=== PATIENT | male | born 1960 | race Caucasian/White ===

== ENCOUNTER 2023-07-17 18:34 | Inpatient (IN) | payer OTHER, SELFPAY ==
[2023-07-17] VITALS (15 sets, daily range): BP systolic 94–118; BP diastolic 63–78; BMI 33.2
--- NOTE | 2023-07-17 09:30 | ED.GENMED ---
History of Present Illness
<Kiki Miramontes PA-C - Last Filed: 07/17/23 18:32>
General
Chief Complaint: Abdominal Pain
Source: patient and ambulance crew
Exam Limitations: clinical condition
Time Seen by Provider: 07/17/23 09:07
Nursing documentation reviewed up to this point in time: agreed with
Travel History
Have you had any contact with someone who has COVID-19?: No
Do you have any symptoms of coronavirus? Fever > 100 degrees, chills, cough, shortness of breath, sore throat, loss of taste or smell, muscle aches, or headache?: No
History of Present Illness
History of Present Illness:
63-year-old male with a remote history of a subdural from trauma status post a shunt no longer in place, psoriasis which is his only treated medical problems
Comes from home via EMS after a fall today where he was on the ground for 1 hour approximately before EMS was called. Patient lives with his spouse. He says that he has had multiple falls over the last couple of weeks because he gets very dizzy
when he changes position.
It is unclear whether the patient goes for routine annual medical care but he did see a family doctor about 3 or 4 weeks ago. It is unclear why he went, at first he said he went for a checkup and then he said he went for a blood test for his
thyroid. Does not sound like the patient had any swelling to his legs or abdomen at the time. He says over the last several weeks he has noticed abdominal distention becoming significant with discomfort, as well as swelling in both of his legs.
He is not feeling overly short of breath and does not have chest pain, fever, vomiting, trouble urinating. Patient says that he is able to tolerate liquids but he feels that they 'go right through me.' Patient says his stools have been dark brown.
He does drink wine, several bottles a week. He will not feel symptoms of alcohol withdrawal if he does not have alcohol.
It is unclear if he struck his head today. Patient says that most of his pain is on his right flank which is 8 out of 10 and worse with movement.
He has no history of GI bleed in the past.
Patient says he does not know of any diagnosis of cirrhosis.
Past History
<Kiki Miramontes PA-C - Last Filed: 07/17/23 18:32>
Past History
ED Past Medical History: Other (Migraine, subdural hematoma)
ED Past Surgical History: Brain (Ventriculostomy)
Social History
Tobacco: Smoker
Alcohol: Daily
Drug: None
Personal:
Living: with family
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
Review of Systems
<Kiki Miramontes PA-C - Last Filed: 07/17/23 18:32>
Review of Systems
Allergies reviewed?: Yes
All Other Systems: Not applicable
Phy Exam
<Kiki iMramontes PA-C - Last Filed: 07/17/23 18:32>
Physical Exam
Physical Exam:
GENERAL: Alert , in no apparent distress pale
HEAD: NCAT
NECK: no midline tenderness, active ROM intact, no paraspinal muscle tenderness;
EYE: pupils equal and reactive, EOMs intact. Pale conjunctive a
ENT: o/p clr, mmm. no hemotympanum
CARDIAC: Regular rate and rhythm, anasarca, bilateral lower extremities moderately edematous, mottled
LUNGS: Clear breath sounds bilaterally, no acute respiratory distress, no wheezes/rales/rhonchi
ABDOMEN: Severely distended secondary to ascites, tender to the right flank with ecchymosis
No erythema, no rigidity
Rectal is heme positive dark brown stool
NEUROLOGICAL: Alert and oriented, sometimes has a delay in answering questions, no obvious asterixis no focal neuro deficits, CN intact, 5/5 strength, sensation intact
SKIN: Warm and dry,
MUSCULOSKELETAL: Mottled, old bruises, edematous
PSYCH: Normal and appropriate interaction.
Course
<Kiki Miramontes PA-C - Last Filed: 07/17/23 18:32>
Orders/Labs/Results
Orders:
Orders
07/17/23 09:14
EKG [Electrocardiogram (*1)] Urgent
Reason for Study: Abdominal Pain
07/17/23 09:15
EKG- Treatment ONCE
07/17/23 09:25
CT Cervical Spine W/o Iv Contr Urgent
Comment:
Reason For Exam: falls
CT Head W/o Iv Contrast Urgent
Comment:
Reason For Exam: falls, alcoholis
07/17/23 09:27
Thiamine Injection 100 mg IV NOW STA
07/17/23 09:28
HYDROmorphone [Dilaudid] 0.25 mg IV NOW STA
07/17/23 09:30
Pantoprazole 200 mg/250 ml Nss [Protonix] 200 mg in 250 ml IV Q25H
07/17/23 09:39
0.9% Sodium Chloride [Nss (Preservative Free)] 20 ml IV NOW STA
Pantoprazole [Protonix IV] 80 mg IV NOW STA
07/17/23 09:56
Type+Screen Urgent
Alcohol Urgent
Ammonia Urgent
CMP [Comprehensive Metabolic Panel] Urgent
CPK [Creatine Phosphokinase] Urgent
Complete Blood Count/With Diff Urgent
Hepatitis A Antibody, Total Urgent
Comment: ADD ON
Hepatitis B Surface Antibody Urgent
Comment: ADD ON
Hepatitis B Surface Antigen Urgent
Comment: ADD ON
Hepatitis C Antibody Urgent
Comment: ADD ON
Lipase Urgent
PTT Urgent
Prothrombin Time Urgent
Blood Culture Q30M
INDIGO Source: Blood/Venous
Specimen Description:
07/17/23 09:58
Lactic Acid Urgent
NT-proBNP Urgent
Blood Culture Q30M
INDIGO Source: Blood/Venous
Specimen Description:
07/17/23 10:42
Bladder Scan- Treatment ONCE
07/17/23 10:44
CT Chest/abd/pel Wo Iv Cont Urgent
Reason For Exam: trauma, acute renal failure
CefTRIAXone [Rocephin] 2,000 mg IV NOW STA
07/17/23 10:50
Gao Placement- Treatment ONCE
Reason for insertion: Acute Retention
07/17/23 10:52
Sterile Water [Sterile Water For Injection] 20 ml .ROUTE .[facility]
07/17/23 11:18
HYDROmorphone [Dilaudid] 0.5 mg IV NOW STA
07/17/23 13:38
MetroNIDAZOLE 500 MG/100 ML [Flagyl 500 mg] 100 ml IV NOW
07/17/23 14:23
0.9% Sodium Chloride 500 ml [Nss] 500 ml IV BOLUS
07/17/23 14:58
Urinalysis Reflex To Culture Urgent
Date Specimen was Collected: 07/17/23
Time Specimen was Collected: 15:35
07/17/23 15:08
Add On- LAB Urgent
Tests Added?: hepatitis panel
07/17/23 15:10
Add On- LAB Urgent
Tests Added?: alcohol
07/17/23 16:48
Urine Drug Abuse Screen Urgent
Portal Veins & Hepatic Veins US [US Abd W Abd Doppler] Urgent
Comment:
Reason For Exam: cirrhosis, ascites
07/17/23 17:08
Lactic Acid Urgent
07/17/23 17:57
Admit/Transfer Patient As Directed
Co-Sign Provider:
Level of Care: Inpatient admission
Assign to:: ICU
Physician / Group: esteban
Diagnosis: cirrhosis
Reason for Hospitalization: cirrhosis
Expected length of stay greater than two midnights?: Yes
ELOS- Estimated Length of Stay in days: 2
I certify the patient meets the requirements for IP care: Yes
Code Status As Directed
Resuscitation Status: Full Code
07/17/23 18:10
Sodium Bicarbonate 50 meq IV NOW STA
07/17/23 18:11
GASTROINTESTINAL CONSULT Routine
Consulting Provider: Madhu Recio
Was physician already notified: Yes
SURGICAL CONSULT Routine
Consulting Provider: Colt Lynch
Was physician already notified: Yes
Abnormal Lab Results
07/17/23 07/17/23
09:56 09:58
WBC 19.3 H 10^3/uL
(4.8-10.8)
RBC 2.55 L 10^6/uL
(4.70-6.10)
Hgb 10.6 L g/dL
(13.0-18.0)
Hct 29.3 L %
(39.0-52.0)
MCV 114.9 H fL
(80.0-94.0)
MCH 41.6 H pg
(27.0-31.0)
Abs Immat Gran (auto) 0.2 H 10^3/uL
(0-0.05)
Absolute Neuts (auto) 16.0 H 10^3/uL
(1.4-6.5)
Absolute Monos (auto) 1.7 H 10^3/uL
(0.1-0.6)
Immature Gran % 0.8 H %
(0-0.5)
Neutrophils % 83.0 H %
(42.2-75.2)
Lymphocytes % 7.3 L %
(20.5-51.1)
PT 26.1 H Sec
(11.4-14.6)
APTT 37.8 H Sec
(23.4-35.0)
Carbon Dioxide 18 L mmol/L
(22-30)
BUN 61 H mg/dl
(9-20)
Creatinine 4.5 H* mg/dL
(0.7-1.3)
Lactic Acid 3.5 H mmol/L
(0.7-2.0)
Total Bilirubin 2.6 H mg/dl
(0.2-1.3)
AST 164 H U/L
(17-59)
ALT 64 H U/L
(0-50)
Creatine Kinase 209 H U/L
(55-170)
Total Protein 5.8 L g/dl
(6.3-8.2)
Albumin 2.5 L g/dl
(3.5-5.0)
07/17/23 09:56
07/17/23 09:56
Vital Signs
Initial and Last Documented VS:
Initial Vital Signs
Pulse Resp BP
102 23 115/74
07/17/23 09:12 07/17/23 09:12 07/17/23 09:12
Last Documented Vital Signs
Temp Pulse Resp BP Pulse Ox
97.7 F 100 17 103/71 96
07/17/23 09:17 07/17/23 18:00 07/17/23 18:00 07/17/23 18:00 07/17/23 18:00
jessie;Zachary Hsu DO - Last Filed: 07/17/23 14:09>
Orders/Labs/Results
Orders:
Orders
07/17/23 09:14
EKG [Electrocardiogram (*1)] Urgent
Reason for Study: Abdominal Pain
07/17/23 09:15
EKG- Treatment ONCE
07/17/23 09:25
CT Cervical Spine W/o Iv Contr Urgent
Comment:
Reason For Exam: falls
CT Head W/o Iv Contrast Urgent
Comment:
Reason For Exam: falls, alcoholis
07/17/23 09:27
Thiamine Injection 100 mg IV NOW STA
07/17/23 09:28
HYDROmorphone [Dilaudid] 0.25 mg IV NOW STA
07/17/23 09:30
Pantoprazole 200 mg/250 ml Nss [Protonix] 200 mg in 250 ml IV Q25H
07/17/23 09:39
0.9% Sodium Chloride [Nss (Preservative Free)] 20 ml IV NOW STA
Pantoprazole [Protonix IV] 80 mg IV NOW STA
07/17/23 09:56
Type+Screen Urgent
Alcohol Urgent
Ammonia Urgent
CMP [Comprehensive Metabolic Panel] Urgent
CPK [Creatine Phosphokinase] Urgent
Complete Blood Count/With Diff Urgent
Hepatitis A Antibody, Total Urgent
Comment: ADD ON
Hepatitis B Surface Antibody Urgent
Comment: ADD ON
Hepatitis B Surface Antigen Urgent
Comment: ADD ON
Hepatitis C Antibody Urgent
Comment: ADD ON
Lipase Urgent
PTT Urgent
Prothrombin Time Urgent
Blood Culture Q30M
INDIGO Source: Blood/Venous
Specimen Description:
07/17/23 09:58
Lactic Acid Urgent
NT-proBNP Urgent
Blood Culture Q30M
INDIGO Source: Blood/Venous
Specimen Description:
07/17/23 10:42
Bladder Scan- Treatment ONCE
07/17/23 10:44
CT Chest/abd/pel Wo Iv Cont Urgent
Reason For Exam: trauma, acute renal failure
CefTRIAXone [Rocephin] 2,000 mg IV NOW STA
07/17/23 10:50
Gao Placement- Treatment ONCE
Reason for insertion: Acute Retention
07/17/23 10:52
Sterile Water [Sterile Water For Injection] 20 ml .ROUTE .[facility]
07/17/23 11:18
HYDROmorphone [Dilaudid] 0.5 mg IV NOW STA
07/17/23 13:38
MetroNIDAZOLE 500 MG/100 ML [Flagyl 500 mg] 100 ml IV NOW
07/17/23 14:23
0.9% Sodium Chloride 500 ml [Nss] 500 ml IV BOLUS
07/17/23 14:58
Urinalysis Reflex To Culture Urgent
Date Specimen was Collected: 07/17/23
Time Specimen was Collected: 15:35
07/17/23 15:08
Add On- LAB Urgent
Tests Added?: hepatitis panel
07/17/23 15:10
Add On- LAB Urgent
Tests Added?: alcohol
07/17/23 16:48
Urine Drug Abuse Screen Urgent
Portal Veins & Hepatic Veins US [US Abd W Abd Doppler] Urgent
Comment:
Reason For Exam: cirrhosis, ascites
07/17/23 17:08
Lactic Acid Urgent
07/17/23 17:57
Admit/Transfer Patient As Directed
Co-Sign Provider:
Level of Care: Inpatient admission
Assign to:: ICU
Physician / Group: esteban
Diagnosis: cirrhosis
Reason for Hospitalization: cirrhosis
Expected length of stay greater than two midnights?: Yes
ELOS- Estimated Length of Stay in days: 2
I certify the patient meets the requirements for IP care: Yes
Code Status As Directed
Resuscitation Status: Full Code
07/17/23 18:10
Sodium Bicarbonate 50 meq IV NOW STA
07/17/23 18:11
GASTROINTESTINAL CONSULT Routine
Consulting Provider: aMdhu Recio
Was physician already notified: Yes
SURGICAL CONSULT Routine
Consulting Provider: Colt Lynch
Was physician already notified: Yes
Abnormal Lab Results
01/17/24 01/17/24
09:56 09:58
WBC 19.3 H 10^3/uL
(4.8-10.8)
RBC 2.55 L 10^6/uL
(4.70-6.10)
Hgb 10.6 L g/dL
(13.0-18.0)
Hct 29.3 L %
(39.0-52.0)
MCV 114.9 H fL
(80.0-94.0)
MCH 41.6 H pg
(27.0-31.0)
Abs Immat Gran (auto) 0.2 H 10^3/uL
(0-0.05)
Absolute Neuts (auto) 16.0 H 10^3/uL
(1.4-6.5)
Absolute Monos (auto) 1.7 H 10^3/uL
(0.1-0.6)
Immature Gran % 0.8 H %
(0-0.5)
Neutrophils % 83.0 H %
(42.2-75.2)
Lymphocytes % 7.3 L %
(20.5-51.1)
PT 26.1 H Sec
(11.4-14.6)
APTT 37.8 H Sec
(23.4-35.0)
Carbon Dioxide 18 L mmol/L
(22-30)
BUN 61 H mg/dl
(9-20)
Creatinine 4.5 H* mg/dL
(0.7-1.3)
Lactic Acid 3.5 H mmol/L
(0.7-2.0)
Total Bilirubin 2.6 H mg/dl
(0.2-1.3)
AST 164 H U/L
(17-59)
ALT 64 H U/L
(0-50)
Creatine Kinase 209 H U/L
(55-170)
Total Protein 5.8 L g/dl
(6.3-8.2)
Albumin 2.5 L g/dl
(3.5-5.0)
07/17/23 09:56
07/17/23 09:56
Vital Signs
Initial and Last Documented VS:
Initial Vital Signs
Pulse Resp BP
102 23 115/74
07/17/23 09:12 07/17/23 09:12 07/17/23 09:12
Last Documented Vital Signs
Temp Pulse Resp BP Pulse Ox
97.7 F 100 17 103/71 96
07/17/23 09:17 07/17/23 18:00 07/17/23 18:00 07/17/23 18:00 07/17/23 18:00
<Kiki Miramontes PA-C - Last Filed: 07/17/23 18:32>
MDM/Problems Addressed
Differential Diagnosis Includes:
liver failurie, cirrhosis, ascites, sbp, trauma
MDM/Problems Addressed:
63 y/o M
does not have any documented medical history
only on meds for psoriasis
here after fall this am, on ground 1 hour
has had 2-3 weeks of abd distension an dleg swelling, says it is brand new
did no thave konwn liver disease
drinks a few bottles of wine a week
has had multiple falls the past few weeks
vitals stable
appears pale
uncomfortable with omvement
large ascites, right flank ecchymosis
heme pos dark brown stool
labs remarkable for ARF, mild elevated LFTs, wbc 19, hemoglobin 10, lactate 3.5, inr 2.3
ct scan neg for trauma
but chirrosis and free intraabdomianl air without obvious source
pt has large ascites
seen by dr. hsu, ed attending.
we were planning on admission
but gen surgeon dr. arnold concerned about pt's MELD being 34, Child pug class C, considered high risk and recommends transfer to teriary facility
This patient required multiple consultations, we started with [facility] and I spoke with the surgeon there who did not feel that the patient should come to the facility because they did not have liver service. He recommended [facility], I spoke with
the fellow for hepatology at [facility] and he wanted to run the attending and it took some time for him to native back and say that the patient would be excepted there however there were no beds. The patient was accepted by Dr. stevens per
jaylene the fellow and recommended a liver ultrasound with Dopplers, UDS and EtOH level. He also recommended that the patient get a paracentesis. I spoke with Dr. Aj for interventional radiology who said that he would be unable to do a
therapeutic tap tonight but he would recommend that we perform a diagnostic tap if necessary. I spoke with the ED attending after change of shift to Dr. Contreras and given the fact that the patient has free air we did not feel comfortable performing
this diagnostic tap. He is covered with antibiotics and at this point admitted to the hospitalist at [facility] while we await transfer. Dr. Arnold is aware that the patient is staying here until transfer
<Kiki Miramontes PA-C - Last Filed: 07/17/23 18:32>
*Critical Care Note
Total Time (30-74mins, 75-104mins- exclusive of procedures): Not Applicable
ED Attending Note
<Kiki Miramontes PA-C - Last Filed: 07/17/23 18:32>
-
Portions of this chart may have been created with voice recognition software.� Occasional wrong word or��sound alike� substitutions may have occurred due to the inherent limitations of voice recognition software.
<Zachary Hsu DO - Last Filed: 07/17/23 14:09>
ED Attending Note
Patient seen and examined by attending physician: Yes
I performed the substantive portion of visit, reviewed & personally made and approve the management plan that is documented in note by myself or ARIA.: Yes
ED Attending Note:
I agree with Sue's note
Patient arrives to the ER for evaluation after a having a fall. However patient has been feeling unwell for the past 3 weeks. He has noticed swelling in his abdomen and legs. Patient is complaining of bilateral flank and chest wall pain. No
shortness of breath. Patient is unaware of any medical illness which might contribute to his abdominal and lower extremity swelling. Patient does endorse alcohol use. He was drinking '2 bottles of wine a week' until 3 weeks ago when he began
feeling unwell.
General: Awake, Alert, Oriented X3. Appears cachectic and chronically ill
Vitals: Mildly tachycardic
Head: Atraumatic
Eyes: Pupils equal, EOMI, + scleral icterus
Throat: Airway intact, no exudates, dry mucosa
Neck: Trachea midline
Lungs: Clear and equal b/l
Heart: Regular rate, no murmurs
Abd: Soft, massive abdominal distention,, No pulsatile mass
Neuro: Grossly nonfocal
Skin: Jaundice, bruising noted diffusely, positive telangiectasias
Extremities: pulses equal b/l, no edema
Will obtain CT to identify any traumatic injuries. Patient may have some rib injuries but my suspicion for intra-abdominal injury is low. However the patient presents with physical exam findings highly concerning for cirrhosis. Labs show an
elevated white blood cell count, mild anemia, acute renal failure, elevated transaminases with an elevated bilirubin. His albumin is quite low. Patient will clearly require hospitalization. We will request paracentesis from IR. Patient will be
admitted to the hospital service assuming no significant traumatic injuries are found
CT shows free air. No clear indication for source of free air. ? colitis.
Sue discussed case with gen surgery here who recommends tx to tertiary care center.
Discharge Plan
Departure
Patient Disposition: Admit
Date of Disposition: 07/17/23
Time of Disposition: 16:51
Admit to: IMU
Presentation/result/management discussed w/ accepting MD/DO: Hospitalist
Condition: Fair
Discharge Problem:
Cirrhosis, Ascites, Acute renal failure, Free intraperitoneal air
Prescriptions:
No Action
mometasone 0.1 % ointment
1 applic topical DAILY
clobetasol 0.05 % Ointment
1 applic TOPICAL DAILY
Referrals:
Taran Meyer MD [Family Provider] -
Interventions
Interventions:
*Risk Screen - Suicide Last Done: 07/17/23 09:17
*General Assessment Last Done: 07/17/23 09:25
*Neglect/Abuse Screening Last Done: 07/17/23 09:17
ED- Fall Risk Assessment Last Done: 07/17/23 09:25
*ED COVID-19 Vaccine History Last Done: 07/17/23 09:17
DK-Tdkbgp-Dytxuyaocc Assessment Last Done: 07/17/23 09:25
ED-Musculoskeletal Assessment Last Done: 07/17/23 09:25
ED- Neurological Assessment Last Done: 07/17/23 09:25
ED-Skin Assessment Last Done: 07/17/23 09:25
--- NOTE | 2023-07-17 09:45 | EDRN ---
Received patient from home via EMS s/p fall. Patient stated that he slipped and fell hitting the right side of his abdomen. Patient stated that he was unable to get up and laid on the floor for about an hour before his spouse called EMS. EMS stated
that the patient was laying naked in stool on the floor when they got there. Patient stated that he lives with his spouse but is essentially alone because his spouse wants nothing to do with him.
Patient with c/o right sided abdominal pain where he fell. Patient with ascites. Patient stated that this is new for him and developed over the past 3 weeks along with his leg edema. Patient denies any h/o liver disease. Patient stated that he
drinks 2 bottles of wine a week and last drank last week. +bruising to right flank.
Patient arrived with dried dark red stool on his legs. Patient stated that his stools have been dark in color for the past month. Denies being on any thinners.
[2023-07-17] MEDS: THIAMINE INJECTION 100 MG IV (10:13)
[2023-07-17] MEDS: NSS (PRESERVATIVE FREE) 20 ML IV (10:13)
[2023-07-17] MEDS: PROTONIX IV 80 MG IV (10:14)
[2023-07-17] MEDS: PROTONIX 250 IV (10:14)
[2023-07-17] MEDS: DILAUDID 0.25 MG IV (10:14)
[2023-07-17 10:17] LABS: % Basophils 0.2 % (0-2); % Eosinophils 0.1 % (0-6); % Immature Granulocytes 0.8 % (0-0.5); % Lymphocytes 7.3 % (20.5-51.1); % Monocytes 8.6 % (1.7-9.3); Absolute Immature Granulocytes 0.2 10^3/uL (0-0.05); Absolute Lymphocytes 1.4 10^3/uL (1.2-3.4); Absolute Monocytes 1.7 10^3/uL (0.1-0.6); Hematocrit 29.3 % (39.0-52.0); Hemoglobin 10.6 g/dL (13.0-18.0); Mean Corp Hgb Conc. 36.2 g/dL (33.0-37.0); Mean Corpuscular Hgb 41.6 pg (27.0-31.0); Mean Corpuscular Volume 114.9 fL (80.0-94.0); Mean Platelet Volume 10.4 fL (7.4-10.4); Nucleated Red Blood Cells % 0 % (-); Platelet Count 137 10^3/uL (130-400); Red Blood Cell Count 2.55 10^6/uL (4.70-6.10); Red Cell Dist. Width 13.8 % (11.5-14.5); White Blood Cell Count 19.3 10^3/uL (4.8-10.8)
[2023-07-17 10:24] LABS: APTT 37.8 Sec (23.4-35.0); INR 2.35; PT 26.1 Sec (11.4-14.6)
[2023-07-17 10:30] LABS: Lactic Acid 3.5 mmol/L (0.7-2.0)
[2023-07-17 10:31] LABS: Ammonia 22 umol/L (9-30)
[2023-07-17 10:37] LABS: ALT (SGPT) 64 U/L (0-50); AST (SGOT) 164 U/L (17-59); Albumin 2.5 g/dl (3.5-5.0); Alkaline Phosphatase 103 U/L (38-126); Blood Urea Nitrogen 61 mg/dl (9-20); Calcium 8.8 mg/dl (8.4-10.2); Carbon Dioxide 18 mmol/L (22-30); Chloride 102 mmol/L (98-107); Estimated Creatinine Clearance 20 ml/min; Glucose 80 mg/dl (70-99); Sodium 136 mmol/L (135-145); Total Bilirubin 2.6 mg/dl (0.2-1.3); Total Protein 5.8 g/dl (6.3-8.2); eGFR 13.91
[2023-07-17 10:40] LABS: NT-proBNP 6100 pg/ml
[2023-07-17] MEDS: ROCEPHIN 2000 MG IV (10:55)
[2023-07-17 11:00] LABS: Creatine Phosphokinase 209 U/L (55-170); Lipase 185 U/L (23-300)
[2023-07-17] MEDS: DILAUDID 0.5 MG IV ×2 (11:28→23:53)
[2023-07-17] MEDS: FLAGYL 500 MG 100 IV (15:01)
[2023-07-17] MEDS: NSS 500 IV (15:02)
[2023-07-17 16:04] LABS: Alcohol None Detected
[2023-07-17 17:34] LABS: Lactic Acid 1.1 mmol/L (0.7-2.0)
--- NOTE | 2023-07-17 18:01 | HPS.HSE ---
Addendum entered and electronically signed by Zakia Anderson MD 07/17/23 18:12:
DISREGARD. MISSING INFO.
Original Note:
Family Physician
-
Family Physician: Taran Meyer
Chief Complaint
-
abdominal distention
History of Present Illness
63-year-old male past medical history of subdural hematoma with prior shunt, psoriasis presenting via EMS after a fall today where he was on the ground for 1 hour. He has had multiple falls over the past couple of weeks because he gets very dizzy
when he changes position. Unclear if he hit his head today. Most of his pain is on the right flank rated 8 out of 10 and worse with movement.
Patient has noticed increasing abdominal distention over the past several weeks associated discomfort as well as increase swelling in the legs. He is not feeling overly shortness of breath or cough and denies chest pain, fever, vomiting or urinary
symptoms. He is able to tolerate liquids but feels that they go right through him. His stools have been dark brown.
He does drink several bottles of wine a week but stopped drinking few weeks ago. Denies smoking or any other drugs.
He is not aware of any diagnosis of cirrhosis.
Medical History
Past Medical History
Past Medical History: Reports Other (subdural hematoma with prior shunt, psoriasis)
Past Surgical History: Reports Brain (prior brain shunt )
Social History
Tobacco: Non-smoker
Alcohol: None
Drug: None
Family History
Family History: Not pertinent
Allergies / Home Medications
Allergies reflects when Allergies were last updated in [facility].
Home Medications with original date entered in [facility]
Allergy/Medication List:
Allergies
Allergy/AdvReac Type Severity Reaction Status Date / Time
No Known Allergies Allergy Verified 07/17/23 09:28
Home Medications
mometasone 0.1 % topical ointment 1 applic topical DAILY all over psoriasis 02/16/21
clobetasol 0.05 % topical ointment 1 applic topical DAILY all over psoriasis 07/17/23
Review of Systems
-
History Source: Patient
A 12 point ROS was completed and negative except as noted: Yes
Constitutional: Reports No Symptoms
EENT: Reports No Symptoms
Respiratory: Reports No Symptoms
Cardiac: Reports No Symptoms
Abdomen/GI: Reports See HPI
: Reports No Symptoms
Musculoskeletal: Reports No Symptoms
Skin: Reports No Symptoms
Neurological: Reports No Symptoms
Endocrine: Reports No Symptoms
Hematologic/Lymphatic: Reports No Symptoms
Psych: Reports No Symptoms
Physical Exam
Vital Signs
Vital Signs
Temp Pulse Resp BP Pulse Ox
97.7 F 101 17 111/75 96
07/17/23 09:17 07/17/23 16:45 07/17/23 16:45 07/17/23 15:00 07/17/23 16:45
Physical Exam
General: Well Developed, Well Nourished and No Apparent Distress
HEENT: NormoCephalic, Moist mucous membranes and Atraumatic
Respiratory: Clear
Cardiac: S1/S2 and Regular Rhythm; No Murmur or Rub
GI: Soft, Tender and Distended; No Organomegaly
Rectal: Deferred by Provider
Musculoskeletal: No Clubbing, No Cyanosis and No Edema
Skin: No Rash
Neuro: Nonfocal/grossly intact
Laboratory Results
-
07/17/23 09:56
07/17/23 09:56
Laboratory Results
PT 26.1 Sec (11.4-14.6) H 07/17/23 09:56
INR 2.35 07/17/23 09:56
APTT 37.8 Sec (23.4-35.0) H 07/17/23 09:56
Lactic Acid 1.1 mmol/L (0.7-2.0) 07/17/23 17:08
Total Bilirubin 2.6 mg/dl (0.2-1.3) H 07/17/23 09:56
AST 164 U/L (17-59) H 07/17/23 09:56
ALT 64 U/L (0-50) H 07/17/23 09:56
Alkaline Phosphatase 103 U/L (38-126) 07/17/23 09:56
Lipase 185 U/L (23-300) 07/17/23 09:56
Data Reviewed
-
Lab Data: Labs Reviewed by me
Old Records: Reviewed
Impression/Plan
-
IMPRESSION:
PLAN:
# Ascites likely secondary to newly diagnosed alcoholic cirrhosis
-Check portal vein ultrasound
-Check blood cultures
-IR consulted for paracentesis
-Patient accepted to [facility] given MELD score 34, child fournier class C but no beds available
-Zosyn
-GI consulted
# Small and free air in the anterior abdomen unclear etiology
-N.p.o.
-Blood cultures
-IV fluids
-Zosyn
-General surgery consulted and requested transfer to tertiary center
# Macrocytic anemia
-Rectal exam showed heme positive dark stool
-Protonix drip
# Right flank ecchymosis secondary to fall
-CT abdomen unremarkable for trauma
-CT head unremarkable
-CT C-spine unremarkable
# Patchy airspace disease bilateral upper lobes
-Vancomycin/Zosyn
History of subdural hematoma with prior shunt
Former alcohol use disorder
Psoriasis
Full code
DVT prophylaxis�SCDs
N.p.o.
--- NOTE | 2023-07-17 18:08 | HPS.HSE ---
Family Physician
-
Family Physician: Taran Meyer
Chief Complaint
-
fall
History of Present Illness
63-year-old male past medical history of subdural hematoma with prior shunt, psoriasis presenting via EMS after a fall today where he was on the ground for 1 hour. He has had multiple falls over the past couple of weeks because he gets very dizzy
when he changes position. Unclear if he hit his head today. Most of his pain is on the right flank rated 8 out of 10 and worse with movement.
Patient has noticed increasing abdominal distention over the past several weeks associated discomfort as well as increase swelling in the legs. He is not feeling overly shortness of breath or cough and denies chest pain, fever, vomiting or urinary
symptoms. He is able to tolerate liquids but feels that they go right through him. His stools have been dark brown.
He does drink several bottles of wine a week but stopped drinking few weeks ago. Denies smoking or any other drugs.
He is not aware of any diagnosis of cirrhosis.
Medical History
Past Medical History
Past Medical History: Reports Other (subdural hematoma with prior shunt, psoriasis)
Past Surgical History: Reports Brain (shunt )
Social History
Tobacco: Non-smoker
Alcohol: Former
Drug: None
Family History
Family History: Not pertinent
Allergies / Home Medications
Allergies reflects when Allergies were last updated in [facility].
Home Medications with original date entered in [facility]
Allergy/Medication List:
Allergies
Allergy/AdvReac Type Severity Reaction Status Date / Time
No Known Allergies Allergy Verified 07/17/23 09:28
Home Medications
mometasone 0.1 % topical ointment 1 applic topical DAILY all over psoriasis 02/16/21
clobetasol 0.05 % topical ointment 1 applic topical DAILY all over psoriasis 07/17/23
Review of Systems
-
History Source: Patient
A 12 point ROS was completed and negative except as noted: Yes
Constitutional: Reports No Symptoms
EENT: Reports No Symptoms
Respiratory: Reports No Symptoms
Cardiac: Reports No Symptoms
Abdomen/GI: Reports See HPI
: Reports No Symptoms
Musculoskeletal: Reports No Symptoms
Skin: Reports No Symptoms
Neurological: Reports No Symptoms
Endocrine: Reports No Symptoms
Hematologic/Lymphatic: Reports No Symptoms
Psych: Reports No Symptoms
Physical Exam
Vital Signs
Vital Signs
Temp Pulse Resp BP Pulse Ox
97.7 F 101 17 111/75 96
07/17/23 09:17 07/17/23 16:45 07/17/23 16:45 07/17/23 15:00 07/17/23 16:45
Physical Exam
General: Well Developed, Well Nourished and No Apparent Distress
HEENT: NormoCephalic, Moist mucous membranes and Atraumatic
Respiratory: Clear
Cardiac: S1/S2 and Regular Rhythm; No Murmur or Rub
GI: Soft, Normal Bowel Sounds, Tender and Distended; No Organomegaly
Rectal: Deferred by Provider
Musculoskeletal: No Clubbing, No Cyanosis and No Edema
Skin: No Rash
Neuro: Nonfocal/grossly intact
Laboratory Results
-
07/17/23 09:56
07/17/23 09:56
Laboratory Results
PT 26.1 Sec (11.4-14.6) H 07/17/23 09:56
INR 2.35 07/17/23 09:56
APTT 37.8 Sec (23.4-35.0) H 07/17/23 09:56
Lactic Acid 1.1 mmol/L (0.7-2.0) 07/17/23 17:08
Total Bilirubin 2.6 mg/dl (0.2-1.3) H 07/17/23 09:56
AST 164 U/L (17-59) H 07/17/23 09:56
ALT 64 U/L (0-50) H 07/17/23 09:56
Alkaline Phosphatase 103 U/L (38-126) 07/17/23 09:56
Lipase 185 U/L (23-300) 07/17/23 09:56
Data Reviewed
-
Lab Data: Labs Reviewed by me
Old Records: Reviewed
Impression/Plan
-
IMPRESSION:
PLAN:
# Sepsis (leukocytosis, tachycardia) secondary to SBP
# Ascites likely secondary to newly diagnosed alcoholic cirrhosis
-Check portal vein ultrasound
-Check blood cultures
-IR consulted for paracentesis
-Patient accepted to [facility] given MELD score 34, child fournier class C but no beds available
-Zosyn
-GI consulted
# Small and free air in the anterior abdomen unclear etiology
-N.p.o.
-Blood cultures
-IV fluids
-Zosyn
-General surgery consulted and requested transfer to tertiary center
# Acute kidney injury
# Metabolic acidosis
-Bicarb drip
-Ago catheter, monitor urine output
# Macrocytic anemia
-Rectal exam showed heme positive dark stool
-Protonix drip
# Right flank ecchymosis secondary to fall
-CT abdomen unremarkable for trauma
-CT head unremarkable
-CT C-spine unremarkable
# Patchy airspace disease bilateral upper lobes
-Vancomycin/Zosyn
History of subdural hematoma with prior shunt
Former alcohol use disorder
Psoriasis
Full code
DVT prophylaxis�SCDs
N.p.o.
[2023-07-17] MEDS: SODIUM BICARBONATE 50 MEQ IV (18:47)
[2023-07-17 23:15] LABS: Urine Albumin Trace (Neg - Trace); Urine Bilirubin Negative (Negative); Urine Character Clear (Clear); Urine Color Yellow; Urine Glucose Negative (Negative); Urine Ketone Negative (Negative); Urine Leukocyte Negative (Negative); Urine Nitrite Negative (Negative); Urine Occult Blood 4+ (Negative); Urine Urobilinogen Negative (Neg - 1+)
[2023-07-17] MEDS: ZOFRAN 4 MG IV (23:15)
--- NOTE | 2023-07-17 23:21 | PHA.VAN.IN ---
Assessment
- Assessment
Renal Function: Unknown baseline
Concomitant Antimicrobials: ZOSYN
- Previous Dosing Experience
Previous Regimen: NONE
Plan
- Plan
Initial / Loading Dose: 1500MG
Maintenance Regimen: DOSING BY RANDOM LEVELS
Monitoring: RANDOM VANCOMYCIN LEVEL 18 AM
Pharmacokinetics Vancomycin I
- -
Patient Age: 63
Patient Sex: Male
Vancomycin Day #: 1
Indication: Pulmonary/Respiratory (SEPSIS)
Requesting Provider: SELVIN
Height / Weight:
Height 5 ft 10 in
Actual Weight 104.9 kg
Pertinent Past Medical History: CIRROHISIS
- Vital Signs / Lab Results
Temp Pulse Resp BP Pulse Ox
97.7 F 101 18 105/70 98
07/17/23 09:17 07/17/23 21:45 07/17/23 21:45 07/17/23 21:00 07/17/23 21:45
Lab Results - Hematology
07/17/23
09:56
WBC 19.3 H
Lab Results - Chemistry
07/17/23
09:56
BUN 61 H
Creatinine 4.5 H*
Estimated Creat Clear 20
Albumin 2.5 L
07/17/23 07/17/23
09:58 17:08
Lactic Acid 3.5 H 1.1
Lab Results - Urine
07/17/23
23:00
Urine Nitrite (Reflex) Negative
Leukocyte Esterase Rfl Negative
[2023-07-17] MEDS: SODIUM BICARBONATE 1150 MEQ IV (23:35)
[2023-07-17] MEDS: ZOSYN 50 IV (23:35)
[2023-07-17] MEDS: VANCOCIN 300 MG IV (23:59)
[2023-07-17] MEDS: VANCOCIN 300 ML IV (23:59)
[2023-07-18] VITALS (59 sets, daily range): BP systolic 84–154; BP diastolic 44–143; PULSE 98; O2SAT 98; BMI 33.2
[2023-07-18 01:38] LABS: Urine Bacteria Moderate (Negative); Urine Urothelial Cell >30 /LPF (FEW)
[2023-07-18] MEDS: NSS 1000 IV (03:46)
[2023-07-18 04:09] LABS: Amphetamines Negative (Negative); Barbiturates Negative (Negative); Benzodiazepines Negative (Negative); Buprenorphine Negative (Negative); Cocaine Negative (Negative); Marijuana Negative (Negative); Methadone Negative (Negative); Methamphetamines Negative (Negative); Opiates Positive (Negative); Phencyclidine Negative (Negative); Tricyclic Antidepressants Negative (Negative)
[2023-07-18 04:16] LABS: Fentanyl, Urine Negative (Negative)
--- NOTE | 2023-07-18 06:22 | W.PN.SEPSIS ---
Sepsis
Vital Signs
Temp Pulse Resp BP Pulse Ox
97.7 F 99 14 113/65 97
07/18/23 06:18 07/18/23 05:30 07/18/23 05:30 07/18/23 05:00 07/18/23 05:30
Physical Exam
Physical Exam:
A focused exam was performed after fluid resuscitation.
Capillary Refill
Bilateral Upper Extremity:
Xiao Time: Less than 3 sec
Bilateral Lower Extremity:
Xiao Time: Less than 3 sec
Pulse Evaluation
Bilateral Radial:
Pulse Evaluation: Present
Bilateral Dorsalis Pedis:
Pulse Evaluation: Present
[2023-07-18 06:58] LABS: % Basophils 0.2 % (0-2); % Eosinophils 0.1 % (0-6); % Immature Granulocytes 0.9 % (0-0.5); % Lymphocytes 6.8 % (20.5-51.1); % Monocytes 9.8 % (1.7-9.3); % Neutrophils 82.2 % (42.2-75.2); Absolute Immature Granulocytes 0.2 10^3/uL (0-0.05); Absolute Lymphocytes 1.2 10^3/uL (1.2-3.4); Absolute Monocytes 1.7 10^3/uL (0.1-0.6); Absolute Neutrophils 14.4 10^3/uL (1.4-6.5); Hematocrit 28.2 % (39.0-52.0); Hemoglobin 10.1 g/dL (13.0-18.0); Mean Corp Hgb Conc. 35.8 g/dL (33.0-37.0); Mean Corpuscular Hgb 41.2 pg (27.0-31.0); Mean Corpuscular Volume 115.1 fL (80.0-94.0); Mean Platelet Volume 10.9 fL (7.4-10.4); Nucleated Red Blood Cells % 0 % (-); Platelet Count 117 10^3/uL (130-400); Red Blood Cell Count 2.45 10^6/uL (4.70-6.10); Red Cell Dist. Width 13.7 % (11.5-14.5); White Blood Cell Count 17.6 10^3/uL (4.8-10.8)
[2023-07-18] MEDS: ZOSYN 50 IV ×4 (07:17→23:46)
[2023-07-18 07:20] LABS: Vancomycin Random 17.3 ug/ml
[2023-07-18 07:28] LABS: ALT (SGPT) 64 U/L (0-50); AST (SGOT) 138 U/L (17-59); Albumin 2.5 g/dl (3.5-5.0); Alkaline Phosphatase 107 U/L (38-126); Blood Urea Nitrogen 68 mg/dl (9-20); Calcium 7.8 mg/dl (8.4-10.2); Carbon Dioxide 19 mmol/L (22-30); Chloride 106 mmol/L (98-107); Estimated Creatinine Clearance 20 ml/min; Glucose 82 mg/dl (70-99); Magnesium 1.8 mg/dl (1.6-2.3); Phosphorus 6.3 mg/dl (2.5-4.5); Potassium 4.7 mmol/L (3.5-5.1); Sodium 135 mmol/L (135-145); Total Protein 5.7 g/dl (6.3-8.2); eGFR 13.91
--- NOTE | 2023-07-18 08:00 | PTCARENOTE ---
PT receive in bed drowsy but arousable, soft voice with slow speech, AAOx2, PT is confused at times, NSR with PVC's, bigeminy/trigeminy noted, +3 LE edema pitting, brown in color, 2L NC placed for comfort not need, 99%, diminished and shallow, poor
effort, abdomen round, distended, firm, hypoactive BS, indwelling catheter, care preformed as per protocol, scrotum +2 swollen, skin intact, L AC INT, Left FA INT and R FA INT, flushed and patent, PT to go to [facility] for paracentesis today
--- NOTE | 2023-07-18 08:37 | PHA.VAN.FU ---
Addendum entered and electronically signed by Nguyen Madrid [facility] 07/18/23 08:44:
Random level essentially a peak. However, given elevation in SCR, will hold off on any further dosing today and assess random level in the AM.
Original Note:
Vancomycin Assessment / Plan
- Assessment
Renal Function: Stable
WBC's are: Trending Down
In the past 24 hrs, patient has been: Afebrile
Concomitant Antimicrobials: piperacillin/tazobactam
- Assessment - Therapeutic Drug Monitoring
Random Level: 17.3 - drawn ~6.5H after 1500mg iniital dose
- Dosing Plan
Dosing by Level: Re-dose today (Vanc 1000mg)
- Monitoring Plan
Random Level: 07/19 0600
MRSA Screen: Ordered per protocol
- Follow Up
Pharmacy will continue to follow.
Vancomycin Follow UP
- -
Patient Age: 63
Patient Sex: Male
Vancomycin Day #: 2
Indication: Pulmonary/Respiratory
Requesting Provider: Dr. Anderson
Pertinent Antimicrobial Allergies:
NKDA
Height / Weight:
Height 5 ft 10 in
Actual Weight 104.9 kg
Pertinent Past Medical History: BMI ~33, Alcohol cirrhosis
- Vital Signs / Lab Results
Temp Pulse Resp BP Pulse Ox
97.6 F 111 15 108/72 96
07/18/23 08:03 07/18/23 06:15 07/18/23 06:15 07/18/23 06:15 07/18/23 06:15
Lab Results - Hematology
07/17/23 07/18/23
09:56 06:25
WBC 19.3 H 17.6 H
Lab Results - Chemistry
07/17/23 07/18/23
09:56 06:25
BUN 61 H 68 H
Creatinine 4.5 H* 4.5 H*
Estimated Creat Clear 20 20
Albumin 2.5 L 2.5 L
07/17/23 07/17/23
09:58 17:08
Lactic Acid 3.5 H 1.1
Lab Results - Urine
07/17/23
23:00
Urine Nitrite (Reflex) Negative
Leukocyte Esterase Rfl Negative
Ur Squamous Epith Cells 6-10
Therapeutic Drug Monitoring
Random Vancomycin 17.3 ug/ml 07/18/23 06:25
[2023-07-18] MEDS: ELOCON 0.1% TOPICAL (09:17)
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
--- NOTE | 2023-07-18 10:23 | CON.GS ---
Consultation
-
Date/Time Consultation Requested: 07/17/2023
Date/Time Consultation Performed: 07/18/2023
Requesting Provider: Hospitalist
Performing Provider: Fatemeh
Reason for Consultation: Abdominal pain/free air
Medical History
-
Chief Complaint: Abdominal pain/fall
History of Present Illness:
Patient is a 63-year-old male who was brought to the emergency department by EMS after being unable to get up from a fall at home.
Patient reports multiple weeks of abdominal pain and distention that he has been following expectantly. He generally does not see physicians but reportedly went to a primary care doctor a few weeks ago. History of significant alcohol use up to
recently. Surgical consultation requested after CT imaging revealed free air. In the setting of decompensated cirrhosis he has been accepted as a transfer down to [facility] but pending bed availability has been admitted for
further care in the interim.
Patient poor historian and unable to provide much more details
Past Medical History
Past Medical History: Other (Previous history of subdural hematoma with shunt, psoriasis, alcohol abuse)
Past Surgical History: None
Social History
Alcohol: Daily
Living: With Family
Allergies / Home Medications
Allergy/AdvReac Type Severity Reaction Status Date / Time
No Known Allergies Allergy Verified 07/17/23 09:28
Medication Instructions Recorded Confirmed Type
mometasone 0.1 % topical ointment 1 applic topical DAILY all over 02/16/21 07/17/23 History
psoriasis
clobetasol 0.05 % topical ointment 1 applic topical DAILY all over 07/17/23 07/17/23 History
psoriasis
Review of Systems
-
Unable to obtain full review of systems at this time due to: Acuity and Other (Poor historian)
History Source: Patient and Coordinating Provider
A 10 point review of systems was completed, and was negative except as per HPI.
Physical Exam
Vital Signs
Temp Pulse Resp BP Pulse Ox
97.6 F 100 27 104/76 99
07/18/23 08:03 07/18/23 09:45 07/18/23 09:45 07/18/23 09:45 07/18/23 09:45
07/17/23 07/18/23 07/19/23
06:59 06:59 06:59
Actual Weight 104.9 kg
Body Mass Index (BMI) 33.2
Lab Results
07/18/23 06:25
07/18/23 06:25
WBC 17.6 10^3/uL (4.8-10.8) H 07/18/23 06:25
Hgb 10.1 g/dL (13.0-18.0) L 07/18/23 06:25
Hct 28.2 % (39.0-52.0) L 07/18/23 06:25
Plt Count 117 10^3/uL (130-400) L 07/18/23 06:25
Abs Immat Gran (auto) 0.2 10^3/uL (0-0.05) H 07/18/23 06:25
Neutrophils % 82.2 % (42.2-75.2) H 07/18/23 06:25
Physical Exam
General: Other (Acute and chronically ill-appearing, uncomfortable, in distress)
HEENT: Scleral Icterus
Respiratory: Accessory Resp Muscle Use
Cardiac: Regular Rhythm
GI: Other (Massively distended abdomen, generalized tenderness with rebound and guarding diffusely.)
Musculoskeletal: Edema
Neuro: AO x 3
Psych: Other (Uncomfortable but calm)
Data Reviewed
-
CT Scan: Image Personally Visualized and interpreted, Discussed with Physician and Discussed with Patient
Labs: Labs Reviewed by me, Discussed with Physician and Discussed with Patient
Assessment / Plan
-
Assessment/plan: 63-year-old male presenting with decompensated acute liver failure/cirrhosis, acute kidney failure, leukocytosis, coagulopathy.
CT abdomen/pelvis imaging personally reviewed as well as radiologist report. Massive quantity of intra-abdominal ascites with areas of free air located along the anterior central abdomen. More than just a few bubbles but also not extensive.
Uncertainty as to the source of the free air. Perforated viscus is possibility but there does not appear to be extraluminal air adjacent to more dependent portions surrounding the hollow viscera to localize potential source.
Patient is extremely high risk surgical candidate in setting of decompensated liver disease and acute kidney failure with coagulopathy would estimate at least a 50% mortality risk.
Given the above and without clear localizing source recommend obtaining diagnostic paracentesis and continuing with close observation.
Consideration to follow-up contrast CT imaging pending results of paracentesis
[2023-07-18] MEDS: SODIUM BICARBONATE IV (11:30)
--- NOTE | 2023-07-18 11:34 | CON.INTV ---
Consultation
Consultation Request
Date/Time Consultation Requested: 07/18/2023
Date/Time Consultation Performed: 07/18/2023
Requesting Provider: Dr. Anderson
Performing Provider: Dr. Villa Jean
Reason for Consultation: Hypotension
Medical History
-
History of Present Illness:
63-year-old man with past medical history significant for subdural hematoma with prior shunt, psoriasis, daily alcohol drinker presented to the emergency room via EMS after sustaining a fall. Patient was on the ground for about an hour.
Apparently has been falling more frequently in the last several weeks. Reports right flank pain without nausea or vomiting.
Over the last several weeks he has noted significant abdominal distention and swelling of both legs.
He denies any significant cough or phlegm production but
Denies swallowing problems.
Denies any shortness of breath with most activities.
He reports chronic diarrhea. He reports dark brown stools.
He denies any drug use or smoking.
He was found to have on CAT scan significant ascites, possible free air in the peritoneum. Started on antibiotics. Surgery was consulted, recommended transfer to a tertiary care Medical Center.
He has been accepted at [facility].
Currently, has not required vasopressors. He appears comfortable in bed.
Social History
Tobacco: Non-smoker
Alcohol: Daily
Drug: None
Family History
Family History: Reviewed & Not Pertinent
Allergies / Home Medications
Allergies
Allergy/AdvReac Type Severity Reaction Status Date / Time
No Known Allergies Allergy Verified 07/17/23 09:28
Home Medications
Medication Instructions Recorded Confirmed Last Taken Type
mometasone 0.1 % topical ointment 1 applic topical DAILY all over 02/16/21 07/17/23 10/02/21 History
psoriasis
clobetasol 0.05 % topical ointment 1 applic topical DAILY all over 07/17/23 07/17/23 Unknown History
psoriasis
Review of Systems
-
History Source: Patient
All other systems: Negative unless noted
Vitals / Labs / Diagnostic Testing
Vital Signs
Temp Pulse Resp BP Pulse Ox
97.5 F 99 22 107/57 99
07/18/23 11:25 07/18/23 11:00 07/18/23 11:00 07/18/23 11:00 07/18/23 10:47
Lab Data
07/18/23 06:25
07/18/23 06:25
Microbiology
07/17/23 09:56 Blood/Venous Blood Culture - Preliminary
No Growth in 24 hours- Final report to follow
07/17/23 09:58 Blood/Venous Blood Culture - Preliminary
No Growth in 24 hours- Final report to follow
Diagnostic Testing:
Physical Exam
-
HEENT: Normocephalic
Cardiovascular: S1/S2
Respiratory: Clear
GI: Distended (Ascites) and Other (Mildly tender without peritoneal signs)
Neurology: Awake, Alert, Oriented and No Motor Deficits
Skin: Warm
General: Respiratory Distress (n)
Assessment
-
Sepsis suspected: Leukocytosi/tachycardic on admission s: Possibly infection. Rule out SBP.
CT chest: Patchy upper lobe predominant mild infiltrate.
Status post fall admission with trauma to the abdomen
CT abdomen pelvis:
1. There is a small amount of free air in the anterior abdomen. Etiology is uncertain.
2. There is marked ascites within the abdomen and pelvis with third spacing of fluid in the soft tissues. This is new from the prior study.
3. There are patchy areas of airspace disease in both upper lobes. Etiology is uncertain but could be atelectasis, pneumonia or neoplastic given marked ascites
4. There is a tiny pulmonary nodule on the left. This area was not included on prior study.
Alcoholic cirrhosis with ascites suspected.
Anemia-no baseline-heme positive stool.
Acute kidney injury-no prior baseline
? Hepatorenal syndrome
Metabolic acidosis
Abnormal LFTs
Assessment and plan:
Initially admitted to the intensive care unit with concerns for acute GI bleed and sepsis.
-
Has not required vasopressors
Normal lactic acid
Increased proBNP: Possibly due to renal insufficiency. No evidence for pulmonary edema. Would not be surprised this patient has RV dysfunction from portal pulmonary hypertension. Can be explored in the future.
There is no evidence for acute bleeding at this point.
Patient appears comfortable.
Not hypotensive.
-
Agree to continue antibiotics for possible SBP and pneumonia.
Small amount of free air in the peritoneum. Uncertain source. Surgery following. Will wait for results from paracentesis. High risk for surgery over 50% mortality.
Cultures were sent will follow
Paracentesis pending
May need albumin infusion after paracentesis.
-
Lower extremity swelling likely due to Cirrhosis.
.
Decompensated liver cirrhosis.
Mental status is baseline
Patient has severe/large volume ascites with lower extremity edema.
Patient stopped drinking about 3ds ago per his report.
Continue PPI
Liver ultrasound pending.
-
NYDIA- unknown baseline.
Metabolic acidosis: Non anion gap. Likely multifactorial
From kidney injury. Unclear if acute versus chronic
Patient received some bicarbonate drip overnight, hold for now. Repeat labs later.
Follow urinary output.
-
Anemia: Unknown baseline. Heme positive stool.
Continue Protonix
Monitor for bleeding
GI to follow
-
Monitor for DTs
-
NPO for now.
-
Await for paracentesis results
If tolerates paracentesis well, okay to transfer to telemetry.
Patient waiting for a bed at [facility].
--- NOTE | 2023-07-18 12:38 | W.PN.IRAD.PR ---
Procedure Note
-
Dx: Ascites
Procedure: Paracentesis
LLQ paracentesis performed. 3500 cc of clear arcadio fluid removed. Pt tolerated the procedure well. Sample sent to lab for analysis
--- NOTE | 2023-07-18 12:58 | PTCARENOTE ---
PT returns from IRAD, 3500ml removed during paracentesis, samples sent by IRAD to lab, PT assessment remains unchanged
[2023-07-18 13:13] LABS: Body Fluid Mononuclear 10.6 %; Body Fluid Polymorphonuclear 89.4 %; Body Fluid WBC 1653 /CUMM
[2023-07-18 13:31] LABS: Body Fluid Second Tech BD
[2023-07-18 13:32] LABS: Body Fluid Albumin < 1.0 g/dl; Body Fluid Protein < 2.0 g/dl
--- NOTE | 2023-07-18 13:42 | W.PN.HOSP.TC ---
Addendum entered and electronically signed by Stephen Cunningham MD 07/18/23 16:23:
Called spouse to update. No response. left voicemail
Original Note:
Today's Communication/Plan
-
IV vancomycin/zosyn
US doppler pending
Await transfer
IV albumin
Assessment / Plan
Assessment / Plan
# Sepsis (leukocytosis, tachycardia) secondary to SBP
# Lactic acidosis
# Ascites likely secondary to decompensated alcoholic cirrhosis
-Check portal vein ultrasound
-Check blood cultures in lab -prelim neg so far
-IR consulted for paracentesis s/p 3.5L fluid removed.
-ascitic fluid noted with greater than 250 PMN. Culture in lab.
-Patient accepted to [place] given MELD score 34 on admission, child fournier class C but no beds available
-Zosyn/vanc
-albumin 1.5mg/kg today and then 1mg/kg day 3.
-ammonia level wnl.
-GI consulted
# Small and free air in the anterior abdomen unclear etiology
-N.p.o.
-Blood cultures
-IV fluids
-Zosyn
-may need repeat imaging
-General surgery consulted and requested transfer to tertiary center
-extremely high risk of mortality per GS for OR
# Acute kidney injury with oliguria
# Metabolic acidosis
-Gao catheter, monitor urine output-100ml since 7am
-receiving albumin now.
-s/p bicarb gtt
-repeat labs with worsening Cr
-mild acidosis remains. Will defer further IVF to nephro.
-will ask nephro for input
# Macrocytic anemia
-Rectal exam showed heme positive dark stool
-check anemia panel
-ppi bid
-defer work up to GI
# Right flank ecchymosis secondary to fall
-CT abdomen unremarkable for trauma
-CT head unremarkable
-CT C-spine unremarkable
# Patchy airspace disease bilateral upper lobes
-Vancomycin/Zosyn
History of subdural hematoma with prior shunt
Alcohol use disorder
Psoriasis
Pulmonary nodule-will need OP f/u for surveillance
Full code
DVT prophylaxis�SCDs
Prognosis guarded
Anticipated Discharge: > 48 hours
Subjective/Interval History
-
Date of Service: July 18, 2023
states of abd discomfort
states noticed abd distention 4 weeks ago and started taking pepto leading to mild alleviation
Abd pain started 2 weeks ago
Objective Data
-
Labs:
Laboratory Results
07/18/23 07/18/23
06:25 14:00
WBC 17.6 H
Hgb 10.1 L Pending
Hct 28.2 L Pending
Plt Count 117 L
Sodium 135 Pending
Potassium 4.7 Pending
Chloride 106 Pending
Carbon Dioxide 19 L Pending
BUN 68 H Pending
Creatinine 4.5 H* Pending
Glucose 82 Pending
Calcium 7.8 L Pending
Total Bilirubin 2.0 H
AST 138 H
ALT 64 H
Alkaline Phosphatase 107
Vital Signs:
Vital Signs
Temp Pulse Resp BP Pulse Ox
97.5 F 99 22 107/57 99
07/18/23 11:25 07/18/23 11:00 07/18/23 11:00 07/18/23 11:00 07/18/23 10:47
I&O
07/17/23 07/18/23 07/19/23
06:59 06:59 06:59
Intake Total 150 / 150
Balance 150 / 150
Physical Exam
-
General: Well Developed and No Apparent Distress
HEENT: Normocephalic, Atraumatic and Moist Mucous Membranes
Respiratory: Clear to Auscultation
Cardiac: Regular Rhythm and S1/S2; Negative Murmur, Rub or Gallop
GI: Soft, Normal Bowel Sounds, Tender and Distended (severe. +fluid wave. ); Negative Organomegaly
Rectal: Deferred by Provider
Musculoskeletal: No Clubbing, No Cyanosis and No Edema
Skin: Negative Rash
Neuro: Awake, Alert, No Motor Deficits and Nonfocal/Grossly Intact
Psych: Calm and Confused
Data Reviewed
-
Total Time Spent with Patient (in minutes): 62
[2023-07-18 14:13] LABS: Hematocrit 26.4 % (39.0-52.0); Hemoglobin 9.3 g/dL (13.0-18.0)
[2023-07-18 14:19] LABS: Salicylate < 1.0 mg/dl (2.0-20.0)
[2023-07-18 14:20] LABS: Body Fluid Amylase < 30 U/L; Body Fluid LDH 232 U/L
[2023-07-18] MEDS: FLEXBUMIN 100 IV ×6 (14:20→22:30)
[2023-07-18 14:34] LABS: Blood Urea Nitrogen 71 mg/dl (9-20); Calcium 7.6 mg/dl (8.4-10.2); Carbon Dioxide 19 mmol/L (22-30); Chloride 106 mmol/L (98-107); Estimated Creatinine Clearance 19 ml/min; Glucose 92 mg/dl (70-99); Magnesium 1.7 mg/dl (1.6-2.3); Potassium 4.9 mmol/L (3.5-5.1); Sodium 134 mmol/L (135-145); eGFR 12.87
[2023-07-18 14:53] LABS: Iron 63 ug/dl (49-181)
[2023-07-18 15:03] LABS: Percent Saturation 45 % (20-50); Total Iron Binding Capacity 137 ug/dl (261-462)
--- NOTE | 2023-07-18 15:10 | CM ---
CM following re: discharge planning.
Discussed in rounds, reviewed pt's chart, met with pt and spoke to his spouse Alexandru.
Pt is a 63 year old male, admitted with primary dx of # Sepsis (leukocytosis, tachycardia) secondary to SBP. Per Rounds meeting, pt has been accepted for transfer to [facility].
Pt is not a great historian, information obtained from pt's spouse Alexandru. Pt lives with spouse Alexandru in a 2SH, 2 steps to enter and spouse Alexandru described the pt as independent in all areas [employer]. Pt's spouse Alexandru stated that pt was OK
and just one week ago he was not able to care for himself at all. Pt's spouse stated: 'I am 83 and if he needs care i will not be able to provide it'. No DME, VN or SNF history.
PCP: Taran Meyer
Pharmacy: [facility] [place]
D/C plan: transfer to [facility]. Awaiting for a bed.
CM will follow with discharge plan updates as hospitalization progresses
--- NOTE | 2023-07-18 15:49 | CON.MD ---
Consultation - Medical
-
Impression:
NYDIA
hyponatremia
Suspected alcohol cirrhosis
Ascites
Metabolic acidosis
suspected SBP
Right flank pains/falls
Hx of subdural bleed with shunt
Plan;
NYDIA:
-no obstructive uropathy by CT
-suspected pre renal stimulus in setting of cirrhotic decompensation
-check FeNa
-follow CPK
-place vázquez
-will add midodrine to support hemodynamics 2.5 mg TID to start
-albumin provided post paracentesis
-given advanced cirrhotic findings patient would not be a HD candidate
--- NOTE | 2023-07-18 15:56 | W.PN.SURGUPD ---
Addendum entered and electronically signed by Cb Weldon MD 07/18/23 16:10:
notified by nursing that pt cant take PO contrast
no reason to repeat imaging if cant get contrast
would repeat CT imaging when he can take PO contrast
Original Note:
Surgical Update
Surgical Update
pt seen and examined in follow up after paracentesis
report reviewed 3500mL, clear arcadio fluid
pt with some improvement after
abd exam softer and less tender, areas without rebound and guarding now
await paracentesis fluid results/culture
pt said he can thinks he tolerate PO contrast so will attempt repeat CT a/p with PO contrast for better evaluation of hollow viscera as first scan was noncontrast imaging
[2023-07-18 16:10] LABS: Folate 13.7 ng/ml (2.76-20); Vitamin B12 > 1000 pg/ml (239-931)
--- NOTE | 2023-07-18 16:10 | PTCARENOTE ---
PT with C/O his B/L buttocks hurting, air cushion placed with relief, PT denies any other complaints
--- NOTE | 2023-07-18 16:18 | W.PN.UPDATE ---
Update Note
Progress Note Update
Ascitic fluid consistent with peritonitis.
Fluid was clear.
No evidence of pus.
Continue current antibiotics.
Currently not on pressors
Not on oxygen therapy. No evidence for acute bleeding.
Will transfer out of the critical care unit, to IMU.
Critical care team will sign off. Please call pulmonary if any respiratory issues arise per
Patient is waiting for transfer to [facility]
[2023-07-18] MEDS: ProAmatine 2.5 MG PO (17:08)
[2023-07-18] MEDS: PROTONIX IV 40 MG IV (20:10)
[2023-07-18] MEDS: NSS (PRESERVATIVE FREE) 10 ML IV (20:11)
[2023-07-18 20:53] LABS: Hepatitis B Surface Antigen Negative (Negative)
[2023-07-18 21:09] LABS: Hepatitis B Surface Antibody Positive; Hepatitis C Antibody Negative (Negative)
[2023-07-18 21:58] LABS: Hepatitis A Antibody, Total Positive (Negative)
[2023-07-18 22:08] LABS: Urine Sodium 39 mmol/L (30-90)
[2023-07-19] VITALS (23 sets, daily range): BP systolic 79–112; BP diastolic 46–67; BMI 32.0
[2023-07-19 04:35] LABS: Vancomycin Random 12.9 ug/ml
[2023-07-19 05:23] LABS: % Basophils 0.1 % (0-2); % Eosinophils 0.4 % (0-6); % Immature Granulocytes 0.5 % (0-0.5); % Lymphocytes 12.9 % (20.5-51.1); % Monocytes 9.9 % (1.7-9.3); % Neutrophils 76.2 % (42.2-75.2); Absolute Immature Granulocytes 0.1 10^3/uL (0-0.05); Absolute Lymphocytes 1.5 10^3/uL (1.2-3.4); Absolute Monocytes 1.1 10^3/uL (0.1-0.6); Absolute Neutrophils 8.6 10^3/uL (1.4-6.5); Hematocrit 21.9 % (39.0-52.0); Hemoglobin 7.9 g/dL (13.0-18.0); Mean Corp Hgb Conc. 36.1 g/dL (33.0-37.0); Mean Corpuscular Hgb 41.1 pg (27.0-31.0); Mean Corpuscular Volume 114.1 fL (80.0-94.0); Nucleated Red Blood Cells % 0 % (-); Red Blood Cell Count 1.92 10^6/uL (4.70-6.10); White Blood Cell Count 11.3 10^3/uL (4.8-10.8)
[2023-07-19 05:28] LABS: Mean Platelet Volume 10.3 fL (7.4-10.4); Platelet Count 53 10^3/uL (130-400)
[2023-07-19 05:42] LABS: INR 2.79; PT 29.9 Sec (11.4-14.6)
[2023-07-19] MEDS: ZOSYN 50 IV ×4 (05:46→23:36)
[2023-07-19 06:00] LABS: ALT (SGPT) 36 U/L (0-50); AST (SGOT) 70 U/L (17-59); Albumin 3.5 g/dl (3.5-5.0); Alkaline Phosphatase 64 U/L (38-126); Blood Urea Nitrogen 78 mg/dl (9-20); Calcium 8.1 mg/dl (8.4-10.2); Carbon Dioxide 18 mmol/L (22-30); Chloride 106 mmol/L (98-107); Estimated Creatinine Clearance 18 ml/min; Glucose 68 mg/dl (70-99); Potassium 4.6 mmol/L (3.5-5.1); Sodium 137 mmol/L (135-145); Total Bilirubin 1.7 mg/dl (0.2-1.3); Total Protein 5.8 g/dl (6.3-8.2); eGFR 11.97
--- NOTE | 2023-07-19 08:00 | PTCARENOTE ---
PT receive in bed drowsy but arousable, soft voice with slow speech, AAOx2, PT is confused at times, NSR with PVC's, bigeminy/trigeminy noted, +3 LE edema pitting, brown in color,pulses weak but palpable,room air 95%, diminished and shallow, poor
effort, abdomen round, distended, firm, hypoactive BS, dressing C/D/I left abdomen, indwelling catheter, care preformed as per protocol, scrotum +2 swollen, skin intact, L AC INT, Left FA INT flushed and patent
[2023-07-19] MEDS: DILAUDID 0.5 MG IV ×2 (08:13→15:18)
[2023-07-19] MEDS: PROTONIX IV 40 MG IV ×2 (08:30→19:44)
[2023-07-19] MEDS: ProAmatine 2.5 MG PO ×3 (08:30→17:55)
[2023-07-19] MEDS: ELOCON 0.1% TOPICAL (08:30)
[2023-07-19] MEDS: NSS (PRESERVATIVE FREE) 10 ML IV ×2 (08:30→19:44)
--- NOTE | 2023-07-19 09:00 | W.PN.GS2 ---
Addendum entered and electronically signed by Cb Weldon MD 07/19/23 13:29:
pt seen in follow up this PM with [facility]
patient states he is feeling better than yesterday
denies abdominal pain at rest
no nausea, says he is thirsty
ABD: remains distended but less firm/tense. mild TTP but no R/R/G today
A/P: 63 y/o male with decompensated acute liver failure/cirrhosis, ascites, probable hepato-renal syndrome with ARF.
etiology to small volume free air on initial CT images 07/17/23 remain uncertain
paracentesis micro/cx preliminary negative which if was d/t secondary peritonitis d/c perforated viscus would expect bacteria, was also reportedly a clear yellow tap; low total protein, low amylase, SAAG >1.1, high WBC
clinically unchanged but improved abd exam
follow oral contrast imaging study needed prior to considering PO intake
CT a/p with oral contrast ordered/no IV in setting of ARF
defer further care of liver failure to hospitalist/GI service
Original Note:
Today's Communication / Plan
-
Transfer to tertiary care center pending
Assessment / Plan
-
63-year-old male presenting with decompensated acute liver failure/cirrhosis, acute kidney failure, leukocytosis, coagulopathy.
CT abdomen/pelvis imaging with massive quantity of intra-abdominal ascites with areas of free air located along the anterior central abdomen.� Uncertainty as to the source of the free air.� Perforated viscus is possibility but there does not appear
to be extraluminal air adjacent to more dependent portions surrounding the hollow viscera to localize potential source.
Patient is extremely high risk surgical candidate in setting of decompensated liver disease and acute kidney failure with coagulopathy would estimate at least a 50% mortality risk.
07/1823 S/P Paracentesis of 3500ml fluid, fluid culture without growth thus far
CT with PO contrast ordered yesterday, per nursing staff patient unable to take PO contrast, imaging therefore on hold
Plan:
Transfer to [facility] pending
CT imaging with PO contrast when medically able
Subjective Data
-
Date of Service: July 19, 2023
Patient seen and examined at bedside. Reports back pain with any movement. Denies abdominal pain. Denies nausea and vomiting. Some belching.
Objective Data
-
Intake and Output
07/18/23 07/19/23 07/20/23
06:59 06:59 06:59
Intake Total 150 / 150
Output Total 140 / 140
Balance 150 / 150 -140 / -140
Intake:
IV fluids (Total) 150 / 150
Sterile Water For Injection 150 / 150
1000 ml 1,000 ml @ 100 mls/hr
IV .[id number] NICK with Sodium
Bicarbonate 150 Meq Rx#:
[id number]
Output:
Urine, Gao 140 / 140
Vital Signs
Temp Pulse Resp BP Pulse Ox
98.8 F 96 19 82/57 96
07/19/23 07:41 07/19/23 08:30 07/19/23 06:00 07/19/23 08:30 07/19/23 06:00
Lab Results
07/19/23 05:10
07/19/23 05:10
Calcium 8.1 mg/dl (8.4-10.2) L 07/19/23 05:10
Phosphorus 6.3 mg/dl (2.5-4.5) H 07/18/23 06:25
Magnesium Cancelled 07/18/23 14:16
Total Bilirubin 1.7 mg/dl (0.2-1.3) H 07/19/23 05:10
AST 70 U/L (17-59) H 07/19/23 05:10
ALT 36 U/L (0-50) 07/19/23 05:10
Alkaline Phosphatase 64 U/L (38-126) 07/19/23 05:10
Total Protein 5.8 g/dl (6.3-8.2) L 07/19/23 05:10
Albumin 3.5 g/dl (3.5-5.0) 07/19/23 05:10
Physical Exam
-
NAD
ABD distended, firm, ascites noted. Generalized tenderness.
--- NOTE | 2023-07-19 09:54 | W.PN.GI.CBS2 ---
Today's Communication / Plan
-
Agree with surgical recs for CT with oral contrast when able
MELD 30 not transplant candidate given ETOH intake and active infection
Prognosis guarded
Awaiting txf to [place]
No new recs. GI will sign off please call for questions
Assessment / Plan
-
63yo M with h/o ETOH cirrhosis decompensated by ascites MELD 30 who was admitted for altered mental status and fall. Found to have free air on CT scan and peritonitis with paracentesis 07/18/2023 WBC 1653 89% PMN. BC is NGTD and UC pending
Impression:
Peritonitis
From possible perforated viscus given free air on CT scan
Ascites
s/p paracentesis 07/18
Alcoholic cirrhosis
MELD 30, not transplant candidate given ETOH intake and activei nfection
Alcohol abuse, last alcoholic intake was approximately 3 days ago
Acute kidney injury
Excessive vitamin intake per spouse (B12, multi plus omega-3 and another unknown)
Plan:
- C/w abx
- BC NGTD
- Watch BPs
- Agree with repeat CT with oral contrast when able as recommended by surgery
- IV albumin on day 3/saturday ordered.
- MELD is 30, not transplant candidate given recent ETOH and active infection
- Low H/H and platelets suspect from infection. Monitor stool output
Prognosis is guarded
Awaiting transfer to [place]
At this juncture GI has no new recs will sign off please call for questions. Case d/w [facility] [place] and hospitalist.
Subjective
Subjective
Date of Service: July 19, 2023
He is AAOx2 but speech slowed and appears confused. RN did not think he could tolerate oral contrast for CT scan yseterday.
Objective
Data Reviewed
Laboratory Data:
Laboratory Results
07/19/23 05:10
07/19/23 05:10
Laboratory Results
PT 29.9 Sec (11.4-14.6) H 07/19/23 05:10
INR 2.79 07/19/23 05:10
APTT 37.8 Sec (23.4-35.0) H 07/17/23 09:56
Phosphorus 6.3 mg/dl (2.5-4.5) H 07/18/23 06:25
Magnesium Cancelled 07/18/23 14:16
Total Bilirubin 1.7 mg/dl (0.2-1.3) H 07/19/23 05:10
AST 70 U/L (17-59) H 07/19/23 05:10
ALT 36 U/L (0-50) 07/19/23 05:10
Alkaline Phosphatase 64 U/L (38-126) 07/19/23 05:10
Lipase 185 U/L (23-300) 07/17/23 09:56
Vital Signs and I&O:
Vital Signs
Temp Pulse Resp BP Pulse Ox
98.8 F 96 19 82/57 92
07/19/23 07:41 07/19/23 08:30 07/19/23 06:00 07/19/23 08:30 07/19/23 08:00
I&O
07/18/23 07/19/23 07/20/23
06:59 06:59 06:59
Intake Total 150 / 150
Output Total 140 / 140
Balance 150 / 150 -140 / -140
Physical Exam
Physical Exam
GEN: No acute distress, conversant but slowed speech, chronically ill appearing
HEENT: +icteric, extraocular movements intact, poor dentition
GI: soft, extremely-distended, diffusely tender to palpation, no reducible hernia seen
EXT: warm, well perfused, 2+ pitting edema bilaterally
NEURO: AAOx2, non-focal
--- NOTE | 2023-07-19 10:31 | W.PN.HOSP.TC ---
Today's Communication/Plan
-
Continue broad-spectrum antibiotic
N.p.o. status
Nephrology recs
Monitor urinary output
Assessment / Plan
Assessment / Plan
# Sepsis (leukocytosis, tachycardia) secondary to SBP
# Lactic acidosis
# Ascites likely secondary to decompensated alcoholic cirrhosis
-Check portal vein ultrasound -negative for PVT
-Blood cultures negative so far
-IR consulted for paracentesis s/p 3.5L fluid removed.
-ascitic fluid noted with greater than 250 PMN. Culture in lab.
-Patient accepted to [facility].
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
-Zosyn/vanc
-albumin 1.5mg/kg today and then 1mg/kg day 3.
-ammonia level wnl.
-GI consulted
#Chronic Alcohol abuse
#Alcohol use disorder
-Heavy wine and or vodka drinker.
-Used to drink 2L of wine daily or vodka 750cc-heavy usage for approx 7 years per spouse and also in the past heavy drinker unclear amount
-Last drink 5 days ago.
# Small and free air in the anterior abdomen unclear etiology
-N.p.o.
-Blood cultures neg so far
-IV fluids
-Zosyn
-may need repeat imaging-consider NGT placement for po contrast if needed.
-General surgery consulted and requested transfer to tertiary center
-extremely high risk of mortality per GS for OR
# Acute kidney injury with oliguria likely pre-renal in setting of decompensated liver cirrhosis
# Metabolic acidosis
-Gao catheter, monitor urine output-100ml since 7am
-s/p bicarb gtt
-repeat labs with worsening Cr
-started on midodrine. acidosis remains.
-FENA based on labs yesterday with intrinsic pattern
-will ask nephro for input
# Macrocytic anemia
# Thrombocytopenia
-Rectal exam showed heme positive dark stool
-ppi bid
-defer work up to GI-Per gastroenterology no plan for any procedures unless with acute gastrointestinal bleeding
-Anemia and thrombocytopenia both in the setting of decompensated liver cirrhosis. Transfuse hemoglobin or platelets as needed
# Right flank ecchymosis secondary to fall
-CT abdomen unremarkable for trauma
-CT head unremarkable
-CT C-spine unremarkable
# Patchy airspace disease bilateral upper lobes
-Vancomycin/Zosyn
History of subdural hematoma with prior shunt
Psoriasis
Pulmonary nodule-will need OP f/u for surveillance
Full code
DVT prophylaxis�SCDs
Prognosis guarded
Called [facility] personally and patient is a high priority list patient is on the waiting list however unclear timeline but hopefully soon.
Updated patient's spouse Alexandru over the phone in details. Explained to him patient poor prognosis with liver cirrhosis NYDIA, thrombocytopenia, anemia.
Anticipated Discharge: > 48 hours
Subjective/Interval History
-
Date of Service: July 19, 2023
states of abdomen discomfort
afebrile
s/p paracentesis 3.5L removed
No nausea or vomiting
Objective Data
-
Labs:
Laboratory Results
07/19/23 07/19/23
03:50 05:10
WBC Cancelled 11.3 H
Hgb Cancelled 7.9 L
Hct Cancelled 21.9 L
Plt Count Cancelled 53 L D
PT Cancelled 29.9 H
INR Cancelled 2.79
Sodium Cancelled 137
Potassium Cancelled 4.6
Chloride Cancelled 106
Carbon Dioxide Cancelled 18 L
BUN Cancelled 78 H
Creatinine Cancelled 5.1 H*
Glucose Cancelled 68 L
Calcium Cancelled 8.1 L
Total Bilirubin Cancelled 1.7 H
AST Cancelled 70 H
ALT Cancelled 36
Alkaline Phosphatase Cancelled 64
Vital Signs:
Vital Signs
Temp Pulse Resp BP Pulse Ox
98.8 F 96 19 82/57 92
07/19/23 07:41 07/19/23 08:30 07/19/23 06:00 07/19/23 08:30 07/19/23 08:00
I&O
07/18/23 07/19/23 07/20/23
06:59 06:59 06:59
Intake Total 150 / 150
Output Total 140 / 140
Balance 150 / 150 -140 / -140
Physical Exam
-
General: Well Developed, No Apparent Distress and Obese
HEENT: Normocephalic, Atraumatic and Moist Mucous Membranes
Respiratory: Decreased Breath Sounds
Cardiac: Regular Rhythm and S1/S2; Negative Murmur, Rub or Gallop
GI: Soft, Normal Bowel Sounds, Tender and Distended (severe. +fluid wave. ); Negative Organomegaly
Rectal: Deferred by Provider
Musculoskeletal: No Clubbing, No Cyanosis and No Edema
Skin: Negative Rash
Neuro: Awake, Alert, No Motor Deficits and Nonfocal/Grossly Intact
Psych: Calm and Confused (intermittent )
Data Reviewed
-
Total Time Spent with Patient (in minutes): 70
--- NOTE | 2023-07-19 12:50 | W.PN.NEPH.PH ---
Today's Communication / Plan
-
- increase midodrine
- continue albumin fluid challenge
Assessment/Plan
-
Impression:
NYDIA
hyponatremia
Suspected alcohol cirrhosis
Ascites
Metabolic acidosis
suspected SBP
Right flank pains/falls
Hx of subdural� bleed with shunt
Plan;
NYDIA:
-no� obstructive uropathy� by CT
-suspected pre renal stimulus in setting of cirrhotic decompensation
-FeNa compatible with intrinsic kidney disease but drawn after patient recieved albumin and other fluids (likely not a true reflection of disease process)
-place vázquez
-will increase midodrine to 5mg TID as patient's BP still remains soft
-albumin provided post paracentesis, agree with albumin challenge x3 days
-could consider octreotide as well for possible HRS. will initiate tomorrow if patient's Cr does not improve
-given advanced cirrhotic findings patient would not� be a�HD candidate
-
-
Date of Service: July 19, 2023
CC / HPI / ROS
-
Chief Complaint:
NYDIA
History of Present Illness:
NYDIA
hyponatremia
suspected alcoholic cirrhosis
metabolic acidosis
ascites
Review of Systems:
abdominal pain improving
Cr worsening to 5.1 baseline unknown
currently on albumin challenge and midodrine for possible HRS
hyponatremia improved after albumin administration
Labs
-
Labs:
WBC 11.3 10^3/uL (4.8-10.8) H 07/19/23 05:10
RBC 1.92 10^6/uL (4.70-6.10) L 07/19/23 05:10
Hgb 7.9 g/dL (13.0-18.0) L 07/19/23 05:10
Hct 21.9 % (39.0-52.0) L 07/19/23 05:10
Plt Count 53 10^3/uL (130-400) L D 07/19/23 05:10
Sodium 137 mmol/L (135-145) 07/19/23 05:10
Potassium 4.6 mmol/L (3.5-5.1) 07/19/23 05:10
Chloride 106 mmol/L (98-107) 07/19/23 05:10
Carbon Dioxide 18 mmol/L (22-30) L 07/19/23 05:10
BUN 78 mg/dl (9-20) H 07/19/23 05:10
Creatinine 5.1 mg/dL (0.7-1.3) H* 07/19/23 05:10
eGFR 11.97 07/19/23 05:10
Glucose 68 mg/dl (70-99) L 07/19/23 05:10
Calcium 8.1 mg/dl (8.4-10.2) L 07/19/23 05:10
Phosphorus 6.3 mg/dl (2.5-4.5) H 07/18/23 06:25
Bee-X-Vpoqdagkjpv Pept 6100 pg/ml 07/17/23 09:58
Albumin 3.5 g/dl (3.5-5.0) 07/19/23 05:10
Physical Exam
-
Vital Signs:
Vital Signs
Temp Pulse Resp BP Pulse Ox
98.8 F 89 19 103/60 92
07/19/23 07:41 07/19/23 12:00 07/19/23 06:00 07/19/23 12:00 07/19/23 08:00
Cardiovascular:: Regular rate and rhythm
Respiratory:: Bilateral: Coarse
Lung Excursion:: Normal
Abdomen:: Distended, Soft and Tender
Bowel Sounds:: Normal
Extremity Edema:: +2: Right: and +3: Left:
Vázquez Catheter: Yes
--- NOTE | 2023-07-19 12:55 | CM ---
CM following re: discharge planning.
Discussed in rounds, reviewed pt's chart, met with pt. Per Rounds meeting, continue supportive care and awaiting for a bed at [facility].
D/c plan: transfer to [facility]. Awaiting for a bed.
CM will follow with discharge plan updates as hospitalization progresses
[2023-07-19] MEDS: OMNIPAQUE 50 ML PO (12:56)
--- NOTE | 2023-07-19 15:14 | PTCARENOTE ---
PT was able to drink both contrast cups for CT scan, PT remains slow speech, drowsy, no changes in assessment, report given to Dipak JARRETT
--- NOTE | 2023-07-19 15:24 | PTCARENOTE ---
pt aao to self and place. states pain all over moans when turned. pain med given as ordered. vázquez in place room air breath sounds diminished. abd large round distended. hypoactive bowel sounds. pt taken to ct scan for abd study. ice chips
given to pt sparingly. nsr seen on monitor. scd's on pt.
--- NOTE | 2023-07-19 15:42 | W.PN.SURGUPD ---
Surgical Update
Surgical Update
CT imaging reviewed.
interval improvement in degree of free air; appears to be quite minimal now.
oral contrast opacifying loops of SB
no extravasated contrast
stomach, duodenum, colon region without adjacent free air.
based on this follow up imaging and clinical course no plans for surgical intervention as no identified hollow visceral source
--- NOTE | 2023-07-19 20:00 | PTCARENOTE ---
Received patient at 1900. Pt. currently in bed. Drowsy but awake and oriented to self and place. Afebrile. Heart rhythm sinus. Blood pressure normotensive. Currently on room air. Lungs sound diminished. Pt. currently NPO. Abdomen large and round,
known ascites. Gao catheter in place per order. Skin as documented. Discussed plan of care. Vital signs stable at this time.
[2023-07-20] VITALS (20 sets, daily range): BP systolic 77–108; BP diastolic 50–69; BMI 33.2
--- NOTE | 2023-07-20 00:01 | PTCARENOTE ---
Pt. assessment unchanged. Vital signs stable at this time.
[2023-07-20] MEDS: DILAUDID 0.5 MG IV (00:14)
--- NOTE | 2023-07-20 04:00 | PTCARENOTE ---
Pt. assessment remains unchanged. AM labs drawn. Vital signs stable at this time.
[2023-07-20 04:15] LABS: % Basophils 0.1 % (0-2); % Eosinophils 1.6 % (0-6); % Immature Granulocytes 0.7 % (0-0.5); % Lymphocytes 11.9 % (20.5-51.1); % Monocytes 9.8 % (1.7-9.3); % Neutrophils 75.9 % (42.2-75.2); Absolute Eosinophils 0.2 10^3/uL (0-0.7); Absolute Immature Granulocytes 0.1 10^3/uL (0-0.05); Absolute Lymphocytes 1.5 10^3/uL (1.2-3.4); Absolute Monocytes 1.2 10^3/uL (0.1-0.6); Absolute Neutrophils 9.3 10^3/uL (1.4-6.5); Hematocrit 25.9 % (39.0-52.0); Hemoglobin 9.2 g/dL (13.0-18.0); Mean Corp Hgb Conc. 35.5 g/dL (33.0-37.0); Mean Corpuscular Hgb 40.7 pg (27.0-31.0); Mean Corpuscular Volume 114.6 fL (80.0-94.0); Mean Platelet Volume 11.3 fL (7.4-10.4); Nucleated Red Blood Cells % 0 % (-); Platelet Count 57 10^3/uL (130-400); Red Blood Cell Count 2.26 10^6/uL (4.70-6.10); White Blood Cell Count 12.2 10^3/uL (4.8-10.8)
[2023-07-20 04:45] LABS: ALT (SGPT) 31 U/L (0-50); AST (SGOT) 61 U/L (17-59); Albumin 2.7 g/dl (3.5-5.0); Alkaline Phosphatase 64 U/L (38-126); Blood Urea Nitrogen 87 mg/dl (9-20); Calcium 7.7 mg/dl (8.4-10.2); Carbon Dioxide 17 mmol/L (22-30); Chloride 107 mmol/L (98-107); Estimated Creatinine Clearance 16 ml/min; Glucose 73 mg/dl (70-99); Potassium 4.7 mmol/L (3.5-5.1); Sodium 135 mmol/L (135-145); Total Bilirubin 1.6 mg/dl (0.2-1.3); eGFR 10.93
[2023-07-20] MEDS: ZOSYN 50 IV ×3 (05:02→22:14)
[2023-07-20] MEDS: ELOCON 0.1% TOPICAL (07:33)
[2023-07-20] MEDS: ProAmatine 2.5 MG PO (07:33)
[2023-07-20] MEDS: FLEXBUMIN 100 IV ×4 (07:34→12:56)
[2023-07-20] MEDS: NSS (PRESERVATIVE FREE) 10 ML IV ×2 (07:34→20:24)
[2023-07-20] MEDS: PROTONIX IV 40 MG IV ×2 (07:34→20:24)
--- NOTE | 2023-07-20 08:00 | PTCARENOTE ---
Received patient from allergist immunologist. patient is awake, alert, oriented x3, does not seem to grasp his situation, denies drinking, just states he wants water. Explained to patient that he is NPO and awaiting tx to [place] for transplant
evaluation. Patient is sinus rhythm on monitor with pvcs/trigeminy. He is on room air with shallow decreased breath sounds throughout. Patient's abdomen is grossly distended, firm, tender to palpation, currently NPO but may take meds with sips of
clears. Patient has indwelling urinary catheter, Left forearm INT for albumin administration. Will review orders and continue to round on patient. Assisting in turns and repositioning q2.
--- NOTE | 2023-07-20 09:51 | W.PN.GS2 ---
Addendum entered and electronically signed by Matty Chirinos MD 07/20/23 10:54:
I saw and examined the patient independently.
The Foreign Clerk's note was reviewed and I agree with the note, assessment and plan except where noted below.
Comment: This is a 63-year-old male who presents with decompensated acute liver failure in the setting of alcohol abuse. Pneumoperitoneum identified on admission CT scan along with high volume ascites. Patient started on IV antibiotics for sepsis.
Ascites TAP no growth to date. Repeat CT scan yesterday did not show any interval worsening of small bowel (no pneumatosis, decreased amount of free air and no portal venous gas).
No concerns for a GI source of his pneumoperitoneum at this time. His exam is benign.
SBP still high on the differential, no growth to date likely secondary to IV antibiotics.
General surgery will sign off for now, please call with questions or concerns.
Original Note:
Today's Communication / Plan
-
--
Assessment / Plan
-
63-year-old male presenting with decompensated acute liver failure/cirrhosis, acute kidney failure, leukocytosis, coagulopathy.
Initial CT abdomen/pelvis imaging with massive quantity of intra-abdominal ascites with areas of free air located along the anterior central abdomen.� Uncertainty as to the source of the free air.� Perforated viscus is possibility but there does not
appear to be extraluminal air adjacent to more dependent portions surrounding the hollow viscera to localize potential source. ?SBP
Diagnostic Paracentesis on 07/18 with fluid cultures with NGTD
F/U CT with PO contrast with interval improvement in degree of free air, which is quite minimal. No extravasated PO contrast. Small bowel opacifies.
Patient is extremely high risk surgical candidate in setting of decompensated liver disease and acute kidney failure with coagulopathy would estimate at least a 50% mortality risk.
Plan:
Transfer to [facility] pending
Diet as per primary team
No plans for surgical intervention at this time. Please call with questions/concerns
Subjective Data
-
Date of Service: July 20, 2023
Patient seen and examined at bedside with Dr. Chirinos. Complains of pain to the sides of his abdomen. Denies n/v.
Objective Data
-
Intake and Output
07/19/23 07/20/23 07/21/23
06:59 06:59 06:59
Intake Total 150 / 150 100 / 100 200 / 200
Output Total 290 / 290
Balance 150 / 150 -190 / -190 200 / 200
Intake:
IV fluids (Total) 150 / 150
Sterile Water For Injection 150 / 150
1000 ml 1,000 ml @ 100 mls/hr
IV .[id number] NICK with Sodium
Bicarbonate 150 Meq Rx#:
[id number]
IV piggybacks 100 / 100 200 / 200
Output:
Urine, Gao 290 / 290
Vital Signs
Temp Pulse Resp BP Pulse Ox
98.3 F 90 17 98/61 96
07/20/23 07:46 07/20/23 07:33 07/20/23 07:00 07/20/23 07:33 07/20/23 09:39
Lab Results
07/20/23 03:37
07/20/23 03:37
Calcium 7.7 mg/dl (8.4-10.2) L 07/20/23 03:37
Phosphorus 6.3 mg/dl (2.5-4.5) H 07/18/23 06:25
Magnesium Cancelled 07/18/23 14:16
Total Bilirubin 1.6 mg/dl (0.2-1.3) H 07/20/23 03:37
AST 61 U/L (17-59) H 07/20/23 03:37
ALT 31 U/L (0-50) 07/20/23 03:37
Alkaline Phosphatase 64 U/L (38-126) 07/20/23 03:37
Total Protein 5.0 g/dl (6.3-8.2) L 07/20/23 03:37
Albumin 2.7 g/dl (3.5-5.0) L 07/20/23 03:37
Physical Exam
-
NAD
ABD distended, firm, ascites noted. Generalized tenderness.
--- NOTE | 2023-07-20 12:00 | PTCARENOTE ---
No change in patient's assessment. Patient has been made Medsurg status. Awaiting tx to [place] for evaluation of transplant. Surgery saw patient and no plans to do any surgical intervention. May eat depending on hospitalist.nephrology.
Patient m ay have ice chips, abdomen continues to be grossly distended, firm. May tap again Saturday if still at [facility]. Patient's Alexandru aware.
--- NOTE | 2023-07-20 12:09 | W.PN.NEPH.PH ---
Today's Communication / Plan
-
- initiated octreotide
- c/w midodrine and albumin
Assessment/Plan
-
Impression:
NYDIA
hyponatremia
Suspected alcohol cirrhosis
Ascites
Metabolic acidosis
suspected SBP
Right flank pains/falls
Hx of subdural� bleed with shunt
Plan;
NYDIA:
-no� obstructive uropathy� by CT
-suspected pre renal stimulus in setting of cirrhotic decompensation
-FeNa compatible with intrinsic kidney disease but drawn after patient recieved albumin and other fluids (likely not a true reflection of disease process)
-place vázquez
-will increase midodrine to 5mg TID as patient's BP still remains soft
-albumin provided post paracentesis, agree with albumin challenge x3 days
-initiate octreotide 100mcg TID on 07/20
-given advanced cirrhotic findings patient would not� be a�HD candidate
-
-
Date of Service: July 20, 2023
CC / HPI / ROS
-
Chief Complaint:
NYDIA
History of Present Illness:
NYDIA
hyponatremia
suspected alcoholic cirrhosis
metabolic acidosis
ascites
Review of Systems:
abdominal pain improving
Cr worsening to 5.5 baseline unknown
currently on albumin challenge, midodrine and octreotide for possible HRS
hyponatremia improved after albumin administration
Labs
-
Labs:
WBC 12.2 10^3/uL (4.8-10.8) H 07/20/23 03:37
RBC 2.26 10^6/uL (4.70-6.10) L 07/20/23 03:37
Hgb 9.2 g/dL (13.0-18.0) L 07/20/23 03:37
Hct 25.9 % (39.0-52.0) L 07/20/23 03:37
Plt Count 57 10^3/uL (130-400) L 07/20/23 03:37
Sodium 135 mmol/L (135-145) 07/20/23 03:37
Potassium 4.7 mmol/L (3.5-5.1) 07/20/23 03:37
Chloride 107 mmol/L (98-107) 07/20/23 03:37
Carbon Dioxide 17 mmol/L (22-30) L 07/20/23 03:37
BUN 87 mg/dl (9-20) H 07/20/23 03:37
Creatinine 5.5 mg/dL (0.7-1.3) H* 07/20/23 03:37
eGFR 10.93 07/20/23 03:37
Glucose 73 mg/dl (70-99) 07/20/23 03:37
Calcium 7.7 mg/dl (8.4-10.2) L 07/20/23 03:37
Phosphorus 6.3 mg/dl (2.5-4.5) H 07/18/23 06:25
Ilf-I-Ydcwlragsdl Pept 6100 pg/ml 07/17/23 09:58
Albumin 2.7 g/dl (3.5-5.0) L 07/20/23 03:37
Physical Exam
-
Vital Signs:
Vital Signs
Temp Pulse Resp BP Pulse Ox
98.1 F 90 21 103/66 96
07/20/23 11:18 07/20/23 11:00 07/20/23 11:00 07/20/23 11:00 07/20/23 10:00
Cardiovascular:: Regular rate and rhythm
Respiratory:: Bilateral: Coarse
Lung Excursion:: Normal
Abdomen:: Distended
Bowel Sounds:: Decreased
Extremity Edema:: +2: Bilateral:
Vázquez Catheter: Yes
[2023-07-20] MEDS: ProAmatine 5 MG PO ×2 (12:57→17:27)
--- NOTE | 2023-07-20 13:06 | W.PN.HOSP.TC ---
Today's Communication/Plan
-
Continue albumin
Continue antibiotics
Starting octreotide
Monitor creatinine
Urinary output
Await transfer
Prognosis guarded
Assessment / Plan
Assessment / Plan
# Sepsis (leukocytosis, tachycardia) secondary to SBP
# Lactic acidosis
# Ascites likely secondary to decompensated alcoholic cirrhosis
-Check portal vein ultrasound -negative for PVT
-Blood cultures negative so far
-IR consulted for paracentesis s/p 3.5L fluid removed.
-ascitic fluid noted with greater than 250 PMN. Culture in lab.
-Patient accepted to [facility].
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
-Cont zosyn. Dc Vanc.
-albumin 1.5mg/kg today and then 1mg/kg day today.
-ammonia level wnl.
-GI consulted
#Chronic Alcohol abuse
#Alcohol use disorder
-Heavy wine and or vodka drinker.
-Used to drink 2L of wine daily or vodka 750cc-heavy usage for approx 7 years per spouse and also in the past heavy drinker unclear amount
-Last drink 5 days ago.
# Small and free air in the anterior abdomen unclear etiology
-N.p.o.
-Blood cultures neg so far
-IV fluids
-Zosyn
-repeat CT abd/pelvis on 07/19-Small volume free air in the anterior abdomen slightly decreased in volume in comparison to recent prior study.Large volume ascites again seen.Lobulated contour of the liver again identified. Again seen two
subcentimeter low-attenuation hepatic lesions too small to characterize, also unable to be characterized without intravenous contrast. Increased bibasilar lung opacification most likely representing subsegmental atelectasis. Unfortunately, pneumonia
and tiny right pleural effusion cannot be excluded.
-General surgery consulted and requested transfer to tertiary center
-extremely high risk of mortality per GS for OR
-per GS-no concern for GI as well as pneumoperitoneum. SBP high in the differential.
# Acute kidney injury with oliguria likely pre-renal in setting of decompensated liver cirrhosis
# Metabolic acidosis
-Gao catheter, monitor urine output
-s/p bicarb gtt
-Cr worsened
-started on midodrine. acidosis remains.
-FENA based on labs yesterday with intrinsic pattern however received albumin
-started on midodrine dose increased to 5mg TID
-per nephro-not HD candidate
-nephro on board
# Macrocytic anemia
# Thrombocytopenia
-Rectal exam showed heme positive dark stool
-ppi bid
-defer work up to GI-Per gastroenterology no plan for any procedures unless with acute gastrointestinal bleeding
-Anemia and thrombocytopenia both in the setting of decompensated liver cirrhosis. Transfuse hemoglobin or platelets as needed
# Right flank ecchymosis secondary to fall
-CT abdomen unremarkable for trauma
-CT head unremarkable
-CT C-spine unremarkable
# Patchy airspace disease bilateral upper lobes
-Vancomycin/Zosyn
History of subdural hematoma with prior shunt
Psoriasis
Pulmonary nodule-will need OP f/u for surveillance
Full code
DVT prophylaxis�SCDs
Prognosis guarded
Called [facility] personally again on 07/20 and patient is a high priority list patient is on the waiting list however unclear timeline but hopefully soon.
Updated patient's spouse Alexandru over the phone in details on 07/19. Explained to him patient poor prognosis with liver cirrhosis NYDIA, thrombocytopenia, anemia.
Tx to [facility]
Anticipated Discharge: > 48 hours
Subjective/Interval History
-
Date of Service: July 20, 2023
states of dry mouth and abd distention
Objective Data
-
Labs:
Laboratory Results
07/20/23
03:37
WBC 12.2 H
Hgb 9.2 L
Hct 25.9 L
Plt Count 57 L
Sodium 135
Potassium 4.7
Chloride 107
Carbon Dioxide 17 L
BUN 87 H
Creatinine 5.5 H*
Glucose 73
Calcium 7.7 L
Total Bilirubin 1.6 H
AST 61 H
ALT 31
Alkaline Phosphatase 64
Vital Signs:
Vital Signs
Temp Pulse Resp BP Pulse Ox
98.1 F 90 21 104/53 96
07/20/23 11:18 07/20/23 11:00 07/20/23 11:00 07/20/23 12:57 07/20/23 10:00
I&O
07/19/23 07/20/23 07/21/23
06:59 06:59 06:59
Intake Total 150 / 150 100 / 100 300 / 300
Output Total 290 / 290 50 / 50
Balance 150 / 150 -190 / -190 250 / 250
Physical Exam
-
General: Well Developed, No Apparent Distress and Obese
HEENT: Normocephalic, Atraumatic and Moist Mucous Membranes
Respiratory: Decreased Breath Sounds
Cardiac: Regular Rhythm and S1/S2; Negative Murmur, Rub or Gallop
GI: Soft, Normal Bowel Sounds, Tender and Distended (severe. +fluid wave. ); Negative Organomegaly
Rectal: Deferred by Provider
Musculoskeletal: No Clubbing, No Cyanosis and No Edema
Skin: Negative Rash
Neuro: Awake, Alert, No Motor Deficits and Nonfocal/Grossly Intact
Psych: Calm and Confused (intermittent )
Data Reviewed
-
Total Time Spent with Patient (in minutes): 54
[2023-07-20] MEDS: SANDOSTATIN 100 MCG SC ×2 (16:18→22:15)
--- NOTE | 2023-07-20 19:05 | PTCARENOTE ---
Received pt. at 1900. Pt. currently in bed. Drowsy but arousable. Oriented. Denies any pain or discomfort. Afebrile. Heart rhythm is sinus. Blood pressure normotensive. Currently on room air. Lungs sound diminished. Pt. currently NPO. Gao catheter
in place. Skin as documented. Discussed plan of care. Vital signs stable at this time.
[2023-07-21] VITALS (8 sets, daily range): BP systolic 90–108; BP diastolic 50–64; BMI 32.2
[2023-07-21 04:02] LABS: % Basophils 0.2 % (0-2); % Eosinophils 1.7 % (0-6); % Immature Granulocytes 0.9 % (0-0.5); % Lymphocytes 11.3 % (20.5-51.1); % Monocytes 8.8 % (1.7-9.3); % Neutrophils 77.1 % (42.2-75.2); Absolute Eosinophils 0.2 10^3/uL (0-0.7); Absolute Immature Granulocytes 0.1 10^3/uL (0-0.05); Absolute Lymphocytes 1.1 10^3/uL (1.2-3.4); Absolute Monocytes 0.9 10^3/uL (0.1-0.6); Absolute Neutrophils 7.8 10^3/uL (1.4-6.5); Hematocrit 24.6 % (39.0-52.0); Hemoglobin 8.8 g/dL (13.0-18.0); Mean Corp Hgb Conc. 35.8 g/dL (33.0-37.0); Mean Corpuscular Hgb 40.7 pg (27.0-31.0); Mean Corpuscular Volume 113.9 fL (80.0-94.0); Mean Platelet Volume 11.3 fL (7.4-10.4); Nucleated Red Blood Cells % 0 % (-); Platelet Count 48 10^3/uL (130-400); Red Blood Cell Count 2.16 10^6/uL (4.70-6.10); Red Cell Dist. Width 14.2 % (11.5-14.5); White Blood Cell Count 10.1 10^3/uL (4.8-10.8)
[2023-07-21 04:12] LABS: INR 2.87; PT 30.5 Sec (11.4-14.6)
[2023-07-21 04:55] LABS: ALT (SGPT) 22 U/L (0-50); AST (SGOT) 44 U/L (17-59); Albumin 3.1 g/dl (3.5-5.0); Alkaline Phosphatase 46 U/L (38-126); Blood Urea Nitrogen 96 mg/dl (9-20); Carbon Dioxide 12 mmol/L (22-30); Chloride 105 mmol/L (98-107); Estimated Creatinine Clearance 14 ml/min; Glucose 85 mg/dl (70-99); Potassium 4.6 mmol/L (3.5-5.1); Sodium 138 mmol/L (135-145); Total Bilirubin 2.2 mg/dl (0.2-1.3); Total Protein 5.1 g/dl (6.3-8.2); eGFR 9.12
[2023-07-21] MEDS: ZOSYN 50 IV ×3 (05:09→21:22)
[2023-07-21] MEDS: PROTONIX IV 40 MG IV ×2 (07:31→19:47)
[2023-07-21] MEDS: ELOCON 0.1% TOPICAL (07:31)
[2023-07-21] MEDS: NSS (PRESERVATIVE FREE) 10 ML IV ×2 (07:31→19:47)
[2023-07-21] MEDS: SANDOSTATIN 100 MCG SC ×3 (07:32→21:22)
[2023-07-21] MEDS: ProAmatine 5 MG PO ×3 (07:32→14:16)
--- NOTE | 2023-07-21 08:00 | PTCARENOTE ---
Received patient from warehouse supervisor 3rd shift, patient is awkae, alert, oriented to place and time. Unsure if patient is fully grasping his situation. Physician to speak with patient regarding hepatorenal failure and code status. Patient is sinus rhythm with
pvcs noted on monitor. +4 edema in bilateral lower extremities. Patieent is on room air. Not making much urine, will empty vázquez catheter q4 hours. Adomen is grossly distended, firm, tender. Patient to remain NPO but allowed small amounts of
ice chips. Awaiting transfer to [place].
[2023-07-21] MEDS: DILAUDID 0.5 MG IV ×2 (08:01→14:50)
[2023-07-21] MEDS: SODIUM BICARBONATE 50 MEQ IV ×3 (09:02→21:22)
--- NOTE | 2023-07-21 12:19 | W.PN.NEPH.PH ---
Today's Communication / Plan
-
- Cr worsening. likely HRS. c/w midodrine. held ocreatide
- metabolic acidosis, agree with bicarb pushes
Assessment/Plan
-
Impression:
NYDIA
hyponatremia (resolved)
Suspected alcohol cirrhosis
Ascites
Metabolic acidosis
suspected SBP
Right flank pains/falls
Hx of subdural� bleed with shunt
Plan;
NYDIA:
-no� obstructive uropathy� by CT
-suspected pre renal stimulus in setting of cirrhotic decompensation
-FeNa compatible with intrinsic kidney disease but drawn after patient recieved albumin and other fluids (likely not a true reflection of disease process)
-place vázquez but UOP minimal
-c/w midodrine to 5mg TID as patient's BP still remains soft
-albumin provided post paracentesis, agree with albumin challenge x3 days but unfortunately had no improvement in Cr
-initiate octreotide 100mcg TID on 07/20. no improvement, stopped 07/21
-acidosis worsening, check lactic acid. okay with bicarb pushes but would hold off infusion due to volume
-given advanced cirrhotic findings patient would not� be a�HD candidate
-
-
Date of Service: July 21, 2023
CC / HPI / ROS
-
Chief Complaint:
NYDIA
History of Present Illness:
NYDIA
hyponatremia
suspected alcoholic cirrhosis
metabolic acidosis
ascites
Review of Systems:
abdominal pain improving
Cr worsening to 6.4 baseline unknown
completed albumin, midodrine, octretide challenge with no improvement
hyponatremia improved after albumin administration
Labs
-
Labs:
WBC 10.1 10^3/uL (4.8-10.8) 07/21/23 03:50
RBC 2.16 10^6/uL (4.70-6.10) L 07/21/23 03:50
Hgb 8.8 g/dL (13.0-18.0) L 07/21/23 03:50
Hct 24.6 % (39.0-52.0) L 07/21/23 03:50
Plt Count 48 10^3/uL (130-400) L 07/21/23 03:50
Sodium 138 mmol/L (135-145) 07/21/23 03:50
Potassium 4.6 mmol/L (3.5-5.1) 07/21/23 03:50
Chloride 105 mmol/L (98-107) 07/21/23 03:50
Carbon Dioxide 12 mmol/L (22-30) L* 07/21/23 03:50
BUN 96 mg/dl (9-20) H 07/21/23 03:50
Creatinine 6.4 mg/dL (0.7-1.3) H* 07/21/23 03:50
eGFR 9.12 07/21/23 03:50
Glucose 85 mg/dl (70-99) 07/21/23 03:50
Calcium 8.0 mg/dl (8.4-10.2) L 07/21/23 03:50
Phosphorus 6.3 mg/dl (2.5-4.5) H 07/18/23 06:25
Skq-C-Aaqkvdgdstq Pept 6100 pg/ml 07/17/23 09:58
Albumin 3.1 g/dl (3.5-5.0) L 07/21/23 03:50
Physical Exam
-
Vital Signs:
Vital Signs
Temp Pulse Resp BP Pulse Ox
98.2 F 92 28 94/56 93
07/21/23 10:04 07/21/23 09:00 07/21/23 05:00 07/21/23 08:00 07/21/23 09:00
Cardiovascular:: Regular rate and rhythm
Respiratory:: Bilateral: Coarse
Lung Excursion:: Normal
Abdomen:: Distended, Soft and Tender
Bowel Sounds:: Normal
Extremity Edema:: None: Bilateral:
Vázquez Catheter: Yes
--- NOTE | 2023-07-21 13:09 | W.PN.HOSP.TC ---
Today's Communication/Plan
-
Increase midodrine
Albumin challenge
Bicarb push
Restart octreotide
Assessment / Plan
Assessment / Plan
# Sepsis (leukocytosis, tachycardia) secondary to SBP
# Lactic acidosis
# Ascites likely secondary to decompensated alcoholic cirrhosis
-Check portal vein ultrasound -negative for PVT
-Blood cultures negative so far
-IR consulted for paracentesis s/p 3.5L fluid removed.
-ascitic fluid noted with greater than 250 PMN. Culture in lab- no growth but was on abx prior to procedure.
-Patient accepted to [facility].
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
-Cont zosyn. Dc Vanc.
-albumin 1.5mg/kg on day 1 and repeat albumin 1mg/kg on day 3
-Consider repeat therapeutic paracentesis in the morning if patient still here.
-ammonia level wnl.
-GI consulted
#Chronic Alcohol abuse
#Alcohol use disorder
-Heavy wine and or vodka drinker.
-Used to drink 2L of wine daily or vodka 750cc-heavy usage for approx 7 years per spouse and also in the past heavy drinker unclear amount
-Last drink 5 days ago.
# Small and free air in the anterior abdomen unclear etiology
-N.p.o.
-Blood cultures neg so far
-IV fluids
-Zosyn
-repeat CT abd/pelvis on 07/19-Small volume free air in the anterior abdomen slightly decreased in volume in comparison to recent prior study.Large volume ascites again seen.Lobulated contour of the liver again identified. Again seen two
subcentimeter low-attenuation hepatic lesions too small to characterize, also unable to be characterized without intravenous contrast. Increased bibasilar lung opacification most likely representing subsegmental atelectasis. Unfortunately, pneumonia
and tiny right pleural effusion cannot be excluded.
-General surgery consulted and requested transfer to tertiary center
-extremely high risk of mortality per GS for OR
-per GS-no concern for GI as well as pneumoperitoneum. SBP high in the differential.
Speech eval.
# Acute kidney injury with oliguria likely pre-renal in setting of decompensated liver cirrhosis
# Metabolic acidosis
-Gao catheter, monitor urine output
-s/p bicarb gtt . Per nephrology this am avoid IV bicarb infusion and recommending IV bicarb push. Received 50meq earlier will order 2 more. Repeat lab tonight. If worsening acidosis may need to start bicarb infusion
-Cr worsened and
-started on midodrine. acidosis remains.
-FENA based on labs yesterday with intrinsic pattern however received albumin
-Discussed with credit card analyst at [facility] 07/21 and recommending to increase midodrine to 10 mg 3 times daily, restart octreotide and albumin challenge for worsening creatinine.
-nephro on board
# Macrocytic anemia
# Thrombocytopenia
-Rectal exam showed heme positive dark stool
-ppi bid
-defer work up to GI-Per gastroenterology no plan for any procedures unless with acute gastrointestinal bleeding
-Anemia and thrombocytopenia both in the setting of decompensated liver cirrhosis. Transfuse hemoglobin or platelets as needed
# Right flank ecchymosis secondary to fall
-CT abdomen unremarkable for trauma
-CT head unremarkable
-CT C-spine unremarkable
# Patchy airspace disease bilateral upper lobes
-cont Zosyn
History of subdural hematoma with prior shunt
Psoriasis
Pulmonary nodule-will need OP f/u for surveillance
Full code
DVT prophylaxis�SCDs
Prognosis guarded. Remains full code. Discussed with patient to consider changing CODE STATUS moving forward. Patient to think about it.
Updated patient's spouse Alexandru over the phone in details on 07/19. Explained to him patient poor prognosis with liver cirrhosis NYDIA, thrombocytopenia, anemia.
This morning patient did not want me to update his spouse.
Updated transfer center in regards for upgrade level of care to telemetry on 07/21.
I spent a total of 80 minutes with the patient or on the floor. More than 50% of this time involved counseling and coordination of care.
Anticipated Discharge: > 48 hours
Subjective/Interval History
-
Date of Service: July 21, 2023
Pt with decrease urinary output
no severe abd pain or nausea
Objective Data
-
Labs:
Laboratory Results
07/21/23
03:50
WBC 10.1
Hgb 8.8 L
Hct 24.6 L
Plt Count 48 L
PT 30.5 H
INR 2.87
Sodium 138
Potassium 4.6
Chloride 105
Carbon Dioxide 12 L*
BUN 96 H
Creatinine 6.4 H*
Glucose 85
Calcium 8.0 L
Total Bilirubin 2.2 H
AST 44
ALT 22
Alkaline Phosphatase 46
Vital Signs:
Vital Signs
Temp Pulse Resp BP Pulse Ox
98.2 F 92 28 94/56 93
07/21/23 10:04 07/21/23 09:00 07/21/23 05:00 07/21/23 08:00 07/21/23 09:00
I&O
07/20/23 07/21/23 07/22/23
06:59 06:59 06:59
Intake Total 100 / 100 450 / 450 0 / 0
Output Total 290 / 290 170 / 170 15 / 15
Balance -190 / -190 280 / 280 -15 / -15
Physical Exam
-
General: Well Developed, No Apparent Distress and Appears Chronically Ill
HEENT: Normocephalic, Atraumatic and Moist Mucous Membranes
Respiratory: Decreased Breath Sounds
Cardiac: Regular Rhythm and S1/S2; Negative Murmur, Rub or Gallop
GI: Soft, Normal Bowel Sounds, Tender and Distended (severe. +fluid wave. ); Negative Organomegaly
Rectal: Deferred by Provider
Musculoskeletal: No Clubbing, No Cyanosis, Edema, Left Upper Extrem and Edema, Right Lower Extrem
Skin: Negative Rash
Neuro: Awake, Alert, No Motor Deficits and Nonfocal/Grossly Intact
Psych: Calm
[2023-07-21] MEDS: FLEXBUMIN 50 IV ×2 (14:16→21:22)
[2023-07-21] MEDS: ProAmatine 10 MG PO (18:41)
[2023-07-21 22:02] LABS: Blood Urea Nitrogen 96 mg/dl (9-20); Calcium 7.3 mg/dl (8.4-10.2); Carbon Dioxide 15 mmol/L (22-30); Chloride 107 mmol/L (98-107); Estimated Creatinine Clearance 14 ml/min; Glucose 98 mg/dl (70-99); Potassium 4.4 mmol/L (3.5-5.1); Sodium 137 mmol/L (135-145); eGFR 8.79
--- NOTE | 2023-07-21 22:30 | PTCARENOTE ---
Received pt resting in bed, AAOx2. Unsure of year. RAMOS but very weak. SR with PVCs on tele, HR 70s. BP 99/60. +4LE edema, +2 anasarca. SCDs on. Afebrile. On RA. Lungs diminished throughout. Spo2 92-94%. Poor effort, shallow. Incontinent of bowel.
Cleaned and bathed with CHG. Gao in place with arcadio output- oliguric. Gao care provided. NPO maintained. Pt. constantly asking for ice chips. Turning q2.
[2023-07-22] VITALS (7 sets, daily range): BP systolic 97–125; BP diastolic 56–78; BMI 32.3
[2023-07-22 04:00] LABS: % Basophils 0.2 % (0-2); % Eosinophils 2.2 % (0-6); % Immature Granulocytes 0.7 % (0-0.5); % Lymphocytes 10.9 % (20.5-51.1); % Monocytes 8.3 % (1.7-9.3); % Neutrophils 77.7 % (42.2-75.2); Absolute Eosinophils 0.3 10^3/uL (0-0.7); Absolute Immature Granulocytes 0.1 10^3/uL (0-0.05); Absolute Lymphocytes 1.3 10^3/uL (1.2-3.4); Absolute Neutrophils 9.3 10^3/uL (1.4-6.5); Hematocrit 24.5 % (39.0-52.0); Hemoglobin 8.9 g/dL (13.0-18.0); Mean Corp Hgb Conc. 36.3 g/dL (33.0-37.0); Mean Corpuscular Volume 112.9 fL (80.0-94.0); Mean Platelet Volume 11.5 fL (7.4-10.4); Nucleated Red Blood Cells % 0 % (-); Platelet Count 48 10^3/uL (130-400); Red Blood Cell Count 2.17 10^6/uL (4.70-6.10); Red Cell Dist. Width 14.5 % (11.5-14.5)
[2023-07-22 04:18] LABS: INR 2.87; PT 30.5 Sec (11.4-14.6)
[2023-07-22 04:47] LABS: ALT (SGPT) 21 U/L (0-50); AST (SGOT) 40 U/L (17-59); Alkaline Phosphatase 37 U/L (38-126); Blood Urea Nitrogen 106 mg/dl (9-20); Calcium 7.9 mg/dl (8.4-10.2); Carbon Dioxide 14 mmol/L (22-30); Chloride 103 mmol/L (98-107); Estimated Creatinine Clearance 13 ml/min; Glucose 110 mg/dl (70-99); Potassium 4.5 mmol/L (3.5-5.1); Sodium 140 mmol/L (135-145); Total Bilirubin 2.3 mg/dl (0.2-1.3); eGFR 8.05
[2023-07-22] MEDS: FLEXBUMIN 50 IV (04:58)
--- NOTE | 2023-07-22 05:14 | PTCARENOTE ---
Addendum entered by Shilpa Whitfield RN 07/22/23 05:37:
correction: 2 amps bicarb ordered
Original Note:
AM labs discussed with JEANNA Bah. 1 amp bicarb ordered. Pt rested on and off throughout night. VSS. Abdomen appears larger this AM.
[2023-07-22] MEDS: SODIUM BICARBONATE 50 MEQ IV ×2 (05:20→05:36)
[2023-07-22] MEDS: ZOSYN 50 IV ×3 (05:20→22:30)
[2023-07-22] MEDS: ProAmatine 10 MG PO ×3 (08:17→17:01)
[2023-07-22] MEDS: PROTONIX IV 40 MG IV ×2 (08:18→20:15)
[2023-07-22] MEDS: NSS (PRESERVATIVE FREE) 10 ML IV ×2 (08:18→20:15)
[2023-07-22] MEDS: SANDOSTATIN 100 MCG SC ×3 (08:18→22:33)
[2023-07-22] MEDS: ELOCON 0.1% TOPICAL (08:19)
--- NOTE | 2023-07-22 08:57 | W.PN.HOSP.TC ---
Today's Communication/Plan
-
Transfer to [facility] when bed available
OK for clear liquids
AXR
Will consider repeat paracentesis if still here today to follow on SBP
Assessment / Plan
Assessment / Plan
# Sepsis (leukocytosis, tachycardia) suspected secondary to SBP. Improved leukocytosis and sepsis parameters with empirical antibiotic
# Lactic acidosis
#Chronic Alcohol abuse
#Alcohol use disorder
# Decompensated liver disease with ascites
# Ascites with possible SBP-culture negative [was on antibiotics]
-Heavy wine and or vodka drinker.
-Used to drink 2L of wine daily or vodka 750cc-heavy usage for approx 7 years per spouse and also in the past heavy drinker unclear amount
-Last drink 5 days prior to presentation
-S/p paracentesis-culture negative. Lab work noted. Portal hypertension. Cytology pending.
-Patient received albumin and octreotide
-GI input noted. Await transfer to [facility]
# Small and free air in the anterior abdomen unclear etiology
-repeat CT abd/pelvis on 07/19-Small volume free air in the anterior abdomen slightly decreased in volume in comparison to recent prior study.Large volume ascites again seen.Lobulated contour of the liver again identified. Again seen two
subcentimeter low-attenuation hepatic lesions too small to characterize, also unable to be characterized without intravenous contrast. Increased bibasilar lung opacification most likely representing subsegmental atelectasis. Unfortunately, pneumonia
and tiny right pleural effusion cannot be excluded.
-per GS-no concern for GI as well as pneumoperitoneum. SBP high in the differential.
# Acute kidney injury with oliguria likely pre-renal in setting of decompensated liver cirrhosis
# Metabolic acidosis
-Gao catheter, monitor urine output
-Cr worsened
-started on midodrine. acidosis remains. Continue with as needed bicarb pushes.
-Patient received albumin and octreotide without any improvement in renal function. For creatinine is getting worse
-nephro on board
# Macrocytic anemia
# Thrombocytopenia
-Rectal exam showed heme positive dark stool
-ppi bid
-defer work up to GI-Per gastroenterology no plan for any procedures unless with acute gastrointestinal bleeding
-Anemia and thrombocytopenia both in the setting of decompensated liver cirrhosis. Transfuse hemoglobin or platelets as needed
# Right flank ecchymosis secondary to fall
-CT abdomen unremarkable for trauma
-CT head unremarkable
-CT C-spine unremarkable
# Patchy airspace disease bilateral upper lobes
-cont Zosyn
History of subdural hematoma with prior shunt
Psoriasis
Pulmonary nodule-will need OP f/u for surveillance
Full code
DVT prophylaxis�SCDs
Prognosis is poor with decompensated liver disease and secondary oliguric renal failure.
Pt is aware about the liver dysfunction and prognosis.
Aware about transfer to [facility] he is ok with it
Discussed with transfer center @ [facility] - await a bed for transfer
Total time spent on today's encounter was 52 minutes which included time spent in counseling the patient/family regarding diagnosis and treatment plan as listed above, goals of care, and symptom management. Case was discussed with nursing staff,
specialists, and care coordinators/case management. All labs and imaging personally reviewed by me. Remainder the time spent in detailed review of previous records, lab data, imaging, and other medical provider documentation.
Anticipated Discharge: Today
Subjective/Interval History
-
Date of Service: July 22, 2023
Patient feeling very thirsty.
No abdominal pain. Complains of loose bowel movements. Abdomen is distended. No nausea or vomiting.
No fever or chills.
No shortness of breath.
Objective Data
-
Labs:
Laboratory Results
07/21/23 07/22/23
21:21 03:51
WBC 12.0 H
Hgb 8.9 L
Hct 24.5 L
Plt Count 48 L
PT 30.5 H
INR 2.87
Sodium 137 140
Potassium 4.4 4.5
Chloride 107 103
Carbon Dioxide 15 L 14 L*
BUN 96 H 106 H*
Creatinine 6.6 H* 7.1 H*
Glucose 98 110 H
Calcium 7.3 L 7.9 L
Total Bilirubin 2.3 H
AST 40
ALT 21
Alkaline Phosphatase 37 L
Vital Signs:
Vital Signs
Temp Pulse Resp BP Pulse Ox
97.8 F 83 19 106/72 93
07/22/23 07:30 07/22/23 08:17 07/22/23 08:00 07/22/23 08:17 07/22/23 08:00
I&O
07/21/23 07/22/23 07/23/23
06:59 06:59 06:59
Intake Total 450 / 450 150 / 150
Output Total 170 / 170 120 / 120 0 / 0
Balance 280 / 280 30 / 30 0 / 0
Review of Systems
-
Constitutional: Denies Fever
EENT: Denies Sore Throat
Respiratory: Denies Cough
Cardiac: Denies Chest Pain
Genitourinary: Denies Dysuria
Neuro: Denies Dizzy
Physical Exam
-
General: No Apparent Distress
HEENT: Atraumatic
Respiratory: Clear to Auscultation
Cardiac: Regular Rhythm and S1/S2
GI: Soft, Nontender, Normal Bowel Sounds and Distended (Tympanic in the upper abdomen and dull in the lower abdomen)
Musculoskeletal: Edema, Right Lower Extrem and Edema, Left Lower Extrem
Neuro: AO x 3; Negative Tremors
Psych: Calm; Negative Confused
Data Reviewed
-
Labs: Labs Reviewed by me
--- NOTE | 2023-07-22 10:47 | W.PN.NEPH.PH ---
Today's Communication / Plan
-
po bicarb
IV alb
Assessment/Plan
-
Impression:
NYDIA
hyponatremia (resolved)
Suspected alcohol cirrhosis
Ascites
Metabolic acidosis
suspected SBP
Right flank pains/falls
Hx of subdural� bleed with shunt
Plan;
NYDIA:
-no� obstructive uropathy� by CT
-suspected pre renal stimulus in setting of cirrhotic decompensation
felt to have evolving HRS with minimal UOP-no response to Alb
-c/w midodrine to 5mg TID
-initiate octreotide 100mcg TID on 07/20. no improvement, stopped 07/21
-acidosis worsening, will po bicarb
IV alb to continue
-given advanced cirrhotic findings patient would not� be a�HD candidate
reviewed with pt in detail about grave prognosis
Suggested him review his code status , pt seem to acknowledge the severity of his health issues but unable to make any decisions
he has a partner 83 y/o whom he does not want to discuss with
d/w nursing
-
-
Date of Service: July 22, 2023
CC / HPI / ROS
-
Chief Complaint:
NYDIA
History of Present Illness:
NYDIA
BUN at 106, cr up at 7.1
suspected alcoholic cirrhosis
metabolic acidosis worsening
Review of Systems:
no cp or sob at rest
wt no change
Labs
-
Labs:
WBC 12.0 10^3/uL (4.8-10.8) H 07/22/23 03:51
RBC 2.17 10^6/uL (4.70-6.10) L 07/22/23 03:51
Hgb 8.9 g/dL (13.0-18.0) L 07/22/23 03:51
Hct 24.5 % (39.0-52.0) L 07/22/23 03:51
Plt Count 48 10^3/uL (130-400) L 07/22/23 03:51
Sodium 140 mmol/L (135-145) 07/22/23 03:51
Potassium 4.5 mmol/L (3.5-5.1) 07/22/23 03:51
Chloride 103 mmol/L (98-107) 07/22/23 03:51
Carbon Dioxide 14 mmol/L (22-30) L* 07/22/23 03:51
BUN 106 mg/dl (9-20) H* 07/22/23 03:51
Creatinine 7.1 mg/dL (0.7-1.3) H* 07/22/23 03:51
eGFR 8.05 07/22/23 03:51
Glucose 110 mg/dl (70-99) H 07/22/23 03:51
Calcium 7.9 mg/dl (8.4-10.2) L 07/22/23 03:51
Phosphorus 6.3 mg/dl (2.5-4.5) H 07/18/23 06:25
Trh-A-Ubmbyouizfv Pept 6100 pg/ml 07/17/23 09:58
Albumin 3.0 g/dl (3.5-5.0) L 07/22/23 03:51
Physical Exam
-
Vital Signs:
Vital Signs
Temp Pulse Resp BP Pulse Ox
97.8 F 78 20 106/72 93
07/22/23 07:30 07/22/23 10:00 07/22/23 09:00 07/22/23 08:17 07/22/23 09:00
[2023-07-22] MEDS: SODIUM BICARBONATE 1300 MG PO ×2 (16:16→22:34)
[2023-07-22] MEDS: ProAmatine 5 MG PO (17:02)
[2023-07-23] VITALS (7 sets, daily range): BP systolic 96–131; BP diastolic 59–78
[2023-07-23] MEDS: ZOSYN 50 IV ×3 (06:19→21:29)
[2023-07-23 08:06] LABS: % Basophils 0.3 % (0-2); % Eosinophils 1.4 % (0-6); % Lymphocytes 8.6 % (20.5-51.1); % Monocytes 7.6 % (1.7-9.3); % Neutrophils 81.1 % (42.2-75.2); Absolute Basophils 0.1 10^3/uL (0-0.2); Absolute Eosinophils 0.2 10^3/uL (0-0.7); Absolute Immature Granulocytes 0.1 10^3/uL (0-0.05); Absolute Lymphocytes 1.2 10^3/uL (1.2-3.4); Absolute Monocytes 1.1 10^3/uL (0.1-0.6); Absolute Neutrophils 11.6 10^3/uL (1.4-6.5); Hematocrit 28.8 % (39.0-52.0); Hemoglobin 10.4 g/dL (13.0-18.0); Mean Corp Hgb Conc. 36.1 g/dL (33.0-37.0); Mean Corpuscular Hgb 40.8 pg (27.0-31.0); Mean Corpuscular Volume 112.9 fL (80.0-94.0); Nucleated Red Blood Cells % 0 % (-); Platelet Count 41 10^3/uL (130-400); Red Blood Cell Count 2.55 10^6/uL (4.70-6.10); Red Cell Dist. Width 14.5 % (11.5-14.5); White Blood Cell Count 14.3 10^3/uL (4.8-10.8)
[2023-07-23 08:13] LABS: INR 2.69; PT 29.1 Sec (11.4-14.6)
[2023-07-23] MEDS: ELOCON 0.1% TOPICAL (08:16)
[2023-07-23 08:46] LABS: ALT (SGPT) 21 U/L (0-50); AST (SGOT) 41 U/L (17-59); Albumin 3.2 g/dl (3.5-5.0); Alkaline Phosphatase 47 U/L (38-126); Blood Urea Nitrogen 105 mg/dl (9-20); Calcium 7.8 mg/dl (8.4-10.2); Carbon Dioxide 18 mmol/L (22-30); Chloride 102 mmol/L (98-107); Estimated Creatinine Clearance 12 ml/min; Glucose 138 mg/dl (70-99); Potassium 4.1 mmol/L (3.5-5.1); Sodium 135 mmol/L (135-145); Total Bilirubin 2.2 mg/dl (0.2-1.3); Total Protein 5.4 g/dl (6.3-8.2)
[2023-07-23] MEDS: SODIUM BICARBONATE 1300 MG PO ×3 (09:53→21:59)
[2023-07-23] MEDS: SANDOSTATIN 100 MCG SC ×3 (09:54→22:15)
[2023-07-23] MEDS: NSS (PRESERVATIVE FREE) 10 ML IV ×2 (09:54→20:43)
[2023-07-23] MEDS: PROTONIX IV 40 MG IV ×2 (09:54→20:43)
--- NOTE | 2023-07-23 12:06 | CM ---
CM reviewed patients chart, plan for transfer to [facility] when bed available. CM will continue to follow for discharge planning needs.
Plan; transfer to [facility] when bed available.
--- NOTE | 2023-07-23 13:23 | W.PN.NEPH.PH ---
Today's Communication / Plan
-
observe
Assessment/Plan
-
Impression:
NYDIA
hyponatremia (resolved)
Suspected alcohol cirrhosis
Ascites
Metabolic acidosis
suspected SBP
Right flank pains/falls
Hx of subdural� bleed with shunt
Plan;
NYDIA:
-no� obstructive uropathy� by CT
-suspected pre renal stimulus in setting of cirrhotic decompensation
felt to have evolved HRS with minimal UOP-no response to Alb
due to poor UOP and c/o pain ok to d/c vázquez
-c/w midodrine to 5mg TID
-initiated octreotide 100mcg TID on 07/20.
-acidosis improving with po bicarb
IV alb prn, no response so far
-given advanced cirrhotic findings patient would not� be a�HD candidate
reviewed with pt in detail about grave prognosis on 07/22
Suggested him review his code status , pt seem to acknowledge the severity of his health issues but unable to make any decisions
he has a partner 83 y/o whom he reportedly spoke but no decision made yet
-
-
Date of Service: July 23, 2023
CC / HPI / ROS
-
Chief Complaint:
NYDIA
History of Present Illness:
NYDIA
BUN at 105, cr up at 7.7
suspected alcoholic cirrhosis
metabolic acidosis better bicarb at 18
Review of Systems:
no cp or sob at rest
no change in abd distension
Labs
-
Labs:
WBC 14.3 10^3/uL (4.8-10.8) H 07/23/23 07:27
RBC 2.55 10^6/uL (4.70-6.10) L 07/23/23 07:27
Hgb 10.4 g/dL (13.0-18.0) L 07/23/23 07:27
Hct 28.8 % (39.0-52.0) L 07/23/23 07:27
Plt Count 41 10^3/uL (130-400) L 07/23/23 07:27
Sodium 135 mmol/L (135-145) 07/23/23 07:27
Potassium 4.1 mmol/L (3.5-5.1) 07/23/23 07:27
Chloride 102 mmol/L (98-107) 07/23/23 07:27
Carbon Dioxide 18 mmol/L (22-30) L 07/23/23 07:27
BUN 105 mg/dl (9-20) H* 07/23/23 07:27
Creatinine 7.7 mg/dL (0.7-1.3) H* 07/23/23 07:27
eGFR 7.30 07/23/23 07:27
Glucose 138 mg/dl (70-99) H 07/23/23 07:27
Calcium 7.8 mg/dl (8.4-10.2) L 07/23/23 07:27
Phosphorus 6.3 mg/dl (2.5-4.5) H 07/18/23 06:25
Seq-W-Khyfyltglnv Pept 6100 pg/ml 07/17/23 09:58
Albumin 3.2 g/dl (3.5-5.0) L 07/23/23 07:27
Physical Exam
-
Vital Signs:
Vital Signs
Temp Pulse Resp BP Pulse Ox
97.7 F 77 16 96/64 95
07/23/23 11:02 07/23/23 11:02 07/23/23 11:02 07/23/23 11:02 07/23/23 07:09
Cardiovascular:: Regular rate and rhythm
Respiratory:: Bilateral: CTA (anteriorly)
Lung Excursion:: Normal
Abdomen:: Distended, Nontender and Soft
Extremity Edema:: +1: Bilateral:
Vázquez Catheter: No
[2023-07-23] MEDS: ProAmatine 10 MG PO ×2 (13:37→16:56)
[2023-07-23] MEDS: FLEXBUMIN 100 IV ×2 (16:52→22:40)
--- NOTE | 2023-07-23 17:58 | W.PN.HOSP.TC ---
Today's Communication/Plan
-
Tx to [facility] when bed available.
Assessment / Plan
Assessment / Plan
# Sepsis (leukocytosis, tachycardia) suspected secondary to SBP. Improved leukocytosis and sepsis parameters with empirical antibiotic
# Lactic acidosis
# Chronic Alcohol abuse
# Alcohol use disorder
# Decompensated liver disease with ascites
# Ascites with possible SBP-culture negative [was on antibiotics]
-Heavy wine and or vodka drinker.
-Used to drink 2L of wine daily or vodka 750cc-heavy usage for approx 7 years per spouse and also in the past heavy drinker unclear amount
-Last drink 5 days prior to presentation
-S/p paracentesis-culture negative. Lab work noted. Portal hypertension. Cytology pending. cw abx . Consider repeat paracentesis in am if still here due to increased distension and also to follow on SBP.
-Patient received albumin and octreotide
-GI input noted. Await transfer to [facility]
# Small and free air in the anterior abdomen unclear etiology
-repeat CT abd/pelvis on 07/19-Small volume free air in the anterior abdomen slightly decreased in volume in comparison to recent prior study.Large volume ascites again seen.Lobulated contour of the liver again identified. Again seen two
subcentimeter low-attenuation hepatic lesions too small to characterize, also unable to be characterized without intravenous contrast. Increased bibasilar lung opacification most likely representing subsegmental atelectasis. Unfortunately, pneumonia
and tiny right pleural effusion cannot be excluded.
-per GS-no concern for GI as well as pneumoperitoneum. SBP high in the differential.
# Acute kidney injury with oliguria likely pre-renal in setting of decompensated liver cirrhosis
# Metabolic acidosis
-Gao catheter, monitor urine output
-Cr worsened
-started on midodrine. acidosis remains. Continue with as needed bicarb pushes.
-Patient received albumin and octreotide without any improvement in renal function. For creatinine is getting worse
-nephro on board
# Macrocytic anemia
# Thrombocytopenia
-Rectal exam showed heme positive dark stool
-ppi bid
-defer work up to GI-Per gastroenterology no plan for any procedures unless with acute gastrointestinal bleeding
-Anemia and thrombocytopenia both in the setting of decompensated liver cirrhosis. Transfuse hemoglobin or platelets as needed
# Right flank ecchymosis secondary to fall
-CT abdomen unremarkable for trauma
-CT head unremarkable
-CT C-spine unremarkable
# Patchy airspace disease bilateral upper lobes
-cont Zosyn
History of subdural hematoma with prior shunt
Psoriasis
Pulmonary nodule-will need OP f/u for surveillance
Full code
DVT prophylaxis�SCDs
Prognosis is poor with decompensated liver disease and secondary oliguric renal failure.
Pt is aware about the liver dysfunction and poor prognosis.
Discussed with transfer center @ [facility] 07/22 - await a bed for transfer
Had discussion with him today about resuscitation wishes.
Explained to him about organ dysfunction which carries high mortality and in the event of cardiac arrest he wishes to proceed now with resuscitative efforts.
Also encouraged him to speak with the family/spouse.
Anticipated Discharge: Today
Subjective/Interval History
-
Date of Service: July 23, 2023
Feeling thirsty
Denies SOB or CP
Objective Data
-
Labs:
Laboratory Results
07/23/23
07:27
WBC 14.3 H
Hgb 10.4 L
Hct 28.8 L
Plt Count 41 L
PT 29.1 H
INR 2.69
Sodium 135
Potassium 4.1
Chloride 102
Carbon Dioxide 18 L
BUN 105 H*
Creatinine 7.7 H*
Glucose 138 H
Calcium 7.8 L
Total Bilirubin 2.2 H
AST 41
ALT 21
Alkaline Phosphatase 47
Vital Signs:
Vital Signs
Temp Pulse Resp BP Pulse Ox
97.6 F 73 16 112/73 95
07/23/23 17:15 07/23/23 17:15 07/23/23 17:15 07/23/23 17:15 07/23/23 15:00
I&O
07/22/23 07/23/23 07/24/23
06:59 06:59 06:59
Intake Total 150 / 150 200 / 200
Output Total 120 / 120 90 / 90
Balance 30 / 30 110 / 110
Review of Systems
-
Constitutional: Denies Fever
EENT: Denies Sore Throat
Respiratory: Denies Cough
Cardiac: Denies Chest Pain
Abdomen/GI: Denies Abdominal Pain, Nausea or Vomiting
Neuro: Denies Dizzy
Physical Exam
-
General: No Apparent Distress
HEENT: Moist Mucous Membranes
Respiratory: Clear to Auscultation
Cardiac: Regular Rhythm and S1/S2
GI: Soft, Nontender, Normal Bowel Sounds and Distended
Neuro: AO x 3; Negative Tremors
Psych: Calm; Negative Confused
Data Reviewed
-
Labs: Labs Reviewed by me
[2023-07-24 03:56] VITALS: BP 115/63
[2023-07-24] MEDS: FLEXBUMIN 100 IV (05:03)
[2023-07-24 06:00] VITALS: BMI 33.5
[2023-07-24] MEDS: ZOSYN 50 IV ×3 (06:38→21:04)
[2023-07-24 07:30] VITALS: BP 114/75
[2023-07-24 07:43] LABS: Hematocrit 24.7 % (39.0-52.0); Hemoglobin 9.2 g/dL (13.0-18.0); Mean Corp Hgb Conc. 37.2 g/dL (33.0-37.0); Mean Corpuscular Hgb 41.6 pg (27.0-31.0); Mean Corpuscular Volume 111.8 fL (80.0-94.0); Mean Platelet Volume 12.5 fL (7.4-10.4); Platelet Count 33 10^3/uL (130-400); Red Blood Cell Count 2.21 10^6/uL (4.70-6.10); Red Cell Dist. Width 14.1 % (11.5-14.5); White Blood Cell Count 12.6 10^3/uL (4.8-10.8)
[2023-07-24 07:50] LABS: INR 2.86; PT 30.4 Sec (11.4-14.6)
[2023-07-24 08:37] LABS: ALT (SGPT) 18 U/L (0-50); AST (SGOT) 33 U/L (17-59); Albumin 3.5 g/dl (3.5-5.0); Alkaline Phosphatase 38 U/L (38-126); Blood Urea Nitrogen 111 mg/dl (9-20); Calcium 8.2 mg/dl (8.4-10.2); Carbon Dioxide 18 mmol/L (22-30); Chloride 96 mmol/L (98-107); Estimated Creatinine Clearance 12 ml/min; Glucose 153 mg/dl (70-99); Potassium 3.8 mmol/L (3.5-5.1); Sodium 136 mmol/L (135-145); Total Protein 5.5 g/dl (6.3-8.2); eGFR 7.08
[2023-07-24] MEDS: ELOCON 0.1% TOPICAL (10:56)
[2023-07-24] MEDS: NSS (PRESERVATIVE FREE) 10 ML IV ×2 (10:57→20:35)
[2023-07-24] MEDS: PROTONIX IV 40 MG IV ×2 (10:59→20:34)
[2023-07-24 11:00] VITALS: BP 102/66
[2023-07-24] MEDS: ProAmatine 10 MG PO ×3 (11:05→17:09)
[2023-07-24] MEDS: SANDOSTATIN 100 MCG SC ×2 (11:07→15:55)
[2023-07-24] MEDS: SODIUM BICARBONATE 1300 MG PO ×3 (11:11→20:35)
--- NOTE | 2023-07-24 11:45 | CM ---
Addendum entered by Zuleima Busch 07/24/23 16:28:
Correction: Transport form completed by doctor, placed in patients chart
Addendum entered by Zuleima Busch 07/24/23 16:28:
Transport form completed by
Addendum entered by Zuleima Busch 07/24/23 16:00:
Per Romy Wu, patient clinicals have been sent for request for ambulance transfer to [facility] to [facility] and auth is pending.
Original Note:
CM reviewed patients chart, plan for transfer to [facility] when bed available. CM will continue to follow for discharge planning needs.
Plan; transfer to [facility] when bed available.
--- NOTE | 2023-07-24 13:49 | W.PN.HOSP.TC ---
Today's Communication/Plan
-
DC to [facility]
Assessment / Plan
Assessment / Plan
# Sepsis (leukocytosis, tachycardia) suspected secondary to SBP. Improved leukocytosis and sepsis parameters with empirical antibiotic
# Lactic acidosis
# Chronic Alcohol abuse
# Alcohol use disorder
# Decompensated liver disease with ascites
# Ascites with possible SBP-culture negative [was on antibiotics]
-Heavy wine and or vodka drinker.
-Used to drink 2L of wine daily or vodka 750cc-heavy usage for approx 7 years per spouse and also in the past heavy drinker unclear amount
-Last drink 5 days prior to presentation
-S/p paracentesis-culture negative. Lab work noted. Portal hypertension. Cytology pending. cw abx . Consider repeat paracentesis in am if still here due to increased distension and also to follow on SBP.
-Patient received albumin and octreotide
-GI input noted. Await transfer to [facility]
# Small and free air in the anterior abdomen unclear etiology
-repeat CT abd/pelvis on 07/19-Small volume free air in the anterior abdomen slightly decreased in volume in comparison to recent prior study.Large volume ascites again seen.Lobulated contour of the liver again identified. Again seen two
subcentimeter low-attenuation hepatic lesions too small to characterize, also unable to be characterized without intravenous contrast. Increased bibasilar lung opacification most likely representing subsegmental atelectasis. Unfortunately, pneumonia
and tiny right pleural effusion cannot be excluded.
-per GS-no concern for GI as well as pneumoperitoneum. SBP high in the differential.
# Acute kidney injury with oliguria likely pre-renal in setting of decompensated liver cirrhosis
# Metabolic acidosis
-Gao catheter, monitor urine output
-Cr worsened
-started on midodrine. acidosis remains. Continue with as needed bicarb pushes.
-Patient received albumin and octreotide without any improvement in renal function. For creatinine is getting worse
-nephro on board
# Macrocytic anemia
# Thrombocytopenia
-Rectal exam showed heme positive dark stool
-ppi bid
-defer work up to GI-Per gastroenterology no plan for any procedures unless with acute gastrointestinal bleeding
-Anemia and thrombocytopenia both in the setting of decompensated liver cirrhosis. Transfuse hemoglobin or platelets as needed
# Right flank ecchymosis secondary to fall
-CT abdomen unremarkable for trauma
-CT head unremarkable
-CT C-spine unremarkable
# Patchy airspace disease bilateral upper lobes
-cont Zosyn
History of subdural hematoma with prior shunt
Psoriasis
Pulmonary nodule-will need OP f/u for surveillance
Full code
DVT prophylaxis�SCDs
Prognosis is poor with decompensated liver disease and secondary oliguric renal failure.
Pt is aware about the liver dysfunction and poor prognosis.
Discussed with transfer center @ [place] 07/23 and updated progressive nature of the renal disease
[facility] today call with bed availability.
Transfer to [facility] today
Patient still in agreement for transfer.
Total time of discharge 32 minutes
Anticipated Discharge: Today
Subjective/Interval History
-
Date of Service: July 24, 2023
Voices no specific complaints.
No nausea vomiting or abdominal pain. Distended abdomen.
Objective Data
-
Labs:
Laboratory Results
07/24/23
07:16
WBC 12.6 H
Hgb 9.2 L
Hct 24.7 L
Plt Count 33 L
PT 30.4 H
INR 2.86
Sodium 136
Potassium 3.8
Chloride 96 L
Carbon Dioxide 18 L
BUN 111 H*
Creatinine 7.9 H*
Glucose 153 H
Calcium 8.2 L
Total Bilirubin 2.0 H
AST 33
ALT 18
Alkaline Phosphatase 38
Vital Signs:
Vital Signs
Temp Pulse Resp BP Pulse Ox
97.9 F 76 22 102/66 95
07/24/23 11:00 07/24/23 11:00 07/24/23 11:00 07/24/23 13:00 07/24/23 11:00
I&O
07/23/23 07/24/23 07/25/23
06:59 06:59 06:59
Intake Total 200 / 200 210 / 210
Output Total 90 / 90 100 / 100
Balance 110 / 110 110 / 110
Review of Systems
-
Constitutional: Denies Fever
EENT: Denies Sore Throat
Respiratory: Denies Trouble Breathing
Cardiac: Denies Chest Pain
Abdomen/GI: Denies Abdominal Pain, Nausea or Vomiting
Neuro: Denies Dizzy
Physical Exam
-
General: No Apparent Distress
HEENT: Moist Mucous Membranes
Respiratory: Clear to Auscultation
Cardiac: Regular Rhythm and S1/S2
GI: Soft, Nontender and Distended
Neuro: AO x 3; Negative Tremors
Psych: Calm
Data Reviewed
-
Labs: Labs Reviewed by me
[2023-07-24 15:05] VITALS: BP 114/72
--- NOTE | 2023-07-24 16:59 | W.PN.NEPH.PH ---
Today's Communication / Plan
-
- stop octreotide
Assessment/Plan
-
Impression:
NYDIA
hyponatremia (resolved)
Suspected alcohol cirrhosis
Ascites
Metabolic acidosis
suspected SBP
Right flank pains/falls
Hx of subdural� bleed with shunt
Plan;
NYDIA:
-no�obstructive uropathy� by CT
-suspected pre renal stimulus in setting of cirrhotic decompensation
felt to have evolved HRS with minimal UOP-no response to Alb/midodrine/octreotide
due to poor UOP and c/o pain ok to d/c vázquez
-c/w midodrine to 5mg TID
-initiated octreotide 100mcg TID on 07/20-07/24. no changes in Cr
-acidosis improving with bicarb pushes
-IV alb prn, no response so far
-given advanced cirrhotic findings patient would not� be a�HD candidate
-reviewed with pt in detail about grave prognosis on 07/24, encouraged patient to review code status. pt seem to acknowledge the severity of his health issues but unable to make any decisions
-
-
Date of Service: July 24, 2023
CC / HPI / ROS
-
Chief Complaint:
NYDIA
History of Present Illness:
NYDIA
BUN at 105, cr up at 7.9
suspected alcoholic cirrhosis
metabolic acidosis better bicarb at 18
Review of Systems:
no cp or sob at rest
no change in abd distension
Labs
-
Labs:
WBC 12.6 10^3/uL (4.8-10.8) H 07/24/23 07:16
RBC 2.21 10^6/uL (4.70-6.10) L 07/24/23 07:16
Hgb 9.2 g/dL (13.0-18.0) L 07/24/23 07:16
Hct 24.7 % (39.0-52.0) L 07/24/23 07:16
Plt Count 33 10^3/uL (130-400) L 07/24/23 07:16
Sodium 136 mmol/L (135-145) 07/24/23 07:16
Potassium 3.8 mmol/L (3.5-5.1) 07/24/23 07:16
Chloride 96 mmol/L (98-107) L 07/24/23 07:16
Carbon Dioxide 18 mmol/L (22-30) L 07/24/23 07:16
BUN 111 mg/dl (9-20) H* 07/24/23 07:16
Creatinine 7.9 mg/dL (0.7-1.3) H* 07/24/23 07:16
eGFR 7.08 07/24/23 07:16
Glucose 153 mg/dl (70-99) H 07/24/23 07:16
Calcium 8.2 mg/dl (8.4-10.2) L 07/24/23 07:16
Phosphorus 6.3 mg/dl (2.5-4.5) H 07/18/23 06:25
Zup-Y-Ahzvetjahvo Pept 6100 pg/ml 07/17/23 09:58
Albumin 3.5 g/dl (3.5-5.0) 07/24/23 07:16
Physical Exam
-
Vital Signs:
Vital Signs
Temp Pulse Resp BP Pulse Ox
98.1 F 72 22 114/72 96
07/24/23 15:05 07/24/23 15:05 07/24/23 15:05 07/24/23 15:05 07/24/23 15:05
Cardiovascular:: Regular rate and rhythm
Respiratory:: Bilateral: CTA
Lung Excursion:: Normal
Abdomen:: Nontender and Soft
Bowel Sounds:: Normal
Extremity Edema:: None: Bilateral:
Vázquez Catheter: No
[2023-07-24 20:18] VITALS: BP 123/80
[2023-07-24 23:31] VITALS: BP 107/70
[2023-07-25 03:57] VITALS: BP 117/81
[2023-07-25] MEDS: ZOSYN 50 IV ×3 (05:25→21:18)
[2023-07-25 06:00] VITALS: BMI 34.1
[2023-07-25 07:30] VITALS: BP 122/78
[2023-07-25] MEDS: PROTONIX IV 40 MG IV ×2 (08:05→19:58)
[2023-07-25] MEDS: NSS (PRESERVATIVE FREE) 10 ML IV ×2 (08:06→19:58)
[2023-07-25] MEDS: SODIUM BICARBONATE 1300 MG PO ×3 (08:06→21:18)
[2023-07-25] MEDS: ELOCON 0.1% TOPICAL (08:09)
[2023-07-25] MEDS: ProAmatine 10 MG PO ×2 (08:10→14:31)
--- NOTE | 2023-07-25 08:54 | CM ---
Addendum entered by Annelise Pérez 07/25/23 16:10:
Per Romy Wu in [facility], patient's case is under review @ [facility]
Original Note:
Transfer was cancelled last evening
Plan: transfer to [facility] when another bed is available
[2023-07-25 11:37] VITALS: BP 118/76
--- NOTE | 2023-07-25 13:11 | W.PN.NEPH.PH ---
Today's Communication / Plan
-
- no new labs this AM
- plan for transfer to [facility] but unable to happen last night
Assessment/Plan
-
Impression:
NYDIA
hyponatremia (resolved)
Suspected alcohol cirrhosis
Ascites
Metabolic acidosis
suspected SBP
Right flank pains/falls
Hx of subdural� bleed with shunt
Plan;
NYDIA:
-no�obstructive uropathy� by CT
-suspected pre renal stimulus in setting of cirrhotic decompensation
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
-due to poor UOP and c/o pain ok to d/c vázquez
-c/w midodrine to 5mg TID
-initiated octreotide 100mcg TID on 07/20-07/24. no changes in Cr
-acidosis improving with bicarb pushes, no new labs this AM
-IV alb prn, no response so far
-given advanced cirrhotic findings patient would not� be a�HD candidate
-reviewed with pt in detail about grave prognosis on 07/24, encouraged patient to review code status. pt seem to acknowledge the severity of his health issues but unable to make any decisions
-
-
Date of Service: July 25, 2023
CC / HPI / ROS
-
Chief Complaint:
NYDIA
History of Present Illness:
NYDIA
BUN at 105, cr up at 7.9, no new labs on 07/25
suspected alcoholic cirrhosis
metabolic acidosis better bicarb at 18
Review of Systems:
no cp or sob at rest
no change in abd distension
Labs
-
Labs:
WBC 12.6 10^3/uL (4.8-10.8) H 07/24/23 07:16
RBC 2.21 10^6/uL (4.70-6.10) L 07/24/23 07:16
Hgb 9.2 g/dL (13.0-18.0) L 07/24/23 07:16
Hct 24.7 % (39.0-52.0) L 07/24/23 07:16
Plt Count 33 10^3/uL (130-400) L 07/24/23 07:16
Sodium 136 mmol/L (135-145) 07/24/23 07:16
Potassium 3.8 mmol/L (3.5-5.1) 07/24/23 07:16
Chloride 96 mmol/L (98-107) L 07/24/23 07:16
Carbon Dioxide 18 mmol/L (22-30) L 07/24/23 07:16
BUN 111 mg/dl (9-20) H* 07/24/23 07:16
Creatinine 7.9 mg/dL (0.7-1.3) H* 07/24/23 07:16
eGFR 7.08 07/24/23 07:16
Glucose 153 mg/dl (70-99) H 07/24/23 07:16
Calcium 8.2 mg/dl (8.4-10.2) L 07/24/23 07:16
Phosphorus 6.3 mg/dl (2.5-4.5) H 07/18/23 06:25
Tjd-E-Dqfzbpcthzu Pept 6100 pg/ml 07/17/23 09:58
Albumin 3.5 g/dl (3.5-5.0) 07/24/23 07:16
Physical Exam
-
Vital Signs:
Vital Signs
Temp Pulse Resp BP Pulse Ox
97.5 F 73 20 118/76 96
07/25/23 11:37 07/25/23 11:37 07/25/23 11:37 07/25/23 11:37 07/25/23 11:37
Cardiovascular:: Regular rate and rhythm
Respiratory:: Bilateral: Coarse
Lung Excursion:: Normal
Abdomen:: Nontender and Soft
Bowel Sounds:: Normal
Extremity Edema:: +3: Bilateral:
Vázquez Catheter: No
[2023-07-25 15:00] VITALS: BP 125/72
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
--- NOTE | 2023-07-25 17:07 | W.PN.HOSP.TC ---
Today's Communication/Plan
-
IR for repeat paracentesis
Tx to [facility] when bed available
Assessment / Plan
Assessment / Plan
# Sepsis (leukocytosis, tachycardia) suspected secondary to SBP. Improved leukocytosis and sepsis parameters with empirical antibiotic
# Lactic acidosis
# Chronic Alcohol abuse
# Alcohol use disorder
# Decompensated liver disease with ascites
# Ascites with possible SBP-culture negative [was on antibiotics]
-Heavy wine and or vodka drinker.
-Used to drink 2L of wine daily or vodka 750cc-heavy usage for approx 7 years per spouse and also in the past heavy drinker unclear amount
-Last drink 5 days prior to presentation
-S/p paracentesis-culture negative. Lab work noted. Portal hypertension. Cytology pending. cw abx . Consult IR for Repeat paracentesis due to increased distension and also to follow on SBP.
-Patient received albumin and octreotide
-GI ask to see again as pt lost bed and will be waiting more for transfer.
# Small and free air in the anterior abdomen unclear etiology
-repeat CT abd/pelvis on 07/19-Small volume free air in the anterior abdomen slightly decreased in volume in comparison to recent prior study.Large volume ascites again seen.Lobulated contour of the liver again identified. Again seen two
subcentimeter low-attenuation hepatic lesions too small to characterize, also unable to be characterized without intravenous contrast. Increased bibasilar lung opacification most likely representing subsegmental atelectasis. Unfortunately, pneumonia
and tiny right pleural effusion cannot be excluded.
-per GS-no concern for GI as well as pneumoperitoneum. SBP high in the differential.
# Acute kidney injury with oliguria likely pre-renal in setting of decompensated liver cirrhosis
# Metabolic acidosis
-Gao catheter, monitor urine output
-Cr worsened
-started on midodrine. acidosis remains. Continue with as needed bicarb pushes.
-Patient received albumin and octreotide without any improvement in renal function. For creatinine is getting worse
-nephro on board
# Macrocytic anemia
# Thrombocytopenia
-Rectal exam showed heme positive dark stool
-ppi bid
-defer work up to GI-Per gastroenterology no plan for any procedures unless with acute gastrointestinal bleeding
-Anemia and thrombocytopenia both in the setting of decompensated liver cirrhosis. Transfuse hemoglobin or platelets as needed
# Right flank ecchymosis secondary to fall
-CT abdomen unremarkable for trauma
-CT head unremarkable
-CT C-spine unremarkable
History of subdural hematoma with prior shunt
Psoriasis
Pulmonary nodule-will need OP f/u for surveillance
Full code
DVT prophylaxis�SCDs
Prognosis is poor with decompensated liver disease and secondary oliguric renal failure.
Pt is aware about the liver dysfunction and poor prognosis.
Pt lost his bed yesterday due to transportation issues. [facility] transfer team will let us know when bed is available again
Anticipated Discharge: Within 24 hours
Subjective/Interval History
-
Date of Service: July 25, 2023
Feels ok
Abdo distended but not painful
With any shortness of breath.
No fever chills. Having looser stools.
Objective Data
-
Vital Signs:
Vital Signs
Temp Pulse Resp BP Pulse Ox
97.7 F 79 16 125/72 95
07/25/23 15:00 07/25/23 15:00 07/25/23 15:00 07/25/23 15:00 07/25/23 15:00
I&O
07/24/23 07/25/23 07/26/23
06:59 06:59 06:59
Intake Total 210 / 210 1300 / 1300
Output Total 100 / 100 450 / 450
Balance 110 / 110 850 / 850
Review of Systems
-
Constitutional: Denies Fever
Respiratory: Denies Trouble Breathing
Cardiac: Denies Chest Pain
Neuro: Denies Dizzy
Physical Exam
-
General: No Apparent Distress
HEENT: Moist Mucous Membranes
Respiratory: Clear to Auscultation
Cardiac: Regular Rhythm and S1/S2
GI: Soft, Nontender, Normal Bowel Sounds and Distended
Neuro: AO x 3
Psych: Calm
Data Reviewed
-
Labs: Labs Reviewed by me
[2023-07-25] MEDS: ProAmatine PO (17:30)
[2023-07-25 19:10] VITALS: BP 119/82
[2023-07-25 23:50] VITALS: BP 126/76
[2023-07-26] VITALS (8 sets, daily range): BP systolic 80–132; BP diastolic 53–87; BMI 34.1
[2023-07-26] MEDS: DILAUDID 0.5 MG IV (04:40)
[2023-07-26] MEDS: ZOSYN 50 IV ×3 (06:08→21:46)
[2023-07-26 08:19] LABS: Hematocrit 28.4 % (39.0-52.0); Hemoglobin 10.3 g/dL (13.0-18.0); Mean Corp Hgb Conc. 36.3 g/dL (33.0-37.0); Mean Corpuscular Hgb 40.4 pg (27.0-31.0); Mean Corpuscular Volume 111.4 fL (80.0-94.0); Mean Platelet Volume 12.1 fL (7.4-10.4); Platelet Count 53 10^3/uL (130-400); Red Blood Cell Count 2.55 10^6/uL (4.70-6.10); Red Cell Dist. Width 14.5 % (11.5-14.5); White Blood Cell Count 18.7 10^3/uL (4.8-10.8)
[2023-07-26 08:45] LABS: ALT (SGPT) 19 U/L (0-50); AST (SGOT) 35 U/L (17-59); Albumin 3.3 g/dl (3.5-5.0); Alkaline Phosphatase 55 U/L (38-126); Blood Urea Nitrogen 108 mg/dl (9-20); Calcium 7.8 mg/dl (8.4-10.2); Carbon Dioxide 19 mmol/L (22-30); Chloride 98 mmol/L (98-107); Estimated Creatinine Clearance 10 ml/min; Glucose 139 mg/dl (70-99); Sodium 133 mmol/L (135-145); Total Bilirubin 1.7 mg/dl (0.2-1.3); Total Protein 5.7 g/dl (6.3-8.2)
[2023-07-26 09:15] LABS: INR 2.54; PT 27.8 Sec (11.4-14.6)
[2023-07-26] MEDS: ProAmatine 10 MG PO ×3 (09:16→17:04)
[2023-07-26] MEDS: ELOCON 0.1% TOPICAL (09:17)
[2023-07-26] MEDS: NSS (PRESERVATIVE FREE) 10 ML IV ×2 (09:17→21:39)
[2023-07-26] MEDS: SODIUM BICARBONATE 1300 MG PO ×3 (09:18→21:43)
[2023-07-26] MEDS: PROTONIX IV 40 MG IV ×2 (09:18→21:39)
--- NOTE | 2023-07-26 12:12 | CM ---
Addendum entered by Neeru Healy RN 07/26/23 14:49:
Return call from Clinical Farm Loan Representative at [facility] , Her team just received the pending case a couple of hours ago. She will have it sent to a nurse so it can be reviewed as soon as possible. Either she or someone from her team will get back to us
by end of the day. Update to .
Original Note:
Call placed to [facility] spoke to Fabio, clinical for transfer to [place] was received however they did not create the auth yet. Explained urgency of need for determination as this is an acute to acute transfer for higher level of care, and that we
have lost two available beds due to delay in receiving an authorization. Fabio stated she would create an auth and attach a clinical and will have nurse review as soon as possible. Pending auth number is [id number]. I requested Fabio call me back after
a determination is made. Update to .
[2023-07-26 12:18] LABS: Body Fluid Mononuclear 54.6 %; Body Fluid Polymorphonuclear 45.4 %; Body Fluid WBC 205 /CUMM
[2023-07-26 12:23] LABS: Body Fluid Second Tech SD
[2023-07-26 12:39] LABS: Body Fluid Albumin 1.2 g/dl; Body Fluid Protein 2.4 g/dl
--- NOTE | 2023-07-26 13:27 | W.PN.HOSP.TC ---
Today's Communication/Plan
-
Follow-up throat culture data and if negative DC antibiotics
Albumin replacement post paracentesis ordered.
DC to [facility] when bed available
Assessment / Plan
Assessment / Plan
# Sepsis (leukocytosis, tachycardia) suspected secondary to SBP. Improved leukocytosis and sepsis parameters with empirical antibiotic.
# Lactic acidosis
# Chronic Alcohol abuse
# Alcohol use disorder
# Decompensated liver disease with ascites
# Ascites with possible SBP-culture negative [was on antibiotics]
-Heavy wine and or vodka drinker.
-Used to drink 2L of wine daily or vodka 750cc-heavy usage for approx 7 years per spouse and also in the past heavy drinker unclear amount
-Last drink 5 days prior to presentation
-S/p paracentesis-culture negative. Lab work noted. Portal hypertension. Cytology pending. cw abx . Consult IR for Repeat paracentesis due to increased distension and also to follow on SBP.S/P paracentesis with 10 L removal. Ordered 25 mg of IV
albumin every 8 hours for 24 hours. Improved white count and WBCs less than 250. If culture data comes back negative will DC antibiotics.
-Patient received albumin and octreotide
-GI following.
# Small and free air in the anterior abdomen unclear etiology
-repeat CT abd/pelvis on 07/19-Small volume free air in the anterior abdomen slightly decreased in volume in comparison to recent prior study.Large volume ascites again seen.Lobulated contour of the liver again identified. Again seen two
subcentimeter low-attenuation hepatic lesions too small to characterize, also unable to be characterized without intravenous contrast. Increased bibasilar lung opacification most likely representing subsegmental atelectasis. Unfortunately, pneumonia
and tiny right pleural effusion cannot be excluded.
-per GS-no concern for GI as well as pneumoperitoneum. SBP high in the differential.
# Acute kidney injury with oliguria likely pre-renal in setting of decompensated liver cirrhosis
# Metabolic acidosis
-Gao catheter, monitor urine output
-Cr worsened
-started on midodrine. acidosis remains. Continue with as needed bicarb pushes.
-Patient received albumin and octreotide without any improvement in renal function. For creatinine is getting worse
-nephro on board
# Macrocytic anemia
# Thrombocytopenia
-Rectal exam showed heme positive dark stool
-ppi bid
-defer work up to GI-Per gastroenterology no plan for any procedures unless with acute gastrointestinal bleeding
-Anemia and thrombocytopenia both in the setting of decompensated liver cirrhosis. Transfuse hemoglobin or platelets as needed
# Right flank ecchymosis secondary to fall
-CT abdomen unremarkable for trauma
-CT head unremarkable
-CT C-spine unremarkable
History of subdural hematoma with prior shunt
Psoriasis
Pulmonary nodule-will need OP f/u for surveillance
Full code
DVT prophylaxis�SCDs
Prognosis is poor with decompensated liver disease and secondary oliguric renal failure.
Pt is aware about the liver dysfunction and poor prognosis.
Pt lost his bed yesterday due to transportation issues. [facility] transfer team will let us know when bed is available again
Anticipated Discharge: Within 24 hours
Subjective/Interval History
-
Date of Service: July 26, 2023
Back from paracentesis-10 L removed.
Denies any dizziness or lightheadedness.
No abdominal pain.
No shortness of breath.
Objective Data
-
Labs:
Laboratory Results
07/26/23
07:58
WBC 18.7 H
Hgb 10.3 L
Hct 28.4 L
Plt Count 53 L D
PT 27.8 H
INR 2.54
Sodium 133 L
Potassium 4.0
Chloride 98
Carbon Dioxide 19 L
BUN 108 H*
Creatinine 9.2 H*
Glucose 139 H
Calcium 7.8 L
Total Bilirubin 1.7 H
AST 35
ALT 19
Alkaline Phosphatase 55
Vital Signs:
Vital Signs
Temp Pulse Resp BP Pulse Ox
97.7 F 77 17 113/68 96
07/26/23 10:38 07/26/23 11:40 07/26/23 11:40 07/26/23 11:40 07/26/23 11:30
I&O
07/25/23 07/26/23 07/27/23
06:59 06:59 06:59
Intake Total 1300 / 1300 820 / 820
Output Total 450 / 450 325 / 325
Balance 850 / 850 495 / 495
Review of Systems
-
Constitutional: Denies Fever
EENT: Denies Sore Throat
Respiratory: Denies Cough
Abdomen/GI: Denies Abdominal Pain or Nausea
Genitourinary: Denies Dysuria
Physical Exam
-
General: No Apparent Distress
HEENT: Moist Mucous Membranes
Respiratory: Clear to Auscultation
Cardiac: Regular Rhythm and S1/S2
GI: Soft, Nontender and Normal Bowel Sounds
Neuro: AO x 3; Negative Tremors
Psych: Calm; Negative Confused
Data Reviewed
-
Labs: Labs Reviewed by me
--- NOTE | 2023-07-26 13:55 | W.PN.NEPH.PH ---
Today's Communication / Plan
-
IV alb
cont supportive care
Assessment/Plan
-
Impression:
NYDIA
hyponatremia (resolved)
Suspected alcohol cirrhosis
Ascites
Metabolic acidosis
suspected SBP
Right flank pains/falls
Hx of subdural� bleed with shunt
Plan;
NYDIA:
-suspected pre renal stimulus in setting of cirrhotic decompensation
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
keep vázquez, UOP slight improvement
-c/w midodrine to 10mg TID
octreotide 100mcg TID on 07/20-07/24. no changes in Cr
-acidosis improving with bicarb po
-IV alb since had large amount of paracentesis of 10lit today
-given advanced cirrhotic findings patient would not� be a�HD candidate
-reviewed with pt in detail about grave prognosis on 07/24, encouraged patient to review code status. pt seem to acknowledge the severity of his health issues but unable to make any decisions
-
-
Date of Service: July 26, 2023
CC / HPI / ROS
-
Chief Complaint:
NYDIA
History of Present Illness:
NYDIA
BUN at 108, cr up at 9.2,
suspected alcoholic cirrhosis
metabolic acidosis better bicarb at 19
BP stable on midodirne
s/p 10lit paracentesis today
Review of Systems:
no cp or sob at rest
better post paracentesis
Labs
-
Labs:
WBC 18.7 10^3/uL (4.8-10.8) H 07/26/23 07:58
RBC 2.55 10^6/uL (4.70-6.10) L 07/26/23 07:58
Hgb 10.3 g/dL (13.0-18.0) L 07/26/23 07:58
Hct 28.4 % (39.0-52.0) L 07/26/23 07:58
Plt Count 53 10^3/uL (130-400) L D 07/26/23 07:58
Sodium 133 mmol/L (135-145) L 07/26/23 07:58
Potassium 4.0 mmol/L (3.5-5.1) 07/26/23 07:58
Chloride 98 mmol/L (98-107) 07/26/23 07:58
Carbon Dioxide 19 mmol/L (22-30) L 07/26/23 07:58
BUN 108 mg/dl (9-20) H* 07/26/23 07:58
Creatinine 9.2 mg/dL (0.7-1.3) H* 07/26/23 07:58
eGFR 5.90 07/26/23 07:58
Glucose 139 mg/dl (70-99) H 07/26/23 07:58
Calcium 7.8 mg/dl (8.4-10.2) L 07/26/23 07:58
Phosphorus 6.3 mg/dl (2.5-4.5) H 07/18/23 06:25
Bzb-L-Xdynzlbsqyw Pept 6100 pg/ml 07/17/23 09:58
Albumin 3.3 g/dl (3.5-5.0) L 07/26/23 07:58
Physical Exam
-
Vital Signs:
Vital Signs
Temp Pulse Resp BP Pulse Ox
97.7 F 77 17 113/68 96
07/26/23 10:38 07/26/23 11:40 07/26/23 11:40 07/26/23 11:40 07/26/23 11:30
Cardiovascular:: Regular rate and rhythm
Respiratory:: Bilateral: CTA
Lung Excursion:: Normal
Abdomen:: Distended, Nontender and Soft
Extremity Edema:: +2: Bilateral:
Vázquez Catheter: No
[2023-07-26] MEDS: FLEXBUMIN 100 IV ×2 (14:02→21:39)
--- NOTE | 2023-07-26 15:57 | CM ---
Addendum entered by Zuleima Busch 07/26/23 16:24:
Patient will require an auth through [facility] for ALS ambulance transport. Per Brennen with hospital transport, cannot start auth until a time is set up for patient transfer.
Addendum entered by Zuleima Busch 07/26/23 16:18:
CM received update from air conditioning unit assembler, confirmed patient is on waitlist at [facility] for bed, auth number provided auth #[id number].
Original Note:
NANDA spoke with Mckenzie Reed from [facility] [phone], auth approved for hospital transfer, auth #[id number]. CM sent message to hospital transport in regards to obtaining ALS ambulance auth. CM sent update to air conditioning unit assembler, air conditioning unit assembler calling to
identify if bed available at [facility] ([facility] [phone]).
--- NOTE | 2023-07-26 17:00 | W.PN.UPDATE ---
Update Note
Progress Note Update
long discussion with primary, GI
while pending transfer to [place] and worsening renal function he is reached point of requiring HD
we still not sure if he is candidate or not until eval at [facility] and waiting for bed still
met pt again and had detailed discussion regarding potential difficulties of HD with poor hemodynamics and no difference in prognosis if he did not receive transplant
he would like to move forward with transplant eval and would accept HD if needs
will have IR to place temp catheter and plan HD tomorrow
hope he understands that with out transplant prognosis is grim
--- NOTE | 2023-07-26 18:45 | W.PN.GI.CBS2 ---
Addendum entered and electronically signed by Dheeraj Gray MD 07/26/23 19:20:
I saw and examined the patient.
The PA's note was reviewed and I agree with the note.
Comment:
EtOH cirrhosis decompensated by ascites and progressive NYDIA/renal failure concerning for HRS. Pt was previously planned for tx to [facility] for further mx but unfortunately waiting for bed due to logistical mishap. Nephrology on board, planning
for HD tomorrow. Given pt's active drinking habits, it remains questionable whether he is a tx candidate, however will defer to that liver tx irrigation tax assessor collector to determine this. Will follow.
Original Note:
Today's Communication / Plan
-
s/p paracentesis today
awaiting transfer to [facility] to determine if liver transplant candidate
per Nephrology, plan to start HD tomorrow
Assessment / Plan
-
63 year old male with ETOH cirrhosis decompensated by ascites MELD 32 who was initially admitted for altered mental status and fall. He was found to have free air on CT scan, evaluated by Surgery and with repeat CT scan showing improving free air;
no surgical intervention recommended. He was treated with IV antibiotics for suspected SBP. Nephrology consulted for the NYDIA. Patient is awaiting transfer to [facility].
IMPRESSION / PLAN:
Alcoholic cirrhosis, decompensated
-MELD 3.0 score 32
-s/p paracentesis on 07/18/23 with 3.5L fluid removed; culture negative
-s/p paracentesis today with 10L fluid removed; culture pending
-albumin has been ordered post paracentesis
-awaiting transfer
-transplant team at [facility] to determine if candidate for liver transplant
-continue to trend LFTs and calculate daily MELD score
Chronic Alcohol Abuse
-Previously drank 2L of wine daily or vodka 750cc-heavy usage for approx 7 years per spouse
-Last drink 5 days prior to presentation
NYDIA
-possible evolution to acute hepatorenal syndrome
-management per Nephrology, with plan to start hemodialysis tomorrow
Other medical problems managed as per Hospitalist.
Case discussed with Dr. Gray.
We will follow.
Subjective
Subjective
Date of Service: July 26, 2023
Pt feels somewhat better after paracentesis today.
Objective
Data Reviewed
Laboratory Data:
Laboratory Results
07/26/23 07:58
07/26/23 07:58
Laboratory Results
PT 27.8 Sec (11.4-14.6) H 07/26/23 07:58
INR 2.54 07/26/23 07:58
APTT 37.8 Sec (23.4-35.0) H 07/17/23 09:56
Phosphorus 6.3 mg/dl (2.5-4.5) H 07/18/23 06:25
Magnesium Cancelled 07/18/23 14:16
Total Bilirubin 1.7 mg/dl (0.2-1.3) H 07/26/23 07:58
AST 35 U/L (17-59) 07/26/23 07:58
ALT 19 U/L (0-50) 07/26/23 07:58
Alkaline Phosphatase 55 U/L (38-126) 07/26/23 07:58
Lipase 185 U/L (23-300) 07/17/23 09:56
Vital Signs and I&O:
Vital Signs
Temp Pulse Resp BP Pulse Ox
97.3 F 75 18 122/73 95
07/26/23 15:56 07/26/23 17:04 07/26/23 15:56 07/26/23 17:04 07/26/23 15:56
I&O
07/25/23 07/26/23 07/27/23
06:59 06:59 06:59
Intake Total 1300 / 1300 820 / 820 600 / 600
Output Total 450 / 450 325 / 325
Balance 850 / 850 495 / 495 600 / 600
Physical Exam
Physical Exam
GI: Soft, Distended and Non Tender
[2023-07-26 21:48] LABS: Glucose - Point of Care 182 mg/dl (70-99)
[2023-07-27] VITALS (9 sets, daily range): BP systolic 71–105; BP diastolic 48–65; BMI 31.1
[2023-07-27] MEDS: FLEXBUMIN 100 IV (04:22)
[2023-07-27] MEDS: ZOSYN 50 IV (06:18)
[2023-07-27 07:40] LABS: Hematocrit 24.9 % (39.0-52.0); Hemoglobin 9.1 g/dL (13.0-18.0); Mean Corp Hgb Conc. 36.5 g/dL (33.0-37.0); Mean Corpuscular Volume 112.2 fL (80.0-94.0); Mean Platelet Volume 12.6 fL (7.4-10.4); Platelet Count 38 10^3/uL (130-400); Red Blood Cell Count 2.22 10^6/uL (4.70-6.10); Red Cell Dist. Width 14.5 % (11.5-14.5); White Blood Cell Count 14.2 10^3/uL (4.8-10.8)
[2023-07-27 08:11] LABS: Blood Urea Nitrogen 117 mg/dl (9-20); Calcium 7.7 mg/dl (8.4-10.2); Carbon Dioxide 15 mmol/L (22-30); Chloride 93 mmol/L (98-107); Estimated Creatinine Clearance 10 ml/min; Glucose 138 mg/dl (70-99); Potassium 3.2 mmol/L (3.5-5.1); Sodium 135 mmol/L (135-145)
[2023-07-27] MEDS: ProAmatine 10 MG PO ×3 (09:22→17:51)
[2023-07-27] MEDS: SODIUM BICARBONATE 1300 MG PO ×3 (09:23→20:44)
[2023-07-27] MEDS: PROTONIX IV 40 MG IV ×2 (09:23→20:44)
[2023-07-27] MEDS: NSS (PRESERVATIVE FREE) 10 ML IV ×2 (09:25→20:44)
[2023-07-27] MEDS: ELOCON 0.1% 1 APPLIC TOPICAL (09:27)
--- NOTE | 2023-07-27 10:09 | W.PN.GI.CBS2 ---
Addendum entered and electronically signed by Dheeraj Gray MD 07/27/23 11:17:
I saw and examined the patient.
The PA's note was reviewed and I agree with the note.
Comment:
Pt waiting for bed for tx to [facility]. Nephrology planning HD today. Continue supportive mx. Will follow.
Original Note:
Today's Communication / Plan
-
awaiting transfer
Nephrology to start HD today
Assessment / Plan
-
63 year old male with ETOH cirrhosis decompensated by ascites MELD 32 who was initially admitted for altered mental status and fall. He was found to have free air on CT scan, evaluated by Surgery and with repeat CT scan showing improving free air;
no surgical intervention recommended. He was treated with IV antibiotics for suspected SBP. Nephrology consulted for the NYDIA. Patient is awaiting transfer to [place].
IMPRESSION / PLAN:
Alcoholic cirrhosis, decompensated
-MELD 3.0 score 30 today
-s/p paracentesis on 07/18/23 with 3.5L fluid removed; culture negative
-s/p paracentesis on 07/26/23 with 10L fluid removed; culture, preliminary showing no growth
-albumin has been ordered post paracentesis
-awaiting transfer
-transplant team at [facility] to determine if candidate for liver transplant
-continue to trend LFTs and calculate daily MELD score
Chronic Alcohol Abuse
-Previously drank 2L of wine daily or vodka 750cc-heavy usage for approx 7 years per spouse
-Last drink 5 days prior to presentation
NYDIA
-possible evolution to acute hepatorenal syndrome
-management per Nephrology, with plan to start hemodialysis today
Other medical problems managed as per Hospitalist.
Case discussed with Dr. Gray.
We will follow.
Subjective
Subjective
Date of Service: July 27, 2023
Pt denies abdominal pain, n/v, fever, chills.
Objective
Data Reviewed
Laboratory Data:
Laboratory Results
07/27/23 06:50
07/27/23 06:50
Laboratory Results
PT 27.8 Sec (11.4-14.6) H 07/26/23 07:58
INR 2.54 07/26/23 07:58
APTT 37.8 Sec (23.4-35.0) H 07/17/23 09:56
Phosphorus 6.3 mg/dl (2.5-4.5) H 07/18/23 06:25
Magnesium Cancelled 07/18/23 14:16
Total Bilirubin 1.7 mg/dl (0.2-1.3) H 07/26/23 07:58
AST 35 U/L (17-59) 07/26/23 07:58
ALT 19 U/L (0-50) 07/26/23 07:58
Alkaline Phosphatase 55 U/L (38-126) 07/26/23 07:58
Lipase 185 U/L (23-300) 07/17/23 09:56
Vital Signs and I&O:
Vital Signs
Temp Pulse Resp BP Pulse Ox
97.6 F 71 16 93/52 97
07/27/23 07:08 07/27/23 07:08 07/27/23 07:08 07/27/23 07:08 07/27/23 07:08
I&O
07/26/23 07/27/23 07/28/23
06:59 06:59 06:59
Intake Total 820 / 820 1320 / 1320
Output Total 325 / 325
Balance 495 / 495 1320 / 1320
Physical Exam
Physical Exam
GI: Soft, Distended and Non Tender
Extremities: Edema
[2023-07-27 12:59] LABS: Glucose - Point of Care 227 mg/dl (70-99)
[2023-07-27] MEDS: MANNITOL 12.5 GRAMS IV ×2 (13:40→14:32)
--- NOTE | 2023-07-27 13:56 | W.PN.NEPH.HD ---
Assessment
-
pt seen during HD
BP low now off UF SBP 90despite midodrine
temp catheter function well
next HD tomorrow
Progress Note - Hemodialysis
-
Date of Service: July 27, 2023
Duration: 2 hours
Potassium Bath: 3
Calcium Bath: 2.5
Opti-Dialyzer: 160
Ultrafiltration: Other (0)
Blood Flow: 250
Dialysate Flow: Other (400)
Heparin: no
EPO: 6000
[2023-07-27] MEDS: FLEXBUMIN 25% FOR HEMODIALYSIS 12.5 GRAMS IV ×2 (14:12→14:32)
[2023-07-27] MEDS: ZOSYN IV (14:14)
--- NOTE | 2023-07-27 15:25 | CM ---
Patient awaiting bed at [facility]. Patient will require an auth through [facility] for ALS ambulance transport.
Plan; Tranfer to [place], awaiting bed- approved auth #[id number]; will need ALS ambulance and require auth through [facility]
[2023-07-27] MEDS: RETACRIT 6000 UNITS IV (15:42)
--- NOTE | 2023-07-27 16:24 | W.PN.HOSP.TC ---
Today's Communication/Plan
-
cw HD
DC to [facility] when bed available
DC further Zosyn
Assessment / Plan
Assessment / Plan
# Sepsis (leukocytosis, tachycardia) suspected secondary to SBP. Improved leukocytosis and sepsis parameters with empirical antibiotic.
# Lactic acidosis
# Chronic Alcohol abuse
# Alcohol use disorder
# Decompensated liver disease with ascites
# Ascites with possible SBP-culture negative [was on antibiotics]
-Heavy wine and or vodka drinker.
-Used to drink 2L of wine daily or vodka 750cc-heavy usage for approx 7 years per spouse and also in the past heavy drinker unclear amount
-Last drink 5 days prior to presentation
-S/p paracentesis-culture negative. Lab work noted. Portal hypertension. Cytology pending. cw abx . Consult IR for Repeat paracentesis due to increased distension and also to follow on SBP.S/P paracentesis with 10 L removal. Ordered 25 mg of IV
albumin every 8 hours for 24 hours. Improved white count and WBCs less than 250. culture data - DC antibiotics.
-Patient received albumin and octreotide
-GI following.
# Small and free air in the anterior abdomen unclear etiology
-repeat CT abd/pelvis on 07/19-Small volume free air in the anterior abdomen slightly decreased in volume in comparison to recent prior study.Large volume ascites again seen.Lobulated contour of the liver again identified. Again seen two
subcentimeter low-attenuation hepatic lesions too small to characterize, also unable to be characterized without intravenous contrast. Increased bibasilar lung opacification most likely representing subsegmental atelectasis. Unfortunately, pneumonia
and tiny right pleural effusion cannot be excluded.
-per GS-no concern for GI as well as pneumoperitoneum. SBP high in the differential.
# Acute kidney injury with oliguria likely pre-renal in setting of decompensated liver cirrhosis
# Metabolic acidosis
-Gao catheter, monitor urine output
-Cr worsened
-started on midodrine. acidosis remains. Continue with as needed bicarb pushes.
-Patient received albumin and octreotide without any improvement in renal function. For creatinine is getting worse
-nephro on board
- Initiated on HD now
# Macrocytic anemia
# Thrombocytopenia
-Rectal exam showed heme positive dark stool
-ppi bid
-defer work up to GI-Per gastroenterology no plan for any procedures unless with acute gastrointestinal bleeding
-Anemia and thrombocytopenia both in the setting of decompensated liver cirrhosis. Transfuse hemoglobin or platelets as needed
# Right flank ecchymosis secondary to fall
-CT abdomen unremarkable for trauma
-CT head unremarkable
-CT C-spine unremarkable
History of subdural hematoma with prior shunt
Psoriasis
Pulmonary nodule-will need OP f/u for surveillance
Full code
DVT prophylaxis�SCDs
Prognosis is poor with decompensated liver disease and secondary oliguric renal failure.
Pt is aware about the liver dysfunction and poor prognosis.
Pt lost his bed due to transportation issues. [facility] transfer team 07/26 will let us know when bed is available again
Anticipated Discharge: > 48 hours
Subjective/Interval History
-
Date of Service: July 27, 2023
Inititated on HD
Denies N/V
Denies dizziness
Not SOB
Objective Data
-
Labs:
Laboratory Results
07/27/23
06:50
WBC 14.2 H
Hgb 9.1 L
Hct 24.9 L
Plt Count 38 L D
Sodium 135
Potassium 3.2 L
Chloride 93 L
Carbon Dioxide 15 L
BUN 117 H*
Creatinine 9.2 H*
Glucose 138 H
Calcium 7.7 L
Vital Signs:
Vital Signs
Temp Pulse Resp BP Pulse Ox
97.6 F 72 16 101/60 98
07/27/23 11:45 07/27/23 13:21 07/27/23 11:45 07/27/23 13:21 07/27/23 11:45
I&O
07/26/23 07/27/23 07/28/23
06:59 06:59 06:59
Intake Total 820 / 820 1320 / 1320
Output Total 325 / 325
Balance 495 / 495 1320 / 1320
Review of Systems
-
Constitutional: Denies Fever or Chills
EENT: Denies Sore Throat
Respiratory: Denies Cough or Trouble Breathing
Cardiac: Denies Chest Pain
Physical Exam
-
General: No Apparent Distress
HEENT: Moist Mucous Membranes
Respiratory: Clear to Auscultation
Cardiac: Regular Rhythm and S1/S2
GI: Soft, Nontender, Normal Bowel Sounds and Distended
Musculoskeletal: Edema, Right Lower Extrem and Edema, Left Lower Extrem
Neuro: AO x 3
Psych: Calm
Data Reviewed
-
Labs: Labs Reviewed by me
[2023-07-27 16:57] LABS: Glucose - Point of Care 204 mg/dl (70-99)
[2023-07-28 03:00] VITALS: BP 94/61
[2023-07-28 06:00] VITALS: BMI 31.2
[2023-07-28 08:03] LABS: Blood Urea Nitrogen 90 mg/dl (9-20); Calcium 7.6 mg/dl (8.4-10.2); Carbon Dioxide 22 mmol/L (22-30); Chloride 97 mmol/L (98-107); Estimated Creatinine Clearance 11 ml/min; Glucose 112 mg/dl (70-99); Potassium 3.4 mmol/L (3.5-5.1); Sodium 133 mmol/L (135-145); eGFR 7.19
[2023-07-28] MEDS: ProAmatine 10 MG PO ×3 (08:17→17:29)
[2023-07-28] MEDS: PROTONIX IV 40 MG IV ×2 (08:18→21:05)
[2023-07-28] MEDS: NSS (PRESERVATIVE FREE) 10 ML IV ×2 (08:18→21:05)
[2023-07-28] MEDS: SODIUM BICARBONATE PO (08:24)
[2023-07-28 08:31] LABS: Hematocrit 26.2 % (39.0-52.0); Hemoglobin 9.7 g/dL (13.0-18.0); Mean Corpuscular Hgb 41.1 pg (27.0-31.0); Mean Platelet Volume 12.8 fL (7.4-10.4); Platelet Count 38 10^3/uL (130-400); Red Blood Cell Count 2.36 10^6/uL (4.70-6.10); Red Cell Dist. Width 14.6 % (11.5-14.5); White Blood Cell Count 15.3 10^3/uL (4.8-10.8)
[2023-07-28] MEDS: FLEXBUMIN 25% FOR HEMODIALYSIS 12.5 GRAMS IV ×2 (08:31→10:01)
[2023-07-28] MEDS: MANNITOL 12.5 GRAMS IV ×2 (08:31→10:01)
[2023-07-28] MEDS: ELOCON 0.1% TOPICAL (08:35)
[2023-07-28 11:43] VITALS: BP 102/54
--- NOTE | 2023-07-28 11:46 | W.PN.GI.CBS2 ---
Today's Communication / Plan
-
continue supportive mx
Assessment / Plan
-
63 year old male with ETOH cirrhosis decompensated by ascites MELD 32 who was initially admitted for altered mental status and fall. He was found to have free air on CT scan, evaluated by Surgery and with repeat CT scan showing improving free air;
no surgical intervention recommended. He was treated with IV antibiotics for suspected SBP. Nephrology consulted for the NYDIA. Patient is awaiting transfer to [place].
Had HD yesterday, Cr mild improvement, HD again today when seen. Continue supportive mx. [facility].
Total Time Spent with Patient (in minutes): 35
Subjective
Subjective
Date of Service: July 28, 2023
HD today.
Objective
Data Reviewed
Laboratory Data:
Laboratory Results
07/28/23 06:37
07/28/23 06:37
Laboratory Results
PT 27.8 Sec (11.4-14.6) H 07/26/23 07:58
INR 2.54 07/26/23 07:58
APTT 37.8 Sec (23.4-35.0) H 07/17/23 09:56
Phosphorus 6.3 mg/dl (2.5-4.5) H 07/18/23 06:25
Magnesium Cancelled 07/18/23 14:16
Total Bilirubin 1.7 mg/dl (0.2-1.3) H 07/26/23 07:58
AST 35 U/L (17-59) 07/26/23 07:58
ALT 19 U/L (0-50) 07/26/23 07:58
Alkaline Phosphatase 55 U/L (38-126) 07/26/23 07:58
Lipase 185 U/L (23-300) 07/17/23 09:56
Vital Signs and I&O:
Vital Signs
Temp Pulse Resp BP Pulse Ox
98.2 F 58 12 102/54 94
07/28/23 11:43 07/28/23 11:43 07/28/23 11:43 07/28/23 11:43 07/28/23 11:43
I&O
07/27/23 07/28/23 07/29/23
06:59 06:59 06:59
Intake Total 1320 / 1320 240 / 240
Balance 1320 / 1320 240 / 240
--- NOTE | 2023-07-28 12:52 | W.PN.NEPH.HD ---
Addendum entered and electronically signed by Bekah Garcia MD 07/28/23 13:05:
note pT seen at 10:30
Original Note:
Assessment
-
pt seen during HD
tolerated with out UF yesterday
minimal UF 0.5kg today
SBP 101 at visit
pt understands [facility] [facility] has no mortality benefit if he cant get transplant
HD again tomorrow
pending transfer to [facility]
Progress Note - Hemodialysis
-
Date of Service: July 28, 2023
Duration: 45 minutes and 2 hours
Potassium Bath: 3
Calcium Bath: 2.5
Opti-Dialyzer: 160
Ultrafiltration: Other (0.5kg)
Blood Flow: 300
Dialysate Flow: 600
Heparin: no
EPO: no
--- NOTE | 2023-07-28 13:11 | W.PN.HOSP.TC ---
Today's Communication/Plan
-
CW HD
Follow WBC
Tx to [facility] when bed available
Assessment / Plan
Assessment / Plan
# Sepsis (leukocytosis, tachycardia) suspected secondary to SBP. Improved leukocytosis and sepsis parameters with empirical antibiotic.
# Lactic acidosis
# Chronic Alcohol abuse
# Alcohol use disorder
# Decompensated liver disease with ascites
# Ascites with possible SBP-culture negative [was on antibiotics]
-Heavy wine and or vodka drinker.
-Used to drink 2L of wine daily or vodka 750cc-heavy usage for approx 7 years per spouse and also in the past heavy drinker unclear amount
-Last drink 5 days prior to presentation
- Portal hypertension. Cytology pending. cw abx .
- s/p Repeat paracentesis - 10 L removed. Received IV albumin post paracentesis. Improved white count and WBCs less than 250. culture data negative for- DC antibiotics.
-Patient received albumin and octreotide
-GI following.
# Small and free air in the anterior abdomen unclear etiology
-repeat CT abd/pelvis on 07/19-Small volume free air in the anterior abdomen slightly decreased in volume in comparison to recent prior study.Large volume ascites again seen.Lobulated contour of the liver again identified. Again seen two
subcentimeter low-attenuation hepatic lesions too small to characterize, also unable to be characterized without intravenous contrast. Increased bibasilar lung opacification most likely representing subsegmental atelectasis. Unfortunately, pneumonia
and tiny right pleural effusion cannot be excluded.
-per GS-no concern for GI as well as pneumoperitoneum. SBP high in the differential.
-Tolerating diet
# Acute kidney injury with oliguria likely pre-renal in setting of decompensated liver cirrhosis
# Metabolic acidosis
-Gao catheter, monitor urine output
-Cr worsened
-started on midodrine. acidosis remains. Continue with as needed bicarb pushes.
-Patient received albumin and octreotide without any improvement in renal function. For creatinine is getting worse
-nephro on board
- Initiated on HD now
# Leukocytosis without fever. Nontoxic. Just finished treatments for SBP. No focal infective symptoms. Unclear if reactive. Continue to follow closely.
# Macrocytic anemia
# Thrombocytopenia
-Rectal exam showed heme positive dark stool
-ppi bid
-defer work up to GI-Per gastroenterology no plan for any procedures unless with acute gastrointestinal bleeding
-Anemia and thrombocytopenia both in the setting of decompensated liver cirrhosis. Transfuse hemoglobin or platelets as needed
# Right flank ecchymosis secondary to fall
-CT abdomen unremarkable for trauma
-CT head unremarkable
-CT C-spine unremarkable
History of subdural hematoma with prior shunt
Psoriasis
Pulmonary nodule-will need OP f/u for surveillance
Full code
DVT prophylaxis�SCDs
Prognosis is poor with decompensated liver disease and secondary oliguric renal failure.
Pt is aware about the liver dysfunction and poor prognosis.
Pt lost his bed due to transportation issues. Await bed availability at [facility].
Anticipated Discharge: Within 24 hours
Subjective/Interval History
-
Date of Service: July 28, 2023
Feeling better since dialysis.
No nausea or vomiting. No abdominal pain. Denies diarrhea.
Denies any dysuria.
No sore throat, cough or shortness of breath.
No fever or chills. He just feels cold.
Objective Data
-
Labs:
Laboratory Results
07/28/23
06:37
WBC 15.3 H
Hgb 9.7 L
Hct 26.2 L
Plt Count 38 L
Sodium 133 L
Potassium 3.4 L
Chloride 97 L
Carbon Dioxide 22
BUN 90 H
Creatinine 7.8 H*
Glucose 112 H
Calcium 7.6 L
Vital Signs:
Vital Signs
Temp Pulse Resp BP Pulse Ox
98.2 F 58 12 102/54 94
07/28/23 11:43 07/28/23 11:43 07/28/23 11:43 07/28/23 11:43 07/28/23 11:43
I&O
07/27/23 07/28/23 07/29/23
06:59 06:59 06:59
Intake Total 1320 / 1320 240 / 240
Balance 1320 / 1320 240 / 240
Review of Systems
-
All other systems: Reviewed and negative
Physical Exam
-
General: No Apparent Distress
HEENT: Moist Mucous Membranes
Respiratory: Clear to Auscultation
Cardiac: Regular Rhythm and S1/S2
GI: Soft, Nontender, Normal Bowel Sounds and Distended
Musculoskeletal: Edema, Right Lower Extrem and Edema, Left Lower Extrem
Neuro: AO x 3; Negative Tremors
Psych: Calm
Data Reviewed
-
Labs: Labs Reviewed by me
[2023-07-28 15:27] VITALS: BP 104/73
[2023-07-28] MEDS: SODIUM BICARBONATE 1300 MG PO ×2 (17:29→21:06)
[2023-07-28 19:21] VITALS: BP 98/61
[2023-07-28 23:12] VITALS: BP 104/67
[2023-07-29 04:44] VITALS: BP 110/35
[2023-07-29 04:45] VITALS: BMI 31.6
[2023-07-29 06:00] VITALS: BMI 31.4
[2023-07-29] MEDS: ProAmatine 10 MG PO ×3 (07:58→18:23)
[2023-07-29] MEDS: DESENEX/MITRAZOL/ZEASORB 1 APPLIC TOPICAL (08:00)
[2023-07-29] MEDS: SODIUM BICARBONATE PO (08:00)
[2023-07-29 08:08] VITALS: BP 112/60
[2023-07-29 08:35] LABS: Hematocrit 25.6 % (39.0-52.0); Hemoglobin 9.4 g/dL (13.0-18.0); Mean Corp Hgb Conc. 36.7 g/dL (33.0-37.0); Mean Corpuscular Hgb 40.5 pg (27.0-31.0); Mean Corpuscular Volume 110.3 fL (80.0-94.0); Mean Platelet Volume 11.9 fL (7.4-10.4); Platelet Count 44 10^3/uL (130-400); Red Blood Cell Count 2.32 10^6/uL (4.70-6.10); Red Cell Dist. Width 14.7 % (11.5-14.5); White Blood Cell Count 15.8 10^3/uL (4.8-10.8)
[2023-07-29] MEDS: MANNITOL 12.5 GRAMS IV (08:35)
[2023-07-29] MEDS: RETACRIT 3000 UNITS IV (08:36)
[2023-07-29] MEDS: FLEXBUMIN 25% FOR HEMODIALYSIS 12.5 GRAMS IV ×2 (08:36→10:06)
[2023-07-29 09:05] LABS: ALT (SGPT) 16 U/L (0-50); AST (SGOT) 33 U/L (17-59); Alkaline Phosphatase 55 U/L (38-126); Blood Urea Nitrogen 64 mg/dl (9-20); Carbon Dioxide 25 mmol/L (22-30); Chloride 97 mmol/L (98-107); Estimated Creatinine Clearance 15 ml/min; Glucose 105 mg/dl (70-99); Sodium 134 mmol/L (135-145); Total Protein 5.1 g/dl (6.3-8.2); eGFR 9.85
--- NOTE | 2023-07-29 10:39 | CM ---
sales support manager reviewed patient's chart and patient has been approved by insurance for hospital to hospital transfer Auth received. sales support manager reached out to [facility] transfer markesan, and patient has been assigned to at Unit at [facility] however
still waiting on a bed. Patient will need ambulance transfer.
Plan; Kj to transfer to [facility], hospital to hospital transfer.
--- NOTE | 2023-07-29 10:52 | W.PN.NEPH.HD ---
Assessment
-
Seen on HD. no complaints. VSS, access temp CVC
will need tunnelled CVC
PT/OT
would look for OP HD units. He does not appear to require transfer urgently anymore
Progress Note - Hemodialysis
-
Date of Service: July 29, 2023
Duration: 30 minutes and 3 hours
Potassium Bath: 3
Calcium Bath: 2.5
Opti-Dialyzer: 160
Ultrafiltration: Other (1kg)
Blood Flow: 400
Dialysate Flow: 600
Heparin: no
EPO: 3000 units
[2023-07-29 11:17] VITALS: BP 77/50
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
--- NOTE | 2023-07-29 12:15 | W.PN.HOSP.TC ---
Today's Communication/Plan
-
await transfer to [facility]
HD today
monitor BP
PT/OT/OOB
Assessment / Plan
Assessment / Plan
# Sepsis (leukocytosis, tachycardia) suspected secondary to SBP. Improved leukocytosis and sepsis parameters with empirical antibiotic.
# Lactic acidosis
# Chronic Alcohol abuse
# Alcohol use disorder
# Decompensated liver disease with ascites
# Ascites with possible SBP-culture negative [was on antibiotics]
-Heavy wine and or vodka drinker.
-Used to drink 2L of wine daily or vodka 750cc-heavy usage for approx 7 years per spouse and also in the past heavy drinker unclear amount
-Last drink 5 days prior to presentation
-Portal hypertension. Cytology negative for malignancy. s/p abx .
-s/p Repeat paracentesis - 10 L removed. Received IV albumin post paracentesis. Improved white count and WBCs less than 250. culture data negative for- DC antibiotics.
-Patient received albumin and octreotide
-GI following.
# Small and free air in the anterior abdomen unclear etiology
-repeat CT abd/pelvis on 07/19-Small volume free air in the anterior abdomen slightly decreased in volume in comparison to recent prior study.Large volume ascites again seen.Lobulated contour of the liver again identified. Again seen two
subcentimeter low-attenuation hepatic lesions too small to characterize, also unable to be characterized without intravenous contrast. Increased bibasilar lung opacification most likely representing subsegmental atelectasis. Unfortunately, pneumonia
and tiny right pleural effusion cannot be excluded.
-per GS-no concern for GI as well as pneumoperitoneum. SBP high in the differential.
-Tolerating diet
# Acute kidney injury with oliguria likely pre-renal in setting of decompensated liver cirrhosis
# Metabolic acidosis
-Gao catheter, monitor urine output
-Cr worsened
-started on midodrine. acidosis remains. Continue with bicarb po
-Patient received albumin and octreotide without any improvement in renal function. For creatinine is getting worse
-Initiated on HD now
-nephro on board
# Leukocytosis without fever. Nontoxic. Just finished treatments for SBP. No focal infective symptoms. Unclear if reactive. Continue to follow closely.
# Macrocytic anemia
# Thrombocytopenia
-Rectal exam showed heme positive dark stool
-ppi bid
-defer work up to GI-Per gastroenterology no plan for any procedures unless with acute gastrointestinal bleeding
-Anemia and thrombocytopenia both in the setting of decompensated liver cirrhosis. Transfuse hemoglobin or platelets as needed
# Right flank ecchymosis secondary to fall
-CT abdomen unremarkable for trauma
-CT head unremarkable
-CT C-spine unremarkable
History of subdural hematoma with prior shunt
Psoriasis
Pulmonary nodule-will need OP f/u for surveillance
Full code
DVT prophylaxis�SCDs
Prognosis is poor with decompensated liver disease and secondary oliguric renal failure.
Pt is aware about the liver dysfunction and poor prognosis.
Await bed availability at [facility].
Anticipated Discharge: Within 24 hours
Subjective/Interval History
-
Date of Service: July 29, 2023
seen on HD
Low bp
Objective Data
-
Labs:
Laboratory Results
07/29/23
08:01
WBC 15.8 H
Hgb 9.4 L
Hct 25.6 L
Plt Count 44 L
Sodium 134 L
Potassium 3.0 L
Chloride 97 L
Carbon Dioxide 25
BUN 64 H
Creatinine 6.0 H*
Glucose 105 H
Calcium 8.0 L
Total Bilirubin 2.0 H
AST 33
ALT 16
Alkaline Phosphatase 55
Vital Signs:
Vital Signs
Temp Pulse Resp BP Pulse Ox
97.7 F 56 18 77/50 94
07/29/23 11:17 07/29/23 11:17 07/29/23 11:17 07/29/23 11:17 07/29/23 11:17
I&O
07/28/23 07/29/23 07/30/23
06:59 06:59 06:59
Intake Total 240 / 240 600 / 600
Output Total 0 / 0
Balance 240 / 240 600 / 600
Physical Exam
-
General: No Apparent Distress
HEENT: Normocephalic, Atraumatic and Moist Mucous Membranes
Respiratory: Clear to Auscultation
Cardiac: Regular Rhythm and S1/S2
GI: Soft, Nontender, Normal Bowel Sounds and Distended
Musculoskeletal: Edema, Right Lower Extrem and Edema, Left Lower Extrem
Neuro: Awake, Alert and AO x 3; Negative Tremors
Psych: Calm
[2023-07-29] MEDS: PROTONIX IV 40 MG IV ×2 (13:55→20:08)
[2023-07-29] MEDS: NSS (PRESERVATIVE FREE) 10 ML IV ×2 (13:55→20:07)
[2023-07-29 15:15] VITALS: BP 91/59
[2023-07-29] MEDS: SODIUM BICARBONATE 1300 MG PO ×2 (16:50→21:33)
[2023-07-29] MEDS: ELOCON 0.1% TOPICAL (18:27)
[2023-07-29 19:16] VITALS: BP 110/67
[2023-07-29 23:17] VITALS: BP 107/61
[2023-07-30 03:09] VITALS: BP 99/61
[2023-07-30 06:00] VITALS: BMI 31.4
--- NOTE | 2023-07-30 07:21 | PTCARENOTE ---
[facility] called reporting an available bed for transfer. Report given to LUIZA Grace at [facility]. transcript clerk arranging transport. Plan of care ongoing.
[2023-07-30 07:35] VITALS: BP 95/41
[2023-07-30 08:20] LABS: INR 2.36; PT 26.2 Sec (11.4-14.6)
[2023-07-30] MEDS: SODIUM BICARBONATE 1300 MG PO (08:35)
[2023-07-30] MEDS: ProAmatine 10 MG PO (08:35)
[2023-07-30] MEDS: PROTONIX IV 40 MG IV (08:36)
[2023-07-30] MEDS: NSS (PRESERVATIVE FREE) 10 ML IV (08:36)
[2023-07-30] MEDS: ELOCON 0.1% TOPICAL (08:54)
--- NOTE | 2023-07-30 08:54 | CM ---
Chart reviewed and patient is for transfer to [facility] today, transport has been set up for 10am to [facility].
Plan; Patient to transfer to [facility] at 10am, ALS transport.
--- NOTE | 2023-07-30 14:51 | W.PN.HOSP.TC ---
Today's Communication/Plan
-
Tx to [facility]
HD
Assessment / Plan
Assessment / Plan
# Sepsis (leukocytosis, tachycardia) suspected secondary to SBP. Improved leukocytosis and sepsis parameters with empirical antibiotic.
# Lactic acidosis
# Chronic Alcohol abuse
# Alcohol use disorder
# Decompensated liver disease with ascites
# Ascites with possible SBP-culture negative [was on antibiotics]
-Heavy wine and or vodka drinker.
-Used to drink 2L of wine daily or vodka 750cc-heavy usage for approx 7 years per spouse and also in the past heavy drinker unclear amount
-Last drink 5 days prior to presentation
-Portal hypertension. Cytology negative for malignancy. s/p abx .
-s/p Repeat paracentesis - 10 L removed. Received IV albumin post paracentesis. Improved white count and WBCs less than 250. culture data negative for- DC antibiotics.
-Patient received albumin and octreotide
-GI following.
# Small and free air in the anterior abdomen unclear etiology
-repeat CT abd/pelvis on 07/19-Small volume free air in the anterior abdomen slightly decreased in volume in comparison to recent prior study.Large volume ascites again seen.Lobulated contour of the liver again identified. Again seen two
subcentimeter low-attenuation hepatic lesions too small to characterize, also unable to be characterized without intravenous contrast. Increased bibasilar lung opacification most likely representing subsegmental atelectasis. Unfortunately, pneumonia
and tiny right pleural effusion cannot be excluded.
-per GS-no concern for GI as well as pneumoperitoneum. SBP high in the differential.
-Tolerating diet
# Acute kidney injury with oliguria likely pre-renal in setting of decompensated liver cirrhosis
# Metabolic acidosis
-Gao catheter, monitor urine output
-Cr worsened
-started on midodrine. acidosis remains. Continue with bicarb po
-Patient received albumin and octreotide without any improvement in renal function. For creatinine is getting worse
-Initiated on HD now-unclear if renal recovery will be possible
-nephro on board
# Leukocytosis without fever. Nontoxic. Just finished treatments for SBP. No focal infective symptoms. Unclear if reactive. Continue to follow closely.
# Macrocytic anemia
# Thrombocytopenia
-Rectal exam showed heme positive dark stool
-ppi bid
-defer work up to GI-Per gastroenterology no plan for any procedures unless with acute gastrointestinal bleeding
-Anemia and thrombocytopenia both in the setting of decompensated liver cirrhosis. Transfuse hemoglobin or platelets as needed
# Right flank ecchymosis secondary to fall
-CT abdomen unremarkable for trauma
-CT head unremarkable
-CT C-spine unremarkable
History of subdural hematoma with prior shunt
Psoriasis
Pulmonary nodule-will need OP f/u for surveillance
Full code
DVT prophylaxis�SCDs
Prognosis is poor with decompensated liver disease and secondary oliguric renal failure.
Pt is aware about the liver dysfunction and poor prognosis.
Dispo-plan to transfer to [facility] today.
Anticipated Discharge: Today
Subjective/Interval History
-
Date of Service: July 30, 2023
Denies any abdominal pain or distention
Patient is waiting to be picked up to transfer to [place]
Objective Data
-
Labs:
Laboratory Results
07/30/23
07:45
PT 26.2 H
INR 2.36
Vital Signs:
Vital Signs
Temp Pulse Resp BP Pulse Ox
98.1 F 92 16 95/41 96
07/30/23 07:35 07/30/23 07:35 07/30/23 07:35 07/30/23 08:35 07/30/23 07:35
I&O
07/29/23 07/30/23 07/31/23
06:59 06:59 06:59
Intake Total 600 / 600 1320 / 1320
Output Total 0 / 0
Balance 600 / 600 1320 / 1320
Physical Exam
-
General: No Apparent Distress
HEENT: Normocephalic, Atraumatic and Moist Mucous Membranes
Respiratory: Clear to Auscultation
Cardiac: Regular Rhythm and S1/S2
GI: Soft, Nontender, Normal Bowel Sounds and Distended
Musculoskeletal: Edema, Right Lower Extrem and Edema, Left Lower Extrem
Neuro: Awake, Alert and Nonfocal/Grossly Intact; Negative Tremors
Psych: Calm
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
--- NOTE | 2023-08-05 11:46 | OID.L.PAT ---
Pulmonary Nodule Pat Letter
- -
08/05/23
QUAN SALGADO
[address]
[place], [place]
Dao GLASS,
A pulmonary nodule was seen on an imaging study done by [facility]. This was reviewed by the [facility] Pulmonary Nodule Advisory Board and the following recommendation was made:
Recommendation: Follow up CT Chest in 3 months
If you have any questions, please do not hesitate to contact your primary care physician. If you are in need of a Physician, you can go to [email or web address] and click on 'Find a Provider'. Type 'Family Medicine' in the search.
Oncology Nurse Navigator
[facility]
[phone]
--- NOTE | 2023-08-05 11:46 | OID.L.REC ---
Pulmonary Nodule Follow Up
- Recommendation
08/05/23
Pulmonary Nodule Review Recommendations
Your patient, QUAN SALGADO, had a pulmonary nodule seen on a CT Chest/Abdomen/Pelvis done on 07/17/23 in the [facility] Emergency Room.
This was reviewed by the [facility] Pulmonary Nodule Advisory Board and the following recommendation was made:
Recommendation: Follow up CT Chest in 3 months
If you have any questions please do not hesitate to contact us.
Sincerely,
Oncology Nurse Navigator
[facility]
[phone]
== END 2023-07-30 10:43 | disposition short-term general hospital (02) | DRG 871 ==
LOC: 4 WEST ACU 18:34
PROVIDERS: Internal Medicine; Nurse Practitioner; Nurse Practitioner Adult Health; Physician Assistant; Radiology Diagnostic Radiology; Radiology Vascular & Interventional Radiology; Specialist; Student in an Organized Health Care Education/Training Program; ADMITTING PHYSICIAN Hospitalist; ATTENDING PHYSICIAN Hospitalist; CONSULT PHYSICIAN Internal Medicine Critical Care Medicine; CONSULT PHYSICIAN Specialist; EMERGENCY PHYSICIAN Emergency Medicine; FAMILY PHYSICIAN Internal Medicine; OTHER PHYSICIAN Internal Medicine Gastroenterology; OTHER PHYSICIAN Surgery
PROC: 0W9G3ZX Drainage of Peritoneal Cavity, Percutaneous Approach, Diagnostic (ICD-10-PCS; 2023-07-18)
PROC: 02H633Z Insertion of Infusion Device into Right Atrium, Percutaneous Approach (ICD-10-PCS; 2023-07-27)
PROC: 5A1D70Z Performance of Urinary Filtration, Intermittent, Less than 6 Hours Per Day (ICD-10-PCS; 2023-07-27)
DX: A41.9 Sepsis, unspecified organism (principal); J18.9 Pneumonia, unspecified organism; K65.9 Peritonitis, unspecified; K76.7 Hepatorenal syndrome; N17.9 Acute kidney failure, unspecified; E87.20 Acidosis, unspecified; D68.9 Coagulation defect, unspecified; E87.1 Hypo-osmolality and hyponatremia; J90 Pleural effusion, not elsewhere classified; F17.210 Nicotine dependence, cigarettes, uncomplicated; K70.31 Alcoholic cirrhosis of liver with ascites; K70.40 Alcoholic hepatic failure without coma; D53.9 Nutritional anemia, unspecified; W19.XXXA Unspecified fall, initial encounter; S30.1XXA Contusion of abdominal wall, initial encounter; F10.10 Alcohol abuse, uncomplicated; L40.9 Psoriasis, unspecified; K52.9 Noninfective gastroenteritis and colitis, unspecified; I95.9 Hypotension, unspecified
CPT/HCPCS: 88305; 36556; 49083; 51702; 51798; 70450; 71045; 71250; 72125; 74018; 74176; 76937; 77001; 80048; 80053; 80179; 80202; 80306; 80307; 81003; 81015; 82042; 82077; 82140; 82150; 82550; 82570; 82607; 82728; 82746; 82962; 83540; 83550; 83605; 83615; 83690; 83735; 83880; 84100; 84157; 84300; 85014; 85018; 85025; 85027; 85610; 85730; 86706; 86708; 86803; 86850; 86900; 86901; 87015; 87040; 87070; 87086; 87205; 87340; 87641; 88112; 88341; 88342; 89051; 93005; 93975; 96365; 96366; 96367; 96375; 96376; 97163; 97166; 99285; 99406; C1752; G0257; P9047; Q5106

== ENCOUNTER 2023-08-30 10:21 | Inpatient (IN) | payer OTHER, SELFPAY ==
[2023-08-28] VITALS (7 sets, daily range): BP systolic 94–124; BP diastolic 59–78; BMI 24.6
--- NOTE | 2023-08-28 18:11 | ED.GENMED ---
History of Present Illness
General
Chief Complaint: Abnormal Lab Value
Source: patient
Exam Limitations: none
Time Seen by Provider: 08/28/23 17:54
Travel History
Have you had any contact with someone who has COVID-19?: No
Do you have any symptoms of coronavirus? Fever > 100 degrees, chills, cough, shortness of breath, sore throat, loss of taste or smell, muscle aches, or headache?: No
History of Present Illness
History of Present Illness:
This is 63 year old male that is brought in by ambulance with c/o abnormal labs. Patient states that he was brought in for elevated Cr. States that he gets Dialysis M-W-F. Patient states that he has no complaints. Called and spoke with Audi at
[facility] and was told that because the patient Cr is elevated he was sent in. States that he does make some urine but he is incont. Patient Denies any fever, chills, chest pain, SOB, abd pain, nausea, vomiting, diarrhea, headache, dizziness.
Past History
Past History
ED Past Medical History: HTN, Renal failure (Dialysis M-W-F) and Other (Migraine, subdural hematomam. Ascities, Pleural effusion)
ED Past Surgical History: Brain (Ventriculostomy) and Other (Shunt for Subdural bleed)
Social History
Tobacco: Former smoker
Alcohol: None
Drug: None
Personal:
Living: [facility] ([facility])
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
Review of Systems
Review of Systems
All Other Systems: ROS reviewed and negative except as documented in HPI and ROS
Constitutional: Reports no symptoms; Denies fever or chills
EENT: Reports no symptoms
Respiratory: Reports no symptoms; Denies cough or trouble breathing
Cardiac: Reports no symptoms; Denies chest pain
ABD/GI: Reports no symptoms; Denies abdominal pain, nausea, vomiting or diarrhea
: Reports incontinence
Musculoskeletal: Reports no symptoms
Skin: Reports no symptoms
Neurological: Reports no symptoms; Denies dizzy or headache
Psychiatric: Reports no symptoms
Phy Exam
General Physical Exam
General Presentation: no apparent distress
General age: appears stated age
General Skin: warm and dry
General Habitus: debilitated and elderly
General Mental: alert
General Hydration: appears well hydrated
ENT Exam
ENT Exam: TM's normal, pharynx normal and neck supple
Eye Exam
Eye Exam: EOMI
Cardiovascular Exam
Cardiovascular Exam: regular rate/rhythm, no edema and normal peripheral pulses
Pulmonary Exam
Pulmonary Exam: lungs clear, no respiratory distress, no rales, chest non tender, no crackles, no rhonchi, no wheezing and no cough
Gastrointestinal Exam
Gastrointestinal Exam: normal bowel sounds, non tender, soft, no organomegaly, no pulsatile mass and non distended
Musculoskeletal Exam
Musculoskeletal Exam: full ROM and no edema
Skin Exam
Skin Exam: normal color, warm/dry, no petechia and other ( Red Rash noted around neck, on Back, flanks and left arm, Groin Dialysis catheter right upper chest with contusion around site. )
Psychiatric Exam
Psychiatric Exam: normal mood/affect
Course
Orders/Labs/Results
Orders:
Orders
08/28/23 17:56
Basic Metabolic Panel Urgent
Complete Blood Count/With Diff Urgent
08/28/23 18:24
Electrocardiogram (*1) Urgent
Reason for Study: Other
Other Reason for Exam: abnormal labs
EKG- Treatment ONCE
08/28/23 18:37
Lactic Acid Urgent
Blood Culture Q30M
INDIGO Source: Blood/Venous
Specimen Description:
Blood Culture Q30M
INDIGO Source: Blood/Venous
Specimen Description:
08/28/23 19:17
CR Chest - 2 Views Urgent
Comment:
Reason For Exam: Renal failure, Dialysis catheter. elevated WBC
08/28/23 19:34
Piperacillin/Tazo 3.375 Gram [Zosyn] 3.375 gram in 50 ml IV NOW
Vancomycin 1 Gram/200 ml [Vancocin] 1 gram in 200 ml IV NOW
08/28/23 19:39
0.9% Sodium Chloride 250 ml [Nss] 250 ml IV BOLUS
08/28/23 21:54
Comprehensive Metabolic Panel Urgent
08/28/23 21:57
Admit/Transfer Patient As Directed
Co-Sign Provider:
Level of Care: Observation services
Assign to:: Telemetry
Physician / Group: Justin
Diagnosis: Lactic acidosis
Reason for Telemetry: Arrhythmia
Date to Stop Telemetry: 08/31/23
Time to Stop Telemetry: 11:00
Expected length of stay greater than two midnights?: Yes
ELOS- Estimated Length of Stay in days: 3
I certify the patient meets the requirements for IP care: Yes
08/28/23 22:09
Code Status As Directed
Resuscitation Status: Full Code
08/28/23 22:28
Ammonia Urgent
Lactic Acid Q6H
08/28/23 23:09
Acetaminophen [Tylenol] 650 mg PO Q8HPRN PRN
08/28/23 23:09
NEPHROLOGY CONSULT Routine
Consulting Provider: Bekah Garcia
Was physician already notified: Yes
Activity As Directed
Activity Level: Out of Bed- Chair
I&O [Intake/ Output] As Directed
Frequency: q12h
Obtain Records As Directed
Dates of Information to be Released: Aug 2023
Type of Information Requested: Consults
Discharge Summary
Obtain Records from: [facility]
Pneumatic Compression Sleeves As Directed
Type: Knee high
Vital Signs As Directed
Frequency: Per unit guidelines
Weight As Directed
Frequency: Daily
Ot Eval And Treat Routine
Pt Eval And Treat Routine
Activity Level: Out of Bed-Early Mobility
DX Deep Vein Thrombosis Video Routine
08/29/23 Breakfast
Sodium, 2 Gram
At Your Request: Limited Participation
Does patient need a safe tray?: No
Fluid Restriction: 1440 mL/day (48 oz)
Low Sodium: Potassium, 2 Gram
Basic Metabolic Panel IN AM
Complete Blood Count/No Diff IN AM
Magnesium IN AM
Phosphorus IN AM
08/29/23 07:30
Sevelamer Carbonate [Renvela] 800 mg PO AC
08/29/23 08:00
Calcium Acetate [Phoslo] 1,334 mg PO MEALS
Cholecalciferol (Vitamin D3) [VITAMIN D3 (cholecalciferol)] 25 mcg PO DAILY
Ciprofloxacin HCl [Cipro] 500 mg PO DAILY
Lactulose [Duphalac/Chronulac] 10 grams PO BID
Meclizine [Antivert] 25 mg PO TID
Midodrine [ProAmatine] 15 mg PO TID @ 0800,1200,1700
Prednisone [Deltasone] 5 mg PO DAILY
Rifaximin [Xifaxan] 550 mg PO BID
Zinc Sulfate 50 mg PO DAILY
08/29/23 22:00
Melatonin 3 mg PO HS
08/31/23 11:00
DC Protocol for Telemetry ONCE
Abnormal Lab Results
08/28/23 08/28/23 08/28/23
17:56 18:37 21:54
WBC 20.7 H 10^3/uL
(4.8-10.8)
RBC 2.66 L 10^6/uL
(4.70-6.10)
Hgb 10.4 L g/dL
(13.0-18.0)
Hct 30.1 L %
(39.0-52.0)
MCV 113.2 H fL
(80.0-94.0)
MCH 39.1 H pg
(27.0-31.0)
RDW 16.6 H %
(11.5-14.5)
Plt Count 60 L 10^3/uL
(130-400)
MPV 11.8 H fL
(7.4-10.4)
Abs Immat Gran (auto) 0.1 H 10^3/uL
(0-0.05)
Absolute Neuts (auto) 17.5 H 10^3/uL
(1.4-6.5)
Absolute Monos (auto) 1.0 H 10^3/uL
(0.1-0.6)
Absolute Eos (auto) 0.8 H 10^3/uL
(0-0.7)
Immature Gran % 0.7 H %
(0-0.5)
Neutrophils % 84.2 H %
(42.2-75.2)
Lymphocytes % 5.9 L %
(20.5-51.1)
Carbon Dioxide 15 L mmol/L 17 L mmol/L
(22-30) (22-30)
BUN 136 H* mg/dl 133 H* mg/dl
(9-20) (9-20)
Creatinine 12.2 H* mg/dL 12.3 H* mg/dL
(0.7-1.3) (0.7-1.3)
Glucose 134 H mg/dl 149 H mg/dl
(70-99) (70-99)
Lactic Acid 2.5 H mmol/L
(0.7-2.0)
Calcium 8.0 L mg/dl
(8.4-10.2)
Ammonia
Total Protein 5.3 L g/dl
(6.3-8.2)
Albumin 3.0 L g/dl
(3.5-5.0)
08/28/23
22:28
WBC
RBC
Hgb
Hct
MCV
MCH
RDW
Plt Count
MPV
Abs Immat Gran (auto)
Absolute Neuts (auto)
Absolute Monos (auto)
Absolute Eos (auto)
Immature Gran %
Neutrophils %
Lymphocytes %
Carbon Dioxide
BUN
Creatinine
Glucose
Lactic Acid
Calcium
Ammonia < 9 L umol/L
(9-30)
Total Protein
Albumin
08/28/23 17:56
08/28/23 21:54
Leukocytosis, H/H low Anemia, Plt low but improved for prior labs, Carbon dioxide very low. Glucose nonfasting. Lactic acid 2.5
Vital Signs
Initial and Last Documented VS:
Initial Vital Signs
Temp Pulse Resp BP Pulse Ox
97.7 F 96 19 112/75 98
08/28/23 17:57 08/28/23 17:57 08/28/23 17:57 08/28/23 17:57 08/28/23 17:57
Last Documented Vital Signs
Temp Pulse Resp BP Pulse Ox
98.4 F 95 20 124/78 100
08/28/23 22:30 08/28/23 22:30 08/28/23 22:30 08/28/23 22:30 08/28/23 22:30
MDM/Problems Addressed
Differential Diagnosis Includes:
Chronic renal failure, Abnormal labs
MDM/Problems Addressed:
This is a 63 year old male that is brought in by ambulance with c/o abnormal labs. States that he was told that his Cr was elevated. Patient has no complaints.
Called and spoke with Audi at [facility]. States that he was sent in due to hir Cr level. Questioned him as patient is Chronic renal failure on Dialysis but could give no other information. Will check labs.
Chronic conditions affecting care: Kidney disease
Acute Exacerbation and/or Progression of Chronic Illness: Kidney disease
*Radiology
Radiology exam reviewed: radiology read reviewed (Chest-Moderate right pleural effusion, New. )
*Pulse Oximetry
Patient hypoxic: no
*EKG
Interpreted by ED Provider?: Yes
Heart Rate: 89
Rate: normal
Rhythm: sinus and PVC's
[place]: normal axis
Interval: long QT
QRS Pattern: normal QRS
Ischemia: no ischemia
*Market Specialist Interpretation
Rate: normal
Heart Rate: 96
Rhythm: sinus
*Critical Care Note
Total Time (30-74mins, 75-104mins- exclusive of procedures): Not Applicable
ED Attending Note
-
Portions of this chart may have been created with voice recognition software.� Occasional wrong word or��sound alike� substitutions may have occurred due to the inherent limitations of voice recognition software.
Discharge Plan
Departure
Patient Disposition: Admit
Date of Disposition: 08/28/23
Time of Disposition: 19:40
Admit to: Telemetry
Presentation/result/management discussed w/ accepting MD/DO: Hospitalist
Patient with high blood pressure during this ER visit?: No
Condition: Good
Covid-19: Not Applicable
Discharge Problem:
Sepsis, Chronic kidney disease (CKD)
Interventions
Interventions:
*Risk Screen - Suicide Last Done: 08/28/23 17:57
*General Assessment Last Done: 08/28/23 17:57
*Neglect/Abuse Screening Last Done: 08/28/23 17:57
*ED COVID-19 Vaccine History Last Done: 08/28/23 17:57
*Nursing Disposition Last Done: 08/28/23 23:00
Discharge Date and Time
Discharge Date/Time: 08/28/23 23:01
[2023-08-28 18:20] LABS: % Basophils 0.6 % (0-2); % Eosinophils 3.7 % (0-6); % Immature Granulocytes 0.7 % (0-0.5); % Lymphocytes 5.9 % (20.5-51.1); % Monocytes 4.9 % (1.7-9.3); % Neutrophils 84.2 % (42.2-75.2); Absolute Basophils 0.1 10^3/uL (0-0.2); Absolute Eosinophils 0.8 10^3/uL (0-0.7); Absolute Immature Granulocytes 0.1 10^3/uL (0-0.05); Absolute Lymphocytes 1.2 10^3/uL (1.2-3.4); Absolute Neutrophils 17.5 10^3/uL (1.4-6.5); Hematocrit 30.1 % (39.0-52.0); Hemoglobin 10.4 g/dL (13.0-18.0); Mean Corp Hgb Conc. 34.6 g/dL (33.0-37.0); Mean Corpuscular Hgb 39.1 pg (27.0-31.0); Mean Corpuscular Volume 113.2 fL (80.0-94.0); Mean Platelet Volume 11.8 fL (7.4-10.4); Nucleated Red Blood Cells % 0 % (-); Platelet Count 60 10^3/uL (130-400); Red Blood Cell Count 2.66 10^6/uL (4.70-6.10); Red Cell Dist. Width 16.6 % (11.5-14.5); White Blood Cell Count 20.7 10^3/uL (4.8-10.8)
[2023-08-28 18:42] LABS: Calcium 8.4 mg/dl (8.4-10.2); Carbon Dioxide 15 mmol/L (22-30); Chloride 102 mmol/L (98-107); Glucose 134 mg/dl (70-99); Sodium 136 mmol/L (135-145)
[2023-08-28 19:00] LABS: Lactic Acid 2.5 mmol/L (0.7-2.0)
[2023-08-28] MEDS: NSS 250 IV (19:42)
[2023-08-28] MEDS: ZOSYN 50 IV (19:43)
[2023-08-28] MEDS: VANCOCIN 200 IV (19:43)
[2023-08-28 20:14] LABS: Blood Urea Nitrogen 136 mg/dl (9-20)
--- NOTE | 2023-08-28 22:12 | HPS.HSE ---
Addendum entered and electronically signed by Zakia Anderson MD 08/28/23 23:34:
Patient seen and examined independently with PA. 63-year-old male past medical history of former alcohol use disorder, cirrhosis, end-stage liver disease, ESRD on hemodialysis Saturday, Saturday, Saturday, hypertension, subdural hematoma status post
ventriculostomy shunt presenting for elevated creatinine. Patient's last dialysis session was a week ago due to refusing the last 2 dialysis sessions. He denies any complaints. He has baseline incontinence and denies any shortness of breath or
cough or chest pain, nausea vomiting or diarrhea.
Labs show leukocytosis, stable anemia, stable thrombocytopenia, metabolic acidosis, lactic acidosis. 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 Labs likely reflect missed dialysis sessions rather than
sepsis or infection. Nephrology consulted for dialysis. Would not pursue thoracentesis for pleural effusion given patient is asymptomatic.
Original Note:
Family Physician
-
Family Physician: Denis Crouch
Chief Complaint
-
Abnormal Labs
History of Present Illness
Patient is a 63-year-old male past medical history of former alcohol use disorder with cirrhosis and ESLD, ESRD on hemodialysis Saturday, Saturday, Saturday, hypertension, subdural hematoma status post ventriculostomy shunt presenting from [facility] for abnormal labs. He states he was brought in for elevated creatinine. Spoke with nurse at [facility] who reports patient refused dialysis last Saturday and Saturday. Blood work was obtained prior to dialysis which revealed worsening
creatinine and he was sent to the emergency department of evaluation. He denies any complaints. He does make some urine at baseline but he is incontinent. He denies any fevers or chills, chest pain, shortness of breath, abdominal pain, nausea
vomiting, diarrhea, headache, dizziness.
Medical History
Past Medical History
Past Medical History: Reports Other
Additional Past Medical History:
ESRD on HD MWF
Alcoholic Cirrhosis
Spontaneous Bacterial Peritonitis
Chronic Hypotension
Subdural Hematoma s/p CUSTOMS AND BORDER PROTECTION INSPECTOR shunt
Past Surgical History: Reports Other
Additional Past Surgical History:
CUSTOMS AND BORDER PROTECTION INSPECTOR Shunt
Social History
Tobacco: Non-smoker
Alcohol: Former
Drug: None
Family History
Family History: Not pertinent
Allergies / Home Medications
Allergies reflects when Allergies were last updated in [employer]
Home Medications with original date entered in [employer]
Allergy/Medication List:
Allergies
Allergy/AdvReac Type Severity Reaction Status Date / Time
No Known Allergies Allergy Verified 07/17/23 09:28
Home Medications
acetaminophen 325 mg tablet 650 mg PO Q8H PRN mild pain 08/28/23
acetaminophen 650 mg rectal suppository 650 mg [place] Q4H PRN temp>100F 08/28/23
balsam niels-castor oil topical ointment (Venelex topical ointment) 1 applic topical Q12H 08/28/23
calcium acetate(phosphat bind) 667 mg capsule 1,334 mg PO MEALS 08/28/23
cholecalciferol (vitamin D3) 25 mcg (1,000 unit) tablet (Vitamin D3) 25 mcg PO DAILY 08/28/23
ciprofloxacin HCl 500 mg tablet 500 mg PO DAILY 08/28/23
hydrocortisone 2.5 % topical cream 1 applic topical BID 08/28/23
lactulose 10 gram/15 mL oral solution 15 ml PO BID 08/28/23
lidocaine 4 % topical gel 1 applic topical Q10H 08/28/23
magnesium hydroxide 400 mg/5 mL oral suspension (Milk of Magnesia) 30 ml PO HS PRN if no bm x 3 days 08/28/23
meclizine 25 mg tablet 25 mg PO TID 08/28/23
melatonin 3 mg tablet 3 mg PO HS 08/28/23
midodrine 5 mg tablet 15 mg PO TID 08/28/23
mometasone 0.1 % topical cream 1 applic topical BID 08/28/23
nystatin 100,000 unit/gram topical powder 1 applic topical BID 08/28/23
polyvinyl alcohol 1.4 % eye drops 1 drp BOTH EYES QID 08/28/23
prednisone 5 mg tablet 5 mg PO DAILY 08/28/23
rifaximin 550 mg tablet (Xifaxan) 550 mg PO BID 08/28/23
sevelamer carbonate 800 mg tablet 800 mg PO AC 08/28/23
zinc sulfate 50 mg zinc (220 mg) capsule 50 mg PO DAILY 08/28/23
Review of Systems
-
A 12 point ROS was completed and negative except as noted: Yes
Constitutional: Denies Fever or Chills
Respiratory: Denies Cough or Trouble Breathing
Cardiac: Denies Chest Pain or Palpitations
Abdomen/GI: Denies Abdominal Pain, Nausea, Vomiting or Diarrhea
Physical Exam
Vital Signs
Vital Signs
Temp Pulse Resp BP Pulse Ox
97.7 F 95 20 110/59 100
08/28/23 17:57 08/28/23 21:45 08/28/23 21:45 08/28/23 21:43 08/28/23 21:45
Physical Exam
General: Comfortable and Conversant
HEENT: Anicteric and Moist mucous membranes; No Oxygen
Respiratory: Non Labored Respirations and Decreased Breath Sounds (Right middle and lower regions)
Cardiac: S1/S2 and Regular Rhythm
GI: Soft, Non Tender and Non Distended
Musculoskeletal: No Clubbing and No Cyanosis
Skin: Warm, Dry and Jaundice (Slightly)
Neuro: Awake, Alert and Nonfocal/grossly intact
Laboratory Results
-
08/28/23 17:56
Laboratory Results
Lactic Acid 2.5 mmol/L (0.7-2.0) H 08/28/23 18:37
Total Bilirubin Cancelled 08/28/23 19:45
AST Cancelled 08/28/23 19:45
ALT Cancelled 08/28/23 19:45
Alkaline Phosphatase Cancelled 08/28/23 19:45
Data Reviewed
-
Diagnostic Radiology: Report Reviewed by me
Lab Data: Labs Reviewed by me
Old Records: Requested and Reviewed
Impression/Plan
-
Lactic Acidosis secondary to Missed Dialysis
-Consult for dialysis
-Potassium level at facility today 4.5 therefore no need for emergency dialysis at this time
Right Pleural Effusion
-Patient without shortness of breath or hypoxia
-Continue to monitor
ESRD
-Continue sevelame
Chronic Hypotension
-Continue midodrine
Alcoholic Cirrhosis
-Continue lactulose, rifaximin, prednisone
Hx SBP
-Continue ciprofloxacin for prophylaxis
Hx Subdural Hematoma s/p CUSTOMS AND BORDER PROTECTION INSPECTOR Shunt
DVT proph: SCDs
Code Status: Full Code
[2023-08-28 22:27] LABS: ALT (SGPT) 18 U/L (0-50); AST (SGOT) 22 U/L (17-59); Alkaline Phosphatase 83 U/L (38-126); Carbon Dioxide 17 mmol/L (22-30); Chloride 102 mmol/L (98-107); Glucose 149 mg/dl (70-99); Potassium 4.2 mmol/L (3.5-5.1); Sodium 136 mmol/L (135-145); Total Bilirubin 1.1 mg/dl (0.2-1.3); Total Protein 5.3 g/dl (6.3-8.2); eGFR 4.16
[2023-08-28 22:42] LABS: Blood Urea Nitrogen 133 mg/dl (9-20)
[2023-08-28 22:49] LABS: Ammonia < 9 umol/L (9-30)
[2023-08-28 22:50] LABS: Lactic Acid 1.9 mmol/L (0.7-2.0)
--- NOTE | 2023-08-28 23:30 | PTCARENOTE ---
Addendum entered by Rach Edgar RN 08/29/23 06:14:
JEANNA came up to assess pts rash. no new orders.
Original Note:
pt arrived from ed, pulled over. aaox3, tele placed, VSS, see JANICE oakes assessment for further details. whole body flat red rash noticed on pt, pt states rash is not itching, sore, no drainage. JEANNA Mitchell notified and will be up to assess pts
rash. call salmeron within reach.
[2023-08-29] VITALS (7 sets, daily range): BP systolic 91–111; BP diastolic 55–68; PULSE 83–85; O2SAT 98; BMI 25.7
[2023-08-29 06:18] LABS: Hematocrit 27.3 % (39.0-52.0); Hemoglobin 9.4 g/dL (13.0-18.0); Mean Corp Hgb Conc. 34.4 g/dL (33.0-37.0); Mean Corpuscular Hgb 38.7 pg (27.0-31.0); Mean Corpuscular Volume 112.3 fL (80.0-94.0); Mean Platelet Volume 11.9 fL (7.4-10.4); Platelet Count 50 10^3/uL (130-400); Red Blood Cell Count 2.43 10^6/uL (4.70-6.10); Red Cell Dist. Width 16.5 % (11.5-14.5); White Blood Cell Count 23.7 10^3/uL (4.8-10.8)
--- NOTE | 2023-08-29 06:25 | W.PN.UPDATE ---
Update Note
Progress Note Update
Patient has rash on neck, back, chest and leg and lower abdomen, non itchy and not painful. Per patient, rash was started while he in long term. He denied starting of new meds at this time or eating new food. He denies allergy to meds and food.
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
[2023-08-29 06:48] LABS: Calcium 8.1 mg/dl (8.4-10.2); Carbon Dioxide 14 mmol/L (22-30); Chloride 104 mmol/L (98-107); Estimated Creatinine Clearance 6 ml/min; Glucose 93 mg/dl (70-99); Magnesium 1.7 mg/dl (1.6-2.3); Phosphorus 10.4 mg/dl (2.5-4.5); Potassium 4.6 mmol/L (3.5-5.1); Sodium 136 mmol/L (135-145); eGFR 3.97
[2023-08-29 07:19] LABS: Blood Urea Nitrogen 137 mg/dl (9-20)
[2023-08-29] MEDS: PHOSLO 1334 MG PO ×3 (08:29→15:49)
[2023-08-29] MEDS: ProAmatine 15 MG PO ×3 (08:30→16:04)
[2023-08-29] MEDS: XIFAXAN 550 MG PO (08:30)
[2023-08-29] MEDS: VITAMIN D3 (cholecalciferol) 25 MCG PO (08:30)
[2023-08-29] MEDS: DELTASONE 5 MG PO (08:30)
[2023-08-29] MEDS: DUPHALAC/CHRONULAC 10 GRAMS PO (08:31)
[2023-08-29] MEDS: ANTIVERT 25 MG PO ×2 (08:32→15:47)
[2023-08-29] MEDS: RENVELA 800 MG PO ×3 (08:32→15:49)
[2023-08-29] MEDS: CIPRO 500 MG PO (08:39)
--- NOTE | 2023-08-29 09:09 | W.PN.HOSP.TC ---
Today's Communication/Plan
-
see bold
Assessment / Plan
Assessment / Plan
63-year-old male past medical history of former alcohol use disorder, cirrhosis, end-stage liver disease, ESRD on hemodialysis Saturday, Saturday, Saturday, hypertension, subdural hematoma status post ventriculostomy shunt presenting for elevated
creatinine.� Patient's last dialysis session was a week ago due to refusing the last 2 dialysis sessions.� He denies any complaints.� He has baseline incontinence and denies any shortness of breath or cough or chest pain, nausea vomiting or diarrhea.
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
sepsis or infection.� Nephrology consulted for dialysis.� Would not pursue thoracentesis for pleural effusion given patient is asymptomatic.
End-stage renal failure on dialysis Saturday, Saturday, Saturday
Non-anion gap metabolic acidosis
-Continue dialysis as per nephrology
Noncompliance
-Patient refusing dialysis at [facility]
-He has agreed for dialysis today with much urging from nephrology
-If he continues to refuse dialysis at [facility], his only other option is hospice
-Patient is not talking to his
Lactic Acidosis secondary to Missed Dialysis
-Resolved
Dermatitis
-Patient has a diffuse itchy skin rash
-He is on prednisone 4 mg daily
-Increase to 40 mg p.o. daily for 5 days, then wean back down
Right Pleural Effusion
-Patient without shortness of breath or hypoxia
-Continue to monitor
Hyperphosphatemia
-Continue sevelamer
Chronic Hypotension
-Continue midodrine
Alcoholic Cirrhosis
-Continue lactulose, rifaximin, prednisone
Hx SBP
-Continue ciprofloxacin for prophylaxis
Hx Subdural Hematoma s/p GEOLOGICAL TECHNICIAN Shunt
DVT proph: Subcu heparin
Code Status: Full Code
Discussed with patient's on the phone, nephrology, nursing staff
Total time spent to see the patient on the floor, examine the patient, review data and lab results, discuss treatment plan with patient, nursing staff around 55 minutes.
Physical Exam
General: Disheveled, no acute distress
HEENT: Normocephalic, Atraumatic, EOMI, MMM
Respiratory: Clear to Auscultation bilaterally
Cardiac: Normal S1/S2, Regular Rate and Rhythm
GI: Soft, Nontender, Nondistended, Normal Bowel Sounds
Extremities: No Clubbing, Cyanosis, or Edema
Neuro: Nonfocal/Grossly Intact
Psych: Calm, Cooperative
Derm: Erythematous macular rash scattered on all extremities
Anticipated Discharge: 24 - 48 hours
Subjective/Interval History
-
Date of Service: August 29, 2023
Patient has a diffuse itchy rash. No fever.
Objective Data
-
Labs:
Laboratory Results
08/28/23 08/29/23
21:54 05:47
WBC 23.7 H
Hgb 9.4 L
Hct 27.3 L
Plt Count 50 L
Sodium 136 136
Potassium 4.2 4.6
Chloride 102 104
Carbon Dioxide 17 L 14 L*
BUN 133 H* 137 H*
Creatinine 12.3 H* 12.8 H*
Glucose 149 H 93
Calcium 8.0 L 8.1 L
Total Bilirubin 1.1
AST 22
ALT 18
Alkaline Phosphatase 83
Vital Signs:
Vital Signs
Temp Pulse Resp BP Pulse Ox
97.8 F 94 16 111/65 97
08/29/23 07:29 08/29/23 08:30 08/29/23 07:29 08/29/23 08:30 08/29/23 07:29
I&O
08/28/23 08/29/23 08/30/23
06:59 06:59 06:59
Intake Total 200 / 200
Output Total 0 / 0
Balance 200 / 200
[2023-08-29] MEDS: ZINC SULFATE 220 MG PO (10:27)
[2023-08-29] MEDS: MANNITOL 12.5 GRAMS IV ×2 (12:15→13:44)
[2023-08-29] MEDS: FLEXBUMIN 25% FOR HEMODIALYSIS 12.5 GRAMS IV ×2 (12:20→13:30)
--- NOTE | 2023-08-29 12:31 | W.CON.NEPH ---
Consultation
-
Date/Time Consultation Requested: 08/28/23 2330
Date/Time Consultation Performed: 08/29/23 1100
Requesting Provider: Justin Puente
Performing Provider: Bekah Jimenez
Reason for Consultation: ESRD
Medical History
-
Chief Complaint: missing HD and abnormal labs
History of Present Illness:
63-year-old male past medical history of subdural hematoma status post ventriculostomy shunt, former alcohol use disorder with cirrhosis and ESLD, SBP on Cipro chronically, developed possible HRS and started HD in last admit in Jul 2023 subsequently
he was transferred to [facility] for transplant evaluation of liver and was d/c ~2weeks ago to [facility]. He reports having twice weekly of paracentesis 3-4lit at [facility], last paracentesis is over week ago. He does not recall what was the
plan about transplant. He received HD 1-2times at [facility] only and refused further HD so he can come to the hospital. ID checked his labs yesterday and noted met acidosis, azotemia 133 and cr of 12. He has no other complaints. He has
significant hypotension on high dose of midodrine, on dual phos binders for hyperphosphatemia. He makes only small amount of urine. He has not ambulated for a while but thinks he can go home and have transport take him to HD is the main reason that
he refused HD.
Past Medical History
NYDIA vs ESRD on HD MWF
Alcoholic Cirrhosis
Spontaneous Bacterial Peritonitis
Chronic Hypotension
Subdural Hematoma s/p CANE FURNITURE MAKER shunt
Rt IJ tunneled catheter
Past Surgical History: Other (CANE FURNITURE MAKER shunt and CVC catheter)
Social History
Tobacco: Non-Smoker
Alcohol: Former
Living: Snf
Family History
Family History: Not Pertinent
Allergies / Home Medications
Allergy/AdvReac Type Severity Reaction Status Date / Time
No Known Allergies Allergy Verified 01/17/24 09:28
Medication Instructions Recorded Confirmed Type
acetaminophen 325 mg tablet 650 mg PO Q8H PRN mild pain 08/28/23 08/28/23 History
acetaminophen 650 mg rectal 650 mg FL Q4H PRN temp>100F 08/28/23 08/28/23 History
suppository
balsam niels-castor oil topical 1 applic topical Q12H Skin Issues 08/28/23 08/28/23 History
ointment (Venelex topical ointment)
calcium acetate(phosphat bind) 667 1,334 mg PO MEALS Kidney Disease 08/28/23 08/28/23 History
mg capsule
cholecalciferol (vitamin D3) 25 25 mcg PO DAILY Supplement 08/28/23 08/28/23 History
mcg (1,000 unit) tablet (Vitamin
D3)
ciprofloxacin HCl 500 mg tablet 500 mg PO DAILY Infection 08/28/23 08/28/23 History
hydrocortisone 2.5 % topical cream 1 applic topical BID Skin Issues 08/28/23 08/28/23 History
lactulose 10 gram/15 mL oral 15 ml PO BID Liver Issues 08/28/23 08/28/23 History
solution
lidocaine 4 % topical gel 1 applic topical Q10H Skin Issues 08/28/23 08/28/23 History
magnesium hydroxide 400 mg/5 mL 30 ml PO HS PRN if no bm x 3 days 08/28/23 08/28/23 History
oral suspension (Milk of Magnesia)
meclizine 25 mg tablet 25 mg PO TID dizziness 08/28/23 08/28/23 History
melatonin 3 mg tablet 3 mg PO HS Sleep 08/28/23 08/28/23 History
midodrine 5 mg tablet 15 mg PO TID Blood Pressure 08/28/23 08/28/23 History
mometasone 0.1 % topical cream 1 applic topical BID Skin Issues 08/28/23 08/28/23 History
nystatin 100,000 unit/gram topical 1 applic topical BID Skin Issues 08/28/23 08/28/23 History
powder
polyvinyl alcohol 1.4 % eye drops 1 drp BOTH EYES QID dry eyes 08/28/23 08/28/23 History
prednisone 5 mg tablet 5 mg PO DAILY Anti-Inflammatory 08/28/23 08/28/23 History
rifaximin 550 mg tablet (Xifaxan) 550 mg PO BID Liver Issues 08/28/23 08/28/23 History
sevelamer carbonate 800 mg tablet 800 mg PO AC Kidney Disease 08/28/23 08/28/23 History
zinc sulfate 50 mg zinc (220 mg) 50 mg PO DAILY Supplement 08/28/23 08/28/23 History
capsule
Review of Systems
-
All complete 12 point ROS have been inquired and found negative other than stated in HPI
Physical Exam
Vital Signs
Vital Signs
Temp Pulse Resp BP Pulse Ox
98.3 F 89 16 105/68 99
08/29/23 11:24 08/29/23 11:24 08/29/23 11:24 08/29/23 11:24 08/29/23 11:24
Lab Results
WBC 23.7 10^3/uL (4.8-10.8) H 08/29/23 05:47
RBC 2.43 10^6/uL (4.70-6.10) L 08/29/23 05:47
Hgb 9.4 g/dL (13.0-18.0) L 08/29/23 05:47
Hct 27.3 % (39.0-52.0) L 08/29/23 05:47
Plt Count 50 10^3/uL (130-400) L 08/29/23 05:47
Sodium 136 mmol/L (135-145) 08/29/23 05:47
Potassium 4.6 mmol/L (3.5-5.1) 08/29/23 05:47
Chloride 104 mmol/L (98-107) 08/29/23 05:47
Carbon Dioxide 14 mmol/L (22-30) L* 08/29/23 05:47
BUN 137 mg/dl (9-20) H* 08/29/23 05:47
Creatinine 12.8 mg/dL (0.7-1.3) H* 08/29/23 05:47
eGFR 3.97 08/29/23 05:47
Glucose 93 mg/dl (70-99) 08/29/23 05:47
Calcium 8.1 mg/dl (8.4-10.2) L 08/29/23 05:47
Phosphorus 10.4 mg/dl (2.5-4.5) H 08/29/23 05:47
Albumin 3.0 g/dl (3.5-5.0) L 08/28/23 21:54
PROCEDURE: CR Chest - 2 Views
CLINICAL INDICATION: Renal failure, Dialysis catheter. elevated WBC
TECHNIQUE: 2 views of chest performed.
COMPARISON: 07/18/2023
FINDINGS:
Right IJ central venous catheter terminates over the cavoatrial junction.
Lungs: Moderate right pleural effusion with associated atelectasis, new. No visualized pneumothorax.
Heart: Cardiac and mediastinal contours are unremarkable. No overt pulmonary vascular congestion.
Osseous structures: No acute abnormalities.
IMPRESSION:
Moderate right pleural effusion, new.
Electronically signed by Giovanni Stacy 08/28/2023 9:06 PM
Physical Exam
General: Awake, Alert and Oriented
HEENT: EOMI
Respiratory: Clear, Normal Excursion and Other (decreased )
Cardiac: S1/S2 and Regular Rate/Rhythm
Abdomen: Soft, Nontender and Other (mild distension)
Musculoskeletal: No Edema
Skin: Other (dermatitis noted in extremities)
Neuro: Nonfocal/Grossly Intact
Psych: Other (poor insight )
Assessment/Plan
-
IMP:
NYDIA vs ESRD on dialysis Saturday, Saturday, Saturday
anion gap and non gap metabolic acidosis
Noncompliance
Lactic Acidosis secondary to Missed Dialysis
Dermatitis
Right Pleural Effusion
Hyperphosphatemia
Leucocytosis
Chronic Hypotension on midodrine
Alcoholic Cirrhosis
Anemia and thrombocytopenia
Hx SBP
Hx Subdural Hematoma s/p CANE FURNITURE MAKER Shunt
Right IJ tunneled catheter
PLan:
Admit from [facility] of missing HD and abnormal labs
Pt reports missing HD purposefully so he can come to the hospital
last HD was 1 week ago
significant azotemia and met acidosis hence will try short HD today and full HD tomorrow
resume phos binders
BP soft on high dose midodrine
cont supportive care
leucocytosis noted but no fever, await cxs
I am not very sure what was plan from [facility] regarding liver transplant status-need records
Pt does not wish to go back to ID, he thinks can go home but he unable to understand that he did not ambulate yet and refusing to work with staff for ambulation
I am very concerned of his poor insight regarding his medical issues, he is not talking to his anymore
Prognosis remains poor and if pt not choosing NH likely hospice is appropriate
If he is not transplant candidate highly suggest hospice and stop HD
d/w primary
Data Reviewed
-
Radiology: Report Reviewed by me
Labs: Labs Reviewed by me and Discussed with Physician
[2023-08-29] MEDS: DELTASONE 40 MG PO (12:55)
[2023-08-29] MEDS: TYLENOL 650 MG PO (12:57)
--- NOTE | 2023-08-29 14:25 | W.PN.NEPH.HD ---
Assessment
-
pt seen during HD
BPs are low despite high dose of midodrine
limited UF only
CVC functions well
next HD tomorrow
Progress Note - Hemodialysis
-
Date of Service: August 29, 2023
Duration: 30 minutes and 2 hours
Potassium Bath: 2
Calcium Bath: 2.5
Opti-Dialyzer: 160
Ultrafiltration: Other (500cc)
Blood Flow: 250
Dialysate Flow: 600
Heparin: no
EPO: no
[2023-08-29] MEDS: HYDROPHOR 1 APPLIC TOPICAL (14:36)
[2023-08-29] MEDS: XIFAXAN PO (21:09)
[2023-08-29] MEDS: DUPHALAC/CHRONULAC PO (21:09)
[2023-08-29] MEDS: MELATONIN PO (21:11)
[2023-08-29] MEDS: ANTIVERT PO (21:11)
[2023-08-30 03:31] VITALS: BP 94/57
[2023-08-30 06:00] VITALS: BMI 25.4
[2023-08-30 08:40] VITALS: BP 103/57
--- NOTE | 2023-08-30 08:49 | W.PN.HOSP.TC ---
Today's Communication/Plan
-
Consult psychiatry
Assessment / Plan
Assessment / Plan
63-year-old male past medical history of former alcohol use disorder, cirrhosis, end-stage liver disease, ESRD on hemodialysis Saturday, Saturday, Saturday, hypertension, subdural hematoma status post ventriculostomy shunt presenting for elevated
creatinine.� Patient's last dialysis session was a week ago due to refusing the last 2 dialysis sessions.� He denies any complaints.� He has baseline incontinence and denies any shortness of breath or cough or chest pain, nausea vomiting or diarrhea.
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
sepsis or infection.� Nephrology consulted for dialysis.� Would not pursue thoracentesis for pleural effusion given patient is asymptomatic.
End-stage renal failure on dialysis Saturday, Saturday, Saturday
Non-anion gap metabolic acidosis
-Continue dialysis as per nephrology
Noncompliance
-Patient refusing dialysis at [facility]
-He has agreed for dialysis today with much urging from nephrology
-If he continues to refuse dialysis at [facility], his only other option is hospice
-Patient is not talking to his
-Consult psychiatry for medical decision-making competency
Lactic Acidosis secondary to Missed Dialysis
-Resolved
Dermatitis
-Patient has a diffuse itchy skin rash
-He is on prednisone 4 mg daily
-Increased to 40 mg p.o. daily for 5 days, then wean back down
Right Pleural Effusion
-Patient without shortness of breath or hypoxia
-Continue to monitor
Hyperphosphatemia
-Continue sevelamer
Chronic Hypotension
-Continue midodrine
Alcoholic Cirrhosis
-Continue lactulose, rifaximin, prednisone
Hx SBP
-Continue ciprofloxacin for prophylaxis
Hx Subdural Hematoma s/p FIRE MANAGEMENT OFFICER Shunt
DVT proph: Subcu heparin
Code Status: Full Code
Discussed with patient's on the phone
Discused with psych, nursing staff 08/29
Total time spent to see the patient on the floor, examine the patient, review data and lab results, discuss treatment plan with patient, nursing staff around 51 minutes.
Physical Exam
General: Disheveled, no acute distress
HEENT: Normocephalic, Atraumatic, EOMI, MMM
Respiratory: Clear to Auscultation bilaterally
Cardiac: Normal S1/S2, Regular Rate and Rhythm
GI: Soft, Nontender, Nondistended, Normal Bowel Sounds
Extremities: No Clubbing, Cyanosis, or Edema
Neuro: Nonfocal/Grossly Intact
Psych: Calm, Cooperative
Derm: Erythematous macular rash scattered on all extremities
Anticipated Discharge: > 48 hours
Subjective/Interval History
-
Date of Service: August 30, 2023
Patient is adamant that he wants to go home. He is not safe for discharge home.
Objective Data
-
Vital Signs:
Vital Signs
Temp Pulse Resp BP Pulse Ox
97.7 F 68 16 95/64 97
08/30/23 08:40 08/30/23 08:40 08/30/23 08:40 08/30/23 08:40 08/30/23 08:40
I&O
08/29/23 08/30/23 08/31/23
06:59 06:59 06:59
Intake Total 200 / 200 1200 / 1200
Output Total 0 / 0
Balance 200 / 200 1200 / 1200
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
[2023-08-30 11:16] VITALS: BP 101/64
[2023-08-30] MEDS: PHOSLO PO ×3 (12:26→18:25)
[2023-08-30] MEDS: RETACRIT IV (12:27)
[2023-08-30] MEDS: RENVELA PO ×3 (12:27→18:25)
[2023-08-30] MEDS: ProAmatine PO ×2 (12:27)
[2023-08-30] MEDS: DELTASONE PO (12:27)
[2023-08-30] MEDS: ANTIVERT PO ×2 (12:27→18:25)
[2023-08-30] MEDS: XIFAXAN PO ×2 (12:27→21:26)
[2023-08-30] MEDS: HYDROPHOR TOPICAL (12:27)
[2023-08-30] MEDS: VITAMIN D3 (cholecalciferol) PO (12:27)
[2023-08-30] MEDS: DUPHALAC/CHRONULAC PO ×2 (12:27→21:25)
[2023-08-30] MEDS: ZINC SULFATE PO (12:28)
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
[2023-08-30] MEDS: ProAmatine 15 MG PO ×2 (13:26→17:35)
[2023-08-30] MEDS: FLEXBUMIN 25% FOR HEMODIALYSIS 12.5 GRAMS IV ×2 (14:28→15:15)
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
[2023-08-30] MEDS: MANNITOL 12.5 GRAMS IV ×2 (14:47→17:21)
[2023-08-30] MEDS: RETACRIT 6000 UNITS IV (14:58)
[2023-08-30 15:14] LABS: Blood Urea Nitrogen 99 mg/dl (9-20); Calcium 8.8 mg/dl (8.4-10.2); Carbon Dioxide 17 mmol/L (22-30); Chloride 100 mmol/L (98-107); Estimated Creatinine Clearance 8 ml/min; Glucose 60 mg/dl (70-99); Potassium 4.3 mmol/L (3.5-5.1); Sodium 132 mmol/L (135-145); eGFR 6.06
[2023-08-30 15:21] VITALS: BP 109/62
--- NOTE | 2023-08-30 16:33 | W.PN.NEPH.HD ---
Assessment
-
Seen on HD, no complaints. VSS, BP low. UF will be limited. already receiving high dose midodrine. access ok
this is another one of his medical issues (hypotension) that the patient does not grasp the gravity of.
Progress Note - Hemodialysis
-
Date of Service: August 30, 2023
Duration: 45 minutes and 3 hours
Potassium Bath: 3
Calcium Bath: 2.5
Opti-Dialyzer: 160
Ultrafiltration: Other (2 as allowed)
Blood Flow: 400
Dialysate Flow: 600
Heparin: 0
EPO: 6000 units
--- NOTE | 2023-08-30 18:17 | CM ---
patient had dialysis again today.he was seen by psychiatry and again wants to go directly home.i met with christiane from protective services and gave her clinicals she requested.phone number [phone] and fax # [phone]. i did speak with
sesar who suggested patient return to [facility] and they will have social science teacher work with patient to find a new facility.home would likely not wok for patient.he does not have a permanent dialysis unit outside of the facilities.
Plan :return to [facility] when stable for discharge.
[2023-08-30 19:38] VITALS: BP 108/72
[2023-08-30] MEDS: CIPRO 500 MG PO (21:26)
[2023-08-30] MEDS: ANTIVERT 25 MG PO (21:27)
[2023-08-30] MEDS: MELATONIN 3 MG PO (21:27)
[2023-08-31] VITALS (7 sets, daily range): BP systolic 88–107; BP diastolic 54–63; BMI 25.1
[2023-08-31] MEDS: ProAmatine 15 MG PO ×3 (07:42→17:48)
[2023-08-31] MEDS: XIFAXAN PO ×2 (07:46→21:24)
--- NOTE | 2023-08-31 07:47 | W.PN.HOSP.TC ---
Today's Communication/Plan
-
see bold
Assessment / Plan
Assessment / Plan
63-year-old male past medical history of former alcohol use disorder, cirrhosis, end-stage liver disease, ESRD on hemodialysis Saturday, Saturday, Saturday, hypertension, subdural hematoma status post ventriculostomy shunt presenting for elevated
creatinine.� Patient's last dialysis session was a week ago due to refusing the last 2 dialysis sessions.� He denies any complaints.� He has baseline incontinence and denies any shortness of breath or cough or chest pain, nausea vomiting or diarrhea.
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
sepsis or infection.� Nephrology consulted for dialysis.� Would not pursue thoracentesis for pleural effusion given patient is asymptomatic.
End-stage renal failure on dialysis Saturday, Saturday, Saturday
Non-anion gap metabolic acidosis
-Continue dialysis as per nephrology
Noncompliance
-Patient refusing dialysis at [facility]
-Patient now agreeable to go to a different SNF with dialysis capabilities (he does not want to go back to [facility])
-CM informed
Lactic Acidosis secondary to Missed Dialysis
-Resolved
Psoriasis
-Patient has a diffuse itchy skin rash
-He is on prednisone 4 mg daily
-Increased to 40 mg p.o. daily for 5 days, then wean back down
-Resume mometasone cream bid
Right Pleural Effusion
-Patient without shortness of breath or hypoxia
-Continue to monitor
Hyperphosphatemia
-Continue sevelamer
Chronic Hypotension
-Continue midodrine
Alcoholic Cirrhosis
-Continue lactulose, rifaximin, prednisone
Hx SBP
-Continue ciprofloxacin for prophylaxis
Hx Subdural Hematoma s/p WEB CONTENT EDITOR Shunt
DVT proph: Subcu heparin
Code Status: Full Code
Discussed with patient's on the phone 2/29
Discused with psych, nursing staff 08/29
Physical Exam
General: Disheveled, no acute distress
HEENT: Normocephalic, Atraumatic, EOMI, MMM
Respiratory: Clear to Auscultation bilaterally
Cardiac: Normal S1/S2, Regular Rate and Rhythm
GI: Soft, Nontender, Nondistended, Normal Bowel Sounds
Extremities: No Clubbing, Cyanosis, or Edema
Neuro: Nonfocal/Grossly Intact
Psych: Calm, Cooperative
Derm: Erythematous macular rash scattered on all extremities
Anticipated Discharge: 24 - 48 hours
Subjective/Interval History
-
Date of Service: August 31, 2023
No chest pain, shortness of breath, or palpitations.
Objective Data
-
Labs:
Laboratory Results
08/31/23
06:21
Sodium Pending
Potassium Pending
Chloride Pending
Carbon Dioxide Pending
BUN Pending
Creatinine Pending
Glucose Pending
Calcium Pending
Vital Signs:
Vital Signs
Temp Pulse Resp BP Pulse Ox
98.0 F 89 16 88/54 96
08/31/23 07:40 08/31/23 07:40 08/31/23 07:40 08/31/23 07:40 08/31/23 07:40
I&O
08/30/23 08/31/23 09/01/23
06:59 06:59 06:59
Intake Total 1200 / 1200 1440 / 1440
Balance 1200 / 1200 1440 / 1440
[2023-08-31] MEDS: ANTIVERT 25 MG PO ×3 (09:47→21:25)
[2023-08-31] MEDS: DELTASONE 40 MG PO (09:47)
[2023-08-31] MEDS: PHOSLO 1334 MG PO ×3 (09:47→17:48)
[2023-08-31] MEDS: VITAMIN D3 (cholecalciferol) 25 MCG PO (09:47)
[2023-08-31] MEDS: RENVELA 800 MG PO ×3 (09:48→17:48)
[2023-08-31] MEDS: ZINC SULFATE 220 MG PO (09:48)
[2023-08-31] MEDS: DUPHALAC/CHRONULAC PO ×2 (09:52→21:24)
[2023-08-31] MEDS: HYDROPHOR TOPICAL (09:53)
[2023-08-31 10:19] LABS: Blood Urea Nitrogen 54 mg/dl (9-20); Calcium 8.4 mg/dl (8.4-10.2); Carbon Dioxide 23 mmol/L (22-30); Chloride 101 mmol/L (98-107); Estimated Creatinine Clearance 14 ml/min; Glucose 55 mg/dl (70-99); Potassium 3.2 mmol/L (3.5-5.1); Sodium 135 mmol/L (135-145); eGFR 11.43
[2023-08-31 10:26] LABS: Glucose - Point of Care 132 mg/dl (70-99)
--- NOTE | 2023-08-31 12:59 | W.PN.NEPH.PH ---
Today's Communication / Plan
-
HD saturday
Assessment/Plan
-
IMP:
NYDIA vs ESRD on dialysis Saturday, Saturday, Saturday
anion gap and non gap metabolic acidosis
Noncompliance
Lactic Acidosis secondary to Missed Dialysis
Dermatitis
Right Pleural Effusion
Hyperphosphatemia
Leucocytosis
Chronic Hypotension on midodrine
Alcoholic Cirrhosis
Anemia and thrombocytopenia
Hx SBP
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
Right IJ tunneled catheter
Plan:
see prior notes
pt states he will not be here saturday
i suspect he will ultimately leave AMA without OP HD arrangements
If still inpatient then will arrange for HD
[facility] is not an option as he will simply refuse dialysis there and be sent back to again
-
-
Date of Service: August 31, 2023
CC / HPI / ROS
-
Chief Complaint:
ESRD
History of Present Illness:
BP stable on high dose midodrine
tolerated HD yesterday
Phos 10.4
Review of Systems:
no CP/SOB
Labs
-
Labs:
WBC 23.7 10^3/uL (4.8-10.8) H 08/29/23 05:47
RBC 2.43 10^6/uL (4.70-6.10) L 08/29/23 05:47
Hgb 9.4 g/dL (13.0-18.0) L 08/29/23 05:47
Hct 27.3 % (39.0-52.0) L 08/29/23 05:47
Plt Count 50 10^3/uL (130-400) L 08/29/23 05:47
Sodium 135 mmol/L (135-145) 08/31/23 06:21
Potassium 3.2 mmol/L (3.5-5.1) L D 08/31/23 06:21
Chloride 101 mmol/L (98-107) 08/31/23 06:21
Carbon Dioxide 23 mmol/L (22-30) 08/31/23 06:21
BUN 54 mg/dl (9-20) H 08/31/23 06:21
Creatinine 5.3 mg/dL (0.7-1.3) H* 08/31/23 06:21
eGFR 11.43 08/31/23 06:21
Glucose 55 mg/dl (70-99) L* 08/31/23 06:21
Calcium 8.4 mg/dl (8.4-10.2) 08/31/23 06:21
Phosphorus 10.4 mg/dl (2.5-4.5) H 08/29/23 05:47
Albumin 3.0 g/dl (3.5-5.0) L 08/28/23 21:54
Physical Exam
-
Vital Signs:
Vital Signs
Temp Pulse Resp BP Pulse Ox
98.6 F 92 16 94/58 99
08/31/23 11:24 08/31/23 11:24 08/31/23 11:24 08/31/23 11:24 08/31/23 11:24
Cardiovascular:: Regular rate and rhythm
Respiratory:: Bilateral: Coarse
Lung Excursion:: Normal
Abdomen:: Nontender and Soft
Bowel Sounds:: Normal
Extremity Edema:: +1: Bilateral:
[2023-08-31] MEDS: KCL 10 MEQ PO (15:20)
--- NOTE | 2023-08-31 17:06 | W.PN.UPDATE ---
Update Note
Progress Note Update
63 y/o man with end stage liver and kidney failure on HD who had been refusing treatments at [facility] and was admitted due to rising creatinine. He was seen by Dr. Gomez yesterday and had a dialysis treatment. He is refusing to return to
the custodial and wants to return to his home with his and have outpatient dialysis. He hinted that his refusal of dialysis at the [facility] was to force his discharge.
He denies any history of heavy alcohol use. Unclear why he has liver and kidney failure and he suggested it may be familial. 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 is older and had health problems.
He has never been treated with antidepressants. He does not feel he needs any now.
Psychiatry will be available if needed. [facility] involved as well as CM at the hospital. Continue off psychiatric meds.
[2023-08-31] MEDS: MELATONIN 3 MG PO (21:25)
[2023-08-31] MEDS: CIPRO 500 MG PO (21:25)
[2023-09-01 03:37] VITALS: BP 98/55
[2023-09-01 06:00] VITALS: BMI 25.6
[2023-09-01 06:51] LABS: Blood Urea Nitrogen 67 mg/dl (9-20); Calcium 8.7 mg/dl (8.4-10.2); Carbon Dioxide 22 mmol/L (22-30); Chloride 100 mmol/L (98-107); Estimated Creatinine Clearance 11 ml/min; Glucose 100 mg/dl (70-99); Potassium 3.9 mmol/L (3.5-5.1); Sodium 132 mmol/L (135-145); eGFR 8.79
[2023-09-01 07:41] VITALS: BP 109/64
[2023-09-01] MEDS: ZINC SULFATE 220 MG PO (08:47)
[2023-09-01] MEDS: ANTIVERT 25 MG PO ×3 (08:48→21:02)
[2023-09-01] MEDS: ProAmatine 15 MG PO ×3 (08:48→17:35)
[2023-09-01] MEDS: DELTASONE 40 MG PO (08:48)
[2023-09-01] MEDS: PHOSLO 1334 MG PO ×3 (08:49→17:35)
--- NOTE | 2023-09-01 08:49 | W.PN.HOSP.TC ---
Today's Communication/Plan
-
see bold
Assessment / Plan
Assessment / Plan
63-year-old male past medical history of former alcohol use disorder, cirrhosis, end-stage liver disease, ESRD on hemodialysis Saturday, Saturday, Saturday, hypertension, subdural hematoma status post ventriculostomy shunt presenting for elevated
creatinine.� Patient's last dialysis session was a week ago due to refusing the last 2 dialysis sessions.� He denies any complaints.� He has baseline incontinence and denies any shortness of breath or cough or chest pain, nausea vomiting or diarrhea.
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
sepsis or infection.� Nephrology consulted for dialysis.� Would not pursue thoracentesis for pleural effusion given patient is asymptomatic.
End-stage renal failure on dialysis Saturday, Saturday, Saturday
Non-anion gap metabolic acidosis
-Continue dialysis as per nephrology
Noncompliance
-Patient refusing dialysis at [facility]
-Patient now agreeable to go to a different SNF with dialysis capabilities (he does not want to go back to [facility])
-CM informed
Lactic Acidosis secondary to Missed Dialysis
-Resolved
Psoriasis
-Patient has a diffuse itchy skin rash
-He is on prednisone 4 mg daily
-Increased to 40 mg p.o. daily for 5 days, then wean back down to previous dose of 5 mg po daily
-Resume mometasone cream bid
Right Pleural Effusion
-Patient without shortness of breath or hypoxia
-Continue to monitor
Hyperphosphatemia
-Continue sevelamer
Chronic Hypotension
-Continue midodrine
Alcoholic Cirrhosis
-Continue lactulose, rifaximin, prednisone
Hx SBP
-Continue ciprofloxacin for prophylaxis
Hx Subdural Hematoma s/p BASTING PULLER Shunt
DVT proph: Subcu heparin
Code Status: Full Code
Discussed with patient's on the phone
Discused with psych, nursing staff 08/29
Total time spent to see the patient on the floor, examine the patient, review data and lab results, discuss treatment plan with patient, nursing staff around 35 minutes.
Physical Exam
General: Disheveled, no acute distress
HEENT: Normocephalic, Atraumatic, EOMI, MMM
Respiratory: Clear to Auscultation bilaterally
Cardiac: Normal S1/S2, Regular Rate and Rhythm
GI: Soft, Nontender, Nondistended, Normal Bowel Sounds
Extremities: No Clubbing, Cyanosis
+B/l LE edema, skin changes on shins reflective of chronic venous stasis dermatitis
Neuro: Nonfocal/Grossly Intact
Psych: Calm, Cooperative
Derm: Erythematous macular rash scattered on all extremities
Anticipated Discharge: 24 - 48 hours
Subjective/Interval History
-
Date of Service: September 01, 2023
Itchiness improved. No chest pain, shortness of breath, or palpitations.
Objective Data
-
Labs:
Laboratory Results
09/01/23
06:00
Sodium 132 L
Potassium 3.9
Chloride 100
Carbon Dioxide 22
BUN 67 H
Creatinine 6.6 H*
Glucose 100 H
Calcium 8.7
Vital Signs:
Vital Signs
Temp Pulse Resp BP Pulse Ox
97.7 F 76 17 109/64 97
09/01/23 07:41 09/01/23 07:41 09/01/23 07:41 09/01/23 07:41 09/01/23 07:41
I&O
08/31/23 09/01/23 09/02/23
06:59 06:59 06:59
Intake Total 1440 / 1440 1200 / 1200
Balance 1440 / 1440 1200 / 1200
[2023-09-01] MEDS: VITAMIN D3 (cholecalciferol) 25 MCG PO (08:50)
[2023-09-01] MEDS: SEVELAMER CARBONATE 0.800000000000000044 GM PO ×3 (08:51→17:35)
[2023-09-01] MEDS: DUPHALAC/CHRONULAC PO ×2 (08:51→21:02)
[2023-09-01] MEDS: HYDROPHOR TOPICAL (08:52)
[2023-09-01] MEDS: XIFAXAN PO ×2 (08:54→21:04)
[2023-09-01] MEDS: RENVELA PO (08:54)
[2023-09-01 11:23] VITALS: BP 104/61
--- NOTE | 2023-09-01 15:43 | W.PN.NEPH.PH ---
Today's Communication / Plan
-
HD tomorrow
Assessment/Plan
-
IMP:
NYDIA vs ESRD on dialysis Saturday, Saturday, Saturday
anion gap and non gap metabolic acidosis
Noncompliance
Lactic Acidosis secondary to Missed Dialysis
Dermatitis
Right Pleural Effusion
Hyperphosphatemia
Leucocytosis
Chronic Hypotension on midodrine
Alcoholic Cirrhosis
Anemia and thrombocytopenia
Hx SBP
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
Right IJ tunneled catheter
Plan:
OP HD planning
HD tomorrow
can liberalize diet a little
-
-
Date of Service: September 01, 2023
CC / HPI / ROS
-
Chief Complaint:
ESRD
History of Present Illness:
BP stable on high dose midodrine
tolerated HD Saturday
Phos 10.4
Review of Systems:
no CP/SOB
wants potato chips
Labs
-
Labs:
WBC 23.7 10^3/uL (4.8-10.8) H 08/29/23 05:47
RBC 2.43 10^6/uL (4.70-6.10) L 08/29/23 05:47
Hgb 9.4 g/dL (13.0-18.0) L 08/29/23 05:47
Hct 27.3 % (39.0-52.0) L 08/29/23 05:47
Plt Count 50 10^3/uL (130-400) L 08/29/23 05:47
Sodium 132 mmol/L (135-145) L 09/01/23 06:00
Potassium 3.9 mmol/L (3.5-5.1) 09/01/23 06:00
Chloride 100 mmol/L (98-107) 09/01/23 06:00
Carbon Dioxide 22 mmol/L (22-30) 09/01/23 06:00
BUN 67 mg/dl (9-20) H 09/01/23 06:00
Creatinine 6.6 mg/dL (0.7-1.3) H* 09/01/23 06:00
eGFR 8.79 09/01/23 06:00
Glucose 100 mg/dl (70-99) H 09/01/23 06:00
Calcium 8.7 mg/dl (8.4-10.2) 09/01/23 06:00
Phosphorus 10.4 mg/dl (2.5-4.5) H 08/29/23 05:47
Albumin 3.0 g/dl (3.5-5.0) L 08/28/23 21:54
Physical Exam
-
Vital Signs:
Vital Signs
Temp Pulse Resp BP Pulse Ox
97.9 F 80 16 104/61 100
09/01/23 11:23 09/01/23 11:23 09/01/23 11:23 09/01/23 11:23 09/01/23 11:23
Cardiovascular:: Regular rate and rhythm
Respiratory:: Bilateral: CTA
Lung Excursion:: Normal
Abdomen:: Nontender and Soft
Bowel Sounds:: Normal
Extremity Edema:: None: Bilateral:
[2023-09-01 15:52] VITALS: BP 112/64
--- NOTE | 2023-09-01 16:13 | CM ---
CM met with pt - reports would like to go home - does not want to return to [facility]
Referral sent to [facility]
CM will cont to follow for d/c needs
[2023-09-01 19:43] VITALS: BP 110/59
[2023-09-01] MEDS: CIPRO 500 MG PO (21:02)
[2023-09-01] MEDS: MELATONIN 3 MG PO (21:02)
[2023-09-01 23:15] VITALS: BP 102/61
[2023-09-02] VITALS (7 sets, daily range): BP systolic 102–124; BP diastolic 61–71; BMI 26.3
[2023-09-02] MEDS: ZINC SULFATE 220 MG PO (08:44)
[2023-09-02] MEDS: DUPHALAC/CHRONULAC PO ×2 (08:44→08:55)
[2023-09-02] MEDS: VITAMIN D3 (cholecalciferol) 25 MCG PO (08:44)
[2023-09-02] MEDS: DELTASONE 40 MG PO (08:44)
[2023-09-02] MEDS: SEVELAMER CARBONATE 0.800000000000000044 GM PO ×3 (08:45→16:43)
[2023-09-02] MEDS: ANTIVERT 25 MG PO ×3 (08:45→22:19)
[2023-09-02] MEDS: PHOSLO 1334 MG PO ×3 (08:45→16:43)
[2023-09-02] MEDS: ProAmatine 15 MG PO ×3 (08:45→16:43)
[2023-09-02] MEDS: XIFAXAN PO ×3 (08:52→20:22)
[2023-09-02] MEDS: ProAmatine 5 MG PO (12:03)
[2023-09-02] MEDS: HYDROPHOR 1 APPLIC TOPICAL (12:04)
[2023-09-02] MEDS: RETACRIT 6000 UNITS IV (12:41)
[2023-09-02 13:22] LABS: Blood Urea Nitrogen 81 mg/dl (9-20); Calcium 8.8 mg/dl (8.4-10.2); Carbon Dioxide 20 mmol/L (22-30); Chloride 97 mmol/L (98-107); Estimated Creatinine Clearance 10 ml/min; Glucose 153 mg/dl (70-99); Potassium 4.3 mmol/L (3.5-5.1); Sodium 131 mmol/L (135-145); eGFR 7.42
--- NOTE | 2023-09-02 14:05 | W.PN.HOSP.TC ---
Today's Communication/Plan
-
discharge planning
Assessment / Plan
Assessment / Plan
63-year-old male past medical history of former alcohol use disorder, cirrhosis, end-stage liver disease, ESRD on hemodialysis Saturday, Saturday, Saturday, hypertension, subdural hematoma status post ventriculostomy shunt presenting for elevated
creatinine.� Patient's last dialysis session was a week ago due to refusing the last 2 dialysis sessions.� He denies any complaints.� He has baseline incontinence and denies any shortness of breath or cough or chest pain, nausea vomiting or diarrhea.
End-stage renal failure on dialysis Saturday, Saturday, Saturday
Non-anion gap metabolic acidosis
-Continue dialysis as per nephrology
-awaiting HD chair time arrangement
-Compliance remained a problem, patient requesting a different HD center.
-Patient now agreeable to go to a different [facility] with dialysis capabilities (he does not want to go back to [facility])
-CM working on arrangement.
Lactic Acidosis secondary to Missed Dialysis
-Resolved
Psoriasis
-Patient has a diffuse itchy skin rash
-He is on prednisone 4 mg daily
-Increased to 40 mg p.o. daily for 5 days, then wean back down to previous dose of 5 mg po daily
-Resume mometasone cream bid
Moderate Right Pleural Effusion
-Patient without shortness of breath or hypoxia
-presuming hepatic hydrothorax. monitor.
Hyperphosphatemia
-Continue sevelamer
Chronic Hypotension
-Continue midodrine
Alcoholic Cirrhosis
-Continue lactulose, rifaximin, prednisone
Hx SBP
-Continue ciprofloxacin for prophylaxis
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
DVT proph: Subcu heparin
Code Status: Full Code
Anticipated Discharge: Today
Subjective/Interval History
-
Date of Service: September 02, 2023
Resting comfortably in bed
Denies of any problems
Objective Data
-
Labs:
Laboratory Results
09/02/23
12:15
Sodium 131 L
Potassium 4.3
Chloride 97 L
Carbon Dioxide 20 L
BUN 81 H
Creatinine 7.6 H*
Glucose 153 H
Calcium 8.8
Vital Signs:
Vital Signs
Temp Pulse Resp BP Pulse Ox
97.9 F 84 16 124/71 98
09/02/23 11:03 09/02/23 11:03 09/02/23 11:03 09/02/23 11:03 09/02/23 11:03
I&O
09/01/23 09/02/23 09/03/23
06:59 06:59 06:59
Intake Total 1200 / 1200 540 / 540
Balance 1200 / 1200 540 / 540
Review of Systems
-
Respiratory: Reports No Symptoms
Cardiac: Reports No Symptoms
Abdomen/GI: Reports No Symptoms
Physical Exam
-
General: No Apparent Distress and Comfortable
HEENT: Negative Oxygen
Respiratory: Clear to Auscultation
Cardiac: Regular Rhythm and S1/S2; Negative Murmur
GI: Soft, Nontender and Normal Bowel Sounds
Musculoskeletal: Edema, Right Lower Extrem and Edema, Left Lower Extrem
Neuro: Awake, Alert and Nonfocal/Grossly Intact; Negative Tremors
Psych: Calm
--- NOTE | 2023-09-02 14:25 | W.PN.NEPH.HD ---
Assessment
-
- feeling well on dialysis
- no complaints
Progress Note - Hemodialysis
-
Date of Service: September 02, 2023
Duration: 30 minutes and 3 hours
Potassium Bath: 3
Calcium Bath: 2.5
Opti-Dialyzer: 160
Ultrafiltration: Other
Blood Flow: 400
Dialysate Flow: 600
EPO: 6K
--- NOTE | 2023-09-02 14:36 | CM ---
patient wants a different snf facility.had hd today on [facility].i called [facility] to follow up on referral.i spoke with edgar who will review referral and get back to me.plan dc to snf when bed is available.
[2023-09-02] MEDS: HEPARIN 3600 UNITS INTRACATH (15:36)
[2023-09-02] MEDS: DUPHALAC/CHRONULAC 10 GRAMS PO (20:13)
[2023-09-02] MEDS: MELATONIN 3 MG PO (22:19)
[2023-09-02] MEDS: CIPRO 500 MG PO (22:20)
[2023-09-03 06:51] LABS: Blood Urea Nitrogen 49 mg/dl (9-20); Calcium 8.7 mg/dl (8.4-10.2); Carbon Dioxide 26 mmol/L (22-30); Chloride 98 mmol/L (98-107); Estimated Creatinine Clearance 16 ml/min; Glucose 116 mg/dl (70-99); Potassium 3.5 mmol/L (3.5-5.1); Sodium 135 mmol/L (135-145); eGFR 13.55
[2023-09-03 07:00] VITALS: BP 100/59
[2023-09-03] MEDS: ProAmatine 15 MG PO ×3 (08:46→16:32)
[2023-09-03] MEDS: ANTIVERT 25 MG PO ×3 (08:46→22:15)
[2023-09-03] MEDS: DUPHALAC/CHRONULAC 10 GRAMS PO (08:46)
[2023-09-03] MEDS: DELTASONE 40 MG PO (08:47)
[2023-09-03] MEDS: HYDROPHOR 1 APPLIC TOPICAL (08:47)
[2023-09-03] MEDS: VITAMIN D3 (cholecalciferol) 25 MCG PO (08:47)
[2023-09-03] MEDS: ZINC SULFATE 220 MG PO (08:47)
[2023-09-03] MEDS: SEVELAMER CARBONATE 0.800000000000000044 GM PO ×3 (08:49→16:30)
[2023-09-03] MEDS: PHOSLO 1334 MG PO ×3 (08:49→16:29)
[2023-09-03] MEDS: XIFAXAN PO ×2 (09:02→22:01)
--- NOTE | 2023-09-03 13:14 | W.PN.NEPH.PH ---
Today's Communication / Plan
-
- HD tomorrow
- repeat phos prior to HD
Assessment/Plan
-
IMP:
NYDIA vs ESRD on dialysis Saturday, Saturday, Saturday
anion gap and non gap metabolic acidosis
Noncompliance
Lactic Acidosis secondary to Missed Dialysis
Dermatitis
Right Pleural Effusion
Hyperphosphatemia
Leucocytosis
Chronic Hypotension on midodrine
Alcoholic Cirrhosis
Anemia and thrombocytopenia
Hx SBP
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
Right IJ tunneled catheter
Plan:
OP HD planning, cannot come to [facility] due to insurance issues
HD tomorrow
can liberalize diet
-
-
Date of Service: September 03, 2023
CC / HPI / ROS
-
Chief Complaint:
ESRD
History of Present Illness:
BP stable on high dose midodrine
tolerated HD Saturday
Phos 10.4
Review of Systems:
no CP/SOB
wants potato chips
Labs
-
Labs:
WBC 23.7 10^3/uL (4.8-10.8) H 08/29/23 05:47
RBC 2.43 10^6/uL (4.70-6.10) L 08/29/23 05:47
Hgb 9.4 g/dL (13.0-18.0) L 08/29/23 05:47
Hct 27.3 % (39.0-52.0) L 08/29/23 05:47
Plt Count 50 10^3/uL (130-400) L 08/29/23 05:47
Sodium 135 mmol/L (135-145) 09/03/23 05:47
Potassium 3.5 mmol/L (3.5-5.1) 09/03/23 05:47
Chloride 98 mmol/L (98-107) 09/03/23 05:47
Carbon Dioxide 26 mmol/L (22-30) 09/03/23 05:47
BUN 49 mg/dl (9-20) H 09/03/23 05:47
Creatinine 4.6 mg/dL (0.7-1.3) H* 09/03/23 05:47
eGFR 13.55 09/03/23 05:47
Glucose 116 mg/dl (70-99) H 09/03/23 05:47
Calcium 8.7 mg/dl (8.4-10.2) 09/03/23 05:47
Phosphorus 10.4 mg/dl (2.5-4.5) H 08/29/23 05:47
Albumin 3.0 g/dl (3.5-5.0) L 08/28/23 21:54
Physical Exam
-
Vital Signs:
Vital Signs
Temp Pulse Resp BP Pulse Ox
98.0 F 78 16 108/68 97
09/03/23 07:00 09/03/23 07:00 09/03/23 07:00 09/03/23 12:29 09/03/23 07:00
Cardiovascular:: Regular rate and rhythm
Respiratory:: Bilateral: CTA
Lung Excursion:: Normal
Abdomen:: Nontender and Soft
Bowel Sounds:: Normal
Extremity Edema:: +1: Bilateral:
Gao Catheter: No
--- NOTE | 2023-09-03 13:25 | W.PN.HOSP.TC ---
Today's Communication/Plan
-
discharge planning
awaiting HD chair time
Assessment / Plan
Assessment / Plan
63-year-old male past medical history of former alcohol use disorder, cirrhosis, end-stage liver disease, ESRD on hemodialysis Saturday, Saturday, Saturday, hypertension, subdural hematoma status post ventriculostomy shunt presenting for elevated
creatinine.� Patient's last dialysis session was a week ago due to refusing the last 2 dialysis sessions.� He denies any complaints.� He has baseline incontinence and denies any shortness of breath or cough or chest pain, nausea vomiting or diarrhea.
End-stage renal failure on dialysis Saturday, Saturday, Saturday
Non-anion gap metabolic acidosis
-Continue dialysis as per nephrology
-awaiting HD chair time arrangement
-Compliance remained a problem, patient requesting a different HD center.
-Patient now agreeable to go to a different [facility] with dialysis capabilities (he does not want to go back to [facility])
-CM working on arrangement.
Lactic Acidosis secondary to Missed Dialysis
-Resolved
Psoriasis
-Patient has a diffuse itchy skin rash
-He is on prednisone 4 mg daily
-Increased to 40 mg p.o. daily for 5 days, then wean back down to previous dose of 5 mg po daily
-Resume mometasone cream bid
Moderate Right Pleural Effusion
-Patient without shortness of breath or hypoxia
-presuming hepatic hydrothorax. monitor.
Hyperphosphatemia
-Continue sevelamer
Chronic Hypotension
-Continue midodrine
Alcoholic Cirrhosis
-Continue lactulose, rifaximin, prednisone
Hx SBP
-Continue ciprofloxacin for prophylaxis
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
DVT proph: Subcu heparin
Code Status: Full Code
Anticipated Discharge: Within 24 hours
Subjective/Interval History
-
Date of Service: September 03, 2023
Resting comfortably in bed
no other issues overnight
Objective Data
-
Labs:
Laboratory Results
09/03/23
05:47
Sodium 135
Potassium 3.5
Chloride 98
Carbon Dioxide 26
BUN 49 H
Creatinine 4.6 H*
Glucose 116 H
Calcium 8.7
Vital Signs:
Vital Signs
Temp Pulse Resp BP Pulse Ox
98.0 F 78 16 108/68 97
09/03/23 07:00 09/03/23 07:00 09/03/23 07:00 09/03/23 12:29 09/03/23 07:00
I&O
09/02/23 09/03/23 09/04/23
06:59 06:59 06:59
Intake Total 540 / 540 660 / 660
Balance 540 / 540 660 / 660
Review of Systems
-
Respiratory: Reports No Symptoms
Cardiac: Reports No Symptoms
Abdomen/GI: Reports No Symptoms
Physical Exam
-
General: No Apparent Distress and Comfortable
HEENT: Negative Oxygen
Respiratory: Clear to Auscultation
Cardiac: Regular Rhythm and S1/S2; Negative Murmur
GI: Soft, Nontender and Normal Bowel Sounds
Musculoskeletal: Edema, Right Lower Extrem and Edema, Left Lower Extrem
Neuro: Awake, Alert and Nonfocal/Grossly Intact; Negative Tremors
Psych: Calm
[2023-09-03 15:00] VITALS: BP 100/66
[2023-09-03] MEDS: DUPHALAC/CHRONULAC PO (21:59)
[2023-09-03] MEDS: CIPRO 500 MG PO (22:20)
[2023-09-03] MEDS: MELATONIN 3 MG PO (22:23)
[2023-09-03 22:59] VITALS: BP 119/69
[2023-09-04 06:00] VITALS: BMI 25.6
[2023-09-04 07:33] VITALS: BP 97/62
[2023-09-04] MEDS: VITAMIN D3 (cholecalciferol) 25 MCG PO (08:56)
[2023-09-04] MEDS: ProAmatine 15 MG PO ×3 (08:56→16:42)
[2023-09-04] MEDS: DELTASONE 40 MG PO (08:56)
[2023-09-04] MEDS: ANTIVERT 25 MG PO ×3 (08:56→21:52)
[2023-09-04] MEDS: ZINC SULFATE 220 MG PO (08:56)
[2023-09-04] MEDS: SEVELAMER CARBONATE 0.800000000000000044 GM PO ×2 (08:59→16:45)
[2023-09-04] MEDS: PHOSLO 1334 MG PO ×2 (08:59→16:45)
[2023-09-04] MEDS: HYDROPHOR 1 APPLIC TOPICAL (09:00)
[2023-09-04] MEDS: XIFAXAN PO ×2 (09:00→21:53)
[2023-09-04] MEDS: DUPHALAC/CHRONULAC PO ×2 (09:01→21:51)
[2023-09-04 10:00] VITALS: BP 136/78; PULSE 69
[2023-09-04 10:15] VITALS: BP 136/78; PULSE 69
[2023-09-04 10:41] LABS: Blood Urea Nitrogen 62 mg/dl (9-20); Calcium 8.7 mg/dl (8.4-10.2); Carbon Dioxide 23 mmol/L (22-30); Chloride 99 mmol/L (98-107); Estimated Creatinine Clearance 13 ml/min; Glucose 119 mg/dl (70-99); Phosphorus 5.2 mg/dl (2.5-4.5); Potassium 3.9 mmol/L (3.5-5.1); Sodium 132 mmol/L (135-145); eGFR 10.05
[2023-09-04] MEDS: SEVELAMER CARBONATE PO (11:50)
[2023-09-04] MEDS: PHOSLO PO (11:50)
--- NOTE | 2023-09-04 12:17 | W.PN.HOSP.TC ---
Today's Communication/Plan
-
discharge planning
decrease steroid dose
Assessment / Plan
Assessment / Plan
63-year-old male past medical history of former alcohol use disorder, cirrhosis, end-stage liver disease, ESRD on hemodialysis Saturday, Saturday, Saturday, hypertension, subdural hematoma status post ventriculostomy shunt presenting for elevated
creatinine.� Patient's last dialysis session was a week ago due to refusing the last 2 dialysis sessions.� He denies any complaints.� He has baseline incontinence and denies any shortness of breath or cough or chest pain, nausea vomiting or diarrhea.
End-stage renal failure on dialysis Saturday, Saturday, Saturday
Non-anion gap metabolic acidosis
-Continue dialysis as per nephrology
-awaiting HD chair time arrangement
-Compliance remained a problem, patient requesting a different HD center.
-Patient now agreeable to go to a different [facility] with dialysis capabilities (he does not want to go back to [facility])
-CM working on arrangement.
Lactic Acidosis secondary to Missed Dialysis
-Resolved
Psoriasis
-Patient has a diffuse itchy skin rash
-He is on prednisone 4 mg daily
-Lowering dose of prednisone to 30mg/d
-Resume mometasone cream bid
Moderate Right Pleural Effusion
-Patient without shortness of breath or hypoxia
-presuming hepatic hydrothorax. monitor.
Hyperphosphatemia
-Continue sevelamer
Chronic Hypotension
-Continue midodrine
Alcoholic Cirrhosis
-Continue lactulose, rifaximin, prednisone
Hx SBP
-Continue ciprofloxacin for prophylaxis
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
DVT proph: Subcu heparin
Code Status: Full Code
Ongoing efforts to find a different SNF with HD capabilities, difficult to locate new facility. Discussed with CM and working on it.
Anticipated Discharge: Within 24 hours
Subjective/Interval History
-
Date of Service: September 04, 2023
no problems
Objective Data
-
Labs:
Laboratory Results
09/04/23 09/04/23
07:51 09:03
Sodium 132 L Cancelled
Potassium 3.9 Cancelled
Chloride 99 Cancelled
Carbon Dioxide 23 Cancelled
BUN 62 H Cancelled
Creatinine 5.9 H* Cancelled
Glucose 119 H Cancelled
Calcium 8.7 Cancelled
Vital Signs:
Vital Signs
Temp Pulse Resp BP Pulse Ox
98.3 F 66 16 114/75 98
09/04/23 07:33 09/04/23 08:56 09/04/23 07:33 09/04/23 11:50 09/04/23 07:33
I&O
09/03/23 09/04/23 09/05/23
06:59 06:59 06:59
Intake Total 660 / 660 840 / 840
Balance 660 / 660 840 / 840
Review of Systems
-
Respiratory: Reports No Symptoms
Cardiac: Reports No Symptoms
Abdomen/GI: Reports No Symptoms
Physical Exam
-
General: No Apparent Distress and Comfortable
HEENT: Negative Oxygen
Respiratory: Clear to Auscultation
Cardiac: Regular Rhythm and S1/S2; Negative Murmur
Musculoskeletal: Edema, Right Lower Extrem and Edema, Left Lower Extrem
Neuro: Awake, Alert and Nonfocal/Grossly Intact; Negative Tremors
Psych: Calm
--- NOTE | 2023-09-04 12:51 | W.PN.NEPH.HD ---
Assessment
-
Patient seen on HD
sbp ~100, midodrine given pre HD
phosp 5.2
Progress Note - Hemodialysis
-
Date of Service: September 04, 2023
Duration: 30 minutes and 3 hours
Potassium Bath: 3
Calcium Bath: 2.5
Opti-Dialyzer: 160
Ultrafiltration: Other (1kg)
Blood Flow: 400
Dialysate Flow: 600
Heparin: none
EPO: 6000
[2023-09-04] MEDS: RETACRIT 6000 UNITS IV (12:59)
--- NOTE | 2023-09-04 14:05 | CM ---
Addendum entered by Yen Buckner 09/04/23 16:22:
Monique from [facility] returned call - can accept pt on 09/05. Will inform pt
Original Note:
Called Monique [phone] at [facility] - to discuss referral/bed availability
She will look at referral in [facility] and call back - she will contact [facility] if accepted
CM will follow for d/c planning
Pt has been accepted to [facility] - refusing to return
[2023-09-04 14:28] LABS: Hematocrit 26.7 % (39.0-52.0); Hemoglobin 9.1 g/dL (13.0-18.0)
[2023-09-04 15:32] VITALS: BP 108/67
[2023-09-04] MEDS: MELATONIN 3 MG PO (21:53)
[2023-09-04] MEDS: CIPRO 500 MG PO (21:53)
[2023-09-04 23:00] VITALS: BP 124/84
[2023-09-05 06:00] VITALS: BMI 26.0
[2023-09-05 07:20] LABS: Blood Urea Nitrogen 44 mg/dl (9-20); Calcium 8.9 mg/dl (8.4-10.2); Carbon Dioxide 27 mmol/L (22-30); Chloride 96 mmol/L (98-107); Estimated Creatinine Clearance 20 ml/min; Glucose 78 mg/dl (70-99); Potassium 3.5 mmol/L (3.5-5.1); Sodium 135 mmol/L (135-145); eGFR 17.59
[2023-09-05 07:50] VITALS: BP 111/67
[2023-09-05] MEDS: PHOSLO 1334 MG PO ×3 (08:31→18:03)
[2023-09-05] MEDS: ANTIVERT 25 MG PO ×3 (08:31→20:56)
[2023-09-05] MEDS: DELTASONE 30 MG PO (08:32)
[2023-09-05] MEDS: ZINC SULFATE 220 MG PO (08:32)
[2023-09-05] MEDS: SEVELAMER CARBONATE 0.800000000000000044 GM PO ×3 (08:32→18:04)
[2023-09-05] MEDS: VITAMIN D3 (cholecalciferol) 25 MCG PO (08:32)
[2023-09-05] MEDS: ProAmatine 15 MG PO ×3 (08:34→18:03)
[2023-09-05] MEDS: DUPHALAC/CHRONULAC PO ×2 (08:48→20:56)
[2023-09-05] MEDS: XIFAXAN PO ×2 (08:48→20:57)
[2023-09-05] MEDS: HYDROPHOR TOPICAL (08:55)
--- NOTE | 2023-09-05 11:50 | W.PN.NEPH.PH ---
Today's Communication / Plan
-
HD tomorrow
Assessment/Plan
-
IMP:
NYDIA vs ESRD on dialysis Saturday, Saturday, Saturday
anion gap and non gap metabolic acidosis
Noncompliance
Lactic Acidosis secondary to Missed Dialysis
Dermatitis
Right Pleural Effusion
Hyperphosphatemia
Leucocytosis
Chronic Hypotension on midodrine
Alcoholic Cirrhosis
Anemia and thrombocytopenia
Hx SBP
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
Right IJ tunneled catheter
Plan:
OP HD planning, cannot come to [facility] due to insurance issues and notorious non compliance
HD tomorrow
titrate up SINTIA
-
-
Date of Service: September 05, 2023
CC / HPI / ROS
-
Chief Complaint:
ESRD
History of Present Illness:
BP labile on high dose midodrine
tolerated HD Saturday
Review of Systems:
no CP/SOB
Labs
-
Labs:
WBC 23.7 10^3/uL (4.8-10.8) H 08/29/23 05:47
RBC 2.43 10^6/uL (4.70-6.10) L 08/29/23 05:47
Hgb 9.1 g/dL (13.0-18.0) L 09/04/23 14:16
Hct 26.7 % (39.0-52.0) L 09/04/23 14:16
Plt Count 50 10^3/uL (130-400) L 08/29/23 05:47
Sodium 135 mmol/L (135-145) 09/05/23 05:55
Potassium 3.5 mmol/L (3.5-5.1) 09/05/23 05:55
Chloride 96 mmol/L (98-107) L 09/05/23 05:55
Carbon Dioxide 27 mmol/L (22-30) 09/05/23 05:55
BUN 44 mg/dl (9-20) H 09/05/23 05:55
Creatinine 3.7 mg/dL (0.7-1.3) H 09/05/23 05:55
eGFR 17.59 09/05/23 05:55
Glucose 78 mg/dl (70-99) 09/05/23 05:55
Calcium 8.9 mg/dl (8.4-10.2) 09/05/23 05:55
Phosphorus 5.2 mg/dl (2.5-4.5) H 09/04/23 07:51
Albumin 3.0 g/dl (3.5-5.0) L 08/28/23 21:54
Physical Exam
-
Vital Signs:
Vital Signs
Temp Pulse Resp BP Pulse Ox
98.1 F 78 17 111/67 95
09/05/23 07:50 09/05/23 07:50 09/05/23 07:50 09/05/23 07:50 09/05/23 07:50
Cardiovascular:: Regular rate and rhythm
Extremity Edema:: None: Bilateral:
Gao Catheter: No
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
--- NOTE | 2023-09-05 14:09 | CM ---
Spoke with pt regarding acceptance to [facility]
Pt continues to want to return home - willing to try this facility to get stronger
Spoke with Monique Temple - liaison - she will contact facility to check on bed availably and HD chair status
CM will follow for d/c planning
[2023-09-05 15:47] VITALS: BP 112/70
[2023-09-05] MEDS: MELATONIN 3 MG PO (20:56)
[2023-09-05] MEDS: CIPRO 500 MG PO (20:57)
[2023-09-05 23:14] VITALS: BP 114/60
[2023-09-06 06:00] VITALS: BMI 25.8
[2023-09-06 07:47] VITALS: BP 113/72
[2023-09-06] MEDS: ProAmatine 15 MG PO ×3 (07:49→16:18)
[2023-09-06 08:13] LABS: Glucose - Point of Care 66 mg/dl (70-99)
[2023-09-06] MEDS: RETACRIT 8000 UNITS IV (08:49)
[2023-09-06 09:01] LABS: Blood Urea Nitrogen 59 mg/dl (9-20); Calcium 8.8 mg/dl (8.4-10.2); Carbon Dioxide 24 mmol/L (22-30); Chloride 100 mmol/L (98-107); Estimated Creatinine Clearance 15 ml/min; Glucose 92 mg/dl (70-99); Sodium 132 mmol/L (135-145); eGFR 12.87
--- NOTE | 2023-09-06 09:01 | CM ---
NANDA received call from Monique from [facility]
Facility will not have a bed until next week
CM will f/u with Monique on Saturday to check on bed status
[2023-09-06 09:02] LABS: Glucose - Point of Care 113 mg/dl (70-99)
--- NOTE | 2023-09-06 11:21 | W.PN.HOSP.TC ---
Today's Communication/Plan
-
discharge pending snf bed availability
continue current care plan
Assessment / Plan
Assessment / Plan
63-year-old male past medical history of former alcohol use disorder, cirrhosis, end-stage liver disease, ESRD on hemodialysis Saturday, Saturday, Saturday, hypertension, subdural hematoma status post ventriculostomy shunt presenting for elevated
creatinine.� Patient's last dialysis session was a week ago due to refusing the last 2 dialysis sessions.� He denies any complaints.� He has baseline incontinence and denies any shortness of breath or cough or chest pain, nausea vomiting or diarrhea.
End-stage renal failure on dialysis Saturday, Saturday, Saturday
Non-anion gap metabolic acidosis
-Continue dialysis as per nephrology
-awaiting HD chair time arrangement
-Compliance remained a problem, patient requesting a different HD center.
-Patient now agreeable to go to a different [facility] with dialysis capabilities (he does not want to go back to [facility])
-CM working on arrangement.
Lactic Acidosis secondary to Missed Dialysis
-Resolved
Psoriasis
-Patient has a diffuse itchy skin rash
-He is on prednisone 4 mg daily
-Lowering dose of prednisone to 30mg/d
-Resume mometasone cream bid
Moderate Right Pleural Effusion
-Patient without shortness of breath or hypoxia
-presuming hepatic hydrothorax. monitor.
Hyperphosphatemia
-Continue sevelamer
Chronic Hypotension
-Continue midodrine
Alcoholic Cirrhosis
-Continue lactulose, rifaximin, prednisone
Hx SBP
-Continue ciprofloxacin for prophylaxis
Hx Subdural Hematoma s/p SOCIAL SERVICE DIRECTOR Shunt
DVT proph: Subcu heparin
Code Status: Full Code
Anticipated Discharge: Today
Subjective/Interval History
-
Date of Service: September 06, 2023
no complains overnight
Objective Data
-
Labs:
Laboratory Results
09/06/23
08:14
Sodium 132 L
Potassium 4.0
Chloride 100
Carbon Dioxide 24
BUN 59 H
Creatinine 4.8 H*
Glucose 92
Calcium 8.8
Vital Signs:
Vital Signs
Temp Pulse Resp BP Pulse Ox
97.8 F 65 16 110/67 98
09/06/23 07:47 09/06/23 07:49 09/06/23 07:47 09/06/23 07:49 09/06/23 07:47
I&O
09/05/23 09/06/23 09/07/23
06:59 06:59 06:59
Intake Total 950 / 950
Balance 950 / 950
Review of Systems
-
Respiratory: Reports No Symptoms
Cardiac: Reports No Symptoms
Abdomen/GI: Reports No Symptoms
Physical Exam
-
General: No Apparent Distress and Comfortable
HEENT: Negative Oxygen
Respiratory: Clear to Auscultation
Cardiac: Regular Rhythm and S1/S2; Negative Murmur
Musculoskeletal: Edema, Right Lower Extrem and Edema, Left Lower Extrem
Neuro: Awake, Alert and Nonfocal/Grossly Intact; Negative Tremors
Psych: Calm
[2023-09-06] MEDS: DUPHALAC/CHRONULAC PO ×2 (11:39→19:33)
[2023-09-06] MEDS: HYDROPHOR TOPICAL (11:40)
[2023-09-06] MEDS: VITAMIN D3 (cholecalciferol) 25 MCG PO (11:43)
[2023-09-06] MEDS: PHOSLO 1334 MG PO ×3 (11:46→16:18)
[2023-09-06] MEDS: SEVELAMER CARBONATE 0.800000000000000044 GM PO ×3 (11:46→16:18)
[2023-09-06] MEDS: ANTIVERT 25 MG PO ×3 (11:48→21:49)
[2023-09-06] MEDS: DELTASONE 30 MG PO (11:51)
[2023-09-06] MEDS: XIFAXAN PO ×2 (11:51→19:33)
[2023-09-06] MEDS: ZINC SULFATE 220 MG PO (11:57)
[2023-09-06] MEDS: HEPARIN 2000 UNITS INTRACATH (12:04)
--- NOTE | 2023-09-06 12:53 | W.PN.NEPH.HD ---
Assessment
-
- no complaints on HD
- awaiting placement
Progress Note - Hemodialysis
-
Date of Service: September 06, 2023
Duration: 30 minutes and 3 hours
Potassium Bath: 3
Calcium Bath: 2.5
Opti-Dialyzer: 160
Ultrafiltration: Other
Blood Flow: 400
Dialysate Flow: 600
EPO: 8K
[2023-09-06 15:11] VITALS: BP 93/69; PULSE 100; O2SAT 97
[2023-09-06 15:12] VITALS: BP 93/69; PULSE 99; O2SAT 97
[2023-09-06 15:32] VITALS: BP 93/69
[2023-09-06] MEDS: TYLENOL 650 MG PO ×2 (16:24→23:06)
[2023-09-06] MEDS: ROBITUSSIN DM 10 ML PO ×2 (16:56→21:53)
[2023-09-06] MEDS: MELATONIN 3 MG PO (21:48)
[2023-09-06] MEDS: CIPRO 500 MG PO (21:48)
[2023-09-06 23:00] VITALS: BP 119/74
[2023-09-07 05:35] VITALS: BMI 25.8
[2023-09-07 06:00] VITALS: BMI 25.8
[2023-09-07 07:45] VITALS: BP 125/79
[2023-09-07 08:34] LABS: Blood Urea Nitrogen 49 mg/dl (9-20); Calcium 8.8 mg/dl (8.4-10.2); Carbon Dioxide 26 mmol/L (22-30); Chloride 98 mmol/L (98-107); Estimated Creatinine Clearance 20 ml/min; Glucose 103 mg/dl (70-99); Sodium 134 mmol/L (135-145); eGFR 17.59
[2023-09-07 08:39] LABS: Potassium 3.9 mmol/L (3.5-5.1)
[2023-09-07] MEDS: DELTASONE 30 MG PO (08:51)
[2023-09-07] MEDS: ProAmatine 15 MG PO ×3 (08:51→17:01)
[2023-09-07] MEDS: HYDROPHOR TOPICAL (08:52)
[2023-09-07] MEDS: VITAMIN D3 (cholecalciferol) 25 MCG PO (08:52)
[2023-09-07] MEDS: DUPHALAC/CHRONULAC PO ×2 (08:52→21:02)
[2023-09-07] MEDS: ANTIVERT 25 MG PO ×3 (08:52→22:25)
[2023-09-07] MEDS: ZINC SULFATE 220 MG PO (08:52)
[2023-09-07] MEDS: XIFAXAN PO ×2 (08:52→21:08)
[2023-09-07] MEDS: SEVELAMER CARBONATE 0.800000000000000044 GM PO ×3 (08:55→17:01)
[2023-09-07] MEDS: PHOSLO 1334 MG PO ×3 (08:55→17:01)
--- NOTE | 2023-09-07 10:34 | W.PN.HOSP.TC ---
Today's Communication/Plan
-
cxr
decrease steroid dose
continue discharge planning
Assessment / Plan
Assessment / Plan
63-year-old male past medical history of former alcohol use disorder, cirrhosis, end-stage liver disease, ESRD on hemodialysis Saturday, Saturday, Saturday, hypertension, subdural hematoma status post ventriculostomy shunt presenting for elevated
creatinine.� Patient's last dialysis session was a week ago due to refusing the last 2 dialysis sessions.� He denies any complaints.� He has baseline incontinence and denies any shortness of breath or cough or chest pain, nausea vomiting or diarrhea.
End-stage renal failure on dialysis Saturday, Saturday, Saturday
Non-anion gap metabolic acidosis
-Continue dialysis as per nephrology
-awaiting HD chair time arrangement
-Compliance remained a problem, patient requesting a different HD center.
-Patient now agreeable to go to a different [facility] with dialysis capabilities (he does not want to go back to [facility])
-CM working on arrangement.
Lactic Acidosis secondary to Missed Dialysis
-Resolved
Psoriasis
-Patient has a diffuse itchy skin rash
-Lowering dose of prednisone to 20mg/d today
-Resume mometasone cream bid
Cough
-Robitussin provided
-Repeat chest x-ray ordered
Moderate Right Pleural Effusion
-Patient without shortness of breath or hypoxia
-presuming hepatic hydrothorax. monitor.
Hyperphosphatemia
-Continue sevelamer
Chronic Hypotension
-Continue midodrine
Alcoholic Cirrhosis
-Continue lactulose, rifaximin, prednisone
Hx SBP
-Continue ciprofloxacin for prophylaxi
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
DVT proph: Subcu heparin
Code Status: Full Code
Anticipated Discharge: > 48 hours
Subjective/Interval History
-
Date of Service: September 07, 2023
Some reported cough with phlegm production
Afebrile overnight
Objective Data
-
Labs:
Laboratory Results
09/07/23
07:21
Sodium 134 L
Potassium 3.9
Chloride 98
Carbon Dioxide 26
BUN 49 H
Creatinine 3.7 H
Glucose 103 H
Calcium 8.8
Vital Signs:
Vital Signs
Temp Pulse Resp BP Pulse Ox
98.3 F 79 16 125/79 96
09/07/23 07:45 09/07/23 07:45 09/07/23 07:45 09/07/23 07:45 09/07/23 07:45
I&O
09/06/23 09/07/23 09/08/23
06:59 06:59 07:59
Intake Total 950 / 950 960 / 960
Balance 950 / 950 960 / 960
Review of Systems
-
Respiratory: Reports Cough
Cardiac: Reports No Symptoms
Abdomen/GI: Reports No Symptoms
Physical Exam
-
General: No Apparent Distress and Comfortable
HEENT: Negative Oxygen
Respiratory: Rhonchi
Neuro: Awake, Alert and Nonfocal/Grossly Intact; Negative Tremors
Psych: Calm
[2023-09-07 15:27] VITALS: BP 121/68
[2023-09-07] MEDS: CIPRO 500 MG PO (22:25)
[2023-09-07] MEDS: MELATONIN 3 MG PO (22:25)
[2023-09-07 23:00] VITALS: BP 124/71
[2023-09-08 06:00] VITALS: BMI 25.9
[2023-09-08 07:40] VITALS: BP 104/66
[2023-09-08] MEDS: VITAMIN D3 (cholecalciferol) 25 MCG PO (07:41)
[2023-09-08] MEDS: ANTIVERT 25 MG PO ×3 (07:41→22:52)
[2023-09-08] MEDS: ProAmatine 15 MG PO ×3 (07:41→16:42)
[2023-09-08] MEDS: DELTASONE 20 MG PO (07:41)
[2023-09-08] MEDS: ZINC SULFATE 220 MG PO (07:41)
[2023-09-08] MEDS: XIFAXAN PO ×2 (07:42→20:14)
[2023-09-08] MEDS: DUPHALAC/CHRONULAC PO ×2 (07:42→20:13)
[2023-09-08] MEDS: HYDROPHOR TOPICAL (07:42)
[2023-09-08] MEDS: SEVELAMER CARBONATE 0.800000000000000044 GM PO ×3 (07:44→16:42)
[2023-09-08] MEDS: PHOSLO 1334 MG PO ×3 (07:44→16:42)
--- NOTE | 2023-09-08 11:27 | W.PN.HOSP.TC ---
Today's Communication/Plan
-
see note
continue discharge planning for SNF
Assessment / Plan
Assessment / Plan
63-year-old male past medical history of former alcohol use disorder, cirrhosis, end-stage liver disease, ESRD on hemodialysis Saturday, Saturday, Saturday, hypertension, subdural hematoma status post ventriculostomy shunt presenting for elevated
creatinine.� Patient's last dialysis session was a week ago due to refusing the last 2 dialysis sessions.� He denies any complaints.� He has baseline incontinence and denies any shortness of breath or cough or chest pain, nausea vomiting or diarrhea.
End-stage renal failure on dialysis Saturday, Saturday, Saturday
Non-anion gap metabolic acidosis
-Continue dialysis as per nephrology
-awaiting HD chair time arrangement
-Compliance remained a problem, patient requesting a different HD center.
-Patient now agreeable to go to a different SNF with dialysis capabilities (he does not want to go back to [facility])
-CM working on arrangement.
Lactic Acidosis secondary to Missed Dialysis
-Resolved
Psoriasis
-Patient has a diffuse itchy skin rash
-Lowering dose of prednisone to 20mg/d today
-Resume mometasone cream bid
RLL atelectasis
Pleural effusion
-Chest x-ray showing right lower lobe atelectasis. Patient have poor inspiratory effort. Incentive spirometry ordered
-Possible some pleural effusion as well. Chest ultrasound ordered.
-No signs of superimposed infection. Continue monitor
Hyperphosphatemia
-Continue sevelamer
Chronic Hypotension
-Continue midodrine
Alcoholic Cirrhosis
-Continue lactulose, rifaximin, prednisone
Hx SBP
-Continue ciprofloxacin for prophylaxi
Hx Subdural Hematoma s/p DIRECTOR IT Shunt
DVT proph: Subcu heparin
Code Status: Full Code
Medication compliance remains a problem. Patient declining to take some of the medication
Anticipated Discharge: Within 24 hours
Subjective/Interval History
-
Date of Service: September 08, 2023
Complaining minimal cough
No dyspnea/hypoxia
Objective Data
-
Vital Signs:
Vital Signs
Temp Pulse Resp BP Pulse Ox
98.4 F 79 16 104/66 96
09/08/23 07:40 09/08/23 07:41 09/08/23 07:40 09/08/23 07:41 09/08/23 07:40
I&O
09/07/23 09/08/23 09/09/23
05:59 06:59 06:59
Intake Total
Balance
Review of Systems
-
Respiratory: Reports Cough
Cardiac: Reports No Symptoms
Abdomen/GI: Reports No Symptoms
Physical Exam
-
General: No Apparent Distress and Comfortable
HEENT: Negative Oxygen
Respiratory: Clear to Auscultation and Rhonchi
Neuro: Awake, Alert and Nonfocal/Grossly Intact; Negative Tremors
Psych: Calm
[2023-09-08 15:43] VITALS: BP 115/74
--- NOTE | 2023-09-08 21:25 | PTCARENOTE ---
Patient refused 2000 medications and did not want to go to [facility] this evening.
[2023-09-08] MEDS: CIPRO 500 MG PO (22:52)
[2023-09-08] MEDS: MELATONIN 3 MG PO (22:52)
[2023-09-08 23:19] VITALS: BP 110/76
[2023-09-09 03:33] VITALS: BMI 26.1
[2023-09-09] MEDS: ROBITUSSIN DM 10 ML PO (05:24)
--- NOTE | 2023-09-09 05:29 | PTCARENOTE ---
Patient concerned about not being able to leave the hospital [facility] and his cough, patient offered Robitussin DM. Patient also requesting a copy of his xray. Plan of care discussed, MAR reviewed, shoe caser notes reviewed with Patient.
[2023-09-09 07:00] VITALS: BP 124/80
[2023-09-09] MEDS: ProAmatine 15 MG PO ×3 (08:14→16:27)
[2023-09-09] MEDS: SEVELAMER CARBONATE 0.800000000000000044 GM PO ×3 (08:14→16:27)
[2023-09-09] MEDS: ZINC SULFATE 220 MG PO (08:14)
[2023-09-09] MEDS: VITAMIN D3 (cholecalciferol) 25 MCG PO (08:15)
[2023-09-09] MEDS: DUPHALAC/CHRONULAC PO ×2 (08:15→19:52)
[2023-09-09] MEDS: XIFAXAN PO ×2 (08:15→19:52)
[2023-09-09] MEDS: PHOSLO 1334 MG PO ×3 (08:16→16:27)
[2023-09-09] MEDS: DELTASONE 20 MG PO (08:16)
[2023-09-09] MEDS: ANTIVERT 25 MG PO ×3 (08:16→22:33)
[2023-09-09] MEDS: HYDROPHOR TOPICAL (08:16)
--- NOTE | 2023-09-09 09:15 | W.PN.HOSP.TC ---
Today's Communication/Plan
-
Discharge to SNF when bed available
Assessment / Plan
Assessment / Plan
63-year-old male past medical history of former alcohol use disorder, cirrhosis, end-stage liver disease, ESRD on hemodialysis Saturday, Saturday, Saturday, hypertension, subdural hematoma status post ventriculostomy shunt presenting for elevated
creatinine.� Patient's last dialysis session was a week ago due to refusing the last 2 dialysis sessions.� He denies any complaints.� He has baseline incontinence and denies any shortness of breath or cough or chest pain, nausea vomiting or diarrhea.
End-stage renal failure on dialysis Saturday, Saturday, Saturday
Non-anion gap metabolic acidosis
-Continue dialysis as per nephrology
-awaiting HD chair time arrangement
-Compliance remained a problem, patient requesting a different HD center.
-Patient now agreeable to go to a different SNF with dialysis capabilities (he does not want to go back to [facility])
-Medically stable for discharge to a different SNF with dialysis when bed available
Lactic Acidosis secondary to Missed Dialysis
-Resolved
Psoriasis
-Patient has a diffuse itchy skin rash
-Lowering dose of prednisone to 20mg/d today, then 10 mg a day starting 09/10, then back to previous 5 mg daily on 09/13
-Continue mometasone cream bid
RLL atelectasis
Moderate right pleural effusion
-Chest x-ray showing right lower lobe atelectasis. Patient have poor inspiratory effort. Incentive spirometry ordered
-Patient is not short of breath, is not hypoxic
-Continue to monitor for now
Hyperphosphatemia
-Continue sevelamer
Chronic Hypotension
-Continue midodrine
Alcoholic Cirrhosis
-Continue lactulose, rifaximin, prednisone
Hx SBP
-Continue ciprofloxacin for prophylaxi
Hx Subdural Hematoma s/p MISDRAW HAND Shunt
DVT proph: Subcu heparin
Code Status: Full Code
Medication compliance remains a problem. Patient declining to take some of the medication
Physical Exam
General: Disheveled, no acute distress
HEENT: Normocephalic, Atraumatic, EOMI, MMM
Respiratory: Clear to Auscultation bilaterally
Cardiac: Normal S1/S2, Regular Rate and Rhythm
GI: Soft, Nontender, Nondistended, Normal Bowel Sounds
Extremities: No Clubbing, Cyanosis
+B/l LE edema, skin changes on shins reflective of chronic venous stasis dermatitis
Neuro: Nonfocal/Grossly Intact
Psych: Calm, Cooperative
Derm: Erythematous macular rash scattered on all extremities
Anticipated Discharge: Within 24 hours
Subjective/Interval History
-
Date of Service: September 09, 2023
Patient denies chest pain, denies shortness of breath. No coughing. No fever, no chills.
Objective Data
-
Labs:
Laboratory Results
09/09/23
06:00
Sodium Pending
Potassium Pending
Chloride Pending
Carbon Dioxide Pending
BUN Pending
Creatinine Pending
Glucose Pending
Calcium Pending
Vital Signs:
Vital Signs
Temp Pulse Resp BP Pulse Ox
99.1 F 85 16 119/78 94
09/09/23 07:00 09/09/23 08:14 09/09/23 07:00 09/09/23 08:14 09/09/23 07:00
I&O
09/08/23 09/09/23 09/10/23
06:59 06:59 06:59
Intake Total 720 / 720
Balance 720 / 720
[2023-09-09] MEDS: HEPARIN 5000 UNITS SC ×2 (10:25→19:55)
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
--- NOTE | 2023-09-09 11:57 | CM ---
Addendum entered by Yen Buckner 09/09/23 14:47:
Monique from [facility] returned call
No bed available today. She will check on availability of beds at other [facility] facilities. Will continue to check on bed availability at [place] facility.
Spoke with Alteha at [facility] - updated of current status - will update when facility obtained
Original Note:
NANDA spoke with Monique at [facility]
Per Monique checking on bed status
Awaiting call back
[2023-09-09 12:45] LABS: Blood Urea Nitrogen 79 mg/dl (9-20); Calcium 9.3 mg/dl (8.4-10.2); Carbon Dioxide 26 mmol/L (22-30); Chloride 97 mmol/L (98-107); Estimated Creatinine Clearance 12 ml/min; Glucose 127 mg/dl (70-99); Potassium 3.9 mmol/L (3.5-5.1); Sodium 135 mmol/L (135-145); eGFR 9.66
[2023-09-09] MEDS: RETACRIT 6000 UNITS IV (13:49)
--- NOTE | 2023-09-09 14:32 | W.PN.NEPH.HD ---
Assessment
-
pt seen during HD
soft BP with high dose midodrine
UF as allows
long d/w pt again regarding poor custodial prognosis
I hope he understands
CVC functions well
Progress Note - Hemodialysis
-
Date of Service: September 09, 2023
Duration: 30 minutes and 3 hours
Potassium Bath: 3
Calcium Bath: 2.5
Opti-Dialyzer: 160
Ultrafiltration: Other (1-2kg)
Blood Flow: 400
Dialysate Flow: 600
Heparin: no
EPO: 6000
[2023-09-09] MEDS: MANNITOL 12.5 GRAMS IV (14:34)
[2023-09-09] MEDS: FLEXBUMIN 25% FOR HEMODIALYSIS 12.5 GRAMS IV (14:35)
[2023-09-09 15:00] VITALS: BP 100/66
[2023-09-09] MEDS: MELATONIN 5 MG PO (22:33)
[2023-09-09] MEDS: CIPRO 500 MG PO (22:33)
[2023-09-09 23:10] VITALS: BP 106/73
[2023-09-10 06:00] VITALS: BMI 26.5
[2023-09-10 06:37] LABS: Blood Urea Nitrogen 48 mg/dl (9-20); Calcium 8.8 mg/dl (8.4-10.2); Carbon Dioxide 28 mmol/L (22-30); Chloride 98 mmol/L (98-107); Estimated Creatinine Clearance 21 ml/min; Glucose 86 mg/dl (70-99); Potassium 3.7 mmol/L (3.5-5.1); Sodium 135 mmol/L (135-145); eGFR 18.18
[2023-09-10 07:31] VITALS: BP 124/76
[2023-09-10] MEDS: ZINC SULFATE 220 MG PO (07:34)
[2023-09-10] MEDS: ProAmatine 15 MG PO ×3 (07:34→16:36)
[2023-09-10] MEDS: SEVELAMER CARBONATE 0.800000000000000044 GM PO ×3 (07:34→16:36)
[2023-09-10] MEDS: VITAMIN D3 (cholecalciferol) 25 MCG PO (07:35)
[2023-09-10] MEDS: DUPHALAC/CHRONULAC PO ×2 (07:35→20:53)
[2023-09-10] MEDS: XIFAXAN PO ×2 (07:35→20:58)
[2023-09-10] MEDS: ANTIVERT 25 MG PO ×3 (07:35→21:08)
[2023-09-10] MEDS: DELTASONE 20 MG PO (07:35)
[2023-09-10] MEDS: PHOSLO 1334 MG PO ×3 (07:35→16:36)
[2023-09-10] MEDS: HYDROPHOR TOPICAL (07:36)
[2023-09-10] MEDS: HEPARIN 5000 UNITS SC ×2 (07:36→21:03)
--- NOTE | 2023-09-10 07:57 | W.PN.HOSP.TC ---
Today's Communication/Plan
-
Discharge to short-term rehab with dialysis when bed available
Assessment / Plan
Assessment / Plan
63-year-old male past medical history of former alcohol use disorder, cirrhosis, end-stage liver disease, ESRD on hemodialysis Saturday, Saturday, Saturday, hypertension, subdural hematoma status post ventriculostomy shunt presenting for elevated
creatinine.� Patient's last dialysis session was a week ago due to refusing the last 2 dialysis sessions.� He denies any complaints.� He has baseline incontinence and denies any shortness of breath or cough or chest pain, nausea vomiting or diarrhea.
End-stage renal failure on dialysis Saturday, Saturday, Saturday
Non-anion gap metabolic acidosis
-Continue dialysis as per nephrology
-awaiting HD chair time arrangement
-Compliance remained a problem, patient requesting a different HD center.
-Patient now agreeable to go to a different SNF with dialysis capabilities (he does not want to go back to [facility])
-Medically stable for discharge to a different SNF with dialysis when bed available
Lactic Acidosis secondary to Missed Dialysis
-Resolved
Psoriasis
-Patient has a diffuse itchy skin rash
-Currently on prednisone to 20mg daily, then 10 mg a day starting 09/10, then back to previous 5 mg daily on 09/13
-Continue mometasone cream bid
RLL atelectasis
Moderate right pleural effusion
-Chest x-ray showing right lower lobe atelectasis. Patient has poor inspiratory effort. Incentive spirometry ordered
-Patient is not short of breath, is not hypoxic
-Continue to monitor for now
Hyperphosphatemia
-Continue sevelamer
Chronic Hypotension
-Continue midodrine
Alcoholic Cirrhosis
-Continue lactulose, rifaximin, prednisone
Hx SBP
-Continue ciprofloxacin for prophylaxi
Hx Subdural Hematoma s/p RN CHILD Shunt
DVT proph: Subcu heparin
Code Status: Full Code
Medication compliance remains a problem. Patient declining to take some of his medications
Total time spent to see the patient on the floor, examine the patient, review data and lab results, discuss treatment plan with patient, nursing staff around 35 minutes.
Physical Exam
General: Disheveled, no acute distress
HEENT: Normocephalic, Atraumatic, EOMI, MMM
Respiratory: Clear to Auscultation bilaterally
Cardiac: Normal S1/S2, Regular Rate and Rhythm
GI: Soft, Nontender, Nondistended, Normal Bowel Sounds
Extremities: No Clubbing, Cyanosis
+B/l LE edema, skin changes on shins reflective of chronic venous stasis dermatitis
Neuro: Nonfocal/Grossly Intact
Psych: Calm, Cooperative
Derm: Erythematous macular rash scattered on all extremities
Anticipated Discharge: Within 24 hours
Subjective/Interval History
-
Date of Service: September 10, 2023
No acute events. Patient denies chest pain, shortness of breath, nausea, vomiting. No fever.
Objective Data
-
Labs:
Laboratory Results
09/10/23
05:48
Sodium 135
Potassium 3.7
Chloride 98
Carbon Dioxide 28
BUN 48 H
Creatinine 3.6 H
Glucose 86
Calcium 8.8
Vital Signs:
Vital Signs
Temp Pulse Resp BP Pulse Ox
97.7 F 89 16 124/76 93
09/10/23 07:31 09/10/23 07:34 09/10/23 07:31 09/10/23 07:34 09/10/23 07:31
I&O
09/09/23 09/10/23 09/11/23
06:59 06:59 06:59
Intake Total 720 / 720 500 / 500
Balance 720 / 720 500 / 500
[2023-09-10 15:20] VITALS: BP 115/77
--- NOTE | 2023-09-10 15:46 | CM ---
Per Monique at [facility] - no beds available today
Spoke with pt - cont to refuse to return to [facility]
Referrals to additional facilities made through [facility]
Plan - d/c to snf - tbd
[2023-09-10] MEDS: MELATONIN 5 MG PO (21:03)
[2023-09-10] MEDS: CIPRO 500 MG PO (21:03)
[2023-09-10 23:00] VITALS: BP 119/75
[2023-09-11 06:00] VITALS: BMI 26.5
[2023-09-11 07:00] VITALS: BP 118/71
[2023-09-11] MEDS: HEPARIN 5000 UNITS SC ×2 (08:27→21:25)
[2023-09-11] MEDS: DUPHALAC/CHRONULAC PO ×2 (08:27→21:36)
[2023-09-11] MEDS: DELTASONE 10 MG PO (08:28)
[2023-09-11] MEDS: XIFAXAN PO ×2 (08:28→21:36)
[2023-09-11] MEDS: ANTIVERT 25 MG PO ×3 (08:28→21:24)
[2023-09-11] MEDS: ZINC SULFATE 220 MG PO (08:28)
[2023-09-11] MEDS: VITAMIN D3 (cholecalciferol) 25 MCG PO (08:28)
[2023-09-11] MEDS: HYDROPHOR TOPICAL (08:28)
[2023-09-11] MEDS: SEVELAMER CARBONATE 0.800000000000000044 GM PO ×3 (08:29→17:04)
[2023-09-11] MEDS: PHOSLO 1334 MG PO ×3 (08:29→17:04)
[2023-09-11] MEDS: ProAmatine 15 MG PO ×3 (08:29→17:04)
--- NOTE | 2023-09-11 09:08 | W.PN.HOSP.TC ---
Today's Communication/Plan
-
Discharge to rehab tomorrow
Assessment / Plan
Assessment / Plan
63-year-old male past medical history of former alcohol use disorder, cirrhosis, end-stage liver disease, ESRD on hemodialysis Saturday, Saturday, Saturday, hypertension, subdural hematoma status post ventriculostomy shunt presenting for elevated
creatinine.� Patient's last dialysis session was a week ago due to refusing the last 2 dialysis sessions.� He denies any complaints.� He has baseline incontinence and denies any shortness of breath or cough or chest pain, nausea vomiting or diarrhea.
End-stage renal failure on dialysis Saturday, Saturday, Saturday
Non-anion gap metabolic acidosis
-Continue dialysis as per nephrology
-awaiting HD chair time arrangement
-Compliance remained a problem, patient requesting a different HD center.
-Patient now agreeable to go to a different SNF with dialysis capabilities (he does not want to go back to [facility])
-Medically stable for discharge to a different SNF with dialysis when bed available
Lactic Acidosis secondary to Missed Dialysis
-Resolved
Psoriasis
-Patient has a diffuse itchy skin rash
-Currently on prednisone taper at 10mg daily, then back to previous 5 mg daily on 09/13
-Continue mometasone cream bid
RLL atelectasis
Moderate right pleural effusion
-Chest x-ray showing right lower lobe atelectasis. Patient has poor inspiratory effort. Incentive spirometry ordered
-Patient is not short of breath, is not hypoxic
-Continue to monitor for now
Hyperphosphatemia
-Continue sevelamer
Chronic Hypotension
-Continue midodrine
Alcoholic Cirrhosis
-Continue lactulose, rifaximin, prednisone
Hx SBP
-Continue ciprofloxacin for prophylaxi
Hx Subdural Hematoma s/p RESIDENCY PROGRAM COORDINATOR Shunt
DVT proph: Subcu heparin
Code Status: Full Code
Medication compliance remains a problem. Patient declining to take some of his medications
Total time spent to see the patient on the floor, examine the patient, review data and lab results, discuss treatment plan with patient, nursing staff around 35 minutes.
Physical Exam
General: Disheveled, no acute distress
HEENT: Normocephalic, Atraumatic, EOMI, MMM
Respiratory: Clear to Auscultation bilaterally
Cardiac: Normal S1/S2, Regular Rate and Rhythm
GI: Soft, Nontender, Nondistended, Normal Bowel Sounds
Extremities: No Clubbing, Cyanosis
+B/l LE edema, skin changes on shins reflective of chronic venous stasis dermatitis
Neuro: Nonfocal/Grossly Intact
Psych: Calm, Cooperative
Derm: Erythematous macular rash scattered on all extremities
Anticipated Discharge: Within 24 hours
Subjective/Interval History
-
Date of Service: September 11, 2023
No acute events. No chest pain, shortness of breath, palpitations. No fever, no nausea, no vomiting.
Objective Data
-
Labs:
Laboratory Results
09/11/23
06:00
Sodium Pending
Potassium Pending
Chloride Pending
Carbon Dioxide Pending
BUN Pending
Creatinine Pending
Glucose Pending
Calcium Pending
Vital Signs:
Vital Signs
Temp Pulse Resp BP Pulse Ox
97.9 F 76 18 118/71 95
09/11/23 07:00 09/11/23 08:29 09/11/23 07:00 09/11/23 08:29 09/11/23 07:00
I&O
09/10/23 09/11/23 09/12/23
06:59 06:59 06:59
Intake Total 500 / 500 580 / 580
Balance 500 / 500 580 / 580
[2023-09-11] MEDS: RETACRIT 6000 UNITS IV (12:51)
[2023-09-11 13:18] LABS: Blood Urea Nitrogen 64 mg/dl (9-20); Calcium 8.7 mg/dl (8.4-10.2); Carbon Dioxide 19 mmol/L (22-30); Chloride 95 mmol/L (98-107); Estimated Creatinine Clearance 16 ml/min; Glucose 161 mg/dl (70-99); Potassium 4.1 mmol/L (3.5-5.1); Sodium 132 mmol/L (135-145)
[2023-09-11 15:00] VITALS: BP 105/77
--- NOTE | 2023-09-11 15:02 | W.PN.NEPH.HD ---
Assessment
-
- no complaints on HD
Progress Note - Hemodialysis
-
Date of Service: September 11, 2023
Duration: 30 minutes and 3 hours
Potassium Bath: 3
Calcium Bath: 2.5
Opti-Dialyzer: 160
Ultrafiltration: Other
Blood Flow: 400
Dialysate Flow: 600
EPO: 6000
--- NOTE | 2023-09-11 16:06 | CM ---
Per Monique at [facility] may have bed 09/11-
Updated clinicals sent via [facility]. Need updated PT/OT noted to obtain auth.
Spoke with pt - agreeable to snf. Aware updated PT/OT eval is needed. Reports he would like to be seen tomorrow as he has HD today. Spoke with PT/OT will see pt
Monique made aware. Per Monique Noel looking at HD chair time
CM will cont to follow for d/c needs
Plan - SNF - [facility] when auth obtained
[2023-09-11] MEDS: CIPRO 500 MG PO (21:24)
[2023-09-11] MEDS: MELATONIN 5 MG PO (21:24)
[2023-09-11 23:00] VITALS: BP 119/75
[2023-09-11 23:50] VITALS: BP 119/75
[2023-09-12 06:00] VITALS: BMI 26.4
[2023-09-12 07:00] VITALS: BP 110/74
--- NOTE | 2023-09-12 08:43 | W.PN.HOSP.TC ---
Today's Communication/Plan
-
Check abdominal ultrasound
Awaiting authorization for rehab
Assessment / Plan
Assessment / Plan
63-year-old male past medical history of former alcohol use disorder, cirrhosis, end-stage liver disease, ESRD on hemodialysis Saturday, Saturday, Saturday, hypertension, subdural hematoma status post ventriculostomy shunt presenting for elevated
creatinine.� Patient's last dialysis session was a week ago due to refusing the last 2 dialysis sessions.� He denies any complaints.� He has baseline incontinence and denies any shortness of breath or cough or chest pain, nausea vomiting or diarrhea.
End-stage renal failure on dialysis Saturday, Saturday, Saturday
Non-anion gap metabolic acidosis
-Continue dialysis as per nephrology
-awaiting HD chair time arrangement
-Compliance remained a problem, patient requesting a different HD center.
-Patient now agreeable to go to a different SNF with dialysis capabilities (he does not want to go back to [facility])
-Medically stable for discharge to a different SNF with dialysis when bed available
Lactic Acidosis secondary to Missed Dialysis
-Resolved
Psoriasis
-Patient has a diffuse itchy skin rash
-Currently on prednisone taper at 10mg daily, then back to previous 5 mg daily on 09/13
-Continue mometasone cream bid
RLL atelectasis
Moderate right pleural effusion
-Chest x-ray showing right lower lobe atelectasis. Patient has poor inspiratory effort. Incentive spirometry ordered
-Patient is not short of breath, is not hypoxic
-Continue to monitor for now
Hyperphosphatemia
-Continue sevelamer
Chronic Hypotension
-Continue midodrine
Alcoholic Cirrhosis with ascites requiring intermittent paracentesis
-Continue lactulose, rifaximin, prednisone
-Check abdominal ultrasound
Hx SBP
-Continue ciprofloxacin for prophylaxi
Hx Subdural Hematoma s/p BUSINESS PROCESS MANAGER Shunt
DVT proph: Subcu heparin
Code Status: Full Code
Medication compliance remains a problem. Patient declining to take some of his medications
Total time spent to see the patient on the floor, examine the patient, review data and lab results, discuss treatment plan with patient, nursing staff around 35 minutes.
Physical Exam
General: Disheveled, no acute distress
HEENT: Normocephalic, Atraumatic, EOMI, MMM
Respiratory: Clear to Auscultation bilaterally
Cardiac: Normal S1/S2, Regular Rate and Rhythm
GI: Soft, Nontender, Nondistended, Normal Bowel Sounds
Extremities: No Clubbing, Cyanosis
+B/l LE edema, skin changes on shins reflective of chronic venous stasis dermatitis
Neuro: Nonfocal/Grossly Intact
Psych: Calm, Cooperative
Derm: Erythematous macular rash scattered on all extremities
Anticipated Discharge: Within 24 hours
Subjective/Interval History
-
Date of Service: September 12, 2023
Patient is asking about a repeat abdominal ultrasound for his ascites. No chest pain, no shortness of breath. No nausea, no vomiting.
Objective Data
-
Vital Signs:
Vital Signs
Temp Pulse Resp BP Pulse Ox
98.5 F 91 18 110/74 94
09/12/23 07:00 09/12/23 07:00 09/12/23 07:00 09/12/23 07:00 09/12/23 07:00
I&O
09/11/23 09/12/23 09/13/23
06:59 06:59 06:59
Intake Total 580 / 580 660 / 660
Balance 580 / 580 660 / 660
[2023-09-12] MEDS: XIFAXAN 550 MG PO (09:21)
[2023-09-12] MEDS: ProAmatine 15 MG PO ×2 (09:21→16:44)
[2023-09-12] MEDS: ZINC SULFATE 220 MG PO (09:21)
[2023-09-12] MEDS: PHOSLO 1334 MG PO ×2 (09:21→16:45)
[2023-09-12] MEDS: DELTASONE 10 MG PO (09:23)
[2023-09-12] MEDS: SEVELAMER CARBONATE 0.800000000000000044 GM PO ×2 (09:23→16:50)
[2023-09-12] MEDS: VITAMIN D3 (cholecalciferol) 25 MCG PO (09:24)
[2023-09-12] MEDS: HYDROPHOR 1 APPLIC TOPICAL (09:24)
[2023-09-12] MEDS: HEPARIN 5000 UNITS SC ×2 (09:25→21:21)
[2023-09-12] MEDS: ANTIVERT 25 MG PO ×3 (09:26→21:22)
[2023-09-12] MEDS: DUPHALAC/CHRONULAC PO ×2 (09:35→21:21)
--- NOTE | 2023-09-12 10:41 | CM ---
Addendum entered by Yen Buckner 09/12/23 14:40:
Updated PT/OT notes sent via [facility] to Monique at [facility]
Original Note:
Monique at [facility] requesting updated PT/OT notes, updated hepatitis serology, and previous HD facility info
Spoke with pt - importance of participating in PT/OT stressed - pt agreed to participate
Pt reporting he never received HD as out pt - Monique made aware
Dr Do aware facility asking for updated hepatitis serology
Plan - [facility] snf - will need auth
[2023-09-12 13:10] VITALS: BP 132/86; PULSE 118; O2SAT 92
[2023-09-12 13:11] VITALS: BP 132/86; PULSE 118; PULSE 136; O2SAT 94
[2023-09-12 15:00] VITALS: BP 116/77
[2023-09-12] MEDS: SEVELAMER CARBONATE PO (16:29)
[2023-09-12] MEDS: ProAmatine PO (16:29)
[2023-09-12] MEDS: PHOSLO PO (16:29)
[2023-09-12] MEDS: MELATONIN 5 MG PO (21:22)
[2023-09-12] MEDS: XIFAXAN PO (21:22)
[2023-09-12] MEDS: CIPRO 500 MG PO (21:22)
[2023-09-12 21:46] LABS: Hepatitis B Surface Antigen Negative (Negative)
[2023-09-12 22:02] LABS: Hepatitis C Antibody Negative (Negative)
[2023-09-12 22:45] LABS: Hepatitis A Antibody, Total Positive (Negative)
[2023-09-12 23:55] VITALS: BP 131/81
[2023-09-13 03:29] LABS: Hepatitis B Surface Antibody Indeterminate
[2023-09-13 06:00] VITALS: BMI 26.5
[2023-09-13 07:44] VITALS: BP 118/79
[2023-09-13] MEDS: ProAmatine 15 MG PO ×3 (08:12→16:02)
--- NOTE | 2023-09-13 08:43 | W.PN.HOSP.TC ---
Addendum entered and electronically signed by Tyler Calix MD 09/13/23 16:00:
Insomnia
-Increase melatonin to 10 mg at bedtime, start Benadryl 25 mg at bedtime
Original Note:
Today's Communication/Plan
-
Discharge to short-term rehab when bed available
Assessment / Plan
Assessment / Plan
63-year-old male past medical history of former alcohol use disorder, cirrhosis, end-stage liver disease, ESRD on hemodialysis Saturday, Saturday, Saturday, hypertension, subdural hematoma status post ventriculostomy shunt presenting for elevated
creatinine.� Patient's last dialysis session was a week ago due to refusing the last 2 dialysis sessions.� He denies any complaints.� He has baseline incontinence and denies any shortness of breath or cough or chest pain, nausea vomiting or diarrhea.
End-stage renal failure on dialysis Saturday, Saturday, Saturday
Non-anion gap metabolic acidosis
-Continue dialysis as per nephrology
-awaiting HD chair time arrangement
-Compliance remained a problem, patient requesting a different HD center.
-Patient now agreeable to go to a different SNF with dialysis capabilities (he does not want to go back to [facility])
-Medically stable for discharge to a different SNF with dialysis when bed available
Lactic Acidosis secondary to Missed Dialysis
-Resolved
Psoriasis
-Patient has a diffuse itchy skin rash
-Currently on prednisone taper at 10mg daily, then back to previous 5 mg daily on 09/13
-Continue mometasone cream bid
RLL atelectasis
Moderate right pleural effusion
-Chest x-ray showing right lower lobe atelectasis. Patient has poor inspiratory effort. Incentive spirometry ordered
-Patient is not short of breath, is not hypoxic
-Continue to monitor for now
Hyperphosphatemia
-Continue sevelamer
Chronic Hypotension
-Continue midodrine
Alcoholic Cirrhosis with ascites requiring intermittent paracentesis
-Continue lactulose, rifaximin, prednisone
-Abdominal ultrasound with small to moderate ascites, no need for paracentesis
Hx SBP
-Continue ciprofloxacin for prophylaxi
Hx Subdural Hematoma s/p MILL TENDER WARM UP Shunt
DVT proph: Subcu heparin
Code Status: Full Code
Medication compliance remains a problem. Patient declining to take some of his medications
Total time spent to see the patient on the floor, examine the patient, review data and lab results, discuss treatment plan with patient, nursing staff around 35 minutes.
Physical Exam
General: Disheveled, no acute distress
HEENT: Normocephalic, Atraumatic, EOMI, MMM
Respiratory: Clear to Auscultation bilaterally
Cardiac: Normal S1/S2, Regular Rate and Rhythm
GI: Soft, Nontender, Nondistended, Normal Bowel Sounds
Extremities: No Clubbing, Cyanosis
+B/l LE edema, skin changes on shins reflective of chronic venous stasis dermatitis
Neuro: Nonfocal/Grossly Intact
Psych: Calm, Cooperative
Derm: Erythematous macular rash scattered on all extremities
Anticipated Discharge: Within 24 hours
Subjective/Interval History
-
Date of Service: September 13, 2023
No chest pain, no shortness of breath. Patient complains about insomnia.
Objective Data
-
Labs:
Laboratory Results
09/13/23
07:58
Sodium Pending
Potassium Pending
Chloride Pending
Carbon Dioxide Pending
Vital Signs:
Vital Signs
Temp Pulse Resp BP Pulse Ox
98.6 F 89 17 124/75 94
09/13/23 07:44 09/13/23 08:12 09/13/23 07:44 09/13/23 08:12 09/13/23 07:44
I&O
09/12/23 09/13/23 09/14/23
06:59 06:59 06:59
Intake Total 660 / 660 720 / 720
Balance 056 / 149 171 / 906
[2023-09-13 08:44] LABS: Carbon Dioxide 26 mmol/L (22-30); Chloride 102 mmol/L (98-107); Potassium 3.8 mmol/L (3.5-5.1); Sodium 132 mmol/L (135-145)
[2023-09-13] MEDS: SEVELAMER CARBONATE PO ×2 (11:02→15:56)
[2023-09-13] MEDS: PHOSLO PO ×2 (11:02→15:56)
--- NOTE | 2023-09-13 11:03 | CM ---
Addendum entered by Yen Buckner 09/13/23 13:08:
Faxed HD flow sheets to Monique at [facility]
Original Note:
Updated serology report sent to Monique at [facility] via fax
Cont to wait on confirmation of HD time/Chair
Auth pending
Plan - [facility]
[2023-09-13] MEDS: DUPHALAC/CHRONULAC PO ×2 (11:04→20:16)
[2023-09-13] MEDS: ANTIVERT PO ×2 (11:04→16:02)
[2023-09-13] MEDS: VITAMIN D3 (cholecalciferol) PO (11:06)
[2023-09-13] MEDS: HEPARIN SC (11:06)
[2023-09-13] MEDS: XIFAXAN PO ×3 (11:07→20:17)
--- NOTE | 2023-09-13 11:11 | W.PN.NEPH.HD ---
Assessment
-
pt seen during HD
BP remains soft but stabl e
UF as tolerates
CVC function fine
await placement
Progress Note - Hemodialysis
-
Date of Service: September 13, 2023
Duration: 30 minutes and 3 hours
Potassium Bath: 3
Calcium Bath: 2.5
Opti-Dialyzer: 160
Ultrafiltration: Other (1.5-2kg)
Blood Flow: 400
Dialysate Flow: 600
Heparin: no
EPO: no
[2023-09-13] MEDS: PHOSLO 1334 MG PO ×2 (15:51→18:27)
[2023-09-13] MEDS: TYLENOL 650 MG PO (15:51)
[2023-09-13] MEDS: SEVELAMER CARBONATE 0.800000000000000044 GM PO ×2 (15:52→18:27)
[2023-09-13] MEDS: DELTASONE PO (15:53)
[2023-09-13] MEDS: HYDROPHOR 1 APPLIC TOPICAL (15:53)
[2023-09-13 15:54] VITALS: BP 109/72
[2023-09-13] MEDS: ProAmatine PO (15:57)
[2023-09-13] MEDS: ZINC SULFATE 220 MG PO (16:01)
[2023-09-13] MEDS: CIPRO 500 MG PO (21:17)
[2023-09-13] MEDS: HEPARIN 5000 UNITS SC (21:17)
[2023-09-13] MEDS: MELATONIN 10 MG PO (21:17)
[2023-09-13] MEDS: BENADRYL 25 MG PO (21:18)
[2023-09-13] MEDS: ANTIVERT 25 MG PO (21:18)
[2023-09-13 23:20] VITALS: BP 121/79
[2023-09-14 05:49] VITALS: BMI 26.6
--- NOTE | 2023-09-14 06:15 | W.PN.UPDATE ---
Update Note
Progress Note Update
Nursing reports patient has increased confusion this AM. Patient received Melatonin 10mg (increase from 5mg), Benadryl 25mg, and Meclizine 25 last night. Advised nursing to continue to monitor VS. May need to consider d/c Benadryl
--- NOTE | 2023-09-14 06:28 | PTCARENOTE ---
Pt appeared to have increased confusion this morning. Upon RN arrival to room, pt sitting on side of bed, attempting to get up. Pt asking, 'Where is Quoc?' (spouse) and 'Where is Shan?' (dog). Pt also asking 'Why is there a baseball field out
the window?' and unsure why he was in an unfamiliar room. Attempted to re-orient the patient. Of note, pt did receive benadryl, Melatonin dose increased, and antivert at bedtime. TUMBLER OPERATOR aware. Pt able to state name and age. Bed alarm in place at
this time.
[2023-09-14 07:52] VITALS: BP 117/76
--- NOTE | 2023-09-14 08:11 | W.PN.HOSP.TC ---
Today's Communication/Plan
-
Discharge to [facility] [[email or web address] today
Assessment / Plan
Assessment / Plan
63-year-old male past medical history of former alcohol use disorder, cirrhosis, end-stage liver disease, ESRD on hemodialysis Saturday, Saturday, Saturday, hypertension, subdural hematoma status post ventriculostomy shunt presenting for elevated
creatinine.� Patient's last dialysis session was a week ago due to refusing the last 2 dialysis sessions.� He denies any complaints.� He has baseline incontinence and denies any shortness of breath or cough or chest pain, nausea vomiting or diarrhea.
End-stage renal failure on dialysis Saturday, Saturday, Saturday
Non-anion gap metabolic acidosis
-Continue dialysis as per nephrology
-awaiting HD chair time arrangement
-Compliance remained a problem, patient requesting a different HD center.
-Patient now agreeable to go to a different [facility] with dialysis capabilities (he does not want to go back to [facility])
-Medically stable for discharge to [facility] with dialysis today
Lactic Acidosis secondary to Missed Dialysis
-Resolved
Psoriasis
-Patient has a diffuse itchy skin rash
-S/p prednisone taper, now back on previous 5 mg daily on 09/13
-Continue mometasone cream bid
RLL atelectasis
Moderate right pleural effusion
-Chest x-ray showing right lower lobe atelectasis. Patient has poor inspiratory effort. Incentive spirometry ordered
-Patient is not short of breath, is not hypoxic
-Continue to monitor for now
Hyperphosphatemia
-Continue sevelamer
Chronic Hypotension
-Continue midodrine
Alcoholic Cirrhosis with ascites requiring intermittent paracentesis
-Continue lactulose, rifaximin, prednisone
-Abdominal ultrasound with small to moderate ascites, no need for paracentesis
Hx SBP
-Continue ciprofloxacin for prophylaxi
Hx Subdural Hematoma s/p TEACHER HEARING IMPAIRED Shunt
DVT proph: Subcu heparin
Code Status: Full Code
Medication compliance remains a problem. Patient declining to take some of his medications
Total time spent to see the patient on the floor, examine the patient, review data and lab results, discuss treatment plan with patient, nursing staff around 35 minutes.
Physical Exam
General: Disheveled, no acute distress
HEENT: Normocephalic, Atraumatic, EOMI, MMM
Respiratory: Clear to Auscultation bilaterally
Cardiac: Normal S1/S2, Regular Rate and Rhythm
GI: Soft, Nontender, Nondistended, Normal Bowel Sounds
Extremities: No Clubbing, Cyanosis
+B/l LE edema, skin changes on shins reflective of chronic venous stasis dermatitis
Neuro: Nonfocal/Grossly Intact
Psych: Calm, Cooperative
Derm: Erythematous macular rash scattered on all extremities
Anticipated Discharge: Today
Subjective/Interval History
-
Date of Service: September 14, 2023
No CP/SPB/palp. No abd pain, no N/V. Slept better. No fever.
Objective Data
-
Vital Signs:
Vital Signs
Temp Pulse Resp BP Pulse Ox
98 F 97 16 117/76 97
09/14/23 07:52 09/14/23 07:52 09/14/23 07:52 09/14/23 07:52 09/14/23 07:52
I&O
09/13/23 09/14/23 09/15/23
06:59 06:59 06:59
Intake Total 720 / 720 960 / 960
Balance 720 / 720 960 / 960
[2023-09-14] MEDS: DUPHALAC/CHRONULAC 10 GRAMS PO (09:24)
[2023-09-14] MEDS: ProAmatine 15 MG PO ×3 (09:25→17:32)
[2023-09-14] MEDS: SEVELAMER CARBONATE 0.800000000000000044 GM PO ×2 (09:25→12:47)
[2023-09-14] MEDS: ZINC SULFATE 220 MG PO (09:25)
[2023-09-14] MEDS: XIFAXAN 550 MG PO (09:25)
[2023-09-14] MEDS: ANTIVERT 25 MG PO ×3 (09:26→21:05)
[2023-09-14] MEDS: VITAMIN D3 (cholecalciferol) 25 MCG PO (09:26)
[2023-09-14] MEDS: PHOSLO 1334 MG PO (09:27)
[2023-09-14] MEDS: HEPARIN 5000 UNITS SC ×2 (09:28→21:04)
[2023-09-14] MEDS: HYDROPHOR 1 APPLIC TOPICAL (09:29)
[2023-09-14] MEDS: PHOSLO PO ×2 (12:47→14:20)
[2023-09-14 13:33] VITALS: BP 146/85
--- NOTE | 2023-09-14 13:38 | W.PN.NEPH.PH ---
Today's Communication / Plan
-
HD saturday
Assessment/Plan
-
IMP:
NYDIA vs ESRD on dialysis Saturday, Saturday, Saturday
anion gap and non gap metabolic acidosis
Noncompliance
Lactic Acidosis secondary to Missed Dialysis
Dermatitis
Right Pleural Effusion
Hyperphosphatemia
Leucocytosis
Chronic Hypotension on midodrine
Alcoholic Cirrhosis
Anemia and thrombocytopenia
Hx SBP
Hx Subdural Hematoma s/p PORTER HEAD Shunt
Right IJ tunneled catheter
Plan:
OP HD planning, cannot come to [facility] due to insurance issues and notorious non compliance
HD Saturday
Bp stable on high dose midodrine
need compliance to the medical care
-
-
Date of Service: September 14, 2023
CC / HPI / ROS
-
Chief Complaint:
ESRD
History of Present Illness:
BP labile on high dose midodrine
tolerated HD Saturday
Review of Systems:
no CP/SOB
has cough
not out of bed
Labs
-
Labs:
WBC 23.7 10^3/uL (4.8-10.8) H 08/29/23 05:47
RBC 2.43 10^6/uL (4.70-6.10) L 08/29/23 05:47
Hgb 9.1 g/dL (13.0-18.0) L 09/04/23 14:16
Hct 26.7 % (39.0-52.0) L 09/04/23 14:16
Plt Count 50 10^3/uL (130-400) L 08/29/23 05:47
Sodium 132 mmol/L (135-145) L 09/13/23 07:58
Potassium 3.8 mmol/L (3.5-5.1) 09/13/23 07:58
Chloride 102 mmol/L (98-107) 09/13/23 07:58
Carbon Dioxide 26 mmol/L (22-30) 09/13/23 07:58
BUN 64 mg/dl (9-20) H 09/11/23 12:36
Creatinine 4.7 mg/dL (0.7-1.3) H* 09/11/23 12:36
eGFR 13.20 09/11/23 12:36
Glucose 161 mg/dl (70-99) H 09/11/23 12:36
Calcium 8.7 mg/dl (8.4-10.2) 09/11/23 12:36
Phosphorus 5.2 mg/dl (2.5-4.5) H 09/04/23 07:51
Albumin 3.0 g/dl (3.5-5.0) L 08/28/23 21:54
Physical Exam
-
Vital Signs:
Vital Signs
Temp Pulse Resp BP Pulse Ox
98 F 97 16 146/85 97
09/14/23 07:52 09/14/23 07:52 09/14/23 07:52 09/14/23 13:33 09/14/23 07:52
Cardiovascular:: Regular rate and rhythm
Respiratory:: Bilateral: CTA (decreased)
Lung Excursion:: Normal
Abdomen:: Distended, Nontender and Soft
Extremity Edema:: +1: Bilateral:
Gao Catheter: No
[2023-09-14 16:01] VITALS: BP 120/74
[2023-09-14] MEDS: DUPHALAC/CHRONULAC PO (21:03)
[2023-09-14] MEDS: XIFAXAN PO (21:04)
[2023-09-14] MEDS: BENADRYL 25 MG PO (21:05)
[2023-09-14] MEDS: CIPRO 500 MG PO (21:05)
[2023-09-14] MEDS: MELATONIN 10 MG PO (21:05)
[2023-09-14 23:35] VITALS: BP 122/83
[2023-09-15 07:56] VITALS: BP 100/68
--- NOTE | 2023-09-15 08:04 | W.PN.HOSP.TC ---
Today's Communication/Plan
-
Consult interventional radiology for right thoracentesis
Assessment / Plan
Assessment / Plan
63-year-old male past medical history of former alcohol use disorder, cirrhosis, end-stage liver disease, ESRD on hemodialysis Saturday, Saturday, Saturday, hypertension, subdural hematoma status post ventriculostomy shunt presenting for elevated
creatinine.� Patient's last dialysis session was a week ago due to refusing the last 2 dialysis sessions.� He denies any complaints.� He has baseline incontinence and denies any shortness of breath or cough or chest pain, nausea vomiting or diarrhea.
End-stage renal failure on dialysis Saturday, Saturday, Saturday
Non-anion gap metabolic acidosis
-Continue dialysis as per nephrology
-awaiting HD chair time arrangement
-Compliance remained a problem, patient requesting a different HD center.
-Patient now agreeable to go to a different [facility] with dialysis capabilities (he does not want to go back to [facility])
-Awaiting authorization for [facility] with dialysis
Lactic Acidosis secondary to Missed Dialysis
-Resolved
Psoriasis
-Patient has a diffuse itchy skin rash
-S/p prednisone taper, now back on previous 5 mg daily
-Continue mometasone cream bid
RLL atelectasis
Moderate right pleural effusion
-Chest x-ray showing right lower lobe atelectasis. Patient has poor inspiratory effort. Incentive spirometry ordered
-Patient has not had any problems breathing, was not hypoxic or weak
-However on 09/14, developed mild hypoxia
-Consult interventional radiology for right thoracentesis
Hyperphosphatemia
-Continue sevelamer
Chronic Hypotension
-Continue midodrine
Alcoholic Cirrhosis with ascites requiring intermittent paracentesis
-Continue lactulose, rifaximin, prednisone
-Abdominal ultrasound with small to moderate ascites, no need for paracentesis
Hx SBP
-Continue ciprofloxacin for prophylaxi
Hx Subdural Hematoma s/p WASTE MACHINE OPERATOR Shunt
DVT proph: Subcu heparin
Code Status: Full Code
Medication compliance remains a problem. Patient declining to take some of his medications
Total time spent to see the patient on the floor, examine the patient, review data and lab results, discuss treatment plan with patient, nursing staff around 51 minutes.
Physical Exam
General: Disheveled, no acute distress
HEENT: Normocephalic, Atraumatic, EOMI, MMM
Respiratory: Diminished breath sounds at the right lung base
Cardiac: Normal S1/S2, Regular Rate and Rhythm
GI: Soft, Nontender, mildly distended, Normal Bowel Sounds
Extremities: No Clubbing, Cyanosis
+B/l LE edema, skin changes on shins reflective of chronic venous stasis dermatitis
Neuro: Nonfocal/Grossly Intact
Psych: Calm, Cooperative
Derm: Resolving erythematous macular rash scattered on all extremities
Anticipated Discharge: 24 - 48 hours
Subjective/Interval History
-
Date of Service: September 15, 2023
Nursing staff reports that patient was hypoxic this morning, 89-90% on room air. He denies shortness of breath, denies coughing.
Objective Data
-
Vital Signs:
Vital Signs
Temp Pulse Resp BP Pulse Ox
98.5 F 98 17 100/68 88
09/15/23 07:56 09/15/23 07:56 09/15/23 07:56 09/15/23 07:56 09/15/23 07:56
I&O
09/14/23 09/15/23 09/16/23
06:59 06:59 06:59
Intake Total 960 / 960 1260 / 1260
Balance 960 / 960 1260 / 1260
--- NOTE | 2023-09-15 08:25 | PTCARENOTE ---
During AM report, SLAG PRODUCTION WORKER came to me and told me pts pulse ox was 85%. I went into room pt had diffuse anterior rhonchi bilaterally had mild conversational dyspnea and pulse ox o f87% on room air. I applied 2 liters of oxygen and pulse ox immediatly
went up to 92-93% on 2 liters. Because of how quickly it lynda. I removed the oxygen and stayed with patient for five minutes. He maintained at up until 4 minute esthela and he started to declined to lowest of 90%. rhonchi anteriorly still noted pt
has a very moist wet ASH KIER BOILER cough same from yesterday. Is at bedside. I put him on 2 liters to see how he would do. DR Calix came to bedside and said he did not have any rhonchi and that this was all because he needs a thoracentesis in AM. She
scheduled him for thoracentesis in AM.
[2023-09-15] MEDS: DUPHALAC/CHRONULAC 5 GRAMS PO (10:14)
[2023-09-15] MEDS: ZINC SULFATE 220 MG PO (10:15)
[2023-09-15] MEDS: SEVELAMER CARBONATE 0.800000000000000044 GM PO ×2 (10:15→17:26)
[2023-09-15] MEDS: VITAMIN D3 (cholecalciferol) 25 MCG PO (10:15)
[2023-09-15] MEDS: PHOSLO 1334 MG PO ×2 (10:20→17:25)
[2023-09-15] MEDS: HEPARIN 5000 UNITS SC ×2 (10:21→21:50)
[2023-09-15] MEDS: ProAmatine 15 MG PO ×2 (10:21→17:25)
[2023-09-15] MEDS: HYDROPHOR 1 APPLIC TOPICAL (10:21)
[2023-09-15] MEDS: ANTIVERT 25 MG PO ×3 (10:22→21:57)
[2023-09-15] MEDS: XIFAXAN PO ×2 (10:23→21:57)
[2023-09-15] MEDS: TYLENOL 650 MG PO ×2 (10:31→23:37)
[2023-09-15] MEDS: SEVELAMER CARBONATE PO (12:38)
[2023-09-15] MEDS: PHOSLO PO (12:38)
[2023-09-15] MEDS: ProAmatine PO (12:41)
[2023-09-15 12:42] VITALS: BP 132/70
--- NOTE | 2023-09-15 14:03 | W.PN.NEPH.PH ---
Today's Communication / Plan
-
HD tomorrow if pt agrees
Assessment/Plan
-
IMP:
NYDIA vs ESRD on dialysis Saturday, Saturday, Saturday
anion gap and non gap metabolic acidosis
Noncompliance
Lactic Acidosis secondary to Missed Dialysis
Dermatitis
Right Pleural Effusion
Hyperphosphatemia
Leucocytosis
Chronic Hypotension on midodrine
Alcoholic Cirrhosis
Anemia and thrombocytopenia
Hx SBP
Hx Subdural Hematoma s/p PAPER MAKER Shunt
Right IJ tunneled catheter
Plan:
OP HD planning, cannot come to [place] HD unit due to insurance issues and notorious non compliance
HD Saturday
Bp stable on high dose midodrine
need compliance to the medical care
for thoracentesis tomorrow and unlikely pt wants HD tomorrow
likely change to TTS this week
-
-
Date of Service: September 15, 2023
CC / HPI / ROS
-
Chief Complaint:
ESRD
History of Present Illness:
BP labile on high dose midodrine
tolerated HD Saturday
mild hypoxia earlier and plan to have thoracentesis tomorrow
Review of Systems:
no CP/SOB at rest
has cough
not out of bed
Labs
-
Labs:
WBC 23.7 10^3/uL (4.8-10.8) H 08/29/23 05:47
RBC 2.43 10^6/uL (4.70-6.10) L 08/29/23 05:47
Hgb 9.1 g/dL (13.0-18.0) L 09/04/23 14:16
Hct 26.7 % (39.0-52.0) L 09/04/23 14:16
Plt Count 50 10^3/uL (130-400) L 08/29/23 05:47
Sodium 132 mmol/L (135-145) L 09/13/23 07:58
Potassium 3.8 mmol/L (3.5-5.1) 09/13/23 07:58
Chloride 102 mmol/L (98-107) 09/13/23 07:58
Carbon Dioxide 26 mmol/L (22-30) 09/13/23 07:58
BUN 64 mg/dl (9-20) H 09/11/23 12:36
Creatinine 4.7 mg/dL (0.7-1.3) H* 09/11/23 12:36
eGFR 13.20 09/11/23 12:36
Glucose 161 mg/dl (70-99) H 09/11/23 12:36
Calcium 8.7 mg/dl (8.4-10.2) 09/11/23 12:36
Phosphorus 5.2 mg/dl (2.5-4.5) H 09/04/23 07:51
Albumin 3.0 g/dl (3.5-5.0) L 08/28/23 21:54
Physical Exam
-
Vital Signs:
Vital Signs
Temp Pulse Resp BP Pulse Ox
98.5 F 98 17 132/70 88
09/15/23 07:56 09/15/23 07:56 09/15/23 07:56 09/15/23 12:42 09/15/23 07:56
Cardiovascular:: Regular rate and rhythm
Respiratory:: Bilateral: Rhonchi
Lung Excursion:: Normal
Abdomen:: Distended, Nontender and Soft
Extremity Edema:: +1: Bilateral:
Gao Catheter: No
--- NOTE | 2023-09-15 15:00 | PTCARENOTE ---
I re evaluated pt throughout my shift. His pulse ox maintained 92-94% throughout my shift. I reassessed him at 1200 noon and he had rhonci anteriorly that cleared with cough. Pt stated he is able to bring up sputum but is swallowing it.
[2023-09-15 17:24] VITALS: BP 114/72
[2023-09-15] MEDS: DUPHALAC/CHRONULAC PO (21:55)
[2023-09-15] MEDS: CIPRO 500 MG PO (21:56)
[2023-09-15] MEDS: MELATONIN 10 MG PO (21:56)
[2023-09-15] MEDS: BENADRYL 25 MG PO (21:56)
[2023-09-15 23:10] VITALS: BP 117/84
[2023-09-15 23:47] LABS: COVID-19 Antigen Positive (Negative)
--- NOTE | 2023-09-16 00:35 | W.PN.UPDATE ---
Update Note
Progress Note Update
pt with new hypoxia today. IR consulted for thoracentesis for known right Pleural effusion
pt spiked temp tonight. kala checked and was positive
Not a candidate for Rem-d with ESRD
Start decadron iv given hypoxia
check cxr in am
[2023-09-16] MEDS: DECADRON 6 MG IV (01:24)
[2023-09-16 06:00] VITALS: BMI 26.5
[2023-09-16 07:00] VITALS: BP 119/82
--- NOTE | 2023-09-16 09:49 | PTCARENOTE ---
IRAD Note: Bedside Right Thoracentesis done with Herb FAGAN. removed 1650ml clear Serosanguineous fluid. fluid sent to lab per order. CXR ordered. Report given to west nurse Patt JARRETT.
[2023-09-16] MEDS: PHOSLO 1334 MG PO ×3 (09:54→17:24)
[2023-09-16] MEDS: ZINC SULFATE 220 MG PO (09:55)
[2023-09-16] MEDS: ProAmatine 15 MG PO (09:55)
[2023-09-16] MEDS: VITAMIN D3 (cholecalciferol) 25 MCG PO (09:55)
[2023-09-16] MEDS: ANTIVERT 25 MG PO ×3 (09:55→22:00)
[2023-09-16] MEDS: HEPARIN 5000 UNITS SC ×2 (09:56→20:19)
[2023-09-16] MEDS: SEVELAMER CARBONATE 0.800000000000000044 GM PO ×3 (09:57→17:25)
[2023-09-16] MEDS: DUPHALAC/CHRONULAC PO ×2 (10:07→20:19)
[2023-09-16] MEDS: XIFAXAN PO ×3 (10:09→20:20)
[2023-09-16] MEDS: HYDROPHOR TOPICAL (10:10)
[2023-09-16 11:31] LABS: Body Fluid LDH < 90 U/L; Body Fluid Protein 2.2 g/dl
--- NOTE | 2023-09-16 11:32 | W.PN.NEPH.PH ---
Today's Communication / Plan
-
for HD tomorrow
Assessment/Plan
-
IMP:
NYDIA vs ESRD on dialysis Saturday, Saturday, Saturday
anion gap and non gap metabolic acidosis
Noncompliance
Lactic Acidosis secondary to Missed Dialysis
Dermatitis
Right Pleural Effusion
Hyperphosphatemia
Leucocytosis
Chronic Hypotension on midodrine
Alcoholic Cirrhosis
Anemia and thrombocytopenia
Hx SBP
Hx Subdural Hematoma s/p DIGESTER OPERATOR Shunt
Right IJ tunneled catheter
Plan:
OP HD planning, cannot come to [facility] HD unit due to insurance issues and notorious non compliance
HD Saturday was canceled as patient refused
Bp stable on high dose midodrine
for thoracentesis today
patient now with COVID
likely change to TTS this week
-
-
Date of Service: September 16, 2023
CC / HPI / ROS
-
Chief Complaint:
ESRD
History of Present Illness:
BP labile on high dose midodrine
tolerated HD Saturday
mild hypoxia earlier and plan to have thoracentesis today
Review of Systems:
no CP/SOB at rest
low grade temps
Labs
-
Labs:
eGFR 13.20 09/11/23 12:36
Phosphorus 5.2 mg/dl (2.5-4.5) H 09/04/23 07:51
Albumin 3.0 g/dl (3.5-5.0) L 08/28/23 21:54
Physical Exam
-
Vital Signs:
Vital Signs
Temp Pulse Resp BP Pulse Ox
98.8 F 89 20 94/69 95
09/16/23 07:00 09/16/23 09:55 09/16/23 07:00 09/16/23 09:55 09/16/23 07:00
Cardiovascular:: Regular rate and rhythm
--- NOTE | 2023-09-16 12:08 | CM ---
CM spoke with Monique at [place]
Notified pt now + covid
Monique checked with [facility] - unable to see pt until after 10 day isolation period
Dr Beverly aware
--- NOTE | 2023-09-16 12:31 | W.PN.HOSP.TC ---
Today's Communication/Plan
-
continue steroids
continue HD per nephro
Discharge held until cleared from COVID perspective
Assessment / Plan
Assessment / Plan
63-year-old male past medical history of former alcohol use disorder, cirrhosis, end-stage liver disease, ESRD on hemodialysis Saturday, Saturday, Saturday, hypertension, subdural hematoma status post ventriculostomy shunt presenting for elevated
creatinine.� Patient's last dialysis session was a week ago due to refusing the last 2 dialysis sessions.� He denies any complaints.� He has baseline incontinence and denies any shortness of breath or cough or chest pain, nausea vomiting or diarrhea.
End-stage renal failure on dialysis Saturday, Saturday, Saturday
Non-anion gap metabolic acidosis
-Continue dialysis as per nephrology
-awaiting HD chair time arrangement
-Compliance remained a problem, patient requesting a different HD center.
-Patient now agreeable to go to a different [facility] with dialysis capabilities (he does not want to go back to [facility])
Acute hypoxic respiratory insufficiency
-resolved post thoracentesis
COVID 19 viral infection
-Asymptomatic. Also had minimal hypoxia resolved with thoracentesis
-On IV decadron 6mg/d
-Not a candidate of rem-D and paxlovid. also ESRD and have relative contraindication.
RLL atelectasis
Moderate right pleural effusion
-Chest x-ray showing right lower lobe atelectasis. Patient has poor inspiratory effort. Incentive spirometry ordered
-s/p drainage of right sided 1.65 L pleural fluid
Lactic Acidosis secondary to Missed Dialysis
-Resolved
Psoriasis
-Continue mometasone cream bid
Hyperphosphatemia
-Continue sevelamer
Chronic Hypotension
-Continue midodrine
Alcoholic Cirrhosis with ascites requiring intermittent paracentesis
-Continue lactulose, rifaximin, prednisone
-Abdominal ultrasound with small to moderate ascites, no need for paracentesis
Hx SBP
-Continue ciprofloxacin for prophylaxi
Hx Subdural Hematoma s/p X RAY DEVELOPING MACHINE OPERATOR Shunt
DVT proph: Subcu heparin
Code Status: Full Code
Discussed with case making machine operator, excepting facility want patient to be cleared from COVID before can be discharged.
Anticipated Discharge: > 48 hours
Subjective/Interval History
-
Date of Service: September 16, 2023
Resting comfortably in bed
Off of oxygen
no acute issues reported
Objective Data
-
Vital Signs:
Vital Signs
Temp Pulse Resp BP Pulse Ox
98.8 F 89 20 94/69 95
09/16/23 07:00 09/16/23 09:55 09/16/23 07:00 09/16/23 09:55 09/16/23 07:00
I&O
09/15/23 09/16/23 09/17/23
06:59 06:59 06:59
Intake Total 1260 / 1260 1080 / 1080
Balance 1260 / 1260 1080 / 1080
Review of Systems
-
Respiratory: Reports No Symptoms
Cardiac: Reports No Symptoms
Abdomen/GI: Reports No Symptoms
Physical Exam
-
General: Appears Chronically Ill; Negative Appears in Distress
HEENT: Negative Oxygen
Musculoskeletal: No Edema
Neuro: Awake, Alert, Oriented and No Motor Deficits
[2023-09-16 12:50] VITALS: BP 126/78; PULSE 72; O2SAT 95
[2023-09-16] MEDS: ProAmatine PO ×2 (13:31→16:07)
--- NOTE | 2023-09-16 13:44 | CON.ID ---
Consultation
-
Date/Time Consultation Requested: 09/16/23 00:30
Date/Time Consultation Performed: 09/16/23 13:45
Requesting Provider: Dr Mcdermott
Performing Provider: Dr Hernández
Reason for Consultation: new covid, +hypoxia, HD pt
Chief Complaint / Past History
Chief Complaint
met acidosis, leukocytosis
History of Present Illness
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
[facility] [facility] for leukocytosis, elevated Cr. Patient missed HD last two sessions before presenting here - refused. On arrival reported no complaints and specifically no: shortness of breath or cough or chest pain, nausea vomiting or diarrhea. He
is on the transplant list through [facility]. Last paracentesis was a week prior to arrival. '�He has not ambulated for a while but thinks he can go home and have transport take him to HD is the main reason that he refused HD.'
Since arrival here he has been afebrile, bp stable, wbc on arrival 20 todays level pending, L shift was noted on arrival, cr 12.2 on arrival K hemolyzed, 09/14 covid ag: positive, pleurla fluid 09/15: protein 2.2, ldh <90 - no differential done, fluid
was serosanguineous 1.5L, follow up CXR: small residual effusion, no alejandra infiltrate, abd us: small mod ascites, 09/08 chest US: moderate effusion, blood culturs x2 finalized negative, influenza neg, covid ag positive. Patient was started on
dexamethasone as he was hypoxemic however post thora saturating well on room air. Tmax in recent days 100.1.
Past History
Additional Past Medical History:
ESRD on HD MWF
Alcoholic Cirrhosis
Spontaneous Bacterial Peritonitis
Chronic Hypotension
Subdural Hematoma s/p ENERGY CONSULTANT shunt
Additional Past Surgical History:
ENERGY CONSULTANT Shunt
Allergy History:
No Known Allergies Allergy (Verified 07/17/23 09:28)
Medications Reviewed: Yes
Social History
Tobacco: Non-Smoker
Alcohol: Former
Drug: None
Family History
Family History: Not Pertinent
Review of Systems
Review of Systems
General: Negative Fever
All systems: All other systems were reviewed and were negative
Vital Signs
Temp Pulse Resp BP Pulse Ox
98.8 F 72 20 126/78 95
09/16/23 07:00 09/16/23 13:31 09/16/23 07:00 09/16/23 13:31 09/16/23 07:00
Physical Exam
Physical Exam
Constitutional: No Acute Distress and Chronically Ill
Cardiovascular: Regular Rate and S1/S2; Negative Murmur or Rub
Pulmonary: Clear and Symmetric; Negative Wheezes, Rales or Rhonchi
Gastrointestinal: Soft, Non Tender, Non Distended and Normal Bowel Sounds
Skin: Warm and Dry; Negative Rash or Jaundice
Lab / Diagnostic Study Results
Abs Immat Gran (auto) 0.1 10^3/uL (0-0.05) H 08/28/23 17:56
Absolute Neuts (auto) 17.5 10^3/uL (1.4-6.5) H 08/28/23 17:56
Absolute Lymphs (auto) 1.2 10^3/uL (1.2-3.4) 08/28/23 17:56
Absolute Monos (auto) 1.0 10^3/uL (0.1-0.6) H 08/28/23 17:56
Absolute Basos (auto) 0.1 10^3/uL (0-0.2) 08/28/23 17:56
Immature Gran % 0.7 % (0-0.5) H 08/28/23 17:56
Neutrophils % 84.2 % (42.2-75.2) H 08/28/23 17:56
Lymphocytes % 5.9 % (20.5-51.1) L 08/28/23 17:56
Monocytes % 4.9 % (1.7-9.3) 08/28/23 17:56
Eosinophils % 3.7 % (0-6) 08/28/23 17:56
Basophils % 0.6 % (0-2) 08/28/23 17:56
Lactic Acid 1.9 mmol/L (0.7-2.0) 08/28/23 22:28
Microbiology Results
Micro:
09/15/23 23:23 Influenza Types A & B (RUKHSANA) - Final
Nasal Swab Negative for Influenza A & B, NAAT
Negative results must be combined with clinical observations
and patient history.
Nucleic Acid Amplification test (NAAT)performed on the
[employer] platform.
08/28/23 18:37 Blood Culture - Final
Blood/Venous No Growth - Final Report
08/28/23 18:37 Blood Culture - Final
Blood/Venous No Growth - Final Report
08/28/23 23:49 MRSA Screen - Final
Nose No Methicillin Resistant Staphylococcus aureus isolated.
Assessment / Plan
Asymptomatic Covid Infection
- vaccinated patient
- now saturating well on room air post thoracentesis
- anasarca likely combination of noncompliance with HD and cirrhosis
- stop steroids, risks outweighs benefit with no hypoxemia - very limited benefit from other covid therapeutics which are relatively contraindicated
- isolation while inpatient 09/14-09/24
- stable for dc from ID perspective when outpatient HD can be arranged
NYDIA vs ESRD on HD
Noncompliance
Cirrhosis
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
[2023-09-16 15:50] VITALS: BP 113/77
[2023-09-16] MEDS: BENADRYL 25 MG PO (22:00)
[2023-09-16] MEDS: CIPRO 500 MG PO (22:00)
[2023-09-16] MEDS: MELATONIN 10 MG PO (22:01)
[2023-09-16 23:49] VITALS: BP 117/73
[2023-09-17 05:38] LABS: Hematocrit 28.1 % (39.0-52.0); Hemoglobin 9.4 g/dL (13.0-18.0)
[2023-09-17 06:00] VITALS: BMI 26.0
[2023-09-17 07:00] VITALS: BP 118/76
[2023-09-17 07:05] LABS: Blood Urea Nitrogen 62 mg/dl (9-20); Calcium 8.6 mg/dl (8.4-10.2); Carbon Dioxide 23 mmol/L (22-30); Chloride 101 mmol/L (98-107); Estimated Creatinine Clearance 12 ml/min; Glucose 128 mg/dl (70-99); Potassium 4.6 mmol/L (3.5-5.1); Sodium 131 mmol/L (135-145); eGFR 9.85
[2023-09-17] MEDS: VITAMIN D3 (cholecalciferol) 25 MCG PO (07:52)
[2023-09-17] MEDS: ZINC SULFATE 220 MG PO (07:52)
[2023-09-17] MEDS: DUPHALAC/CHRONULAC PO ×3 (07:53→21:56)
[2023-09-17] MEDS: ANTIVERT 25 MG PO ×2 (07:53→21:47)
[2023-09-17] MEDS: SEVELAMER CARBONATE 0.800000000000000044 GM PO ×2 (07:55→11:42)
[2023-09-17] MEDS: HEPARIN 5000 UNITS SC ×2 (07:56→21:46)
[2023-09-17] MEDS: PHOSLO 1334 MG PO ×2 (07:56→11:42)
[2023-09-17] MEDS: XIFAXAN PO ×3 (08:04→21:59)
[2023-09-17] MEDS: ProAmatine PO ×3 (11:19→16:59)
[2023-09-17] MEDS: HYDROPHOR TOPICAL (11:19)
[2023-09-17 14:46] VITALS: BP 117/66
--- NOTE | 2023-09-17 15:08 | W.PN.HOSP.TC ---
Today's Communication/Plan
-
continue current care plan
lower steroid dose
Assessment / Plan
Assessment / Plan
63-year-old male past medical history of former alcohol use disorder, cirrhosis, end-stage liver disease, ESRD on hemodialysis Saturday, Saturday, Saturday, hypertension, subdural hematoma status post ventriculostomy shunt presenting for elevated
creatinine.� Patient's last dialysis session was a week ago due to refusing the last 2 dialysis sessions.� He denies any complaints.� He has baseline incontinence and denies any shortness of breath or cough or chest pain, nausea vomiting or diarrhea.
End-stage renal failure on dialysis Saturday, Saturday, Saturday
Non-anion gap metabolic acidosis
-Continue dialysis as per nephrology
-awaiting HD chair time arrangement
-Compliance remained a problem, patient requesting a different HD center.
-Patient now agreeable to go to a different [facility] with dialysis capabilities (he does not want to go back to [facility])
Acute hypoxic respiratory insufficiency - resolved
-resolved post thoracentesis
COVID 19 viral infection
-Asymptomatic. Also had minimal hypoxia resolved with thoracentesis
-On IV decadron 6mg/d
-Not a candidate of rem-D and paxlovid. also ESRD and have relative contraindication.
RLL atelectasis
Moderate right pleural effusion
-Chest x-ray showing right lower lobe atelectasis. Patient has poor inspiratory effort. Incentive spirometry ordered
-s/p drainage of right sided 1.65 L pleural fluid
Lactic Acidosis secondary to Missed Dialysis
-Resolved
Psoriasis
-Continue mometasone cream bid
Hyperphosphatemia
-Continue sevelamer
Chronic Hypotension
-Continue midodrine
Alcoholic Cirrhosis with ascites requiring intermittent paracentesis
-Continue lactulose, rifaximin, prednisone
-Abdominal ultrasound with small to moderate ascites, no need for paracentesis
Hx SBP
-Continue ciprofloxacin for prophylaxi
Hx Subdural Hematoma s/p EQUIPMENT INSPECTOR Shunt
DVT proph: Subcu heparin
Code Status: Full Code
Discussed with casework manager, excepting facility want patient to be cleared from COVID before can be discharged.
Anticipated Discharge: > 48 hours
Subjective/Interval History
-
Date of Service: September 17, 2023
no hypoxia overnight
some cough
Objective Data
-
Labs:
Laboratory Results
09/17/23
05:26
Hgb 9.4 L
Hct 28.1 L
Sodium 131 L
Potassium 4.6
Chloride 101
Carbon Dioxide 23
BUN 62 H
Creatinine 6.0 H*
Glucose 128 H
Calcium 8.6
Vital Signs:
Vital Signs
Temp Pulse Resp BP Pulse Ox
97.6 F 68 18 117/66 97
09/17/23 14:46 09/17/23 14:46 09/17/23 14:46 09/17/23 14:46 09/17/23 14:46
I&O
09/16/23 09/17/23 09/18/23
06:59 06:59 06:59
Intake Total 1080 / 1080 420 / 420
Balance 1080 / 1080 420 / 420
Review of Systems
-
Respiratory: Reports No Symptoms
Cardiac: Reports No Symptoms
Abdomen/GI: Reports No Symptoms
Physical Exam
-
General: Appears Chronically Ill; Negative Appears in Distress
HEENT: Negative Oxygen
Respiratory: Clear to Auscultation
GI: Soft, Nontender and Nondistended
Musculoskeletal: No Edema
Neuro: Awake, Alert, Oriented and No Motor Deficits
--- NOTE | 2023-09-17 16:52 | W.PN.NEPH.HD ---
Assessment
-
Patient seen on HD
sbp stable at 1kg u/f
Progress Note - Hemodialysis
-
Date of Service: September 17, 2023
Duration: 15 minutes and 3 hours
Potassium Bath: 2
Calcium Bath: 2.5
Opti-Dialyzer: 160
Ultrafiltration: Other (1kg)
Blood Flow: 400
Dialysate Flow: 600
Heparin: none
EPO: 6K
--- NOTE | 2023-09-17 17:24 | W.PN.ID1 ---
Date of Service
Date of Service: September 17, 2023
Today's Communication
ID service will no longer actively follow this patient please recall for further questions
Assessment / Plan
Asymptomatic Covid Infection
- vaccinated patient
- continues saturating well on room air post thoracentesis
- anasarca likely combination of noncompliance with HD and cirrhosis
- remains well off of steroids, risks outweighs benefit with no hypoxemia - very limited benefit from other covid therapeutics which are relatively contraindicated
- isolation while inpatient 09/14-09/24
- stable for dc from ID perspective when outpatient HD can be arranged
NYDIA vs ESRD on HD
Noncompliance
Cirrhosis
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
ID service will no longer actively follow this patient please recall for further questions
Chief Complaint
-: Other (covid)
Subjective / Review of Systems
afebrile
bp stable
remains on room air
on HD
no complaints
Vital Signs / Physical Exam
Vital Signs
Vital Signs
Temp Pulse Resp BP Pulse Ox
97.6 F 68 18 117/66 97
09/17/23 14:46 09/17/23 14:46 09/17/23 14:46 09/17/23 14:46 09/17/23 14:46
Physical Exam
Constitutional: No Acute Distress
Cardiovascular: Regular Rate and S1/S2; Negative Murmur or Rub
Pulmonary: Clear and Symmetric; Negative Wheezes or Rales
Gastrointestinal: Soft, Non Tender, Non Distended and Normal Bowel Sounds
Skin: Warm and Dry; Negative Rash or Jaundice
Objective Data
Lab Data
Lab Results
09/17/23 05:26
09/17/23 05:26
Estimated Creat Clear 12 ml/min 09/17/23 05:26
Lactic Acid 1.9 mmol/L (0.7-2.0) 08/28/23 22:28
Total Bilirubin 1.1 mg/dl (0.2-1.3) 08/28/23 21:54
AST 22 U/L (17-59) 08/28/23 21:54
ALT 18 U/L (0-50) 08/28/23 21:54
Alkaline Phosphatase 83 U/L (38-126) 08/28/23 21:54
Most recent labs reviewed.
Micro Results:
09/15/23 23:23 Influenza Types A & B (RUKHSANA) - Final
Nasal Swab Negative for Influenza A & B, NAAT
Negative results must be combined with clinical observations
and patient history.
Nucleic Acid Amplification test (NAAT)performed on the
[employer] platform.
08/28/23 18:37 Blood Culture - Final
Blood/Venous No Growth - Final Report
08/28/23 18:37 Blood Culture - Final
Blood/Venous No Growth - Final Report
08/28/23 23:49 MRSA Screen - Final
Nose No Methicillin Resistant Staphylococcus aureus isolated.
[2023-09-17] MEDS: RETACRIT 6000 UNITS IV (18:01)
[2023-09-17] MEDS: HEPARIN 4000 UNITS INTRACATH (18:01)
[2023-09-17] MEDS: ANTIVERT PO (18:22)
[2023-09-17] MEDS: SEVELAMER CARBONATE PO (18:23)
[2023-09-17] MEDS: PHOSLO PO (18:23)
[2023-09-17] MEDS: BENADRYL 25 MG PO (21:47)
[2023-09-17] MEDS: CIPRO 500 MG PO (21:47)
[2023-09-17] MEDS: MELATONIN 10 MG PO (21:48)
[2023-09-17] MEDS: FLUSH (NSS) 1 FLUSH IV (21:58)
[2023-09-17 23:00] VITALS: BP 114/78
[2023-09-18 03:09] VITALS: BMI 26.2
[2023-09-18 07:28] VITALS: BP 108/75
[2023-09-18] MEDS: SEVELAMER CARBONATE 0.800000000000000044 GM PO ×3 (08:39→16:49)
[2023-09-18] MEDS: PHOSLO 1334 MG PO ×3 (08:39→16:48)
[2023-09-18] MEDS: DUPHALAC/CHRONULAC PO ×2 (08:41→21:33)
[2023-09-18] MEDS: VITAMIN D3 (cholecalciferol) 25 MCG PO (08:41)
[2023-09-18] MEDS: ZINC SULFATE 220 MG PO (08:41)
[2023-09-18] MEDS: HEPARIN 5000 UNITS SC ×2 (08:41→21:36)
[2023-09-18] MEDS: ANTIVERT 25 MG PO ×3 (08:42→21:39)
[2023-09-18] MEDS: XIFAXAN PO ×2 (08:42→21:34)
[2023-09-18] MEDS: HYDROPHOR 1 APPLIC TOPICAL (08:43)
[2023-09-18] MEDS: ProAmatine PO ×3 (08:46→17:11)
[2023-09-18] MEDS: DELTASONE 5 MG PO (12:04)
--- NOTE | 2023-09-18 13:41 | W.PN.HOSP.TC ---
Today's Communication/Plan
-
IRAD eval of paracentesis
resume back chronic prednisone
Assessment / Plan
Assessment / Plan
63-year-old male past medical history of former alcohol use disorder, cirrhosis, end-stage liver disease, ESRD on hemodialysis Saturday, Saturday, Saturday, hypertension, subdural hematoma status post ventriculostomy shunt presenting for elevated
creatinine.� Patient's last dialysis session was a week ago due to refusing the last 2 dialysis sessions.� He denies any complaints.� He has baseline incontinence and denies any shortness of breath or cough or chest pain, nausea vomiting or diarrhea.
End-stage renal failure on dialysis Saturday, Saturday, Saturday
Non-anion gap metabolic acidosis
-Continue dialysis as per nephrology
-awaiting HD chair time arrangement
-Compliance remained a problem, patient requesting a different HD center.
-Patient now agreeable to go to a different [facility] with dialysis capabilities (he does not want to go back to [facility])
Acute hypoxic respiratory insufficiency - resolved
-resolved post thoracentesis
COVID 19 viral infection
-Asymptomatic. Also had minimal hypoxia resolved with thoracentesis
-Not a candidate of rem-D and paxlovid. also ESRD and have relative contraindication.
-Stopped IV decadron, back on group home prednisone 5mg/d
RLL atelectasis
Moderate right pleural effusion
-Chest x-ray showing right lower lobe atelectasis.
-US showed effusion.
-s/p drainage of right sided 1.65 L pleural fluid
Lactic Acidosis secondary to Missed Dialysis
-Resolved
Psoriasis
-Continue mometasone cream bid
Hyperphosphatemia
-Continue sevelamer
Chronic Hypotension
-Continue midodrine
Alcoholic Cirrhosis with ascites requiring intermittent paracentesis
-Continue lactulose, rifaximin, prednisone
-Abdominal ultrasound with small to moderate ascites earlier in the stay
-IRAD consulted for routine paracentesis.
Hx SBP
-Continue ciprofloxacin for prophylaxi
Hx Subdural Hematoma s/p BIODIESEL TECHNOLOGY MANAGER Shunt
DVT proph: Subcu heparin
Code Status: Full Code
Discussed with rn field case manager, excepting facility want patient to be cleared from COVID before can be discharged.
Anticipated Discharge: Within 24 hours
Subjective/Interval History
-
Date of Service: September 18, 2023
denies of having any problems
Objective Data
-
Vital Signs:
Vital Signs
Temp Pulse Resp BP Pulse Ox
99.0 F 109 17 119/75 93
09/18/23 07:28 09/18/23 07:28 09/18/23 07:28 09/18/23 12:12 09/18/23 07:28
I&O
09/17/23 09/18/23 09/19/23
06:59 06:59 06:59
Intake Total 420 / 420 960 / 960
Balance 420 / 420 960 / 960
Review of Systems
-
Respiratory: Reports No Symptoms
Cardiac: Reports No Symptoms
Abdomen/GI: Reports No Symptoms
Physical Exam
-
General: Appears Chronically Ill; Negative Appears in Distress
HEENT: Negative Oxygen
Respiratory: Clear to Auscultation
GI: Soft and Distended; Negative Tender
Musculoskeletal: No Edema
Neuro: Awake, Alert, Oriented and No Motor Deficits
--- NOTE | 2023-09-18 15:06 | PTOTSP ---
Chart reviewed and spoke with RN, whom cleared patient to participate in therapy. Upon contacting patient, once therapy introduced themselves he became instantly agitated and stated, 'I don't respect what you do and I have a problem with your
profession.' When asked about his specific concerns, he stated, 'You should know about the therapy I did at other hospitals, you should know all of my therapy history.'
Patient goes on to state, 'this is a hard no.' Discussed discharging patient from therapy case load as he state he does not want to participate in any therapy. Patient verbalizes understanding.
Will discharge patient at this time and when he is willing to participate in skilled therapy, please re-consult PT/OT.
--- NOTE | 2023-09-18 15:10 | PTOTSP ---
Refused therapy stating he has a problem. Pt is concerned that therapy is not aware of the therapy pt has had previous institutions. Therapist explained that there is a history of what the patient has performed here at [facility] and therapy
progression is based upon his currently medical status and his ability to participate. Pt continued to refuse stating he is 'done with therapy.' Pt discharged from therapy at this time. Please reconsult when pt is willing to participate in therapy
program
--- NOTE | 2023-09-18 15:14 | CM ---
Addendum entered by Yen Buckner 09/18/23 16:22:
Spoke with pts Alexandru [phone].
reporting he is 83 yo and unable to care for pt by himself at home
Updated of plan to transfer pt to [facility] on Saturday
Requesting updates from . Elizabeth Beverly requesting call to pts
Original Note:
Spoke with Monique at [facility] - now able to accept pt on Saturday
Facility can provide HD on MWF
Hospitalist and Nephrology made aware
Spoke with pt
Informed accepted at [facility] on Saturday
Importance of participating in PT/OT reinforced
Discussed importance of receiving HD
Plan - transfer to [facility] on Saturday if medically stable
[2023-09-18 15:25] VITALS: BP 122/83; BP_SYST 116
[2023-09-18 16:10] VITALS: BP 112/77; BP_SYST 107
[2023-09-18 16:15] VITALS: BP 115/75
[2023-09-18 16:18] LABS: Body Fluid Mononuclear 74.5 %; Body Fluid Polymorphonuclear 25.5 %; Body Fluid WBC 55 /CUMM
[2023-09-18 16:20] LABS: Body Fluid Second Tech JKH
[2023-09-18 16:42] VITALS: BP 116/74
[2023-09-18] MEDS: CIPRO 500 MG PO (21:38)
[2023-09-18] MEDS: BENADRYL 25 MG PO (21:38)
[2023-09-18] MEDS: MELATONIN 10 MG PO (21:39)
[2023-09-18] MEDS: FLUSH (NSS) 1 FLUSH IV (21:43)
[2023-09-18 23:40] VITALS: BP 117/82
[2023-09-18] MEDS: TYLENOL 650 MG PO (23:54)
[2023-09-19 04:38] VITALS: BMI 24.3
[2023-09-19 07:19] LABS: Blood Urea Nitrogen 56 mg/dl (9-20); Calcium 8.6 mg/dl (8.4-10.2); Carbon Dioxide 24 mmol/L (22-30); Chloride 102 mmol/L (98-107); Estimated Creatinine Clearance 13 ml/min; Glucose 69 mg/dl (70-99); Potassium 4.3 mmol/L (3.5-5.1); Sodium 133 mmol/L (135-145)
[2023-09-19 07:44] VITALS: BP 95/64
[2023-09-19] MEDS: PHOSLO 1334 MG PO ×2 (08:56→17:39)
[2023-09-19] MEDS: SEVELAMER CARBONATE 0.800000000000000044 GM PO ×2 (08:56→17:40)
[2023-09-19] MEDS: ProAmatine 15 MG PO ×2 (08:56→12:52)
[2023-09-19] MEDS: VITAMIN D3 (cholecalciferol) 25 MCG PO (08:57)
[2023-09-19] MEDS: ANTIVERT 25 MG PO ×3 (08:57→23:28)
[2023-09-19] MEDS: DELTASONE 5 MG PO (08:57)
[2023-09-19] MEDS: ZINC SULFATE 220 MG PO (08:57)
[2023-09-19] MEDS: HEPARIN 5000 UNITS SC ×2 (08:58→20:21)
[2023-09-19] MEDS: DUPHALAC/CHRONULAC PO ×2 (08:58→20:35)
[2023-09-19] MEDS: XIFAXAN PO ×3 (09:09→21:21)
[2023-09-19] MEDS: HYDROPHOR 1 APPLIC TOPICAL (09:10)
[2023-09-19] MEDS: FLEXBUMIN 25% FOR HEMODIALYSIS 12.5 GRAMS IV (12:56)
[2023-09-19] MEDS: MANNITOL 12.5 GRAMS IV (12:56)
[2023-09-19] MEDS: RETACRIT 8000 UNITS IV (12:58)
--- NOTE | 2023-09-19 15:18 | W.PN.HOSP.TC ---
Today's Communication/Plan
-
continue dialysis
potential dc to facility tomorrow
Assessment / Plan
Assessment / Plan
63-year-old male past medical history of former alcohol use disorder, cirrhosis, end-stage liver disease, ESRD on hemodialysis Saturday, Saturday, Saturday, hypertension, subdural hematoma status post ventriculostomy shunt presenting for elevated
creatinine.� Patient's last dialysis session was a week ago due to refusing the last 2 dialysis sessions.� He denies any complaints.� He has baseline incontinence and denies any shortness of breath or cough or chest pain, nausea vomiting or diarrhea.
End-stage renal failure on dialysis Saturday, Saturday, Saturday
Non-anion gap metabolic acidosis
-Continue dialysis as per nephrology
-awaiting HD chair time arrangement
-Compliance remained a problem, patient requesting a different HD center.
-Patient now agreeable to go to a different [facility] with dialysis capabilities (he does not want to go back to [facility])
Acute hypoxic respiratory insufficiency - resolved
-resolved post thoracentesis
COVID 19 viral infection
-Asymptomatic. Also had minimal hypoxia resolved with thoracentesis
-Not a candidate of rem-D and paxlovid. also ESRD and have relative contraindication.
-Stopped IV decadron, back on skilled nursing prednisone 5mg/d
RLL atelectasis
Moderate right pleural effusion
-Chest x-ray showing right lower lobe atelectasis.
-US showed effusion.
-s/p drainage of right sided 1.65 L pleural fluid
Lactic Acidosis secondary to Missed Dialysis
-Resolved
Psoriasis
-Continue mometasone cream bid
Hyperphosphatemia
-Continue sevelamer
Chronic Hypotension
-Continue midodrine
Alcoholic Cirrhosis with ascites requiring intermittent paracentesis
-Continue lactulose, rifaximin, prednisone
-Abdominal ultrasound with small to moderate ascites earlier in the stay
-IRAD consulted for routine paracentesis.
Hx SBP
-Continue ciprofloxacin for prophylaxi
Hx Subdural Hematoma s/p [employer] Shunt
DVT proph: Subcu heparin
Code Status: Full Code
Discussed with sub plant manager, accepting facility want patient to be cleared from COVID before can be discharged.
Anticipated Discharge: 24 - 48 hours
Subjective/Interval History
-
Date of Service: September 19, 2023
Denies sob
Objective Data
-
Labs:
Laboratory Results
09/19/23
05:50
Sodium 133 L
Potassium 4.3
Chloride 102
Carbon Dioxide 24
BUN 56 H
Creatinine 5.6 H*
Glucose 69 L
Calcium 8.6
Vital Signs:
Vital Signs
Temp Pulse Resp BP Pulse Ox
98.0 F 100 16 92/68 95
09/19/23 07:44 09/19/23 12:52 09/19/23 07:44 09/19/23 12:52 09/19/23 07:44
I&O
09/18/23 09/19/23 09/20/23
06:59 06:59 06:59
Intake Total 960 / 960 270 / 270
Balance 960 / 960 270 / 270
Review of Systems
-
History Source: Patient and Coordinated Provider
Constitutional: Denies Fever
EENT: Reports No Symptoms Reported
Respiratory: Reports No Symptoms; Denies Cough or Trouble Breathing
Cardiac: Reports No Symptoms; Denies Chest Pain
Abdomen/GI: Reports No Symptoms
Physical Exam
-
General: Well Developed, Well Nourished and No Apparent Distress
HEENT: Normocephalic, Atraumatic and Moist Mucous Membranes
Respiratory: Clear to Auscultation; Negative Wheezes, Rales or Rhonchi
Cardiac: Regular Rhythm and S1/S2
GI: Soft, Nontender and Nondistended
--- NOTE | 2023-09-19 15:29 | W.PN.NEPH.HD ---
Assessment
-
pt seen during HD
vitals stable with midodrine
UF as allows
s/p paracentesis of 4.8lit on 09/17
plan d/c tomorrow after HD
Progress Note - Hemodialysis
-
Date of Service: September 19, 2023
Duration: 30 minutes and 3 hours
Potassium Bath: 3
Calcium Bath: 2.5
Opti-Dialyzer: 160
Ultrafiltration: Other (1-2kg)
Blood Flow: 400
Dialysate Flow: 600
Heparin: no
EPO: 8000
[2023-09-19 15:34] VITALS: BP 137/81
[2023-09-19] MEDS: PHOSLO PO (17:39)
[2023-09-19] MEDS: SEVELAMER CARBONATE PO (17:39)
[2023-09-19] MEDS: ProAmatine PO (17:46)
[2023-09-19 23:09] VITALS: BP 97/66
[2023-09-19] MEDS: BENADRYL 25 MG PO (23:21)
[2023-09-19] MEDS: CIPRO 500 MG PO (23:21)
[2023-09-19] MEDS: MELATONIN 10 MG PO (23:22)
[2023-09-20 05:35] VITALS: BMI 23.8
[2023-09-20 07:00] VITALS: BP 91/58
--- NOTE | 2023-09-20 08:42 | W.PN.HOSP.TC ---
Today's Communication/Plan
-
d/c snf rehab
Assessment / Plan
Assessment / Plan
63-year-old male past medical history of former alcohol use disorder, cirrhosis, end-stage liver disease, ESRD on hemodialysis Saturday, Saturday, Saturday, hypertension, subdural hematoma status post ventriculostomy shunt presenting for elevated
creatinine.� Patient's last dialysis session was a week ago due to refusing the last 2 dialysis sessions.� He denies any complaints.� He has baseline incontinence and denies any shortness of breath or cough or chest pain, nausea vomiting or diarrhea.
End-stage renal failure on dialysis Saturday, Saturday, Saturday
Non-anion gap metabolic acidosis
-Continue dialysis as per nephrology
-awaiting HD chair time arrangement
-Compliance remained a problem, patient requesting a different HD center.
-Patient now agreeable to go to a different SNF with dialysis capabilities (he does not want to go back to [facility])
Acute hypoxic respiratory insufficiency - resolved
-resolved post thoracentesis
COVID 19 viral infection
-Asymptomatic. Also had minimal hypoxia resolved with thoracentesis
-Not a candidate of rem-D and paxlovid. also ESRD and have relative contraindication.
-Stopped IV decadron, back on alf prednisone 5mg/d
RLL atelectasis
Moderate right pleural effusion
-Chest x-ray showing right lower lobe atelectasis.
-US showed effusion.
-s/p drainage of right sided 1.65 L pleural fluid
Lactic Acidosis secondary to Missed Dialysis
-Resolved
Psoriasis
-Continue mometasone cream bid
Hyperphosphatemia
-Continue sevelamer
Chronic Hypotension
-Continue midodrine
Alcoholic Cirrhosis with ascites requiring intermittent paracentesis
-Continue lactulose, rifaximin, prednisone
-Abdominal ultrasound with small to moderate ascites earlier in the stay
-IRAD consulted for routine paracentesis.
Hx SBP
-Continue ciprofloxacin for prophylaxi
Hx Subdural Hematoma s/p [employer] Shunt
DVT proph: Subcu heparin
Code Status: Full Code
More than 30 minutes spent in discharge including
Final examination of the patient
Summarizing hospital stay
Instructions for continuing care to all relevant caregivers
Preparation of discharge records, prescriptions, and referral forms
Total time spent (in minutes): 40 mins
Anticipated Discharge: Today
Subjective/Interval History
-
Date of Service: September 20, 2023
no complains overnight
resting comfortably in bed
Objective Data
-
Labs:
Laboratory Results
09/20/23
07:30
Sodium Pending
Potassium Pending
Chloride Pending
Carbon Dioxide Pending
BUN Pending
Creatinine Pending
Glucose Pending
Calcium Pending
Vital Signs:
Vital Signs
Temp Pulse Resp BP Pulse Ox
99.0 F 81 18 91/58 91
09/20/23 07:00 09/20/23 07:00 09/20/23 07:00 09/20/23 07:00 09/20/23 07:00
I&O
09/19/23 09/20/23 09/21/23
06:59 06:59 06:59
Intake Total 270 / 270 480 / 480
Balance 270 / 270 480 / 480
Review of Systems
-
Respiratory: Reports No Symptoms
Cardiac: Reports No Symptoms
Abdomen/GI: Reports No Symptoms
Physical Exam
-
General: No Apparent Distress
HEENT: Negative Oxygen
Respiratory: Clear to Auscultation; Negative Wheezes or Rales
Cardiac: Regular Rhythm and S1/S2
Musculoskeletal: No Edema
Neuro: Awake, Alert and Oriented
[2023-09-20] MEDS: PHOSLO 1334 MG PO ×2 (08:46→12:29)
[2023-09-20] MEDS: SEVELAMER CARBONATE 0.800000000000000044 GM PO ×2 (08:46→12:29)
[2023-09-20] MEDS: TYLENOL 650 MG PO (08:47)
[2023-09-20] MEDS: DUPHALAC/CHRONULAC 10 GRAMS PO (08:47)
[2023-09-20] MEDS: ZINC SULFATE 220 MG PO (08:48)
[2023-09-20] MEDS: ProAmatine 15 MG PO ×3 (08:48→16:41)
[2023-09-20] MEDS: VITAMIN D3 (cholecalciferol) 25 MCG PO (08:48)
[2023-09-20] MEDS: ANTIVERT 25 MG PO ×2 (08:48→16:40)
[2023-09-20] MEDS: HEPARIN 5000 UNITS SC (08:48)
[2023-09-20] MEDS: XIFAXAN 550 MG PO (08:48)
[2023-09-20] MEDS: DELTASONE 5 MG PO (08:49)
[2023-09-20] MEDS: HYDROPHOR 1 APPLIC TOPICAL (08:54)
--- NOTE | 2023-09-20 11:47 | CM ---
Addendum entered by Yen Buckner 09/20/23 16:33:
Called and LM for Althea from protective services [phone]
Made aware pt transferring to [facility] today
Called pts and gave him contact info for [facility]
Addendum entered by Yen Buckner 09/20/23 15:36:
Facility and pts [facility] aware of transport to Facility at 5:30PM
Addendum entered by Yen Buckner 09/20/23 12:19:
Updates sent in [facility]
Report - [phone]
Fax -[phone]
Original Note:
Pt for d/c today to [facility]
Received call from Monique at facility requesting updated PT/OT notes
Pt refused PT/OT last session. Spoke with pt - aware needs to participate in PT/OT today and receive HD today
Pt agreed to participate and receive HD.
Transport scheduled at 5:30PM
[facility]
[2023-09-20 11:59] VITALS: BP 81/56; BP 88/61; PULSE 95; O2SAT 94
--- NOTE | 2023-09-20 12:27 | W.PN.NEPH.HD ---
Assessment
-
patient on HD
sbp 99
will change uf to even
patient demands only 2 hrs of HD
Progress Note - Hemodialysis
-
Date of Service: September 20, 2023
Duration: 2 hours
Potassium Bath: 3
Calcium Bath: 2.5
Opti-Dialyzer: 160
Ultrafiltration: Other (none)
Blood Flow: 400
Dialysate Flow: 600
Heparin: none
EPO: 6kg
[2023-09-20] MEDS: RETACRIT 4000 UNITS IV (13:08)
[2023-09-20 13:43] LABS: Albumin 2.7 g/dl (3.5-5.0); Blood Urea Nitrogen 37 mg/dl (9-20); Calcium 8.3 mg/dl (8.4-10.2); Carbon Dioxide 25 mmol/L (22-30); Chloride 100 mmol/L (98-107); Estimated Creatinine Clearance 20 ml/min; Glucose 118 mg/dl (70-99); Phosphorus 2.6 mg/dl (2.5-4.5); Potassium 4.3 mmol/L (3.5-5.1); Sodium 133 mmol/L (135-145); eGFR 17.59
[2023-09-20 15:00] VITALS: BP 100/65
[2023-09-20] MEDS: PHOSLO PO (16:40)
[2023-09-20] MEDS: SEVELAMER CARBONATE PO (16:40)
--- NOTE | 2023-09-21 16:27 | W.DCSUMMARY ---
Discharge Summary
Discharge Data
Date of Admission: 08/30/23
Date of Discharge: 09/20/23
-
Pending Results: No
Hospital Course
Discharging Physician : Dr Ronny Beverly
Disposition : [facility] rehab
Primary care physician : Dr Denis Crouch
Principal Discharge diagnosis :
End-stage renal disease on hemodialysis
Acute hypoxic respite insufficiency
COVID-19 viral infection
Moderate right pleural effusion
Recurrent ascites
Chronic Discharge diagnosis :
Alcoholic cirrhosis
History of hepatorenal syndrome
Hyperphosphatemia
Chronic Hypotension
Ambulatory dysfunction
History of spontaneous bacterial peritonitis on ciprofloxacin
History of subdural hematoma post ventriculoperitoneal shunt
Hospital Course :
Patient is 63-year-old female with above-mentioned past medical history sent from [facility] for abnormal laboratory values. Patient declining hemodialysis and [facility] and was sent to ER for further evaluation.
End-stage renal disease -patient have hepatorenal syndrome and was sent to [facility] for transplant evaluation. Patient was discharged from [place] to [facility]. [facility] patient declined to get dialysis as was not agreeable
of staying in [facility]. Patient was sent into gallstone and required to be given emergent dialysis. Patient had metabolic derangements associated with incisional disease which resolved after emergent dialysis. Patient continued to decline to
go back to [facility] and was sent to [facility] rehab.
Acute hypoxic respiratory insufficiency -chest x-ray showing possible right lower lobe effusion. Follow-up x-ray showing atelectasis, patient provided incentive spirometry. Patient required thoracentesis later in the hospitalization with drainage
of 1.65 L transudative fluid.
COVID-19 viral infection -during the third week of patient hospitalization patient was found to having asymptomatic COVID-19 viral infection. COVID was checked as part of hypoxia workup although hypoxia was related to pleural effusion. Patient
did not require any treatment.
History of psoriasis -patient on chronic steroid therapy. Patient was provided high-dose IV steroid therapy for concern of worsening psoriasis and later for COVID and was tapered back to regular home dose of 5 mg daily steroid discharge.
Alcoholic cirrhosis -patient requires intermittent paracentesis and underwent drainage of 4.8 L ascitic fluid this admission. Already on ciprofloxacin for chronic prophylaxis against SBP.
Important imaging findings :
None
Procedure findings :
None
Discharge Plan
-
Patient Disposition: [facility]/SNF
Discharge Diagnosis/Procedures: ESRD on HD
Condition: Fair
Diet: Other diet
Additional Diets: 2g potassium and sodium diet
Activity: As tolerated
Driving Restrictions: No driving
Bathing Restrictions: OK to Shower
Activity Restrictions/Additional Instructions:
Wound Care Instructions
Buttocks: clean with soap and water, thin layer of barrier cream daily and prn soilage.
Air mattress or air overlay with frequent turning
Referrals:
Denis Crouch MD [Family Provider] - in one week
Prescriptions:
Continued
acetaminophen 325 mg Tablet
650 mg PO Q8H PRN (Reason: mild pain)
acetaminophen 650 mg Suppository
650 mg [place] Q4H PRN (Reason: temp>100F)
polyvinyl alcohol 1.4 % Drops
1 drp BOTH EYES QID
prednisone 5 mg tablet
5 mg PO DAILY
midodrine 5 mg Tablet
15 mg PO TID
melatonin 3 mg Tablet
3 mg PO HS
ciprofloxacin HCl 500 mg tablet
500 mg PO DAILY
magnesium hydroxide [Milk of Magnesia] 400 mg/5 mL Suspension
30 ml PO HS PRN (Reason: if no bm x 3 days)
meclizine 25 mg Tablet
25 mg PO TID
hydrocortisone 2.5 % Cream
1 applic TOPICAL BID
Rx Instructions:
apply to skin for psoriasis
nystatin 100,000 unit/gram powder
1 applic TOPICAL BID
mometasone 0.1 % Cream
1 applic TOPICAL BID
Rx Instructions:
apply to skin for psoriasis
calcium acetate(phosphat bind) 667 mg capsule
1,334 mg PO MEALS
lactulose 10 gram/15 mL solution
15 ml PO BID
zinc sulfate 50 mg zinc (220 mg) Capsule
50 mg PO DAILY
cholecalciferol (vitamin D3) [Vitamin D3] 25 mcg (1,000 unit) Tablet
25 mcg PO DAILY
sevelamer carbonate 800 mg tablet
800 mg PO AC
Xifaxan 550 mg tablet
550 mg PO BID
lidocaine 4 % Gel
1 applic TOPICAL Q10H
Rx Instructions:
apply to skin for psoriasis
balsam niels-castor oil [Venelex] Ointment
1 applic TOPICAL Q12H
Rx Instructions:
apply to skin for psoriasis
clobetasol ointment
topical BID
Discharge Orders:
Discharge Patient (As Directed); Ordered 09/20/23
Ordered By: Ronny Beverly
Discharge Date and Time
Discharge Date/Time: 09/20/23 18:22
== END 2023-09-20 18:22 | DRG 640 ==
LOC: 3 WEST ACU 10:21
PROVIDERS: Clinical Nurse Specialist Family Health; Family Medicine; Nurse Practitioner Family; Physician Assistant Medical; Radiology Vascular & Interventional Radiology; Specialist; Student in an Organized Health Care Education/Training Program; ADMITTING PHYSICIAN Hospitalist; ATTENDING PHYSICIAN Hospitalist; CONSULT PHYSICIAN Internal Medicine; EMERGENCY PHYSICIAN Emergency Medicine; FAMILY PHYSICIAN Internal Medicine; OTHER PHYSICIAN Psychiatry & Neurology Psychiatry; OTHER PHYSICIAN Student in an Organized Health Care Education/Training Program
PROC: 5A1D70Z Performance of Urinary Filtration, Intermittent, Less than 6 Hours Per Day (ICD-10-PCS; 2023-08-29)
PROC: 0W993ZZ Drainage of Right Pleural Cavity, Percutaneous Approach (ICD-10-PCS; 2023-09-16)
PROC: 0W9G3ZZ Drainage of Peritoneal Cavity, Percutaneous Approach (ICD-10-PCS; 2023-09-18)
DX: E87.20 Acidosis, unspecified (principal); N18.6 End stage renal disease; U07.1 COVID-19; J91.8 Pleural effusion in other conditions classified elsewhere; J98.11 Atelectasis; N17.9 Acute kidney failure, unspecified; I12.0 Hypertensive chronic kidney disease with stage 5 chronic kidney disease or end stage renal disease; K70.31 Alcoholic cirrhosis of liver with ascites; D64.9 Anemia, unspecified; F10.10 Alcohol abuse, uncomplicated; K72.10 Chronic hepatic failure without coma; G47.00 Insomnia, unspecified; R09.02 Hypoxemia; R06.89 Other abnormalities of breathing; L40.9 Psoriasis, unspecified; E83.39 Other disorders of phosphorus metabolism; D69.6 Thrombocytopenia, unspecified; I95.89 Other hypotension; Z76.82 Awaiting organ transplant status; Z75.1 Person awaiting admission to adequate facility elsewhere; Z99.2 Dependence on renal dialysis; Z87.891 Personal history of nicotine dependence; Z98.2 Presence of cerebrospinal fluid drainage device; Z91.158 Patient's noncompliance with renal dialysis for other reason; Z91.199 Patient's noncompliance with other medical treatment and regimen due to unspecified reason; Z79.52 Long term (current) use of systemic steroids
CPT/HCPCS: 32555; 49083; 71045; 71046; 76604; 76705; 80048; 80051; 80053; 80069; 82140; 82962; 83605; 83615; 83735; 84100; 84157; 85014; 85018; 85025; 85027; 86706; 86708; 86803; 87040; 87070; 87340; 87502; 87811; 89051; 93005; 96361; 96365; 96375; 97163; 97164; 97166; 97167; 97530; 99285; G0257; P9047; Q5106